=== PATIENT | male | born 1940 | race Caucasian/White ===

== ENCOUNTER 2022-06-21 16:23 | Outpatient (CLI) | payer MEDICARE, BC, SELFPAY ==
[2022-06-21 17:11] LABS: Appearance Urine Cloudy (Clear); Bilirubin Urine Negative (Negative); Blood Urine 3+ (Negative); Color Urine Red (Yellow); Glucose Urine Negative (Negative); Ketones Urine Negative (Negative); Leukocyte Esterase Urine 1+ (Negative); Nitrite Urine Negative (Negative); Protein Urine 3+ (Negative); Urobilinogen Urine 0.2 (0.2-1.0); pH Urine 7.5 (5.0-8.5)
[2022-06-21 17:22] LABS: RBC Urine >100 (0-2); WBC Urine 25-50 (0-5)
== END 2022-06-21 16:24 | disposition home or self-care (01) ==
LOC: LAB 16:27
PROVIDERS: PCP Family Medicine; Visit Provider Nurse Practitioner Adult Health
DX: N39.0 Urinary tract infection, site not specified (principal)
CPT/HCPCS: 81001; 87086

== ENCOUNTER 2023-01-27 15:02 | Outpatient (CLI) | payer MEDICARE, BC, SELFPAY | END 2023-01-27 15:03 | disposition home or self-care (01) | LOC: AMB 01-28 09:52 | PROVIDERS: PCP Family Medicine; Visit Provider Family Medicine | DX: N48.89 Other specified disorders of penis (principal); T85.9XXA Unspecified complication of internal prosthetic device, implant and graft, initial encounter | CPT/HCPCS: A0425; A0428; A0429 ==

== ENCOUNTER 2023-01-27 15:25 | Emergency (ER) | payer MEDICARE, BC, SELFPAY ==
[2023-01-27 15:27] VITALS: BP 115/71; RESP 18; TEMP 37.1; O2SAT 96; BMI 35.8
[2023-01-27 17:05] LABS: Appearance Urine Cloudy (Clear); Bilirubin Urine Negative (Negative); Blood Urine 3+ (Negative); Color Urine Yellow (Yellow); Glucose Urine Negative (Negative); Ketones Urine Negative (Negative); Leukocyte Esterase Urine 1+ (Negative); Nitrite Urine Negative (Negative); Protein Urine Negative (Negative); Specific Gravity Urine 1.015 (1.000-1.030); Urobilinogen Urine 0.2 (0.2-1.0)
[2023-01-27 17:21] LABS: RBC Urine 50-100 (0-2)
[2023-01-27 17:22] LABS: Bacteria Urine Few; Mucus Urine Few; Squamous Epithelial Cell Urine Few (None-Few)
--- NOTE | 2023-01-27 18:03 | ED.MALEGU ---
HPI - Male Genitourinary General Chief complaint: Urogenital Problems, Male Stated complaint: Bleeding Time Seen by Provider: 01/27/23 16:31 History of Present Illness HPI Narrative: This 82-year-old male has a chronic indwelling suprapubic catheter. He had the catheter changed today and has had some bleeding around the catheter and from his penis since then. There is no sign of active bleeding and he is not on blood thinners. His catheter bag is showing urine with ongoing proper flow of urine. He does not report any pain or fevers. Related Data Previous Rx's Medication Instructions Recorded nitrofurantoin 100 mg PO BID #10 caps 01/27/23 monohydrate/macrocrystals 100 mg capsule (Macrobid) Allergies Allergy/AdvReac Type Severity Reaction Status Date / Time adhesive tape Allergy Severe Verified 01/27/23 15:36 amoxicillin [From Augmentin] Allergy Severe Verified 01/27/23 15:36 bacitracin Allergy Severe Verified 01/27/23 15:36 [From Triple Antibiotic] cephalexin [From Keflex] Allergy Severe Verified 01/27/23 15:36 clavulanic acid Allergy Severe Verified 01/27/23 15:36 [From Augmentin] latex Allergy Severe Verified 01/27/23 15:36 neomycin Allergy Severe Verified 01/27/23 15:36 [From Triple Antibiotic] polymyxin B Allergy Severe Verified 01/27/23 15:36 [From Triple Antibiotic] silver sulfadiazine AdvReac Unknown Verified 01/27/23 15:36 Review of Systems Status of ROS: Reports: 10 or more systems reviewed and unremarkable except as noted in History and below Narrative: Constitutional: No fevers, no weight gain or loss. Eyes: No discharge. No vision changes. HENT: No congestion, no sore throat, no ear pain. Cardiovascular: No chest pain, no palpitations. Respiratory: No shortness of breath, no wheezes, no cough. Gastrointestinal: No abdominal pain, no vomiting, no diarrhea. Genitourinary: No dysuria, no hematuria. Musculoskeletal: Normal range of motion. Skin: No rashes, no pruritis. Neurological: No dizziness, weakness, sensory change, speech change. Endo/Heme/Allergies: No bruising or bleeding. No polydipsia. Pysch: no suicidality, no anxiety, no insomnia. All other systems reviewed and are negative. PFSH PFSH Social History Smoking Status: Never smoker Do you use any of these nicotine containing products: None Second hand tobacco smoke exposure: No How often do you have a drink containing alcohol: never How often do you have six or more drinks on one occasion: Never AUDIT-C Alcohol total score: 0 Non-prescribed substance use: denies use service: No Exam Narrative: Exam Narrative: Constitutional: Well-developed, well-nourished, no acute distress. HEENT: Normocephalic, atraumatic. Neck: Normal range of motion. Nontender. Supple. Heart: Intact distal pulses. Lungs: No chest discomfort. No wheezes, rhonchi, or rales. Abdomen: Nontender. Suprapubic catheter in place with no sign of active bleeding around the catheter. The catheter is functioning properly. There is some blood clot around his penis but again no sign of active bleeding. Back: Normal range of motion. Extremities: Normal range of motion. No injury. Skin: Intact. No rash. Warm. No erythema or pallor. Neurologic: No altered sensation. No weakness. Alert and oriented. Psychiatric: No suicidality. No anxiety or depression. No insomnia. Nursing notes and vitals signs are reviewed. Const: Vital Signs, click to edit/add: Vital Signs - 24 hr 01/27/23 15:27 Temperature 98.7 F Respiratory Rate 18 Blood Pressure [Ri ght Upper Arm] 115/71 Pulse Oximetry 96 Oxygen Delivery Me thod Room Air Course Vital Signs Vital signs: Initial Vital Signs Temperature 98.7 F 01/27/23 15:27 Temperature Source Temporal Artery Scan 01/27/23 15:27 Respiratory Rate 18 01/27/23 15:27 Blood Pressure 115/71 01/27/23 15:27 Blood Pressure Mean 85 01/27/23 15:27 Blood Pressure Position Supine 01/27/23 15:27 Pulse Oximetry 96 01/27/23 15:27 Oxygen Delivery Method Room Air 01/27/23 15:27 Vital Signs Temperature 98.7 F 01/27/23 15:27 Respiratory Rate 18 01/27/23 15:27 Blood Pressure 115/71 01/27/23 15:27 Pulse Oximetry 96 01/27/23 15:27 Oxygen Delivery Method Room Air 01/27/23 15:27 Temperature 98.7 F 01/27/23 15:27 Respiratory Rate 18 01/27/23 15:27 Blood Pressure 115/71 01/27/23 15:27 Pulse Oximetry 96 01/27/23 15:27 Oxygen Delivery Method Room Air 01/27/23 15:27 MDM - Male Genitourinary MDM Narrative Medical decision making narrative: This patient comes in for evaluation of his suprapubic catheter which was recently changed today. He did have some bleeding related to the catheter change but there is no sign of ongoing bleeding. Urinalysis does show microscopic hematuria and 5-10 white blood cells per high-powered field. His urinary catheter bag is showing that the flow of urine is functional. There is no sign of obstruction or problem with the function of the catheter bag. This patient was cleaned up and made ready to return home to continue current plans. He did receive a prescription for Macrobid. Lab Data Labs: Lab Results 01/27/23 01/27/23 01/27/23 Range/Units 16:58 16:58 16:58 Urine Color Cancelled Yellow Urine Appearance Cancelled Cloudy A Urine pH Cancelled Ur Specific [place] Urine Protein Urine Glucose (UA) Urine Ketones Urine Blood Urine Nitrite Urine Bilirubin Urine Urobilinogen Ur Leukocyte Esterase Urine RBC (0-2) Urine WBC (0-5) Ur Squamous Epith Cells (None-Few) Urine Bacteria (None) Urine Mucus (None) 01/27/23 01/27/23 01/27/23 Range/Units 16:58 16:58 16:58 Urine Color Urine Appearance Urine pH 6.0 Ur Specific [place] Cancelled 1.015 Urine Protein Cancelled Negative Urine Glucose (UA) Cancelled Urine Ketones Urine Blood Urine Nitrite Urine Bilirubin Urine Urobilinogen Ur Leukocyte Esterase Urine RBC (0-2) Urine WBC (0-5) Ur Squamous Epith Cells (None-Few) Urine Bacteria (None) Urine Mucus (None) 01/27/23 01/27/23 01/27/23 Range/Units 16:58 16:58 16:58 Urine Color Urine Appearance Urine pH Ur Specific [place] Urine Protein Urine Glucose (UA) Negative Urine Ketones Cancelled Negative Urine Blood Cancelled 3+ A Urine Nitrite Cancelled Urine Bilirubin Urine Urobilinogen Ur Leukocyte Esterase Urine RBC (0-2) Urine WBC (0-5) Ur Squamous Epith Cells (None-Few) Urine Bacteria (None) Urine Mucus (None) 01/27/23 01/27/23 01/27/23 Range/Units 16:58 16:58 16:58 Urine Color Urine Appearance Urine pH Ur Specific [place] Urine Protein Urine Glucose (UA) Urine Ketones Urine Blood Urine Nitrite Negative Urine Bilirubin Cancelled Negative Urine Urobilinogen Cancelled 0.2 Ur Leukocyte Esterase Cancelled Urine RBC (0-2) Urine WBC (0-5) Ur Squamous Epith Cells (None-Few) Urine Bacteria (None) Urine Mucus (None) 01/27/23 Range/Units 16:58 Urine Color Urine Appearance Urine pH Ur Specific [place] Urine Protein Urine Glucose (UA) Urine Ketones Urine Blood Urine Nitrite Urine Bilirubin Urine Urobilinogen Ur Leukocyte Esterase 1+ A Urine RBC 50-100 A (0-2) Urine WBC 5-10 A (0-5) Ur Squamous Epith Cells Few (None-Few) Urine Bacteria Few A (None) Urine Mucus Few A (None) Discharge Plan Discharge Clinical Impression: Problem with urinary catheter Patient Disposition: Home w/ Parent or Adult Condition: Improved Additional Instructions: Take medication as prescribed. Continue current plans. Follow up with MD or return recurrent or worsening symptoms happen. Prescriptions: New nitrofurantoin monohyd/m-cryst [Macrobid] 100 mg capsule 100 mg PO BID Qty: 10 0RF Rx Instructions: must administer with a meal/food Follow Up/Referrals: Gabe White MD [Primary Care Provider] - Stand Alone Forms: [employer] Info Instructions
--- NOTE | 2023-01-27 18:55 | ED.NURSE ---
Report given to [place] at [facility].
== END 2023-01-27 21:21 | disposition home or self-care (01) ==
PROVIDERS: Emergency Provider Emergency Medicine Emergency Medical Services; PCP Family Medicine
DX: T83.091A Other mechanical complication of indwelling urethral catheter, initial encounter (principal)
CPT/HCPCS: 81001; 81003; 87086; 99283; 99284

== ENCOUNTER 2023-01-27 21:13 | Outpatient (CLI) | payer MEDICARE, BC, SELFPAY | END 2023-01-27 21:14 | disposition home or self-care (01) | LOC: AMB 01-28 10:40 | PROVIDERS: PCP Family Medicine; Visit Provider Family Medicine | DX: G35 Multiple sclerosis (principal) | CPT/HCPCS: A0425; A0428 ==

== ENCOUNTER 2023-02-07 22:53 | Outpatient (REF) | payer MEDICARE, BC, SELFPAY ==
[2023-02-08 09:05] LABS: PCR FLU A Negative PCR FLU A (Negative); PCR FLU B Negative PCR FLU B (Negative); SARS PCR* ND (Negative)
== END 2023-02-07 22:54 | disposition home or self-care (01) ==
LOC: LAB 22:53
PROVIDERS: PCP Family Medicine; Visit Provider Nurse Practitioner Adult Health
DX: J10.1 Influenza due to other identified influenza virus with other respiratory manifestations (principal)
CPT/HCPCS: 87631

== ENCOUNTER 2024-03-09 16:18 | Outpatient (CLI) | payer MEDICARE, BC, SELFPAY | END 2024-03-09 16:19 | disposition home or self-care (01) | LOC: AMB 03-15 10:17 | PROVIDERS: PCP Family Medicine; Visit Provider Family Medicine | DX: R33.9 Retention of urine, unspecified (principal); R31.9 Hematuria, unspecified | CPT/HCPCS: A0425; A0428; A0429 ==

== ENCOUNTER 2024-03-09 16:39 | Emergency (ER) | payer MEDICARE, BC, SELFPAY ==
[2024-03-09 16:55] VITALS: BP 112/67; PULSE 67; RESP 18; TEMP 36.4; O2SAT 97; BMI 41.2
--- NOTE | 2024-03-09 17:03 | ED.GENADULT ---
HPI - General Adult General Chief complaint: Urogenital Problems, Male Stated complaint: Catheter issues Time Seen by Provider: 03/09/24 16:54 History of Present Illness HPI narrative: Patient here after suprapubic catheter isn't draining correctly. [facility] staff have tried flushing and replacing the catheter without success . Has been seen before for this same issue in the past. Urine is tinged pink. 83-year-old man presenting to the emergency department via EMS with concern of plugged suprapubic catheter. Sounds as though there may also be concern of infection. No noted fever. Care staff have attempted to flush and replace the catheter unsuccessfully. Urine is noted to be tinged pink. Mr. Myers says that he is feeling quite well. Denying any abdominal pain. Denies fever. Mr. Myers notes regular monthly changes of his suprapubic catheter and says/thinks that this was the case today. Reviewing records I see that he was seen in this facility about 6 weeks ago with similar complaints. Was given Macrobid and urine culture was unremarkable. Prior urine cultures also here have not grown out anything of significance. Related Data Home Medications Medication Instructions Recorded Confirmed Lactobacillus acidophilus 1 cap PO DAILY 03/09/24 03/09/24 (Acidophilus capsule) apixaban 2.5 mg tablet (Eliquis) 2.5 mg PO BID 03/09/24 03/09/24 azithromycin 250 mg tablet mg PO 03/09/24 bacitracin 500 unit/gram topical topical 03/09/24 ointment ciprofloxacin HCl 250 mg tablet 250 mg PO BID 03/09/24 03/09/24 donepezil 10 mg tablet 10 mg PO DAILY 03/09/24 03/09/24 furosemide 40 mg tablet mg PO 03/09/24 memantine 5 mg tablet 5 mg PO DAILY 03/09/24 03/09/24 oxybutynin chloride 5 mg 5 mg PO DAILY 03/09/24 03/09/24 tablet,extended release 24 hr potassium chloride 20 mEq 20 meq PO BID 03/09/24 03/09/24 tablet,extended release(part/cryst) sertraline 50 mg tablet mg PO 03/09/24 tramadol 50 mg tablet PO 03/09/24 triamcinolone acetonide 0.1 % applic topical 03/09/24 topical cream Allergies Allergy/AdvReac Type Severity Reaction Status Date / Time adhesive tape Allergy Severe Verified 01/27/23 15:36 amoxicillin [From Augmentin] Allergy Severe Verified 01/27/23 15:36 bacitracin Allergy Severe Verified 01/27/23 15:36 [From Triple Antibiotic] cephalexin [From Keflex] Allergy Severe Verified 01/27/23 15:36 clavulanic acid Allergy Severe Verified 01/27/23 15:36 [From Augmentin] latex Allergy Severe Verified 01/27/23 15:36 neomycin Allergy Severe Verified 01/27/23 15:36 [From Triple Antibiotic] polymyxin B Allergy Severe Verified 01/27/23 15:36 [From Triple Antibiotic] silver sulfadiazine AdvReac Unknown Verified 01/27/23 15:36 Review of Systems Status of ROS: Reports: 6 or more systems reviewed and unremarkable except as noted in History and below [facility] Social History Smoking Status: Never smoker Do you use any of these nicotine containing products: None Second hand tobacco smoke exposure: No How often do you have a drink containing alcohol: never How often do you have six or more drinks on one occasion: Never AUDIT-C Alcohol total score: 0 Non-prescribed substance use: denies use service: No Exam Narrative: Exam Narrative: Pleasant. Quite alert. I am not sure of quality of recollection. Breathing easily. Skin is warm and dry. 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 Says these are related to surgeries. Surgical scars with absent right thumb as well. Lungs appear to be clear. Heart is in regular rate. Abdomen is overweight soft and nontender. In lower abdominal fold is suprapubic catheter. There is some small amount of erythematous tissue but without active bleeding. No surrounding inflammatory changes otherwise. No induration of the skin. Catheter looks to be draining clear but lightly blood-tinged urine. Const: Vital Signs, click to edit/add: Vital Signs - 24 hr 03/09/24 16:55 Temperature 97.6 F Pulse Rate [Pulse Oximeter] 67 Respiratory Rate 18 Blood Pressure [Ri ght Upper Arm] 112/67 Pulse Oximetry 97 Oxygen Delivery Me thod Room Air Documenting provider has reviewed patient's vital signs: yes Course Vital Signs Vital signs: Initial Vital Signs Temperature 97.6 F 03/09/24 16:55 Temperature Source Temporal Artery Scan 03/09/24 16:55 Pulse Rate 67 03/09/24 16:55 Pulse Rhythm Regular 03/09/24 16:55 Respiratory Rate 18 03/09/24 16:55 Blood Pressure 112/67 03/09/24 16:55 Blood Pressure Mean 82 03/09/24 16:55 Blood Pressure Position Sitting 03/09/24 16:55 Pulse Oximetry 97 03/09/24 16:55 Oxygen Delivery Method Room Air 03/09/24 16:55 Vital Signs Temperature 97.6 F 03/09/24 16:55 Pulse Rate 67 03/09/24 16:55 Respiratory Rate 18 03/09/24 16:55 Blood Pressure 112/67 03/09/24 16:55 Pulse Oximetry 97 03/09/24 16:55 Oxygen Delivery Method Room Air 03/09/24 16:55 Temperature 97.6 F 03/09/24 16:55 Pulse Rate 67 03/09/24 16:55 Respiratory Rate 18 03/09/24 16:55 Blood Pressure 112/67 03/09/24 16:55 Pulse Oximetry 97 03/09/24 16:55 Oxygen Delivery Method Room Air 03/09/24 16:55 Medical Decision Making MDM Narrative Medical decision making narrative: In the setting of anticoagulation may be bleeding from inadvertent manipulation of the catheter or may be due to urinary tract infection. More difficult to tell with chronic suprapubic catheter. What appear to be significant findings in urine in the past have not grown out any definitive cultures. Listed in record also are numerous antibiotic allergies. Does not appear to be bleeding to the degree that would require continuous bladder irrigation again in the setting of anticoagulation. Preference would not to be to collect urine. I would attempt to flush/clear this catheter. This was done with success. I then understand that due to preference by place of residence, urine was sent for analysis. I do review this. Unique this time is presence of nitrate. I would still monitor for urine culture. See patient discharge plan for further discussion Medical Records Medical records reviewed: Yes I reviewed the patient's medical records Lab Data Lab results reviewed: Yes I reviewed the patient's lab results Labs: Lab Results 03/09/24 Range/Units 18:19 Urine Color Red A (Yellow) Urine Appearance Slightly Cloudy A (Clear) Urine pH 6.0 (5.0-8.5) Ur Specific [place] 1.020 (1.000-1.030) Urine Protein 3+ A (Negative) Urine Glucose (UA) Negative (Negative) Urine Ketones Negative (Negative) Urine Blood 3+ A (Negative) Urine Nitrite Positive A (Negative) Urine Bilirubin Negative (Negative) Urine Urobilinogen 0.2 (0.2-1.0) Ur Leukocyte Esterase 3+ A (Negative) Urine RBC 10-25 A (0-2) Urine WBC 10-25 A (0-5) Ur Squamous Epith Cells Few (None-Few) Urine Bacteria Few A (None) Discharge Plan Discharge Clinical Impression: Obstructed suprapubic catheter Patient Disposition: Home w/ Parent or Adult Condition: Improved Additional Instructions: I think it is important to wait to treat pending the results of urine culture which will be done here. Recent urine cultures have not grown out anything to treat. We will call if urine culture looks to be significant. Continue to monitor for good urinary output. Report fever, unusual somnolence for agitation, increasing abdominal pain. Prescriptions: No Action furosemide 40 mg tablet PO azithromycin 250 mg tablet PO donepezil 10 mg tablet 10 mg PO DAILY bacitracin 500 unit/gram ointment topical ciprofloxacin HCl 250 mg tablet 250 mg PO BID tramadol 50 mg tablet PO triamcinolone acetonide 0.1 % cream topical potassium chloride 20 mEq tablet,ER particles/crystals 20 meq PO BID oxybutynin chloride 5 mg tablet extended release 24hr 5 mg PO DAILY Acidophilus Capsule 1 cap PO DAILY sertraline 50 mg tablet PO memantine 5 mg tablet 5 mg PO DAILY Eliquis 2.5 mg tablet 2.5 mg PO BID Follow Up/Referrals: Gabe White MD [Primary Care Provider] - Stand Alone Forms: [employer] Info Instructions
[2024-03-09 18:38] LABS: Appearance Urine Slightly Cloudy (Clear); Bilirubin Urine Negative (Negative); Blood Urine 3+ (Negative); Color Urine Red (Yellow); Glucose Urine Negative (Negative); Ketones Urine Negative (Negative); Leukocyte Esterase Urine 3+ (Negative); Nitrite Urine Positive (Negative); Protein Urine 3+ (Negative); Urobilinogen Urine 0.2 (0.2-1.0)
[2024-03-09 19:23] LABS: Bacteria Urine Few; Squamous Epithelial Cell Urine Few (None-Few)
== END 2024-03-09 21:05 | disposition home or self-care (01) ==
PROVIDERS: Emergency Provider Family Medicine; PCP Family Medicine
DX: T83.098A Other mechanical complication of other urinary catheter, initial encounter (principal)
CPT/HCPCS: 81001; 87086; 99283; 99284

== ENCOUNTER 2024-03-09 21:01 | Outpatient (CLI) | payer MEDICARE, BC, SELFPAY | END 2024-03-09 21:02 | disposition home or self-care (01) | LOC: AMB 03-15 10:46 | PROVIDERS: PCP Family Medicine; Visit Provider Family Medicine | DX: G35 Multiple sclerosis (principal); Z74.01 Bed confinement status | CPT/HCPCS: A0425; A0428 ==

== ENCOUNTER 2024-10-12 19:54 | Outpatient (CLI) | payer MEDICARE, BC, SELFPAY ==
--- OUTSIDE RECORDS SUMMARY | 2024-10-12 19:58 | XMS_ITS | Clinical Summary ---
Author Organization [facility] Address [address] [place] [address] Care Team Providers Care Graphic Editor Name Role Phone Elsewhere, Pcp Primary Care Provider Unavailabl e Source Comments Patient records contain information from all sites at [facility]. For routine questions regarding patient records, call [phone] during business hours, M-F 8:00 AM - 5:00 PM Central Time. Record requests for emergency care only can be directed to [phone] at any time.[facility] Allergies Active Allergy Reactions Criticality Noted Date Comments Adhesive Tape-Silicones Other (see comments) Amoxicillin-Pot Clavulanate Diarrhea 08/03/20 11 Bacitracin-Polymyxin B Rash 01/11/2011 Latex Swelling 01/01/2013 Myizkhys-Cixhhnzzxz-Kvcbbjtf n Itching 10/13/2011 Nitrofurantoin Monohyd/M-Cryst Other (see comments),GI intolerance Low 06/11/2015 Silver Sulfadiazine Other (see comments) 2009 Medications cranberry 500 mg capsule Take 1 capsule by mouth daily. 3 Active donepeziL (Aricept) 10 mg tablet Take 1 tablet by mouth at bedtime. 6 Active multivitamin-m pdacxnp-ZU-znc opene-lutein (CENTRUM SILVER) 0.4 mg-300 mcg- 250 mcg tablet Take 1 tablet by mouth daily. 0 Active loperamide (IMODIUM A-D) 2 mg capsule Give 1 tablet by mouth as needed for diarrhea 2 mg after each loose stool up to 60 mg in 24 hours 90 capsule 3 0 Active sennosides-doc usate sodium (SENOKOT-S) 8.6-50 mg per tablet Take 1 tablet by mouth at bedtime as needed for constipation. 0 Active L.acidoph-B.la ctis-B.longum (FLORAJEN 3) 460 mg (7.5-6- 1.5 bill. cell) per capsule Take 1 capsule by mouth daily. Active melatonin 3 mg tablet Take 3 tablets (9 mg total) by mouth at bedtime. 1 Active sertraline (ZOLOFT) 50 mg tablet Take 1 tablet (50 mg total) by mouth daily. 1 Active apixaban (ELIQUIS) 2.5 mg tablet Take 2.5 mg by mouth 2 (two) times a day. Active memantine (NAMENDA) 5 mg tablet Take 1 tablet (5 mg total) by mouth daily. 1 Active furosemide (LASIX) 40 mg tablet Take 1 tablet (40 mg total) by mouth daily. 1 Active atenoloL (TENORMIN) 50 mg tablet Take 1 tablet (50 mg total) by mouth daily. 90 tablet 3 1 Active Additional Information Patient not taking.Reported on 09/17/2024 acetaminophen (TYLENOL) 325 mg tablet Take 2 tablets (650 mg total) by mouth every 8 (eight) hours as needed. 1 Active ciprofloxacin (CIPRO) 500 mg tablet Take 1 tablet (500 mg total) by mouth 2 (two) times a day before breakfast and dinner. For three days after catheter change 6 tablet 5 1 Active traMADoL (ULTRAM) 50 mg tabletIndicati ons:Chronic Pain/Nonacute Pain Take 0.5 tablets (25 mg total) by mouth 3 (three) times a day Indications: Chronic Pain/Nonacute Pain. And one dose ( 25 mg ) during the night PRN pain. 45 tablet 2 Active oxybutynin (DITROPAN-XL) 5 mg 24 hr tablet 2 Active potassium chloride (KLOR-CON M/KDUR) 20 mEq ER tablet 2 Active doxycycline hyclate (VIBRAMYCIN) 100 mg capsule 3 Active oseltamivir (TAMIFLU) 75 mg capsule 3 Active albuterol 2.5 mg /3 mL nebulizer solution 4 Active bacitracin 500 unit/gram ointment 4 Active LORazepam (Ativan) 0.5 mg tablet 4 Active triamcinolone (Kenalog) 0.1 % cream 4 Active sertraline (Zoloft) 25 mg tablet 4 Active nystatin (Mycostatin) 100,000 unit/gram cream 4 Active AZITHROMYCIN ORAL Take 250 mg by mouth as needed. 2 tablets by mouth as needed for prior to dental treatment PRN Active amoxicillin (AMOXIL) 500 mg capsule Take 4 capsules (2,000 mg total) by mouth once as needed. 1 09/17/20 24 Discontin ued(Formu paula change) nystatin (NYSTOP) 100,000 unit/gram powder 3 09/17/20 24 Discontin ued(Dupli najma order) Active Problems Patient Care Coordination No te Formatting of this note migh t be different from the original. Patient is a resident at a [facility]. Problem Noted Date Diagnosed Date Personal History Of Infectio us And Parasitic Disease (COVID-19) 12/11/2021 Overview (12/11/2021): COVID Assessment & Plan (12/11/2021 9:56 AM DEPARTMENT OF NATURAL RESOURCES OFFICER): He was covid positive on 11/30/21. He had minor symptoms and is now off restrictions. Atrial Fibrillation Unspecified 09/21/2021 Overview (12/11/2021): A fib Assessment & Plan (12/11/2021 9:54 AM DEPARTMENT OF NATURAL RESOURCES OFFICER): Atenolol for rate control and apixaban 2.5 mg bid for anticoagulation. Assessment & Plan (10/20/2021 8:33 AM DEPARTMENT OF NATURAL RESOURCES OFFICER): He is on prison anticoagulation. Atrial Fibrillation Personal History 09/20/2021 Overview (10/06/2021): Atenolol for rate control and apixaban for anticoagulation. Assessment & Plan (11/30/2021 3:03 PM DEPARTMENT OF NATURAL RESOURCES OFFICER): Stable on current medications. Assessment & Plan (10/06/2021 7:44 PM DEPARTMENT OF NATURAL RESOURCES OFFICER): Heart rate and blood pressure adequate on increased dose of atenolol. Diastasis Recti 05/19/2021 Overview (05/19/2021): Diastasis recti Assessment & Plan (12/11/2021 9:51 AM DEPARTMENT OF NATURAL RESOURCES OFFICER): He has no pain or symptoms. Assessment & Plan (09/15/2021 8:07 PM DEPARTMENT OF NATURAL RESOURCES OFFICER): Resp easy. 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 Constipation 03/31/2021 Overview (05/19/2021): Slow transit constipation Assessment & Plan (12/11/2021 9:51 AM DEPARTMENT OF NATURAL RESOURCES OFFICER): His bowels are moving in his normal pattern using Senna S 1 tab hs prn. He is also on a probiotic daily. Assessment & Plan (11/30/2021 3:03 PM DEPARTMENT OF NATURAL RESOURCES OFFICER): Bowel agents available. Assessment & Plan (10/20/2021 8:30 AM DEPARTMENT OF NATURAL RESOURCES OFFICER): His bowels are moving in his normal pattern on senna and probiotic. Assessment & Plan (09/15/2021 8:06 PM DEPARTMENT OF NATURAL RESOURCES OFFICER): His bowels are moving in a normal pattern with his scheduled bowel meds Assessment & Plan (07/28/2021 1:18 PM CDT): Bowel agents available. Assessment & Plan (05/19/2021 8:02 PM CDT): His bowels are moving in his normal bowel pattern Assessment & Plan (03/31/2021 9:03 PM CDT): Bowel agents available. Edema 03/03/2021 Overview (03/31/2021): Bilateral lower extremity edema This is multifactorial and related mostly to immobility and dependent posture. Assessment & Plan (12/11/2021 9:48 AM DEPARTMENT OF NATURAL RESOURCES OFFICER): His legs are wrapped and he elevates them routinely during the day when he is in bed. Assessment & Plan (09/15/2021 8:05 PM DEPARTMENT OF NATURAL RESOURCES OFFICER): He has dependent edema. Legs are wrapped. Weight is stable. Assessment & Plan (07/28/2021 1:18 PM CDT): He is on diuretics, low-sodium diet, elevates his legs, and is wrapped. Assessment & Plan (06/24/2021 11:03 AM CDT): He recently had metolazone added every other day. His edema seems to have improved. He has more compliant with elevating his legs. Assessment & Plan (06/20/2021 11:31 AM CDT): The edema is significant. It appears to be a combination of lymphedema and pitting edema. Will ask for meticulous wrapping. He has orders to lay down and elevate his legs b.i.d. at least 15 minutes. That is not nearly enough, but he enjoys being up in his chair. Follow-up labs next week. Assessment & Plan (05/19/2021 8:00 PM CDT): Edema is controlled at present with no blisters or ulcers Assessment & Plan (03/31/2021 9:04 PM CDT): Continue current regimen of wraps, elevation, furosemide. Assessment & Plan (03/10/2021 10:20 PM CDT): He has dependent lower extremity edema. He states that he sits up in his wheelchair most of the day with his legs down. Benjamin wraps were ordered however today he only has Tubigrip on. He has 4+ tight edema in his right lower extremity. He also has edema in his left lower extremity. He will have Lasix increased from 40-60 mg in the morning keeping the 40 mg afternoon dose. PT will do of lymphedema evaluation to help reduce the edema. I did speak with his daughter Megan prior to seeing him. She states that he eats a lot of Peanuts. She normally by see him lightly salt it peanut. She did bring him in a can of regular huang did sole to DP notes. She feels this is the reason that his legs are swollen and that his abdomen appears swollen to her. Assessment & Plan (03/03/2021 4:05 PM CDT): Or will is nonambulatory. He has muscle wasting of MS. He has dependent edema in his legs. He has short stretch wraps on that only go to his mid leg slightly above the ankle. This is causing the fluid in the leg to pop I above the wraps. He has pedal edema with erythema from the fluid. I will have nursing wrap his legs in a figure 8 from toes to knees bilaterally, with a wraps on in the morning and off at night Insomnia 01/20/2021 Overview (01/20/2021): Insomnia Assessment & Plan (12/11/2021 9:48 AM DEPARTMENT OF NATURAL RESOURCES OFFICER): He is sleeping well on Melatonin 9 mg. Assessment & Plan (11/30/2021 3:02 PM DEPARTMENT OF NATURAL RESOURCES OFFICER): Continue current dose of melatonin. Assessment & Plan (10/20/2021 8:22 AM DEPARTMENT OF NATURAL RESOURCES OFFICER): The melatonin is effective in helping him sleep[. Assessment & Plan (09/15/2021 8:05 PM DEPARTMENT OF NATURAL RESOURCES OFFICER): He is sleeping well on melatonin Assessment & Plan (07/28/2021 1:20 PM CDT): He continues on melatonin. Assessment & Plan (05/19/2021 8:01 PM CDT): He sleeps well on Melatonin Assessment & Plan (03/31/2021 9:04 PM CDT): Continue melatonin. Assessment & Plan (01/20/2021 4:56 PM CDT): He is sleeping well on melatonin 6 mg at bedtime Urinary Tract Infection Site Not Specified 09/30 Overview (09/30/2020): History of Urinary tract infection Assessment & Plan (12/11/2021 10:31 AM DEPARTMENT OF NATURAL RESOURCES OFFICER): He continues on cranberry and has cipro 3 days after a catheter change. The urine from 11/18/21 showed he had a UTI. I do not see where it was treated. I am requesting a catheter change today and a fresh urine sent for UA/UC. He will have his 3 days of cipro 500 mg bid with the catheter change. Assessment & Plan (10/20/2021 8:23 AM DEPARTMENT OF NATURAL RESOURCES OFFICER): He is prone to UTI's. He has his catheter changed monthly with a 3 day course of cipro surrounding the changes.. He is also on cranberry 500 mg bid. Assessment & Plan (10/06/2021 7:48 PM DEPARTMENT OF NATURAL RESOURCES OFFICER): Most recently treated with IV ceftriaxone and then oral Omnicef to total 10 day course of treatment. Assessment & Plan (09/30/2020 2:44 PM DEPARTMENT OF NATURAL RESOURCES OFFICER): Brad was seen at [facility] emergency department September 03 was diagnosed with the urinary tract infection with Gina. He is currently finishing a course of doxycycline and Diflucan. He is asymptomatic in his urine is clear. He has a suprapubic catheter that is changed monthly. The protocol is to give him Cipro 3 days prior to having the catheter changed. He has a neurogenic bladder due to multiple sclerosis. Chronic Pain Syndrome 03/13/2019 Overview (09/15/2021): Chronic pain of MS Assessment & Plan (12/11/2021 9:53 AM DEPARTMENT OF NATURAL RESOURCES OFFICER): His pain is controlled with Tramadol 25 mg tid and x 1 prn during the night and tylenol 650 mg Q 6 h prn. Assessment & Plan (10/20/2021 8:31 AM DEPARTMENT OF NATURAL RESOURCES OFFICER): Pain is controlled with tylenol and tramadol. Assessment & Plan (09/15/2021 8:09 PM DEPARTMENT OF NATURAL RESOURCES OFFICER): He takes tramadol 25 mg tid. This enables him to be up in the chair and enjoy the day. He socializes with other men at his dining room table. Assessment & Plan (07/28/2021 1:22 PM CDT): He has no complaints of pain on his current regimen of scheduled tramadol and acetaminophen. He agrees to a trialed dose reduction to 25 mg t.i.d. of tramadol. Monitor for increased pain and reassess. Half-Way Examination 60 Day Certification Overview (07/10/2019): [facility] Assessment & Plan (11/30/2021 2:57 PM DEPARTMENT OF NATURAL RESOURCES OFFICER): Current comorbidities, ADL need/level of debility requires skilled care/therapy. Medications and labs all reviewed and appropriate related to comorbidities, unless otherwise indicated. Physician order sheet signed. Continue restorative/maintenance care plan, nutrition intervention, skin protection, and fall prevention. He will be tested for COVID-19 according to the prevalence in the community and in the facility in accordance with [facility] guidelines. Assessment & Plan (10/20/2021 8:15 AM DEPARTMENT OF NATURAL RESOURCES OFFICER): He is a prison resident at [facility]. Assessment & Plan (09/15/2021 7:47 PM DEPARTMENT OF NATURAL RESOURCES OFFICER): He is appropriate for buttermaker continuous churn care Assessment & Plan (05/19/2021 7:54 PM CDT): He is a prison resident at [facility] Assessment & Plan (01/20/2021 4:52 PM CDT): He is a long-term resident on the rest of the nursing on. His recently Assessment & Plan (07/15/2020 1:50 PM CDT): He is a long-term resident at [facility]. He shares a room with his Ya. Assessment & Plan (03/18/2020 2:25 PM CDT): He is a long-term resident at [facility]. He shares a room with his . Assessment & Plan (11/13/2019 3:37 PM DEPARTMENT OF NATURAL RESOURCES OFFICER): He is a long-term resident at [facility] Assessment & Plan (07/10/2019 4:28 PM CDT): He is a long-term side of [facility]. He shares a room with his Major Depressive Disorder, Recurrent, Unspecifie d 12/20/2016 Overview (03/29/2017): Depression Major Recurrent Moderate Assessment & Plan (12/11/2021 9:45 AM DEPARTMENT OF NATURAL RESOURCES OFFICER): He is on sertraline 50 mg daily. He lost his , who was also his roommate recently. He also vocalized that he will miss his current friends at [facility]. Assessment & Plan (11/30/2021 3:03 PM DEPARTMENT OF NATURAL RESOURCES OFFICER): Stable on current dose of sertraline. Assessment & Plan (10/20/2021 8:29 AM DEPARTMENT OF NATURAL RESOURCES OFFICER): Stable on sertraline 50 mg daily. Assessment & Plan (09/15/2021 8:00 PM DEPARTMENT OF NATURAL RESOURCES OFFICER): Sertraline is effective for managing depression Assessment & Plan (07/28/2021 1:18 PM CDT): Continues on sertraline with no complaints of increased symptoms. Assessment & Plan (06/24/2021 11:01 AM CDT): It is highly likely that his symptoms are at least in part due to increasing depression as he has recently lost his . He is willing to see in-house Psychology and I would like to increase sertraline after his labs are complete. Assessment & Plan (05/19/2021 7:58 PM CDT): He is doing well on duloxetine Assessment & Plan (03/31/2021 9:03 PM CDT): This is stable on duloxetine. Assessment & Plan (03/18/2020 2:26 PM CDT): He is not showing any signs of depression. Nursing reports no symptomatology Assessment & Plan (11/13/2019 3:54 PM DEPARTMENT OF NATURAL RESOURCES OFFICER): He is currently stable on Zoloft 125 mg daily. Assessment & Plan (07/10/2019 4:32 PM CDT): He is currently stable on Zoloft 50 mg daily. No dose reduction will be done as his disease process is progressing. This could add to his situational depression. 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 He is stable on donepezil 10 mg at bedtime and memantine 5 mg in the morning. Assessment & Plan (11/30/2021 2:59 PM DEPARTMENT OF NATURAL RESOURCES OFFICER): He is stable on donepezil and memantine. Assessment & Plan (10/20/2021 8:20 AM DEPARTMENT OF NATURAL RESOURCES OFFICER): He continues with his memory pills donepezil and memantine Assessment & Plan (09/15/2021 7:58 PM DEPARTMENT OF NATURAL RESOURCES OFFICER): He is doing well on donepezil and memantine. Assessment & Plan (07/28/2021 1:20 PM CDT): He is very stable on donepezil and memantine. Assessment & Plan (05/19/2021 7:58 PM CDT): He continues on donepezil and memantine. He has no behaviors or current memory problems Assessment & Plan (03/31/2021 9:05 PM CDT): He is doing well without behaviors on donepezil and memantine Assessment & Plan (01/20/2021 4:55 PM CDT): He is on Namenda and Aricept. His cognition is stable Assessment & Plan (07/15/2020 1:53 PM CDT): He takes Namenda and Aricept. Assessment & Plan (03/18/2020 2:26 PM CDT): He continues to do well on the Namenda which he calls is m macho pill . Assessment & Plan (11/13/2019 3:39 PM DEPARTMENT OF NATURAL RESOURCES OFFICER): He is stable on Namenda XR 14 mg daily. He is also on Aricept 10 mg at bedtime Assessment & Plan (07/10/2019 4:33 PM CDT): He is currently stable on Namenda. He calls that his memory pill. He also is on Aricept 10 mg daily Hypertension Essential Primary 05/28/2015 Overview (03/29/2017): Hypertension (HTN) Essential Benign Assessment & Plan (12/11/2021 9:46 AM DEPARTMENT OF NATURAL RESOURCES OFFICER): He is normotensive and hemodynamically stable on Atenolol 50 mg and furosemide 40 mg. Assessment & Plan (11/30/2021 3:03 PM DEPARTMENT OF NATURAL RESOURCES OFFICER): He is on atenolol and furosemide. Assessment & Plan (10/20/2021 8:28 AM DEPARTMENT OF NATURAL RESOURCES OFFICER): Blood pressures are stable on furosemide and atenolol. Rate controlled with atenolol. Assessment & Plan (09/15/2021 8:04 PM DEPARTMENT OF NATURAL RESOURCES OFFICER): He is normotensive and hemodynamically stable on his current regimen. Assessment & Plan (07/28/2021 1:19 PM CDT): Blood pressure adequate on current medications. Assessment & Plan (05/19/2021 7:59 PM CDT): He is normotensive and hemodynamically stable on his current meds. Assessment & Plan (03/31/2021 9:04 PM CDT): Well controlled on current medications. Assessment & Plan (01/20/2021 4:56 PM CDT): He is normotensive and hemodynamically stable on atenolol 25 mg daily and Lasix 40 mg daily Assessment & Plan (07/15/2020 1:55 PM CDT): He is normotensive and hemodynamically stable on atenolol Lasix and potassium. A BMP will be drawn Assessment & Plan (03/18/2020 2:25 PM CDT): He continues to be normotensive and hemodynamics likely stable on his current plan. There will be no changes Assessment & Plan (11/13/2019 3:42 PM DEPARTMENT OF NATURAL RESOURCES OFFICER): He is normotensive and hemodynamically stable on aspirin, furosemide 40 mg twice a day and atenolol. He is also on potassium 20 mEq twice a day. Component Ref Range & Units 11mo ago SODIUM 135 - 145 mmol/L 141 POTASSIUM 3.5 - 5.0 mmol/L 4.0 CHLORIDE 98 - 110 mmol/L 106 CO2,TOTAL 21 - 31 mmol/L 24 ANION GAP 5 - 18 11 GLUCOSE 65 - 100 mg/dL 101High CALCIUM 8.5 - 10.5 mg/dL 9.4 BUN 8 - 25 mg/dL 17 CREATININE 0.72 - 1.25 mg/dL 0.97 BUN/CREAT RATIO 10 - 20 18 GFR if >60 ml/min/1.73m2 >60 GFR if not >60 ml/min/1.73m2 >60 He will be due soon for a repeat basic metabolic panel Assessment & Plan (07/10/2019 4:31 PM CDT): He is normotensive and hemodynamically stable on atenolol, furosemide and potassium. A CBC and a BMP will be drawn for monitoring of renal function electrolytes and blood indices. Neurogenic Bladder 01/11/2011 Overview (03/31/2021): Neurogenic bladder He has a suprapubic catheter which is changed monthly and p.r.n.. He gets Cipro for 3 days after catheter change. Assessment & Plan (12/11/2021 9:47 AM DEPARTMENT OF NATURAL RESOURCES OFFICER): He has a suprapubic catheter which is changed monthly. The catheter was last changed when it was to be leaking around the site on November. A UA was sent. Next catheter change should be scheduled for December 16, 2019 Assessment & Plan (11/30/2021 2:57 PM DEPARTMENT OF NATURAL RESOURCES OFFICER): No recent difficulties with his suprapubic catheter. Assessment & Plan (10/20/2021 8:21 AM DEPARTMENT OF NATURAL RESOURCES OFFICER): Neurogenic bladder from MS. He is prone to urinary tract infections and was recently hospitalized with a UTI that precipitated a bout of atrial fibrillation. He is on anticoagulation with apixaban. Assessment & Plan (09/15/2021 7:55 PM DEPARTMENT OF NATURAL RESOURCES OFFICER): Suprapubic catheter is patent. The catheter is changed every month. He is covered by Cipro during the catheter change. Assessment & Plan (07/28/2021 1:29 PM CDT): Continue routine catheter cares. He is not complaining of bladder spasms. Will discontinue oxybutynin. Assessment & Plan (05/19/2021 7:56 PM CDT): He has been free from urinary tract infections Assessment & Plan (03/31/2021 9:06 PM CDT): Catheter as above. Continue oxybutynin for bladder spasms. Assessment & Plan (01/20/2021 4:57 PM CDT): He has a suprapubic catheter that is changed monthly. He gets Cipro prior to changing the catheter. He is on cranberry tablets 500 mg daily for UTI prevention Assessment & Plan (07/15/2020 1:55 PM CDT): He has a suprapubic pubic catheter that is changed monthly. He is given Cipro 3 days before the catheter change as he is prone to urinary tract infections. He is on oxybutynin 10 mg daily for bladder spasms Assessment & Plan (03/18/2020 2:27 PM CDT): He has a neurogenic bladder from the MS. He has suprapubic catheter which is replaced monthly. He receive Cipro prior to and after the replacement of the catheter. He has had no recent UTI. He continues on the cranberry. Assessment & Plan (11/13/2019 3:40 PM DEPARTMENT OF NATURAL RESOURCES OFFICER): He has a suprapubic catheter due to MS. He is also on oxybutynin and cranberry tablets. Assessment & Plan (07/10/2019 4:34 PM CDT): Has a suprapubic catheter which is changed monthly in the retirement setting. He takes oxybutynin for bladder spasms and cranberry tablets prevent UTIs. When his catheter is changed, he goes on a 3 day course of Cipro 500 mg twice a day. Multiple Sclerosis 12/10/2009 Overview (07/10/2019): MS diagnosed several years ago Assessment & Plan (12/11/2021 9:23 AM DEPARTMENT OF NATURAL RESOURCES OFFICER): He requires 24 hour care. He has a neurogenic bladder due to the MS. He is nonambulatory and has his own motorized chair. He has no dysphagia. His speech is clear. Assessment & Plan (11/30/2021 2:59 PM DEPARTMENT OF NATURAL RESOURCES OFFICER): Continues to require 24 hour care, assistance with all cares. Assessment & Plan (10/20/2021 8:18 AM DEPARTMENT OF NATURAL RESOURCES OFFICER): He remains non-ambulatory. He needs a suprapubic catheter, mechanical life, wheelchair and 24 hour detention care. Assessment & Plan (09/15/2021 7:50 PM DEPARTMENT OF NATURAL RESOURCES OFFICER): He is non ambulatory. He requires 24 hour care. He is wheelchair bound and uses a garth lift Assessment & Plan (07/28/2021 1:20 PM CDT): He is wheelchair-bound and requires Garth lift for transfers. Assessment & Plan (05/19/2021 7:56 PM CDT): He is a mechanical lift and wheelchair bound. He has a suprapubic catheter for neurogenic bladder Assessment & Plan (03/31/2021 9:05 PM CDT): He is wheelchair bound but stable. Assessment & Plan (01/20/2021 4:53 PM CDT): He has a neurogenic bladder due to MS. He also is nonambulatory and has muscle wasting Assessment & Plan (07/15/2020 1:51 PM CDT): He showing a slow decline with MS. He does not want to get out of bed as much as he used to. There is COVID-[address] residence are socially isolated. Staff states that he was out of bed last week to play being go. The residence are placed outside at door without leaving the room to play. Assessment & Plan (03/18/2020 2:25 PM CDT): He remains stable. He wears a brace on his right leg. Assessment & Plan (11/13/2019 3:38 PM DEPARTMENT OF NATURAL RESOURCES OFFICER): He has a neurogenic bladder and has a suprapubic catheter which is changed monthly. He is wheelchair-bound. He has muscle wasting of MS noted Assessment & Plan (07/10/2019 4:29 PM CDT): He is complaining that he is getting tired very easily. He is not sleeping well as he takes cat naps during the day. He is encouraged not to take any naps during the day if possible. He will be started melatonin 3 mg at bedtime Resolved Problems Problem Noted Date Diagnosed Date Resolved Date [facility] (Current) Anticoagulant Treatment 11/30/2021 12/11/2021 Overview (11/30/2021): Atrial fibrillation Assessment & Plan (11/30/2021 3:02 PM DEPARTMENT OF NATURAL RESOURCES OFFICER): He continues on apixaban. Failure Renal Acute (Acute Kidney Injury) 10/06/2021 12/11/2021 Overview (10/06/2021): Peak creatinine during recent hospitalization 1.59 Assessment & Plan (10/06/2021 7:46 PM DEPARTMENT OF NATURAL RESOURCES OFFICER): Creatinine at discharge 1.23. Spironolactone was held and will be restarted pending adequate renal function. Anemia Of Chronic Disease 10/06/2021 Overview (10/06/2021): Most recent hemoglobin 11.9 at discharge. Assessment & Plan (10/06/2021 7:44 PM DEPARTMENT OF NATURAL RESOURCES OFFICER): Continue to follow hemoglobin. Hypokalemia 07/28/2021 09/15/2021 Overview (07/28/2021): Severe hyponatremia on 06/24, potassium 2.6, requiring inpatient care. Diuretics were adjusted and spironolactone was added. Assessment & Plan (07/28/2021 1:19 PM CDT): Most recent potassium 3.7 on 07/15/2021. Anorexia 06/24/2021 10/20/2021 Overview (06/24/2021): Lack of appetite. Assessment & Plan (06/24/2021 11:04 AM CDT): He just has not been hungry. Likely multifactorial but at least in part due to depression. Will check chemistries and address depression. Rigidity Abdominal 03/03/2021 Overview (03/03/2021): Nursing reports abdominal rigidity with distension Assessment & Plan (03/03/2021 4:03 PM CDT): X-ray was done by [facility] which showed normal results. This was reported by Juwan, the night nurse. I requested that a bladder scan be done. Nursing reports that he had approximately 127 cc of urine in his bladder. His suprapubic catheter was changed 2 and half weeks ago. Nursing reports he has a normal amount of urine which is clear in the collection bag. Nursing reports he has increasing edema in his legs as well as the distension and rigidity in his anterior and left abdomen. The CBC, BNP, and BM P will be drawn tomorrow on lab day Lasix will be increased to 60 mg this morning from 40mg. He will keep his 2nd dose as 40 mg . He will continue daily weights. He is to be weighed before breakfast. Nursing also reports that he drinks a lot of soda and eats a lot of junk food. He states he feels absolutely fine and has no idea why we are even doing all the tests. Obesity Body Mass Index 30-39.9 Adult 05/26/2020 07/15/2020 Stone Common Duct 05/11/2020 07/15/2020 Cholecystitis Acute With Cys tic Duct Obstruction 05/11/2020 07/15/2020 Overview (05/12/2020): Added automatically from request for surgery [id number] Pain Leg 12/05/2018 11/13/2019 Stroke/Transient Ischemic Attack NOS 10/03/2017 11/13/2019 Repair Mitral Valve Status Post 10/03/2017 11/13/2019 Atherosclerotic Heart Diseas e Of [place] Coronary Artery Without Angina Pectoris 05/31/2017 11/13/2019 Fracture Tibia Shaft Closed Subsequent With Delayed Healing Right 05/31/2017 12/01/2017 Fatigue 12/20/2016 09/15/2021 Overview (06/24/2021): Multifactorial. Assessment & Plan (06/24/2021 11:02 AM CDT): Will check chemistries and CBC. Consider depression. 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 from Last 3 Months Immunizations Name Administration Dates Next Due Influenza Split 08/27/2013 Influenza, Unspecified 08/28/2015,2012,08/07/2012,08/19/2011, 9 PCV13 12/11/2014 PPSV23 01/19/2005 Tdap 06/15/2013,07/03/2012,02/20/2002 Family History Medical History Relation Name Comments Atypical mole syndrome Daughter Coronary artery disease Father Diabetes Father Relation Name Status Comments Daughter Father Social History Tobacco Use Types Packs/Day Years Used Date Smoking Tobacco: Never Smokeless Tobacco: Never Tobacco Cessation:Counseling Given: Not Answered Alcohol Use Standard Drinks/Week Comments Not Currently 0 (1 standard drink = 0.6 oz pur e alcohol) PHQ-2 Answer Date Recorded PHQ-2 Score 0 09/20/2021 Depression Answer Date Recor ded PHQ-9 Total Score (max 27) 3 09/20 Nutrition Answer Date Recorded Nutrition: EVOO Fat Source Unknown 12/29 Nutrition: Servings of Fruits/Vegetables per Day Not on file 12/29/2020 Dental Answer Date Recorded Dental: Regular Dentist Unknown 12/29/19 21 Sex and Gender Information Value Date Recorded Sex Assigned at Not on file Legal Sex Male 7:50 AM DEPARTMENT OF NATURAL RESOURCES OFFICER Gender Identity Not on file Sexual Orientation Not on file Last Filed Vital Signs Vital Sign Reading Time Taken Comments Blood Pressure 122/69 12/11/2021 10:00 AM DEPARTMENT OF NATURAL RESOURCES OFFICER Pulse 72 12/11/2021 10:00 AM DEPARTMENT OF NATURAL RESOURCES OFFICER Temperature 36.8 C (98.2 F) 12/11/2021 10:00 AM DEPARTMENT OF NATURAL RESOURCES OFFICER Respiratory Rate 16 12/11/2021 10:00 AM DEPARTMENT OF NATURAL RESOURCES OFFICER Oxygen Saturation 94% 12/11/2021 10:00 AM DEPARTMENT OF NATURAL RESOURCES OFFICER Room Air Inhaled Oxygen Concentration - - Weight 88.7 kg (195 lb 8 oz) 12/11/2021 10:00 AM DEPARTMENT OF NATURAL RESOURCES OFFICER Height 172.7 cm (5' 8) 09/25/2021 7:20 PM DEPARTMENT OF NATURAL RESOURCES OFFICER Body Mass Index 29.73 09/25/2021 7:20 PM DEPARTMENT OF NATURAL RESOURCES OFFICER Plan of Treatment Health Maintenance Due Date Last Done Comments Office Visit for Blood Pressure Check / Re-check 1940 Zoster Vaccines (1 of 2) 1990 DTaP,Tdap,and Td Vaccines (4 - Td or Tdap) 06/15/2023 06/15/2013, 07/03/2012, 02/20/2002, Additional history exists Fall Risk Screen (Annual) 11/07/2023 Creatinine Level (Kidney Function Test) 03/13/2025 03/13/2024, 12/13/2023, 08/02/2023, Additional history exists Potassium Level 03/13/2025 03/13/2024, 04/2024, 08/02/2023, Additional history exists Sodium Level 03/13/2025 03/13/2024, 04/2024, 08/02/2023, Additional history exists Pneumococcal vaccine (65+ years) Completed 12/11/2014, 05/30/2006, 01/19/2005 COVID-19 Vaccine Completed 08/31/2024, , 08/30/2023, Additional history exists Influenza Vaccine Completed 08/31/2024, , 12/19/2021, Additional history exists RSV vaccine - (32-36 weeks) or 60+ years Completed 08/31/2024 IPV Vaccines Aged Out No longer eligi ble based on patient's age to complete this topic Medical Devices Implanted Type Area Brick Veneer Maker Device Identifier Shelf Expiration Date Model / Serial / Lot Band-Annulopla sty Flex-25mm X 63mm - Dimas [id number] Implanted:Qty: 1 on 12/12/2009 Cardiac Valve Prosthesis Other/Legacy - See Implant Description Medtronic Description:Device Manufactu rer - [employer]Music. Body Location - Other. Mitral. Device Status Text - [id number]. Colstrip Uriel Fuzzy 1 X 1 - Dimas [id number] Implanted:Qty: 1 on 12/12/2009 Mesh or Patch [employer] Description:Device Manufactu rer Fusion-io. Device Status Text - [id number]. [facility] Data - [id number]. Ligation Clips Implanted:Qty: 1 on 05/13/2020 by Vern Dumont M.D. at [facility] Other [employer] [id number] 01/21/2025 [id number] / [id number] Procedures Procedure Name Priority Date/Time Associated Diagnosis Comments BASIC METABOLIC PANEL, S/P Routine 09/22/2021 6:15 AM DEPARTMENT OF NATURAL RESOURCES OFFICER from Last 3 Months or Most Recently Relevant to Health Maintenance Results * (ABNORMAL) Basic Metabolic Panel (09/22/2021 6:15 AM DEPARTMENT OF NATURAL RESOURCES OFFICER) Pathologist [facility] Potassium, S 3.4(L) 3.6 - 5.2 mmol/L 09/22/2021 8:40 AM DEPARTMENT OF NATURAL RESOURCES OFFICER DTL Sodium, S 141 135 - 145 mmol/L 09/22/2021 8:40 AM DEPARTMENT OF NATURAL RESOURCES OFFICER DTL Chloride, S 104 98 - 107 mmol/L 09/22/2021 8:40 AM DEPARTMENT OF NATURAL RESOURCES OFFICER DTL Bicarbonate, S 24 22 - 29 mmol/L 09/22/2021 8:40 AM DEPARTMENT OF NATURAL RESOURCES OFFICER DTL Anion Gap 13 7 - 15 09/22/2021 8:40 AM DEPARTMENT OF NATURAL RESOURCES OFFICER DTL BUN (Blood Urea Nitrogen), S 22 8 - 24 mg/dL 09/22/2021 8:40 AM DEPARTMENT OF NATURAL RESOURCES OFFICER DTL Creatinine 1.23 0.74 - 1.35 mg/dL 09/22/2021 8:40 AM DEPARTMENT OF NATURAL RESOURCES OFFICER DTL eGFR-Non Black/ 55(L) >=60 mL/min/BSA 09/22/2021 8:40 AM DEPARTMENT OF NATURAL RESOURCES OFFICER DTL Comment: ----ADDITIONAL INFORMATION---- Estimated GFR calculated using the 2009 CKD_EPI creatinine equation. eGFR-Black/Afri can Welsh 63 >=60 mL/min/BSA 09/22/2021 8:40 AM DEPARTMENT OF NATURAL RESOURCES OFFICER DTL Comment: ----ADDITIONAL INFORMATION---- Estimated GFR calculated using the 2009 CKD_EPI creatinine equation. Calcium, Total, S 8.5(L) 8.8 - 10.2 mg/dL 09/22/2021 8:40 AM DEPARTMENT OF NATURAL RESOURCES OFFICER DTL Glucose, S 88 70 - 140 mg/dL 09/22/2021 8:40 AM DEPARTMENT OF NATURAL RESOURCES OFFICER DTL Blood (Blood, Venous) 09/22/2021 6:15 AM DEPARTMENT OF NATURAL RESOURCES OFFICER 09/22/2021 7:44 AM DEPARTMENT OF NATURAL RESOURCES OFFICER Eligio Bro M.D. LAB BLOOD ADD-ON Final Resul t [facility] [address] [place] [address], [facility] DTL [facility] [address] [place] [address] from Last 3 Months or Most Recently Relevant to Health Maintenance Insurance MEDICARE Advance Directives For more information, please contact: [phone] Documents on File Type Date Recorded Patient Operations Officer Afloat Expl anation Advance Directives 10/14/2020 11:[address] Advance Directives 04/06/2017 12:00 AM [facility] document. See document viewer. Advance Directives 10/27/2010 12:00 AM [place] document. See document viewer. Advance Directives 10/15/2010 12:00 AM [facility] document. See document viewer. Advance Directives 12/10/2009 12:00 AM [place] [facility] document. See document viewer. Advance Directives 12/10/2009 12:00 AM [facility] [facility] document. See document viewer. * Full Code (Latest Code Status on File) Date Activated Date Inactivated Comments 09/20/2021 3:01 AM 09/22/2021 2:48 PM Question Answer Comments Full Code: Discussed * Full Code Date Activated Date Inactivated Comments 05/13/2020 3:47 PM 05/14/2020 1:25 PM Question Answer Comments Full Code: Not Discussed Due to: Patient not available * Full Code Date Activated Date Inactivated Comments 05/13/2020 10:38 AM 05/13/2020 3:47 PM Question Answer Comments Full Code: Not Discussed Due to: Not medically appropriate * Full Code Date Activated Date Inactivated Comments 05/11/2020 9:37 PM 05/13/2020 10:38 AM Question Answer Comments Full Code: Discussed Care Teams Graphic Editor Relationship Specialty Start Date End Date Elsewhere, Pcp PCP - General Internal Medicine 12/15/21
--- OUTSIDE RECORDS SUMMARY | 2024-10-12 19:58 | XMS_ITS ---
Author Organization [facility] Address [address] [place] [address] Care Team Providers Care Supervisor Specialty Plant Name Role Phone Unavailable Unavailable Unavailable Surgery Details Not on file Complications Check Surgery Details section. Procedure Estimated Blood Loss Check Surgery Details section. Procedure Findings Check Surgery Details section. Procedure Specimens Taken Check Surgery Details section.
--- OUTSIDE RECORDS SUMMARY | 2024-10-12 19:58 | XMS_ITS | Referral Summary ---
Author Organization [facility] Address [address] [place] [address] Care Team Providers Care Heating Worker Name Role Phone Elsewhere, Pcp Primary Care Provider Unavailabl e Source Comments Patient records contain information from all sites at [facility]. For routine questions regarding patient records, call [phone] during business hours, M-F 8:00 AM - 5:00 PM Central Time. Record requests for emergency care only can be directed to [phone] at any time.[facility] Encounters Date Type Department Care Team Description 09/17/2024 9:30 AM BENEFIT AUTHORIZER Office Visit Department of Urology in [place], [place] [address], [place] [address] Consuelo Castle, ADAN, C.N.P. from Last 3 Months Allergies Active Allergy Reactions Criticality Noted Date Comments Adhesive Tape-Silicones Other (see comments) Amoxicillin-Pot Clavulanate Diarrhea 08/03/20 11 Bacitracin-Polymyxin B Rash 01/11/2011 Latex Swelling 01/01/2013 Cxuxyfdo-Jtdknjuois-Dvtfxvie n Itching 10/13/2011 Nitrofurantoin Monohyd/M-Cryst Other (see comments),GI intolerance Low 06/11/2015 Silver Sulfadiazine Other (see comments) 2009 Medications cranberry 500 mg capsule Take 1 capsule by mouth daily. 3 Active donepeziL (Aricept) 10 mg tablet Take 1 tablet by mouth at bedtime. 6 Active multivitamin-m kufssad-VB-gtz opene-lutein (CENTRUM SILVER) 0.4 mg-300 mcg- 250 [...] original. Patient is a resident at a longterm, [facility]. Problem Noted Date Diagnosed Date Personal History Of Infectio us And Parasitic Disease (COVID-19) 12/11/2021 Overview (12/11/2021): COVID Assessment & Plan (12/11/2021 9:56 AM BENEFIT AUTHORIZER): He was covid positive on 11/30/21. He had minor symptoms and is now off restrictions. Atrial Fibrillation Unspecified 09/21/2021 Overview (12/11/2021): A fib Assessment & Plan (12/11/2021 9:54 AM BENEFIT AUTHORIZER): Atenolol for rate control and apixaban 2.5 mg bid for anticoagulation. Assessment & Plan (10/20/2021 8:33 AM BENEFIT AUTHORIZER): He is on [facility] anticoagulation. Atrial Fibrillation Personal History 09/20/2021 Overview (10/06/2021): Atenolol for rate control and apixaban for anticoagulation. Assessment & Plan (11/30/2021 3:03 PM BENEFIT AUTHORIZER): Stable on current medications. Assessment & Plan (10/06/2021 7:44 PM BENEFIT AUTHORIZER): Heart rate and blood pressure adequate on increased dose of atenolol. Diastasis Recti 05/19/2021 Overview (05/19/2021): Diastasis recti Assessment & Plan (12/11/2021 9:51 AM BENEFIT AUTHORIZER): He has no pain or symptoms. Assessment & Plan (09/15/2021 8:07 PM BENEFIT AUTHORIZER): Resp easy. 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 Constipation 03/31/2021 Overview (05/19/2021): Slow transit constipation Assessment & Plan (12/11/2021 9:51 AM BENEFIT AUTHORIZER): His bowels are moving in his normal pattern using Senna S 1 tab hs prn. He is also on a probiotic daily. Assessment & Plan (11/30/2021 3:03 PM BENEFIT AUTHORIZER): Bowel agents available. Assessment & Plan (10/20/2021 8:30 AM BENEFIT AUTHORIZER): His bowels are moving in his normal pattern on senna and probiotic. Assessment & Plan (09/15/2021 8:06 PM BENEFIT AUTHORIZER): His bowels are moving in a normal [...] posture. Assessment & Plan (12/11/2021 9:48 AM BENEFIT AUTHORIZER): His legs are wrapped and he elevates them routinely during the day when he is in bed. Assessment & Plan (09/15/2021 8:05 PM BENEFIT AUTHORIZER): He has dependent edema. Legs are wrapped. [...] Insomnia Assessment & Plan (12/11/2021 9:48 AM BENEFIT AUTHORIZER): He is sleeping well on Melatonin 9 mg. Assessment & Plan (11/30/2021 3:02 PM BENEFIT AUTHORIZER): Continue current dose of melatonin. Assessment & Plan (10/20/2021 8:22 AM BENEFIT AUTHORIZER): The melatonin is effective in helping him sleep[. Assessment & Plan (09/15/2021 8:05 PM BENEFIT AUTHORIZER): He is sleeping well on melatonin Assessment [...] infection Assessment & Plan (12/11/2021 10:31 AM BENEFIT AUTHORIZER): He continues on cranberry and has cipro [...] change. Assessment & Plan (10/20/2021 8:23 AM BENEFIT AUTHORIZER): He is prone to UTI's. He has his catheter changed monthly with a 3 day course of cipro surrounding the changes.. He is also on cranberry 500 mg bid. Assessment & Plan (10/06/2021 7:48 PM BENEFIT AUTHORIZER): Most recently treated with IV ceftriaxone and then oral Omnicef to total 10 day course of treatment. Assessment & Plan (09/30/2020 2:44 PM BENEFIT AUTHORIZER): Brad was seen at [facility] emergency department September 03 was diagnosed with [...] MS Assessment & Plan (12/11/2021 9:53 AM BENEFIT AUTHORIZER): His pain is controlled with Tramadol 25 mg tid and x 1 prn during the night and tylenol 650 mg Q 6 h prn. Assessment & Plan (10/20/2021 8:31 AM BENEFIT AUTHORIZER): Pain is controlled with tylenol and tramadol. Assessment & Plan (09/15/2021 8:09 PM BENEFIT AUTHORIZER): He takes tramadol 25 mg tid. This [...] tramadol. Monitor for increased pain and reassess. Senior Living Examination 60 Day Certification Overview (07/10/2019): [place] Assessment & Plan (11/30/2021 2:57 PM BENEFIT AUTHORIZER): Current comorbidities, ADL need/level of debility requires skilled care/therapy. Medications and labs all reviewed and appropriate related to comorbidities, unless otherwise indicated. Physician order sheet signed. Continue restorative/maintenance care plan, nutrition intervention, skin protection, and fall prevention. He will be tested for COVID-19 according to the prevalence in the community and in the facility in accordance with [facility] guidelines. Assessment & Plan (10/20/2021 8:15 AM BENEFIT AUTHORIZER): He is a [facility] resident at [facility]. Assessment & Plan (09/15/2021 7:47 PM BENEFIT AUTHORIZER): He is appropriate for [facility] care Assessment & Plan (05/19/2021 7:54 PM CDT): He is a [facility] resident at [facility] Assessment & Plan (01/20/2021 4:52 PM CDT): He is a long-term resident on the rest of the nursing on. His recently Assessment & Plan (07/15/2020 1:50 PM CDT): He is a long-term resident at [facility]. He shares a room with his Ya. Assessment & Plan (03/18/2020 2:25 PM CDT): He is a long-term resident at [facility]. He shares a room with his . Assessment & Plan (11/13/2019 3:37 PM BENEFIT AUTHORIZER): He is a long-term resident at [facility] Assessment & Plan (07/10/2019 4:28 PM CDT): He is a long-term side of [facility]. He shares a room with his Major Depressive Disorder, Recurrent, Unspecifie d 12/20/2016 Overview (03/29/2017): Depression Major Recurrent Moderate Assessment & Plan (12/11/2021 9:45 AM BENEFIT AUTHORIZER): He is on sertraline 50 mg daily. He lost his , who was also his roommate recently. He also vocalized that he will miss his current friends at [facility]. Assessment & Plan (11/30/2021 3:03 PM BENEFIT AUTHORIZER): Stable on current dose of sertraline. Assessment & Plan (10/20/2021 8:29 AM BENEFIT AUTHORIZER): Stable on sertraline 50 mg daily. Assessment & Plan (09/15/2021 8:00 PM BENEFIT AUTHORIZER): Sertraline is effective for managing depression Assessment [...] symptomatology Assessment & Plan (11/13/2019 3:54 PM BENEFIT AUTHORIZER): He is currently stable on Zoloft 125 [...] mixed Assessment & Plan (12/11/2021 9:39 AM BENEFIT AUTHORIZER): He has no behaviors and is extremely pleasant. He is stable on donepezil 10 mg at bedtime and memantine 5 mg in the morning. Assessment & Plan (11/30/2021 2:59 PM BENEFIT AUTHORIZER): He is stable on donepezil and memantine. Assessment & Plan (10/20/2021 8:20 AM BENEFIT AUTHORIZER): He continues with his memory pills donepezil and memantine Assessment & Plan (09/15/2021 7:58 PM BENEFIT AUTHORIZER): He is doing well on donepezil and [...] . Assessment & Plan (11/13/2019 3:39 PM BENEFIT AUTHORIZER): He is stable on Namenda XR 14 mg daily. He is also on Aricept 10 mg at bedtime Assessment & Plan (07/10/2019 4:33 PM CDT): He is currently stable on Namenda. He calls that his memory pill. He also is on Aricept 10 mg daily Hypertension Essential Primary 05/28/2015 Overview (03/29/2017): Hypertension (HTN) Essential Benign Assessment & Plan (12/11/2021 9:46 AM BENEFIT AUTHORIZER): He is normotensive and hemodynamically stable on Atenolol 50 mg and furosemide 40 mg. Assessment & Plan (11/30/2021 3:03 PM BENEFIT AUTHORIZER): He is on atenolol and furosemide. Assessment & Plan (10/20/2021 8:28 AM BENEFIT AUTHORIZER): Blood pressures are stable on furosemide and atenolol. Rate controlled with atenolol. Assessment & Plan (09/15/2021 8:04 PM BENEFIT AUTHORIZER): He is normotensive and hemodynamically stable on [...] changes Assessment & Plan (11/13/2019 3:42 PM BENEFIT AUTHORIZER): He is normotensive and hemodynamically stable on [...] change. Assessment & Plan (12/11/2021 9:47 AM BENEFIT AUTHORIZER): He has a suprapubic catheter which is changed monthly. The catheter was last changed when it was to be leaking around the site on November. A UA was sent. Next catheter change should be scheduled for December 16, 2019 Assessment & Plan (11/30/2021 2:57 PM BENEFIT AUTHORIZER): No recent difficulties with his suprapubic catheter. Assessment & Plan (10/20/2021 8:21 AM BENEFIT AUTHORIZER): Neurogenic bladder from MS. He is prone to urinary tract infections and was recently hospitalized with a UTI that precipitated a bout of atrial fibrillation. He is on anticoagulation with apixaban. Assessment & Plan (09/15/2021 7:55 PM BENEFIT AUTHORIZER): Suprapubic catheter is patent. The catheter is [...] cranberry. Assessment & Plan (11/13/2019 3:40 PM BENEFIT AUTHORIZER): He has a suprapubic catheter due to MS. He is also on oxybutynin and cranberry tablets. Assessment & Plan (07/10/2019 4:34 PM CDT): Has a suprapubic catheter which is changed monthly in the senior living setting. He takes oxybutynin for bladder spasms and cranberry tablets prevent UTIs. When his catheter is changed, he goes on a 3 day course of Cipro 500 mg twice a day. Multiple Sclerosis 12/10/2009 Overview (07/10/2019): MS diagnosed several years ago Assessment & Plan (12/11/2021 9:23 AM BENEFIT AUTHORIZER): He requires 24 hour care. He has a neurogenic bladder due to the MS. He is nonambulatory and has his own motorized chair. He has no dysphagia. His speech is clear. Assessment & Plan (11/30/2021 2:59 PM BENEFIT AUTHORIZER): Continues to require 24 hour care, assistance with all cares. Assessment & Plan (10/20/2021 8:18 AM BENEFIT AUTHORIZER): He remains non-ambulatory. He needs a suprapubic catheter, mechanical life, wheelchair and 24 hour [facility] care. Assessment & Plan (09/15/2021 7:50 PM BENEFIT AUTHORIZER): He is non ambulatory. He requires 24 [...] leg. Assessment & Plan (11/13/2019 3:38 PM BENEFIT AUTHORIZER): He has a neurogenic bladder and has [...] Problem Noted Date Diagnosed Date Resolved Date Reports Analyst (Current) Anticoagulant Treatment 11/30/2021 12/11/2021 Overview (11/30/2021): Atrial fibrillation Assessment & Plan (11/30/2021 3:02 PM BENEFIT AUTHORIZER): He continues on apixaban. Failure Renal Acute (Acute Kidney Injury) 10/06/2021 12/11/2021 Overview (10/06/2021): Peak creatinine during recent hospitalization 1.59 Assessment & Plan (10/06/2021 7:46 PM BENEFIT AUTHORIZER): Creatinine at discharge 1.23. Spironolactone was held and will be restarted pending adequate renal function. Anemia Of Chronic Disease 10/06/2021 Overview (10/06/2021): Most recent hemoglobin 11.9 at discharge. Assessment & Plan (10/06/2021 7:44 PM BENEFIT AUTHORIZER): Continue to follow hemoglobin. Hypokalemia 07/28/2021 09/15/2021 [...] (05/12/2020): Added automatically from request for surgery [id number] Pain Leg 12/05/2018 11/13/2019 Stroke/Transient Ischemic Attack NOS 10/03/2017 11/13/2019 Repair Mitral Valve Status Post 10/03/2017 11/13/2019 Atherosclerotic Heart Diseas e Of [place] Coronary Artery Without Angina Pectoris 05/31/2017 11/13/2019 [...] 0 01/30/2018 Overview (03/29/2017): Renal Insufficiency NOS Immunizations Name Administration Dates Next Due Influenza Split 08/27/2013 Influenza, Unspecified 08/28/2015,2012,08/07/2012,08/19/2011, 9 PCV13 12/11/2014 PPSV23 01/19/2005 Tdap 06/15/2013,07/03/2012,02/20/2002 Social History Tobacco Use Types Packs/Day Years [...] Date Recorded Dental: Regular Dentist Unknown 12/29/19 Sex and Gender Information Value Date Recorded Sex Assigned at Not on file Legal Sex Male 7:50 AM BENEFIT AUTHORIZER Gender Identity Not on file Sexual Orientation Not on file Last Filed Vital Signs Vital Sign Reading Time Taken Comments Blood Pressure 122/69 12/11/2021 10:00 AM BENEFIT AUTHORIZER Pulse 72 12/11/2021 10:00 AM BENEFIT AUTHORIZER Temperature 36.8 C (98.2 F) 12/11/2021 10:00 AM BENEFIT AUTHORIZER Respiratory Rate 16 12/11/2021 10:00 AM BENEFIT AUTHORIZER Oxygen Saturation 94% 12/11/2021 10:00 AM BENEFIT AUTHORIZER Room Air Inhaled Oxygen Concentration - - Weight 88.7 kg (195 lb 8 oz) 12/11/2021 10:00 AM BENEFIT AUTHORIZER Height 172.7 cm (5' 8) 09/25/2021 7:20 PM BENEFIT AUTHORIZER Body Mass Index 29.73 09/25/2021 7:20 PM BENEFIT AUTHORIZER Plan of Treatment Not on file Medical Devices Implanted Type Area Screw Machine Operator Single Spindle Device Identifier Shelf Expiration Date Model / Serial / Lot Band-Annulopla sty Flex-25mm X 63mm - Dimas [id number] Implanted:Qty: 1 on 12/12/2009 Cardiac Valve Prosthesis Other/Legacy - See Implant Description Medtronic Description:Device Manufactu rer - [employer] Body Location - Other. Mitral. Device Status Text - [id number]. Marcellus Uriel Fuzzy 1 X 1 - Dimas [id number] Implanted:Qty: 1 on 12/12/2009 Mesh or Patch Preclick Description:Device Manufactu rer - [employer]. Device Status Text - [id number]. [facility] Data - [id number]. Ligation Clips Implanted:Qty: 1 on 05/13/2020 by Vern Dumont M.D. at [facility] Other [employer] [id number] 01/21/2025 [id number] / / [id number] Procedures Procedure Name Priority Date/Time Associated Diagnosis Comments BASIC METABOLIC PANEL, S/P Routine 09/22/2021 6:15 AM BENEFIT AUTHORIZER from Last 3 Months or Most Recently Relevant to Health Maintenance Results * (ABNORMAL) Basic Metabolic Panel (09/22/2021 6:15 AM BENEFIT AUTHORIZER) Potassium, S 3.4(L) 3.6 - 5.2 mmol/L 09/22/2021 8:40 AM BENEFIT AUTHORIZER DTL Sodium, S 141 135 - 145 mmol/L 09/22/2021 8:40 AM BENEFIT AUTHORIZER DTL Chloride, S 104 98 - 107 mmol/L 09/22/2021 8:40 AM BENEFIT AUTHORIZER DTL Bicarbonate, S 24 22 - 29 mmol/L 09/22/2021 8:40 AM BENEFIT AUTHORIZER DTL Anion Gap 13 7 - 15 09/22/2021 8:40 AM BENEFIT AUTHORIZER DTL BUN (Blood Urea Nitrogen), S 22 8 - 24 mg/dL 09/22/2021 8:40 AM BENEFIT AUTHORIZER DTL Creatinine 1.23 0.74 - 1.35 mg/dL 09/22/2021 8:40 AM BENEFIT AUTHORIZER DTL eGFR-Non Black/ 55(L) >=60 mL/min/BSA 09/22/2021 8:40 AM BENEFIT AUTHORIZER DTL Comment: ----ADDITIONAL INFORMATION---- Estimated GFR calculated using the 2009 CKD_EPI creatinine equation. eGFR-Black/Afri can [place] 63 >=60 mL/min/BSA 09/22/2021 8:40 AM BENEFIT AUTHORIZER DTL Comment: ----ADDITIONAL INFORMATION---- Estimated GFR calculated using the 2009 CKD_EPI creatinine equation. Calcium, Total, S 8.5(L) 8.8 - 10.2 mg/dL 09/22/2021 8:40 AM BENEFIT AUTHORIZER DTL Glucose, S 88 70 - 140 mg/dL 09/22/2021 8:40 AM BENEFIT AUTHORIZER DTL Blood (Blood, Venous) 09/22/2021 6:15 AM BENEFIT AUTHORIZER 09/22/2021 7:44 AM BENEFIT AUTHORIZER Eligio Bro M.D. LAB BLOOD ADD-ON Final Resul t [facility] [address] [place] [address], [place] DTL [facility] [address] [place] [address] from Last 3 Months or Most Recently Relevant to Health Maintenance Insurance MEDICARE Advance Directives For more information, please contact: [phone] Documents on File Type Date Recorded Patient Soil Conservation Technician Expl anation Advance Directives 10/14/2020 11:30 AM [...] Answer Comments Full Code: Discussed Care Teams Heating Worker Relationship Specialty Start Date End Date Elsewhere, Pcp PCP - General Internal Medicine 12/15/21
--- OUTSIDE RECORDS SUMMARY | 2024-10-12 19:58 | XMS_ITS | Encounter Summary ---
Author Organization [facility] Address [address] [place] [address] Care Team Providers Care Intelligence Senior Sergeant Name Role Phone Elsewhere, Pcp Primary Care Provider Unavailabl e Reason for Visit * Appointment Request (Routine) - Closed Specialty Diagnoses / Procedures Referred By Anabella sullivan Referred To Contact Urology Referral ID Status Reason Start Date Expiration Date Visits Re quested Visits Authorized [id number] Closed 06/21/2022 06/21/2023 1 1 Encounter Details Date Type Department Care Team (Late st Contact Info) Description 09/17/2024 9:30 AM BUDGET COORDINATOR Office Visit Department of Urology in [place], [place] [address] [address] Consuelo Castle, CISSP, C.N.P. [address] [address] Social History Tobacco Use Types Packs/Day Years Used Date Smoking Tobacco: Never Smokeless Tobacco: Never Alcohol Use Standard Drinks/Week Comments Not Currently [...] on file Legal Sex Male 7:50 AM BUDGET COORDINATOR Gender Identity Not on file Sexual Orientation Not on file documented as of this encounter Plan of Treatment Not on file documented as of this encounter Visit Diagnoses Not on filedocumented in this encounter Additional Health Concerns Assessment Noted Time PHQ-9 Depression Total Score: 3 09/20/20 21 10:00 AM BUDGET COORDINATOR documented as of this encounter Care Teams Intelligence Senior Sergeant Relationship Specialty Start Date End Date Elsewhere, Pcp PCP - General Internal Medicine 12/15/21 documented as of this encounter
[2024-10-12 20:28] LABS: Appearance Urine Cloudy (Clear); Bilirubin Urine Negative (Negative); Blood Urine 3+ (Negative); Color Urine Dark yellow (Yellow); Glucose Urine Negative (Negative); Ketones Urine Negative (Negative); Leukocyte Esterase Urine 1+ (Negative); Nitrite Urine Negative (Negative); Protein Urine 2+ (Negative); Urobilinogen Urine 0.2 (0.2-1.0); pH Urine 5.5 (5.0-8.5)
[2024-10-12 20:48] LABS: Bacteria Urine Few; RBC Urine 50-100 (0-2); Squamous Epithelial Cell Urine Few (None-Few); WBC Clumps Urine Few; WBC Urine >100 (0-5)
== END 2024-10-12 19:55 | disposition home or self-care (01) ==
LOC: NPINS 19:56
PROVIDERS: PCP Family Medicine; Visit Provider Family Medicine
DX: R31.9 Hematuria, unspecified (principal)
CPT/HCPCS: 81001; 87086; 87186

== ENCOUNTER 2024-11-13 07:49 | Outpatient (CLI) | payer MEDICARE, BC, SELFPAY | END 2024-11-13 07:50 | disposition home or self-care (01) | LOC: AMB 11-28 11:54 | PROVIDERS: PCP Family Medicine; Visit Provider Family Medicine | DX: R31.9 Hematuria, unspecified (principal); R50.9 Fever, unspecified | CPT/HCPCS: A0425; A0427 ==

== ENCOUNTER 2024-11-13 08:20 | Inpatient (IN) | payer MEDICARE, BC, SELFPAY ==
[2024-11-13] VITALS (19 sets, daily range): BP systolic 93–122; BP diastolic 58–89; PULSE 91–105; RESP 24–40; TEMP 37.3–38.7; O2SAT 91–96; BMI 32.5; BMI 27.2
--- OUTSIDE RECORDS SUMMARY | 2024-11-13 08:22 | XMS_ITS | Clinical Summary ---
Author Organization [facility] Address [address] [place] [address] Care Team Providers Care Cmo Name Role Phone Elsewhere, Pcp Primary Care Provider Unavailabl e Source Comments Patient records contain information from all sites at [facility]. For routine questions regarding patient records, call [phone] during business hours, M-F 8:00 AM - 5:00 PM Central Time. Record requests for emergency care only can be directed to [phone] at any time.[facility] Allergies Active Allergy Reactions Criticality Noted Date Comments Adhesive Tape-Silicones Other (see comments) Amoxicillin-Pot Clavulanate Diarrhea 08/03/20 11 Bacitracin-Polymyxin B Rash 01/11/2011 Latex Swelling 01/01/2013 Wnjryuxm-Ysdhjgxcsl-Zmuhwbro n Itching 10/13/2011 Nitrofurantoin Monohyd/M-Cryst Other (see comments),GI intolerance Low 06/11/2015 Silver Sulfadiazine Other (see comments) 2009 Medications cranberry 500 mg capsule Take 1 capsule by mouth daily. 3 Active donepeziL (Aricept) 10 mg tablet Take 1 tablet by mouth at bedtime. 6 Active multivitamin-mi hezmze-XW-wzfsy len-lutein (CENTRUM SILVER) 0.4 mg-300 mcg- 250 mcg tablet Take 1 tablet by mouth daily. 0 Active loperamide (IMODIUM A-D) 2 mg capsule Give 1 tablet by mouth as needed for diarrhea 2 mg after each loose stool up to 60 mg in 24 hours 90 capsule 3 0 Active sennosides-docu sate sodium (SENOKOT-S) 8.6-50 mg per tablet Take 1 tablet by mouth at bedtime as needed for constipation. 0 Active L.acidoph-B.lac tis-B.longum (FLORAJEN 3) 460 mg (7.5-6- 1.5 bill. [...] 5 1 Active traMADoL (ULTRAM) 50 mg tabletIndicatio ns:Chronic Pain/Nonacute Pain Take 0.5 tablets (25 mg [...] for prior to dental treatment PRN Active Active Problems Patient Care Coordination No te Formatting of this note migh t be different from the original. Patient is a resident at a [facility], [facility]. Problem Noted Date Diagnosed Date Personal History Of Infectio us And Parasitic Disease (COVID-19) 12/11/2021 Overview (12/11/2021): COVID Assessment & Plan (12/11/2021 9:56 AM SPRINKLER IRRIGATION EQUIPMENT MECHANIC): He was covid positive on 11/30/21. He had minor symptoms and is now off restrictions. Atrial Fibrillation Unspecified 09/21/2021 Overview (12/11/2021): A fib Assessment & Plan (12/11/2021 9:54 AM SPRINKLER IRRIGATION EQUIPMENT MECHANIC): Atenolol for rate control and apixaban 2.5 mg bid for anticoagulation. Assessment & Plan (10/20/2021 8:33 AM SPRINKLER IRRIGATION EQUIPMENT MECHANIC): He is on superintendent terminal anticoagulation. Atrial Fibrillation Personal History 09/20/2021 Overview (10/06/2021): Atenolol for rate control and apixaban for anticoagulation. Assessment & Plan (11/30/2021 3:03 PM SPRINKLER IRRIGATION EQUIPMENT MECHANIC): Stable on current medications. Assessment & Plan (10/06/2021 7:44 PM SPRINKLER IRRIGATION EQUIPMENT MECHANIC): Heart rate and blood pressure adequate on increased dose of atenolol. Diastasis Recti 05/19/2021 Overview (05/19/2021): Diastasis recti Assessment & Plan (12/11/2021 9:51 AM SPRINKLER IRRIGATION EQUIPMENT MECHANIC): He has no pain or symptoms. Assessment & Plan (09/15/2021 8:07 PM SPRINKLER IRRIGATION EQUIPMENT MECHANIC): Resp easy. 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 Constipation 03/31/2021 Overview (05/19/2021): Slow transit constipation Assessment & Plan (12/11/2021 9:51 AM SPRINKLER IRRIGATION EQUIPMENT MECHANIC): His bowels are moving in his normal pattern using Senna S 1 tab hs prn. He is also on a probiotic daily. Assessment & Plan (11/30/2021 3:03 PM SPRINKLER IRRIGATION EQUIPMENT MECHANIC): Bowel agents available. Assessment & Plan (10/20/2021 8:30 AM SPRINKLER IRRIGATION EQUIPMENT MECHANIC): His bowels are moving in his normal pattern on senna and probiotic. Assessment & Plan (09/15/2021 8:06 PM SPRINKLER IRRIGATION EQUIPMENT MECHANIC): His bowels are moving in a normal [...] posture. Assessment & Plan (12/11/2021 9:48 AM SPRINKLER IRRIGATION EQUIPMENT MECHANIC): His legs are wrapped and he elevates them routinely during the day when he is in bed. Assessment & Plan (09/15/2021 8:05 PM SPRINKLER IRRIGATION EQUIPMENT MECHANIC): He has dependent edema. Legs are wrapped. [...] Insomnia Assessment & Plan (12/11/2021 9:48 AM SPRINKLER IRRIGATION EQUIPMENT MECHANIC): He is sleeping well on Melatonin 9 mg. Assessment & Plan (11/30/2021 3:02 PM SPRINKLER IRRIGATION EQUIPMENT MECHANIC): Continue current dose of melatonin. Assessment & Plan (10/20/2021 8:22 AM SPRINKLER IRRIGATION EQUIPMENT MECHANIC): The melatonin is effective in helping him sleep[. Assessment & Plan (09/15/2021 8:05 PM SPRINKLER IRRIGATION EQUIPMENT MECHANIC): He is sleeping well on melatonin Assessment [...] infection Assessment & Plan (12/11/2021 10:31 AM SPRINKLER IRRIGATION EQUIPMENT MECHANIC): He continues on cranberry and has cipro [...] change. Assessment & Plan (10/20/2021 8:23 AM SPRINKLER IRRIGATION EQUIPMENT MECHANIC): He is prone to UTI's. He has his catheter changed monthly with a 3 day course of cipro surrounding the changes.. He is also on cranberry 500 mg bid. Assessment & Plan (10/06/2021 7:48 PM SPRINKLER IRRIGATION EQUIPMENT MECHANIC): Most recently treated with IV ceftriaxone and then oral Omnicef to total 10 day course of treatment. Assessment & Plan (09/30/2020 2:44 PM SPRINKLER IRRIGATION EQUIPMENT MECHANIC): Brad was seen at [facility] emergency department September 03 was diagnosed with [...] MS Assessment & Plan (12/11/2021 9:53 AM SPRINKLER IRRIGATION EQUIPMENT MECHANIC): His pain is controlled with Tramadol 25 mg tid and x 1 prn during the night and tylenol 650 mg Q 6 h prn. Assessment & Plan (10/20/2021 8:31 AM SPRINKLER IRRIGATION EQUIPMENT MECHANIC): Pain is controlled with tylenol and tramadol. Assessment & Plan (09/15/2021 8:09 PM SPRINKLER IRRIGATION EQUIPMENT MECHANIC): He takes tramadol 25 mg tid. This [...] tramadol. Monitor for increased pain and reassess. Mcc Examination 60 Day Certification Overview (07/10/2019): [facility] Assessment & Plan (11/30/2021 2:57 PM SPRINKLER IRRIGATION EQUIPMENT MECHANIC): Current comorbidities, ADL need/level of debility requires skilled care/therapy. Medications and labs all reviewed and appropriate related to comorbidities, unless otherwise indicated. Physician order sheet signed. Continue restorative/maintenance care plan, nutrition intervention, skin protection, and fall prevention. He will be tested for COVID-19 according to the prevalence in the community and in the facility in accordance with [facility] guidelines. Assessment & Plan (10/20/2021 8:15 AM SPRINKLER IRRIGATION EQUIPMENT MECHANIC): He is a superintendent terminal resident at [facility]. Assessment & Plan (09/15/2021 7:47 PM SPRINKLER IRRIGATION EQUIPMENT MECHANIC): He is appropriate for superintendent terminal care Assessment & Plan (05/19/2021 7:54 PM CDT): He is a [facility] resident at [facility] Assessment & Plan (01/20/2021 4:52 PM CDT): He is a long-term resident on the rest of the nursing on. His recently Assessment & Plan (07/15/2020 1:50 PM CDT): He is a long-term resident at [facility]. He shares a room with his Ya. Assessment & Plan (03/18/2020 2:25 PM CDT): He is a long-term resident at [facility]. He shares a room with his . Assessment & Plan (11/13/2019 3:37 PM SPRINKLER IRRIGATION EQUIPMENT MECHANIC): He is a long-term resident at [facility] Assessment & Plan (07/10/2019 4:28 PM CDT): He is a long-term side of [facility]. He shares a room with his Major Depressive Disorder, Recurrent, Unspecifie d 12/20/2016 Overview (03/29/2017): Depression Major Recurrent Moderate Assessment & Plan (12/11/2021 9:45 AM SPRINKLER IRRIGATION EQUIPMENT MECHANIC): He is on sertraline 50 mg daily. He lost his , who was also his roommate recently. He also vocalized that he will miss his current friends at [facility]. Assessment & Plan (11/30/2021 3:03 PM SPRINKLER IRRIGATION EQUIPMENT MECHANIC): Stable on current dose of sertraline. Assessment & Plan (10/20/2021 8:29 AM SPRINKLER IRRIGATION EQUIPMENT MECHANIC): Stable on sertraline 50 mg daily. Assessment & Plan (09/15/2021 8:00 PM SPRINKLER IRRIGATION EQUIPMENT MECHANIC): Sertraline is effective for managing depression Assessment [...] symptomatology Assessment & Plan (11/13/2019 3:54 PM SPRINKLER IRRIGATION EQUIPMENT MECHANIC): He is currently stable on Zoloft 125 [...] mixed Assessment & Plan (12/11/2021 9:39 AM SPRINKLER IRRIGATION EQUIPMENT MECHANIC): He has no behaviors and is extremely pleasant. He is stable on donepezil 10 mg at bedtime and memantine 5 mg in the morning. Assessment & Plan (11/30/2021 2:59 PM SPRINKLER IRRIGATION EQUIPMENT MECHANIC): He is stable on donepezil and memantine. Assessment & Plan (10/20/2021 8:20 AM SPRINKLER IRRIGATION EQUIPMENT MECHANIC): He continues with his memory pills donepezil and memantine Assessment & Plan (09/15/2021 7:58 PM SPRINKLER IRRIGATION EQUIPMENT MECHANIC): He is doing well on donepezil and [...] . Assessment & Plan (11/13/2019 3:39 PM SPRINKLER IRRIGATION EQUIPMENT MECHANIC): He is stable on Namenda XR 14 mg daily. He is also on Aricept 10 mg at bedtime Assessment & Plan (07/10/2019 4:33 PM CDT): He is currently stable on Namenda. He calls that his memory pill. He also is on Aricept 10 mg daily Hypertension Essential Primary 05/28/2015 Overview (03/29/2017): Hypertension (HTN) Essential Benign Assessment & Plan (12/11/2021 9:46 AM SPRINKLER IRRIGATION EQUIPMENT MECHANIC): He is normotensive and hemodynamically stable on Atenolol 50 mg and furosemide 40 mg. Assessment & Plan (11/30/2021 3:03 PM SPRINKLER IRRIGATION EQUIPMENT MECHANIC): He is on atenolol and furosemide. Assessment & Plan (10/20/2021 8:28 AM SPRINKLER IRRIGATION EQUIPMENT MECHANIC): Blood pressures are stable on furosemide and atenolol. Rate controlled with atenolol. Assessment & Plan (09/15/2021 8:04 PM SPRINKLER IRRIGATION EQUIPMENT MECHANIC): He is normotensive and hemodynamically stable on [...] changes Assessment & Plan (11/13/2019 3:42 PM SPRINKLER IRRIGATION EQUIPMENT MECHANIC): He is normotensive and hemodynamically stable on [...] change. Assessment & Plan (12/11/2021 9:47 AM SPRINKLER IRRIGATION EQUIPMENT MECHANIC): He has a suprapubic catheter which is changed monthly. The catheter was last changed when it was to be leaking around the site on November. A UA was sent. Next catheter change should be scheduled for December 16, 2019 Assessment & Plan (11/30/2021 2:57 PM SPRINKLER IRRIGATION EQUIPMENT MECHANIC): No recent difficulties with his suprapubic catheter. Assessment & Plan (10/20/2021 8:21 AM SPRINKLER IRRIGATION EQUIPMENT MECHANIC): Neurogenic bladder from MS. He is prone to urinary tract infections and was recently hospitalized with a UTI that precipitated a bout of atrial fibrillation. He is on anticoagulation with apixaban. Assessment & Plan (09/15/2021 7:55 PM SPRINKLER IRRIGATION EQUIPMENT MECHANIC): Suprapubic catheter is patent. The catheter is [...] cranberry. Assessment & Plan (11/13/2019 3:40 PM SPRINKLER IRRIGATION EQUIPMENT MECHANIC): He has a suprapubic catheter due to MS. He is also on oxybutynin and cranberry tablets. Assessment & Plan (07/10/2019 4:34 PM CDT): Has a suprapubic catheter which is changed monthly in the custodial setting. He takes oxybutynin for bladder spasms and cranberry tablets prevent UTIs. When his catheter is changed, he goes on a 3 day course of Cipro 500 mg twice a day. Multiple Sclerosis 12/10/2009 Overview (07/10/2019): MS diagnosed several years ago Assessment & Plan (12/11/2021 9:23 AM SPRINKLER IRRIGATION EQUIPMENT MECHANIC): He requires 24 hour care. He has a neurogenic bladder due to the MS. He is nonambulatory and has his own motorized chair. He has no dysphagia. His speech is clear. Assessment & Plan (11/30/2021 2:59 PM SPRINKLER IRRIGATION EQUIPMENT MECHANIC): Continues to require 24 hour care, assistance with all cares. Assessment & Plan (10/20/2021 8:18 AM SPRINKLER IRRIGATION EQUIPMENT MECHANIC): He remains non-ambulatory. He needs a suprapubic catheter, mechanical life, wheelchair and 24 hour nursing home care. Assessment & Plan (09/15/2021 7:50 PM SPRINKLER IRRIGATION EQUIPMENT MECHANIC): He is non ambulatory. He requires 24 [...] leg. Assessment & Plan (11/13/2019 3:38 PM SPRINKLER IRRIGATION EQUIPMENT MECHANIC): He has a neurogenic bladder and has [...] Problem Noted Date Diagnosed Date Resolved Date Act English Tutor (Current) Anticoagulant Treatment 11/30/2021 12/11/2021 Overview (11/30/2021): Atrial fibrillation Assessment & Plan (11/30/2021 3:02 PM SPRINKLER IRRIGATION EQUIPMENT MECHANIC): He continues on apixaban. Failure Renal Acute (Acute Kidney Injury) 10/06/2021 12/11/2021 Overview (10/06/2021): Peak creatinine during recent hospitalization 1.59 Assessment & Plan (10/06/2021 7:46 PM SPRINKLER IRRIGATION EQUIPMENT MECHANIC): Creatinine at discharge 1.23. Spironolactone was held and will be restarted pending adequate renal function. Anemia Of Chronic Disease 10/06/2021 Overview (10/06/2021): Most recent hemoglobin 11.9 at discharge. Assessment & Plan (10/06/2021 7:44 PM SPRINKLER IRRIGATION EQUIPMENT MECHANIC): Continue to follow hemoglobin. Hypokalemia 07/28/2021 09/15/2021 [...] (05/12/2020): Added automatically from request for surgery [id number] Pain Leg 12/05/2018 11/13/2019 Stroke/Transient Ischemic Attack NOS 10/03/2017 11/13/2019 Repair Mitral Valve Status Post 10/03/2017 11/13/2019 Atherosclerotic Heart Diseas e Of [place] Coronary Artery Without Angina Pectoris 05/31/2017 11/13/2019 [...] Department Care Team Description 09/17/2024 9:30 AM SPRINKLER IRRIGATION EQUIPMENT MECHANIC Office Visit Department of Urology in [place], [place] [address] [id number] Consuelo Castle, BREASTER, C.N.P. Multiple Sclerosis (HCC) (Primary Dx); Neurogenic Bladder; Retention Urinary Chronic from Last 3 Months Immunizations Name Administration [...] Answer Date Recorded Nutrition: EVOO Fat Source 13 07/31 Nutrition: Servings of Fruits/Vegetables per Day Not on file 07/31/2020 Dental Answer Date Recorded Dental: Regular Dentist Unknown 12/29/19 21 Sex and Gender Information Value Date Recorded Sex Assigned at Not on file Legal Sex Male 7:50 AM SPRINKLER IRRIGATION EQUIPMENT MECHANIC Gender Identity Not on file Sexual Orientation Not on file Last Filed Vital Signs Vital Sign Reading Time Taken Comments Blood Pressure 122/69 12/11/2021 10:00 AM SPRINKLER IRRIGATION EQUIPMENT MECHANIC Pulse 72 12/11/2021 10:00 AM SPRINKLER IRRIGATION EQUIPMENT MECHANIC Temperature 36.8 C (98.2 F) 12/11/2021 10:00 AM SPRINKLER IRRIGATION EQUIPMENT MECHANIC Respiratory Rate 16 12/11/2021 10:00 AM SPRINKLER IRRIGATION EQUIPMENT MECHANIC Oxygen Saturation 94% 12/11/2021 10:00 AM SPRINKLER IRRIGATION EQUIPMENT MECHANIC Room Air Inhaled Oxygen Concentration - - Weight 88.7 kg (195 lb 8 oz) 12/11/2021 10:00 AM SPRINKLER IRRIGATION EQUIPMENT MECHANIC Height 172.7 cm (5' 8) 09/25/2021 7:20 PM SPRINKLER IRRIGATION EQUIPMENT MECHANIC Body Mass Index 29.73 09/25/2021 7:20 PM SPRINKLER IRRIGATION EQUIPMENT MECHANIC Plan of Treatment Health Maintenance Due Date Last Done Comments Office Visit for Blood Pressure Check / Re-check 1940 Zoster Vaccines (1 of 2) 1990 DTaP,Tdap,and Td Vaccines (4 - Td or Tdap) 06/15/2023 06/15/2013, 07/03/2012, 02/20/2002, Additional history exists Fall Risk Screen (Annual) 11/07/2023 Creatinine Level (Kidney Function Test) 03/13/2025 03/13/2024, 12/13/2023, 08/02/2023, Additional history exists Potassium Level 03/13/2025 03/13/2024, 02/0 04/2024, 08/02/2023, Additional history exists Sodium Level 03/13/2025 03/13/2024, 02/0 04/2024, 08/02/2023, Additional history exists Pneumococcal vaccine (50+ years) Completed 12/11/2014, 05/30/2006, 01/19/2005 COVID-19 Vaccine Completed 08/31/2024, , 08/30/2023, Additional history exists Influenza Vaccine Completed 08/31/2024, , 12/19/2021, Additional history exists RSV vaccine - (32-36 weeks) or 60+ years Completed 08/31/2024 IPV Vaccines Aged Out No longer eligi ble based on patient's age to complete this topic Medical Devices Implanted Type Area Yield Analyst Device Identifier Shelf Expiration Date Model / Serial / Lot Band-Annulopla sty Flex-25mm X 63mm - Dimas [id number] Implanted:Qty: 1 on 12/12/2009 Cardiac Valve Prosthesis Other/Legacy - See Implant Description [employer] Description:Device Manufactu rer - [employer]. Body Location - Other. Mitral. Device Status Text - [id number]. Aynor Uriel Fuzzy 1 X 1 - Dimas [id number] Implanted:Qty: 1 on 12/12/2009 Mesh or Patch [employer] Description:Device Manufactu rer [address] [employer]. Device Status Text - [id number]. [facility] Data - [id number]. Ligation Clips Implanted:Qty: 1 on 05/13/2020 by Vern Dumont M.D. at [facility] Other [employer] [id number] 01/21/2025 [id number] / / [id number] Procedures Procedure Name Priority Date/Time Associated Diagnosis Comments BASIC METABOLIC PANEL, S/P Routine 09/22/2021 6:15 AM SPRINKLER IRRIGATION EQUIPMENT MECHANIC from Last 3 Months or Most Recently Relevant to Health Maintenance Results * (ABNORMAL) Basic Metabolic Panel (09/22/2021 6:15 AM SPRINKLER IRRIGATION EQUIPMENT MECHANIC) Potassium, S 3.4(L) 3.6 - 5.2 mmol/L 09/22/2021 8:40 AM SPRINKLER IRRIGATION EQUIPMENT MECHANIC DTL Sodium, S 141 135 - 145 mmol/L 09/22/2021 8:40 AM SPRINKLER IRRIGATION EQUIPMENT MECHANIC DTL Chloride, S 104 98 - 107 mmol/L 09/22/2021 8:40 AM SPRINKLER IRRIGATION EQUIPMENT MECHANIC DTL Bicarbonate, S 24 22 - 29 mmol/L 09/22/2021 8:40 AM SPRINKLER IRRIGATION EQUIPMENT MECHANIC DTL Anion Gap 13 7 - 15 09/22/2021 8:40 AM SPRINKLER IRRIGATION EQUIPMENT MECHANIC DTL BUN (Blood Urea Nitrogen), S 22 8 - 24 mg/dL 09/22/2021 8:40 AM SPRINKLER IRRIGATION EQUIPMENT MECHANIC DTL Creatinine 1.23 0.74 - 1.35 mg/dL 09/22/2021 8:40 AM SPRINKLER IRRIGATION EQUIPMENT MECHANIC DTL eGFR-Non Black/ 55(L) >=60 mL/min/BSA 09/22/2021 8:40 AM SPRINKLER IRRIGATION EQUIPMENT MECHANIC DTL Comment: ----ADDITIONAL INFORMATION---- Estimated GFR calculated using the 2009 CKD_EPI creatinine equation. eGFR-Black/Afri can [place] 63 >=60 mL/min/BSA 09/22/2021 8:40 AM SPRINKLER IRRIGATION EQUIPMENT MECHANIC DTL Comment: ----ADDITIONAL INFORMATION---- Estimated GFR calculated using the 2009 CKD_EPI creatinine equation. Calcium, Total, S 8.5(L) 8.8 - 10.2 mg/dL 09/22/2021 8:40 AM SPRINKLER IRRIGATION EQUIPMENT MECHANIC DTL Glucose, S 88 70 - 140 mg/dL 09/22/2021 8:40 AM SPRINKLER IRRIGATION EQUIPMENT MECHANIC DTL Blood (Blood, Venous) 09/22/2021 6:15 AM SPRINKLER IRRIGATION EQUIPMENT MECHANIC 09/22/2021 7:44 AM SPRINKLER IRRIGATION EQUIPMENT MECHANIC Eligio Bro M.D. LAB BLOOD ADD-ON Final Resul t [facility] [address] [place] [address], [facility] [address] [place] [address] from Last 3 Months or Most Recently Relevant to Health Maintenance Insurance MEDICARE Advance Directives For more information, please contact: [phone] Documents on File Type Date Recorded Patient Contract Serviceman Expl anation Advance Directives 10/14/2020 11:30 AM [...] Answer Comments Full Code: Discussed Care Teams Cmo Relationship Specialty Start Date End Date Elsewhere, Pcp PCP - General Internal Medicine 12/15/21
--- OUTSIDE RECORDS SUMMARY | 2024-11-13 08:22 | XMS_ITS | Continuity of Care Document ---
Author Name NwHIN User [email or web address] Address Unknown Organization Unknown Address Unknown Procedures FILTER APPLIED:Only known Procedures with Onset Date within the last 5 years Procedure Date Procedure Provider Additional Inform ation Status URINALYSIS AUTO W/SCOPE (18678) Completed EMERGENCY DEPT VISIT LOW MDM (77623) Completed URINE CULTURE/COLONY COUNT (78011) Completed Encounters FILTER APPLIED:Only known Encounters with Admission Date within the last 5 years Encounter Location Admission Discharge Billing Code Consultant Thang dejesus Outpatient [facility] Rosaura Javed
--- OUTSIDE RECORDS SUMMARY | 2024-11-13 08:23 | XMS_ITS | Referral Summary ---
Author Organization [facility] Address [address] [place] [address] Care Team Providers Care Electrical Engineering Designer Name Role Phone Elsewhere, Pcp Primary Care Provider Unavailabl e Source Comments Patient records contain information from all sites at [facility]. For routine questions regarding patient records, call [phone] during business hours, M-F 8:00 AM - 5:00 PM Central Time. Record requests for emergency care only can be directed to [phone] at any time.[facility] Encounters Date Type Department Care Team Description 09/17/2024 9:30 AM DRIER AND PULVERIZER TENDER Office Visit Department of Urology in [place], [place] [address] [place] [address] Consuelo Castle, ADAN, C.N.P. Multiple Sclerosis (HCC) (Primary Dx); Neurogenic Bladder; Retention Urinary Chronic from Last 3 Months Allergies Active Allergy Reactions Criticality Noted Date Comments Adhesive Tape-Silicones Other (see comments) Amoxicillin-Pot Clavulanate Diarrhea 08/03/20 11 Bacitracin-Polymyxin B Rash 01/11/2011 Latex Swelling 01/01/2013 Ayipuqeu-Lhsipdpzam-Ftmmadyi n Itching 10/13/2011 Nitrofurantoin Monohyd/M-Cryst Other (see comments),GI intolerance Low 06/11/2015 Silver Sulfadiazine Other (see comments) 2009 Medications cranberry 500 mg capsule Take 1 capsule by mouth daily. 3 Active donepeziL (Aricept) 10 mg tablet Take 1 tablet by mouth at bedtime. 6 Active multivitamin-mi mfrjhe-DK-ehiau len-lutein (CENTRUM SILVER) 0.4 mg-300 mcg- 250 [...] Patient is a resident at a longterm, [facility]. Problem Noted Date Diagnosed Date Personal History Of Infectio us And Parasitic Disease (COVID-19) 12/11/2021 Overview (12/11/2021): COVID Assessment & Plan (12/11/2021 9:56 AM DRIER AND PULVERIZER TENDER): He was covid positive on 11/30/21. He had minor symptoms and is now off restrictions. Atrial Fibrillation Unspecified 09/21/2021 Overview (12/11/2021): A fib Assessment & Plan (12/11/2021 9:54 AM DRIER AND PULVERIZER TENDER): Atenolol for rate control and apixaban 2.5 mg bid for anticoagulation. Assessment & Plan (10/20/2021 8:33 AM DRIER AND PULVERIZER TENDER): He is on penitentiary anticoagulation. Atrial Fibrillation Personal History 09/20/2021 Overview (10/06/2021): Atenolol for rate control and apixaban for anticoagulation. Assessment & Plan (11/30/2021 3:03 PM DRIER AND PULVERIZER TENDER): Stable on current medications. Assessment & Plan (10/06/2021 7:44 PM DRIER AND PULVERIZER TENDER): Heart rate and blood pressure adequate on increased dose of atenolol. Diastasis Recti 05/19/2021 Overview (05/19/2021): Diastasis recti Assessment & Plan (12/11/2021 9:51 AM DRIER AND PULVERIZER TENDER): He has no pain or symptoms. Assessment & Plan (09/15/2021 8:07 PM DRIER AND PULVERIZER TENDER): Resp easy. 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 Constipation 03/31/2021 Overview (05/19/2021): Slow transit constipation Assessment & Plan (12/11/2021 9:51 AM DRIER AND PULVERIZER TENDER): His bowels are moving in his normal pattern using Senna S 1 tab hs prn. He is also on a probiotic daily. Assessment & Plan (11/30/2021 3:03 PM DRIER AND PULVERIZER TENDER): Bowel agents available. Assessment & Plan (10/20/2021 8:30 AM DRIER AND PULVERIZER TENDER): His bowels are moving in his normal pattern on senna and probiotic. Assessment & Plan (09/15/2021 8:06 PM DRIER AND PULVERIZER TENDER): His bowels are moving in a normal [...] posture. Assessment & Plan (12/11/2021 9:48 AM DRIER AND PULVERIZER TENDER): His legs are wrapped and he elevates them routinely during the day when he is in bed. Assessment & Plan (09/15/2021 8:05 PM DRIER AND PULVERIZER TENDER): He has dependent edema. Legs are wrapped. [...] Insomnia Assessment & Plan (12/11/2021 9:48 AM DRIER AND PULVERIZER TENDER): He is sleeping well on Melatonin 9 mg. Assessment & Plan (11/30/2021 3:02 PM DRIER AND PULVERIZER TENDER): Continue current dose of melatonin. Assessment & Plan (10/20/2021 8:22 AM DRIER AND PULVERIZER TENDER): The melatonin is effective in helping him sleep[. Assessment & Plan (09/15/2021 8:05 PM DRIER AND PULVERIZER TENDER): He is sleeping well on melatonin Assessment [...] infection Assessment & Plan (12/11/2021 10:31 AM DRIER AND PULVERIZER TENDER): He continues on cranberry and has cipro [...] change. Assessment & Plan (10/20/2021 8:23 AM DRIER AND PULVERIZER TENDER): He is prone to UTI's. He has his catheter changed monthly with a 3 day course of cipro surrounding the changes.. He is also on cranberry 500 mg bid. Assessment & Plan (10/06/2021 7:48 PM DRIER AND PULVERIZER TENDER): Most recently treated with IV ceftriaxone and then oral Omnicef to total 10 day course of treatment. Assessment & Plan (09/30/2020 2:44 PM DRIER AND PULVERIZER TENDER): Brad was seen at [facility] emergency department September 03 was diagnosed [...] MS Assessment & Plan (12/11/2021 9:53 AM DRIER AND PULVERIZER TENDER): His pain is controlled with Tramadol 25 mg tid and x 1 prn during the night and tylenol 650 mg Q 6 h prn. Assessment & Plan (10/20/2021 8:31 AM DRIER AND PULVERIZER TENDER): Pain is controlled with tylenol and tramadol. Assessment & Plan (09/15/2021 8:09 PM DRIER AND PULVERIZER TENDER): He takes tramadol 25 mg tid. This [...] tramadol. Monitor for increased pain and reassess. Residential Examination 60 Day Certification Overview (07/10/2019): [facility] Assessment & Plan (11/30/2021 2:57 PM DRIER AND PULVERIZER TENDER): Current comorbidities, ADL need/level of debility requires skilled care/therapy. Medications and labs all reviewed and appropriate related to comorbidities, unless otherwise indicated. Physician order sheet signed. Continue restorative/maintenance care plan, nutrition intervention, skin protection, and fall prevention. He will be tested for COVID-19 according to the prevalence in the community and in the facility in accordance with [facility] guidelines. Assessment & Plan (10/20/2021 8:15 AM DRIER AND PULVERIZER TENDER): He is a penitentiary resident at [facility]. 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 His recently Assessment & Plan (07/15/2020 1:50 PM CDT): He is a long-term resident at [facility]. He shares a room with his Ya. Assessment & Plan (03/18/2020 2:25 PM CDT): He is a long-term resident at [facility]. He shares a room with his . Assessment & Plan (11/13/2019 3:37 PM DRIER AND PULVERIZER TENDER): He is a long-term resident at [facility] Assessment & Plan (07/10/2019 4:28 PM CDT): He is a long-term side of [facility]. He shares a room with his Major Depressive Disorder, Recurrent, Unspecifie d 12/20/2016 Overview (03/29/2017): Depression Major Recurrent Moderate Assessment & Plan (12/11/2021 9:45 AM DRIER AND PULVERIZER TENDER): He is on sertraline 50 mg daily. He lost his , who was also his roommate recently. He also vocalized that he will miss his current friends at [facility]. Assessment & Plan (11/30/2021 3:03 PM DRIER AND PULVERIZER TENDER): Stable on current dose of sertraline. Assessment & Plan (10/20/2021 8:29 AM DRIER AND PULVERIZER TENDER): Stable on sertraline 50 mg daily. Assessment & Plan (09/15/2021 8:00 PM DRIER AND PULVERIZER TENDER): Sertraline is effective for managing depression Assessment [...] symptomatology Assessment & Plan (11/13/2019 3:54 PM DRIER AND PULVERIZER TENDER): He is currently stable on Zoloft 125 [...] mixed Assessment & Plan (12/11/2021 9:39 AM DRIER AND PULVERIZER TENDER): He has no behaviors and is extremely pleasant. He is stable on donepezil 10 mg at bedtime and memantine 5 mg in the morning. Assessment & Plan (11/30/2021 2:59 PM DRIER AND PULVERIZER TENDER): He is stable on donepezil and memantine. Assessment & Plan (10/20/2021 8:20 AM DRIER AND PULVERIZER TENDER): He continues with his memory pills donepezil and memantine Assessment & Plan (09/15/2021 7:58 PM DRIER AND PULVERIZER TENDER): He is doing well on donepezil and [...] . Assessment & Plan (11/13/2019 3:39 PM DRIER AND PULVERIZER TENDER): He is stable on Namenda XR 14 mg daily. He is also on Aricept 10 mg at bedtime Assessment & Plan (07/10/2019 4:33 PM CDT): He is currently stable on Namenda. He calls that his memory pill. He also is on Aricept 10 mg daily Hypertension Essential Primary 05/28/2015 Overview (03/29/2017): Hypertension (HTN) Essential Benign Assessment & Plan (12/11/2021 9:46 AM DRIER AND PULVERIZER TENDER): He is normotensive and hemodynamically stable on Atenolol 50 mg and furosemide 40 mg. Assessment & Plan (11/30/2021 3:03 PM DRIER AND PULVERIZER TENDER): He is on atenolol and furosemide. Assessment & Plan (10/20/2021 8:28 AM DRIER AND PULVERIZER TENDER): Blood pressures are stable on furosemide and atenolol. Rate controlled with atenolol. Assessment & Plan (09/15/2021 8:04 PM DRIER AND PULVERIZER TENDER): He is normotensive and hemodynamically stable on [...] changes Assessment & Plan (11/13/2019 3:42 PM DRIER AND PULVERIZER TENDER): He is normotensive and hemodynamically stable on [...] change. Assessment & Plan (12/11/2021 9:47 AM DRIER AND PULVERIZER TENDER): He has a suprapubic catheter which is changed monthly. The catheter was last changed when it was to be leaking around the site on November. A UA was sent. Next catheter change should be scheduled for December 16, 2019 Assessment & Plan (11/30/2021 2:57 PM DRIER AND PULVERIZER TENDER): No recent difficulties with his suprapubic catheter. Assessment & Plan (10/20/2021 8:21 AM DRIER AND PULVERIZER TENDER): Neurogenic bladder from MS. He is prone to urinary tract infections and was recently hospitalized with a UTI that precipitated a bout of atrial fibrillation. He is on anticoagulation with apixaban. Assessment & Plan (09/15/2021 7:55 PM DRIER AND PULVERIZER TENDER): Suprapubic catheter is patent. The catheter is [...] cranberry. Assessment & Plan (11/13/2019 3:40 PM DRIER AND PULVERIZER TENDER): He has a suprapubic catheter due to MS. He is also on oxybutynin and cranberry tablets. Assessment & Plan (07/10/2019 4:34 PM CDT): Has a suprapubic catheter which is changed monthly in the skilled nursing setting. He takes oxybutynin for bladder spasms and cranberry tablets prevent UTIs. When his catheter is changed, he goes on a 3 day course of Cipro 500 mg twice a day. Multiple Sclerosis 12/10/2009 Overview (07/10/2019): MS diagnosed several years ago Assessment & Plan (12/11/2021 9:23 AM DRIER AND PULVERIZER TENDER): He requires 24 hour care. He has a neurogenic bladder due to the MS. He is nonambulatory and has his own motorized chair. He has no dysphagia. His speech is clear. Assessment & Plan (11/30/2021 2:59 PM DRIER AND PULVERIZER TENDER): Continues to require 24 hour care, assistance with all cares. Assessment & Plan (10/20/2021 8:18 AM DRIER AND PULVERIZER TENDER): He remains non-ambulatory. He needs a suprapubic catheter, mechanical life, wheelchair and 24 hour nursing home care. Assessment & Plan (09/15/2021 7:50 PM DRIER AND PULVERIZER TENDER): He is non ambulatory. He requires 24 [...] leg. Assessment & Plan (11/13/2019 3:38 PM DRIER AND PULVERIZER TENDER): He has a neurogenic bladder and has [...] Problem Noted Date Diagnosed Date Resolved Date Mcc (Current) Anticoagulant Treatment 11/30/2021 12/11/2021 Overview (11/30/2021): Atrial fibrillation Assessment & Plan (11/30/2021 3:02 PM DRIER AND PULVERIZER TENDER): He continues on apixaban. Failure Renal Acute (Acute Kidney Injury) 10/06/2021 12/11/2021 Overview (10/06/2021): Peak creatinine during recent hospitalization 1.59 Assessment & Plan (10/06/2021 7:46 PM DRIER AND PULVERIZER TENDER): Creatinine at discharge 1.23. Spironolactone was held and will be restarted pending adequate renal function. Anemia Of Chronic Disease 10/06/2021 Overview (10/06/2021): Most recent hemoglobin 11.9 at discharge. Assessment & Plan (10/06/2021 7:44 PM DRIER AND PULVERIZER TENDER): Continue to follow hemoglobin. Hypokalemia 07/28/2021 09/15/2021 [...] (05/12/2020): Added automatically from request for surgery [id number] Pain Leg 12/05/2018 11/13/2019 Stroke/Transient Ischemic Attack NOS 10/03/2017 11/13/2019 Repair Mitral Valve Status Post 10/03/2017 11/13/2019 Atherosclerotic Heart Diseas e Of [place] Coronary Artery Without Angina Pectoris 05/31/2017 11/13/2019 [...] on file Legal Sex Male 7:50 AM DRIER AND PULVERIZER TENDER Gender Identity Not on file Sexual Orientation Not on file Last Filed Vital Signs Vital Sign Reading Time Taken Comments Blood Pressure 122/69 12/11/2021 10:00 AM DRIER AND PULVERIZER TENDER Pulse 72 12/11/2021 10:00 AM DRIER AND PULVERIZER TENDER Temperature 36.8 C (98.2 F) 12/11/2021 10:00 AM DRIER AND PULVERIZER TENDER Respiratory Rate 16 12/11/2021 10:00 AM DRIER AND PULVERIZER TENDER Oxygen Saturation 94% 12/11/2021 10:00 AM DRIER AND PULVERIZER TENDER Room Air Inhaled Oxygen Concentration - - Weight 88.7 kg (195 lb 8 oz) 12/11/2021 10:00 AM DRIER AND PULVERIZER TENDER Height 172.7 cm (5' 8) 09/25/2021 7:20 PM DRIER AND PULVERIZER TENDER Body Mass Index 29.73 09/25/2021 7:20 PM DRIER AND PULVERIZER TENDER Plan of Treatment Not on file Medical Devices Implanted Type Area Manager Multicultural Device Identifier Shelf Expiration Date Model / Serial / Lot Band-Annulopla sty Flex-25mm X 63mm - Dimas [id number] Implanted:Qty: 1 on 12/12/2009 Cardiac Valve Prosthesis Other/Legacy - See Implant Description Medtronic Description:Device Manufactu rer - [employer] Body Location - Other. Mitral. Device Status Text - [id number]. Cotton Uriel Fuzzy 1 X 1 - Dimas [id number] Implanted:Qty: 1 on 12/12/2009 Mesh or Patch Knovel Description:Device Manufactu rer - [employer]. Device Status Text - [id number]. [facility] Data - [id number]. Ligation Clips Implanted:Qty: 1 on 05/13/2020 by Vern Dumont M.D. at [facility] Other [employer] [id number] 01/21/2025 [id number] / / [id number] Procedures Procedure Name Priority Date/Time Associated Diagnosis Comments BASIC METABOLIC PANEL, S/P Routine 09/22/2021 6:15 AM DRIER AND PULVERIZER TENDER from Last 3 Months or Most Recently Relevant to Health Maintenance Results * (ABNORMAL) Basic Metabolic Panel (09/22/2021 6:15 AM DRIER AND PULVERIZER TENDER) Potassium, S 3.4(L) 3.6 - 5.2 mmol/L 09/22/2021 8:40 AM DRIER AND PULVERIZER TENDER DTL Sodium, S 141 135 - 145 mmol/L 09/22/2021 8:40 AM DRIER AND PULVERIZER TENDER DTL Chloride, S 104 98 - 107 mmol/L 09/22/2021 8:40 AM DRIER AND PULVERIZER TENDER DTL Bicarbonate, S 24 22 - 29 mmol/L 09/22/2021 8:40 AM DRIER AND PULVERIZER TENDER DTL Anion Gap 13 7 - 15 09/22/2021 8:40 AM DRIER AND PULVERIZER TENDER DTL BUN (Blood Urea Nitrogen), S 22 8 - 24 mg/dL 09/22/2021 8:40 AM DRIER AND PULVERIZER TENDER DTL Creatinine 1.23 0.74 - 1.35 mg/dL 09/22/2021 8:40 AM DRIER AND PULVERIZER TENDER DTL eGFR-Non Black/ 55(L) >=60 mL/min/BSA 09/22/2021 8:40 AM DRIER AND PULVERIZER TENDER DTL Comment: ----ADDITIONAL INFORMATION---- Estimated GFR calculated using the 2009 CKD_EPI creatinine equation. eGFR-Black/Afri can [place] 63 >=60 mL/min/BSA 09/22/2021 8:40 AM DRIER AND PULVERIZER TENDER DTL Comment: ----ADDITIONAL INFORMATION---- Estimated GFR calculated using the 2009 CKD_EPI creatinine equation. Calcium, Total, S 8.5(L) 8.8 - 10.2 mg/dL 09/22/2021 8:40 AM DRIER AND PULVERIZER TENDER DTL Glucose, S 88 70 - 140 mg/dL 09/22/2021 8:40 AM DRIER AND PULVERIZER TENDER DTL Blood (Blood, Venous) 09/22/2021 6:15 AM DRIER AND PULVERIZER TENDER 09/22/2021 7:44 AM DRIER AND PULVERIZER TENDER Eligio Bro M.D. LAB BLOOD ADD-ON Final Resul t [facility] [address] [place] [address], [place] DTL [facility] [address] [place] [address] from Last 3 Months or Most Recently Relevant to Health Maintenance Insurance MEDICARE Advance Directives For more information, please contact: [phone] Documents on File Type Date Recorded Patient Film Sound Engineer Expl anation Advance Directives 10/14/2020 11:30 AM [...] Answer Comments Full Code: Discussed Care Teams Electrical Engineering Designer Relationship Specialty Start Date End Date Elsewhere, Pcp PCP - General Internal Medicine 12/15/21
--- OUTSIDE RECORDS SUMMARY | 2024-11-13 08:23 | XMS_ITS ---
Author Organization [facility] Address [address] [place] [address] Care Team Providers Care Mechanic Industrial Truck Name Role Phone Unavailable Unavailable Unavailable Surgery Details Not on file Complications Check Surgery Details section. Procedure Estimated Blood Loss Check Surgery Details section. Procedure Findings Check Surgery Details section. Procedure Specimens Taken Check Surgery Details section.
--- NOTE | 2024-11-13 08:58 | ED.GENADULT ---
HPI - General Adult General Chief complaint: Altered Mental Status Stated complaint: poss UTI Time Seen by Provider: 11/13/24 08:58 History of Present Illness HPI narrative: Patient presents to the emergency department via EMS complaining of increased agitation and confusion. Patient is coming from [address] [place] [address] where there is a covid/influenza outbreak. Patient has had increased confusion and agitation since yesterday. Staff noticed some blood in his urine, they did change his catheter to see if it would help. Patient is at baseline confused but far more less agitated typically. Patient does have a productive cough producing yellow sputum. 84-year-old man presenting to the emergency department concern of altered mental status. Reportedly at residence in at [facility] there is both COVID and influenza. He has been more agitated and confused since yesterday. Does have indwelling Marr and blood has been noted to be present. Has been coughing. Productive. No hemoptysis noted. Mr. Myers is bony and says I don't know to most of my questions. Able to follow basic commands however. POLST indicates full code History of MRSA 1 month ago in urine. Indwelling catheter with history of urinary retention. Urine Culture* Final ML Organism 1 Staphylococcus aureus Ur [place] Count >100,000 CFU/ml MRSA CONFIRMED. S aureus JUANJOSE RX --------- --- Ciprofloxacin >=8 R Daptomycin 1 S Doxycycline 2 S Gentamicin <=0.5 S Levofloxacin >=8 R Linezolid 2 S * Moxifloxacin 4 R Nitrofurantoin <=16 S * Oxacillin Juajnose >=4 R Rifampin <=0.5 S Tetracycline >=16 R Tigecycline <=0.12 S Trimethoprim/Sulfamethoxazole <=10 S Vancomycin 1 S Related Data Home Medications ?Medication ?Instructions ?Recorded ?Confirmed Lactobacillus acidophilus 1 cap PO DAILY 03/09/24 03/09/24 (Acidophilus capsule) apixaban 2.5 mg tablet (Eliquis) 2.5 mg PO BID 03/09/24 03/09/24 azithromycin 250 mg tablet mg PO 03/09/24 bacitracin 500 unit/gram topical topical 03/09/24 ointment ciprofloxacin HCl 250 mg tablet 250 mg PO BID 03/09/24 03/09/24 donepezil 10 mg tablet 10 mg PO DAILY 03/09/24 03/09/24 furosemide 40 mg tablet mg PO 03/09/24 memantine 5 mg tablet 5 mg PO DAILY 03/09/24 03/09/24 oxybutynin chloride 5 mg 5 mg PO DAILY 03/09/24 03/09/24 tablet,extended release 24 hr potassium chloride 20 mEq 20 meq PO BID 03/09/24 03/09/24 tablet,extended release(part/cryst) sertraline 50 mg tablet mg PO 03/09/24 tramadol 50 mg tablet PO 03/09/24 triamcinolone acetonide 0.1 % applic topical 03/09/24 topical cream Allergies Allergy/AdvReac Type Severity Reaction Status Date / Time adhesive tape Allergy Severe Verified 11/13/24 11:20 amoxicillin (From Augmentin) Allergy Severe Verified 11/13/24 11:20 bacitracin (From Triple Allergy Severe Verified 11/13/24 11:20 Antibiotic) cephalexin (From Keflex) Allergy Severe Verified 11/13/24 11:20 clavulanic acid (From Allergy Severe Verified 11/13/24 11:20 Augmentin) latex Allergy Severe Verified 11/13/24 11:20 neomycin (From Triple Allergy Severe Verified 11/13/24 11:20 Antibiotic) polymyxin B (From Triple Allergy Severe Verified 11/13/24 11:20 Antibiotic) silver sulfadiazine AdvReac Unknown Verified 11/13/24 11:20 Review of Systems Status of ROS: Reports: unobtainable due to mental status [facility] Social History Smoking Status: Never smoker Do you use any of these nicotine containing products: None Second hand tobacco smoke exposure: No How often do you have a drink containing alcohol: never How often do you have six or more drinks on one occasion: Never AUDIT-C Alcohol total score: 0 Non-prescribed substance use: denies use service: No Exam Narrative: Exam Narrative: Very dry and sticky mouth. Moaning intermittently. Alerts to conversation and cooperates. Cranial nerves 2-12 look to be intact. Absent right thumb. Heart in regular rhythm, tachycardic Diffusely tender to palpation of the abdomen perhaps more so across the upper abdomen. Full. Blood or debris appears to be layering out in the catheter tubing. Large patches of hemosiderin deposition/darkening on anterior campos. Lower extremities are without edema. Bibasilar crepitus with breath sounds throughout. Const: Vital Signs, click to edit/add: Vital Signs - 24 hr 11/13/24 08:33 11/13/24 11:07 11/13/24 11:07 Temperature 100.3 F H Pulse Rate 101 H Pulse Rate [Right Pulse Oximeter] 101 H 102 H Respiratory Rate 28 H 28 H Blood Pressure Blood Pressure [Ri ght Upper Arm] 93/66 105/64 Pulse Oximetry 93 96 95 Oxygen Delivery Me thod Room Air Room Air 11/13/24 11:27 11/13/24 11:30 11/13/24 11:45 Temperature Pulse Rate 103 H 99 105 H Pulse Rate [Right Pulse Oximeter] Respiratory Rate Blood Pressure Blood Pressure [Ri ght Upper Arm] Pulse Oximetry 91 92 95 Oxygen Delivery Me thod 11/13/24 11:49 11/13/24 12:00 11/13/24 12:02 Temperature Pulse Rate 100 102 H 101 H Pulse Rate [Right Pulse Oximeter] Respiratory Rate Blood Pressure 109/58 L 113/69 Blood Pressure [Ri ght Upper Arm] Pulse Oximetry 94 95 95 Oxygen Delivery Me thod 11/13/24 12:15 11/13/24 12:22 11/13/24 12:30 Temperature Pulse Rate 100 100 97 Pulse Rate [Right Pulse Oximeter] Respiratory Rate Blood Pressure 122/65 Blood Pressure [Ri ght Upper Arm] Pulse Oximetry 93 94 93 Oxygen Delivery Me thod Documenting provider has reviewed patient's vital signs: yes Course Vital Signs Vital signs: Initial Vital Signs Temperature 100.3 F H 11/13/24 08:33 Temperature Source Temporal Artery Scan 11/13/24 08:33 Pulse Rate 101 H 11/13/24 08:33 Pulse Rhythm Regular 11/13/24 08:33 Pulse Strength 3+ Normal 11/13/24 08:33 Respiratory Rate 28 H 11/13/24 08:33 Blood Pressure 93/66 11/13/24 08:33 Blood Pressure Mean 75 11/13/24 08:33 Blood Pressure Position Semi-Fowlers 11/13/24 08:33 Pulse Oximetry 93 11/13/24 08:33 Oxygen Delivery Method Room Air 11/13/24 08:33 Vital Signs Temperature 100.3 F H 11/13/24 08:33 Pulse Rate 101 H 11/13/24 08:33 Respiratory Rate 28 H 11/13/24 08:33 Blood Pressure 93/66 11/13/24 08:33 Pulse Oximetry 93 11/13/24 08:33 Oxygen Delivery Method Room Air 11/13/24 08:33 Temperature 100.3 F H 11/13/24 08:33 Pulse Rate 97 11/13/24 12:30 Respiratory Rate 28 H 11/13/24 11:07 Blood Pressure 122/65 11/13/24 12:22 Pulse Oximetry 93 11/13/24 12:30 Oxygen Delivery Method Room Air 11/13/24 11:07 Medications Administered Medications: Generic Name Dose Route Start Last Admin Trade Name Freq PRN Reason Stop Dose Admin Acetaminophen 650 mg 11/13/24 13:36 11/13/24 14:15 Acetaminophen 325 Mg Tablet PO 650 mg Q4H PRN Administration Discontinued Medications Generic Name Dose Route Start Last Admin Trade Name Freq PRN Reason Stop Dose Admin Sodium Chloride 1,000 mls @ 1,000 mls/hr 11/13/24 09:06 11/13/24 11:28 0.9 % Sodium Chloride 1000 Ml IV 11/13/24 10:05 Infused .Q1H ONE Infusion Imipenem/Cilastatin Sodium 500 100 mls @ 200 mls/hr 11/13/24 10:15 11/13/24 12:15 mg/ Sodium Chloride IVPB 11/13/24 10:16 Infused ONCE ONE Infusion Vancomycin/PEG/NADA/Lysine/Water 2 gm in 400 mls @ 266.667 mls/hr 11/13/24 12:00 11/13/24 12:27 Vancomycin 2 Gm/400 Ml IVPB 11/13/24 13:29 266.67 mls/hr ONCE ONE Administration Lactated Ringer's 500 mls @ 500 mls/hr 11/13/24 11:09 11/13/24 12:28 Lactated Ringers 500 Ml IV 11/13/24 12:08 Infused .Q1H ONE Infusion Medical Decision Making MDM Narrative Medical decision making narrative: Temperature is nearly a fever. Is tachycardic. Appears to have some abdominal pain which might indicate a plugged catheter. This has occurred before. May of course indicate some other acute abdominal process. COVID influenza RSV swabs are negative. White count returns rather elevated. I do have concerns of potential sepsis in this patient. Will initiate antibiotics per protocol. Unable to clarify allergies at this time and so initiating Primaxin and vancomycin -- bladder with recent MRSA infection Did receive initial 500 mL of fluid and I had already ordered for another L. Unknown cardiac status regarding failure though do see furosemide on medication list. I would not say is fluid up. Pain Following initial normal saline initiated bolus of lactated Ringer's Initial EKG interpreted by me shows sinus tachycardia 103 Bladder scan for less than 20 mL. I did personally review imaging Radiology over-read below TECHNIQUE: CT chest, abdomen and pelvis acquired with 128 cc Isovue 370 IV contrast. COMPARISON: CT abdomen pelvis report dated 09/19/2021. FINDINGS: CHEST: Cardiovascular structures: Heart size is normal. Thoracic aorta is normal in caliber. Mediastinum and maricarmen: Postsurgical changes. No mass or adenopathy. Lungs and pleura: Respiratory motion artifact limits evaluation of the pulmonary parenchyma. Moderate bibasilar dependent consolidations. No evident suspicious nodules. Chest wall and axilla: No mass or adenopathy. Bones: Diffuse osseous demineralization. No evident acute fracture or dislocation. Exaggerated thoracic kyphosis with anterior wedge deformities of multiple thoracic vertebrae. ABDOMEN AND PELVIS: Liver: Redemonstrated suspected small hemangioma in segment 6. Gallbladder and bile ducts: Unremarkable. Pancreas: Unremarkable. Spleen: Unremarkable. No sign of acute injury. Adrenal glands: Unremarkable. Kidneys and bladder: Redemonstrated moderate to severe left and moderate right hydroureteronephrosis. Layering milk of calcium in the left renal pelvis. Suprapubic catheter in place. Bladder is underdistended, limiting evaluation. GI tract: Prominent colonic stool burden. Bowel is normal in caliber without evidence of obstruction. Vascular structures: Unremarkable. Mesenteric arteries are patent. Lymph nodes: Unremarkable. Miscellaneous: Partially visualized large right fat and small bowel containing right inguinal hernia. No free air or significant free fluid. Pelvic Organs: Prostatomegaly. Bones: No acute fracture or dislocation. IMPRESSION: 1. Redemonstrated chronic bilateral hydroureteronephrosis with a suprapubic catheter in place. 2. Moderate dependent bibasilar consolidations in the lungs, which are nonspecific, and may reflect atelectasis, though superimposed pneumonia is not excluded. 3. Prominent colonic stool burden, which may reflect constipation. Apparent abdominal discomfort on exam may well be due to constipation. Only source of infection appears to potentially be urine. Urine culture pending. Have discussed with hospitalist for admission. Vitals have been stable. Medical Records Medical records reviewed: Yes I reviewed the patient's medical records Lab Data Lab results reviewed: Yes I reviewed the patient's lab results Labs: Lab Results 11/13/24 11/13/24 11/13/24 Range/Units 08:35 09:08 09:24 WBC 29.50 H* (4.50-11.00) K/uL RBC 5.55 (4.30-5.90) m/uL Hgb 16.0 (13.5-17.5) gm/dL Hct 50.6 (37.0-53.0) % MCV 91 (80-100) fL MCH 29 (26-34) pg MCHC 32 (32-36) gm/dL RDW Coeff of Pily 14.6 (11.5-15.5) % Plt Count 137 L (140-440) K/uL Neut % (Auto) 92.3 H (42.0-72.0) % Lymph % (Auto) 1.2 L (20-44) % [place] % (Auto) 6.1 (0.0-11.0) % Eos % (Auto) 0.0 (0.0-7.0) % Baso % (Auto) 0.1 (0.0-3.0) % Neut # (Auto) 27.20 H (1.7-7.0) K/uL Lymph # (Auto) 0.40 L (0.90-2.90) K/uL [place] # (Auto) 1.80 H (0.00-0.90) K/UL Eos # (Auto) 0.00 (0.00-0.50) K/uL Baso # (Auto) 0.00 (0.00-0.30) K/uL Abs Immat Gran (auto) 0.10 (0.00-0.30) K/uL Imm/Tot Granulo (auto) 0.3 % Diff Slide Review Acceptable Review (Acceptable) Sodium 143 (135-149) mmol/L Potassium 3.7 (3.6-5.1) mmol/L Chloride 108 (96-114) mmol/L Carbon Dioxide 21 (20-32) mmol/L Anion Gap 14 (7-15) mEq/L BUN 25 (7-30) mg/dL Creatinine 1.9 H (0.5-1.5) mg/dL Estimated GFR 34 ml/min Glucose 147 H (60-115) mg/dL Calcium 8.8 (8.4-10.6) mg/dL C-Reactive Protein 16.1 H (0.5-1.0) mg/dL Procalcitonin 79.90 H (<0.50) ng/mL Urine Color (Yellow) Urine Appearance (Clear) Urine pH (5.0-8.5) Ur Specific [place] (1.000-1.030) Urine Protein (Negative) Urine Glucose (UA) (Negative) Urine Ketones (Negative) Urine Blood (Negative) Urine Nitrite (Negative) Urine Bilirubin (Negative) Urine Urobilinogen (0.2-1.0) Ur Leukocyte Esterase (Negative) Urine RBC (0-2) Urine WBC (0-5) Ur Squamous Epith Cells (None-Few) Urine Bacteria (None) SARS-CoV-2 (PCR) Negative SARS-CoV-2 (Negative) Influenza Type A (PCR) Negative PCR FLU A (Negative) Influenza Type B (PCR) Negative PCR FLU B (Negative) RSV (PCR) Negative PCR RSV (Negative) 11/13/24 Range/Units 10:11 WBC (4.50-11.00) K/uL RBC (4.30-5.90) m/uL Hgb (13.5-17.5) gm/dL Hct (37.0-53.0) % MCV (80-100) fL MCH (26-34) pg MCHC (32-36) gm/dL RDW Coeff of Pily (11.5-15.5) % Plt Count (140-440) K/uL Neut % (Auto) (42.0-72.0) % Lymph % (Auto) (20-44) % [place] % (Auto) (0.0-11.0) % Eos % (Auto) (0.0-7.0) % Baso % (Auto) (0.0-3.0) % Neut # (Auto) (1.7-7.0) K/uL Lymph # (Auto) (0.90-2.90) K/uL [place] # (Auto) (0.00-0.90) K/UL Eos # (Auto) (0.00-0.50) K/uL Baso # (Auto) (0.00-0.30) K/uL Abs Immat Gran (auto) (0.00-0.30) K/uL Imm/Tot Granulo (auto) % Diff Slide Review (Acceptable) Sodium (135-149) mmol/L Potassium (3.6-5.1) mmol/L Chloride (96-114) mmol/L Carbon Dioxide (20-32) mmol/L Anion Gap (7-15) mEq/L BUN (7-30) mg/dL Creatinine (0.5-1.5) mg/dL Estimated GFR ml/min Glucose (60-115) mg/dL Calcium (8.4-10.6) mg/dL C-Reactive Protein (0.5-1.0) mg/dL Procalcitonin (<0.50) ng/mL Urine Color Yellow (Yellow) Urine Appearance Cloudy A (Clear) Urine pH 7.0 (5.0-8.5) Ur Specific [place] 1.015 (1.000-1.030) Urine Protein 2+ A (Negative) Urine Glucose (UA) Negative (Negative) Urine Ketones Negative (Negative) Urine Blood 3+ A (Negative) Urine Nitrite Positive A (Negative) Urine Bilirubin Negative (Negative) Urine Urobilinogen 0.2 (0.2-1.0) Ur Leukocyte Esterase 3+ A (Negative) Urine RBC 10-25 A (0-2) Urine WBC >100 A (0-5) Ur Squamous Epith Cells None (None-Few) Urine Bacteria Moderate A (None) SARS-CoV-2 (PCR) (Negative) Influenza Type A (PCR) (Negative) Influenza Type B (PCR) (Negative) RSV (PCR) (Negative) ECG Data Attestation: I personally reviewed and interpreted this ECG as follows: (Sinus tachycardia. Rate of 103) Critical Care Time Critical Care Time Critical Care Time: Yes Attestation: The patient required my highest level preparedness to intervene emergently and I personally spent this critical care time directly and personally managing the patient. This critical care time included: Obtaining a history; Examining the patient; Pulse oximetry; Ordering and reviewing of studies; Arranging urgent treatment with development of a management plan; Evaluation of patients response to treatment; Frequent reassessment discussions with other providers. This critical care time was performed to assess and manage the high probability of imminent life-threatening deterioration that could result in multiorgan failure. It was exclusive of separate billable procedures and treating other patients and teaching time. Total Critical Care Time in Minutes: 70 Discharge Plan Discharge Clinical Impression: Sepsis, Urinary tract infection, Constipation Patient Disposition: Admitted As Observation Condition: Stable
--- NOTE | 2024-11-13 09:03 | CRLHL7_ITS ---
For Patients: As a result of the Century Cures Act, medical imaging exams and procedure reports are released immediately into your electronic medical record. You may view this report before your referring provider. If you have questions, please contact your health care provider. INDICATION: Elevated temperature. TECHNIQUE: Chest 2 views. COMPARISON: None. FINDINGS: Cardiovascular and mediastinum: Heart size is normal. Postsurgical changes in the mediastinum. Lungs and pleural spaces: Markedly low lung volumes with patchy basilar opacities and diffuse interstitial prominence. No evident pleural effusion. No pneumothorax. Bones and soft tissues: No acute findings. IMPRESSION: Markedly low lung volumes with diffuse interstitial prominence, which may be artifactual, though pulmonary edema can also have this appearance. There are also patchy basilar opacities, likely at least partially reflecting atelectasis, but superimposed pneumonia is not excluded. Dictated by Phi Brock MD @ 11/13/2024 9:55:13 AM (Electronically Signed)
[2024-11-13 09:24] LABS: PCR FLU A Negative PCR FLU A (Negative); PCR FLU B Negative PCR FLU B (Negative); PCR RSV Negative PCR RSV (Negative); SARS PCR* Negative SARS-CoV-2 (Negative)
[2024-11-13] MEDS: 0.9 % SODIUM CHLORIDE 1000 ml 1,000 ML IV (09:30)
[2024-11-13 09:43] LABS: Basophils Percent Auto 0.1 % (0.0-3.0); Hematocrit 50.6 % (37.0-53.0); Immature Granulocytes Pct Auto 0.3 %; Lymphocytes Percent Auto 1.2 % (20-44); Mean Corpuscular HGB Conc 32 gm/dL (32-36); Mean Corpuscular Hemoglobin 29 pg (26-34); Mean Corpuscular Volume 91 fL (80-100); Monocytes Percent Auto 6.1 % (0.0-11.0); Neutrophils Percent Auto 92.3 % (42.0-72.0); Platelet Count* 137 K/uL (140-440); RDW Coefficient of Variation % 14.6 % (11.5-15.5); Red Blood Count 5.55 m/uL (4.30-5.90)
--- NOTE | 2024-11-13 09:46 | CRLHL7_ITS ---
For Patients: As a result of the 21st Century Cures Act, medical imaging exams and procedure reports are released immediately into your electronic medical record. You may view this report before your referring provider. If you have questions, please contact your health care provider. INDICATION: ABD PAIN, AMS, HX OF INDWELLING CATHETER. TECHNIQUE: CT chest, abdomen and pelvis acquired with 128 cc Isovue 370 IV contrast. COMPARISON: CT abdomen pelvis report dated 09/19/2021. FINDINGS: CHEST: Cardiovascular structures: Heart size is normal. Thoracic aorta is normal in caliber. Mediastinum and maricarmen: Postsurgical changes. No mass or adenopathy. Lungs and pleura: Respiratory motion artifact limits evaluation of the pulmonary parenchyma. Moderate bibasilar dependent consolidations. No evident suspicious nodules. Chest wall and axilla: No mass or adenopathy. Bones: Diffuse osseous demineralization. No evident acute fracture or dislocation. Exaggerated thoracic kyphosis with anterior wedge deformities of multiple thoracic vertebrae. ABDOMEN AND PELVIS: Liver: Redemonstrated suspected small hemangioma in segment 6. Gallbladder and bile ducts: Unremarkable. Pancreas: Unremarkable. Spleen: Unremarkable. No sign of acute injury. Adrenal glands: Unremarkable. Kidneys and bladder: Redemonstrated moderate to severe left and moderate right hydroureteronephrosis. Layering milk of calcium in the left renal pelvis. Suprapubic catheter in place. Bladder is underdistended, limiting evaluation. GI tract: Prominent colonic stool burden. Bowel is normal in caliber without evidence of obstruction. Vascular structures: Unremarkable. Mesenteric arteries are patent. Lymph nodes: Unremarkable. Miscellaneous: Partially visualized large right fat and small bowel containing right inguinal hernia. No free air or significant free fluid. Pelvic Organs: Prostatomegaly. Bones: No acute fracture or dislocation. IMPRESSION: 1. Redemonstrated chronic bilateral hydroureteronephrosis with a suprapubic catheter in place. 2. Moderate dependent bibasilar consolidations in the lungs, which are nonspecific, and may reflect atelectasis, though superimposed pneumonia is not excluded. 3. Prominent colonic stool burden, which may reflect constipation. Please note that all CT scans at this facility use dose modulation, iterative reconstruction, and/or weight-based dosing when appropriate to reduce radiation dose to as low as reasonably achievable. Dictated by Phi Brock MD @ 11/13/2024 12:03:26 PM (Electronically Signed)
[2024-11-13 09:58] LABS: Chloride* 108 mmol/L (96-114); Potassium* 3.7 mmol/L (3.6-5.1); Sodium* 143 mmol/L (135-149)
[2024-11-13 10:01] LABS: Creatinine* 1.9 mg/dL (0.5-1.5); Estimated Glomerular Filt Rate 34 ml/min
[2024-11-13 10:02] LABS: Anion Gap 14 mEq/L (7-15); Blood Urea Nitrogen* 25 mg/dL (7-30); Calcium* 8.8 mg/dL (8.4-10.6); Carbon Dioxide* 21 mmol/L (20-32); Glucose* 147 mg/dL (60-115)
[2024-11-13 10:03] LABS: Slide Review Reflex Yes
[2024-11-13 10:16] LABS: Appearance Urine Cloudy (Clear); Bilirubin Urine Negative (Negative); Blood Urine 3+ (Negative); Color Urine Yellow (Yellow); Glucose Urine Negative (Negative); Ketones Urine Negative (Negative); Leukocyte Esterase Urine 3+ (Negative); Nitrite Urine Positive (Negative); Protein Urine 2+ (Negative); Specific Gravity Urine 1.015 (1.000-1.030); Urobilinogen Urine 0.2 (0.2-1.0)
[2024-11-13 10:21] LABS: C Reactive Protein* 16.1 mg/dL (0.5-1.0)
[2024-11-13 10:27] LABS: Bacteria Urine Moderate; WBC Urine >100 (0-5)
[2024-11-13 11:43] LABS: Slide Review Acceptable Review (Acceptable)
[2024-11-13] MEDS: LACTATED RINGERS 500 ML 500 ML IV ×3 (11:45→23:39)
[2024-11-13] MEDS: VANCOMYCIN 2 GM/400 ML 2 GM/400 ML PIGGYBACK IVPB (12:27)
[2024-11-13] MEDS: ACETAMINOPHEN 325 MG TABLET 650 MG PO (14:15)
[2024-11-13 15:52] LABS: Lactate* 2.7 mmol/L (0.5-1.9)
--- NOTE | 2024-11-13 18:09 | PM.IMHP1 ---
Hospitalist- H&P: HPI History of Present Illness Date Seen: 11/13/24 Chief complaint: poss UTI Narrative: Hi Myers is a 84 year old male with multiple sclerosis, suprapubic catheter, history of MRSA urinary infection, obesity admitted to the hospital with onset starting last evening of fever, altered mental status and hematuria. Patient is unable to give history due to altered mental status. His daughter and the medical record provide history at this time. Daughter reports she saw him yesterday earlier in the day and he seemed fine. He did have some leakage and bleeding around his suprapubic catheter and so the staff at the halfway changed it. Catheter was probably also getting plugged with blood clots at the time. I believe yesterday was his typical monthly catheter change. Following that he continued to have some bleeding but then seemed to be getting confused and agitated. He has had some coughing. He developed a fever. This morning he was appearing quite ill and he was brought to the emergency room. He lives at [address] [place] [address] where there is currently an outbreak of both COVID and influenza. Review of Systems Narrative: Prior to last evening his daughter thinks he was at his usual health status. [facility] Medical History (Updated 11/14/24 @ 16:46 by Juwan Land MD) Depression ?F32.A - Depression, unspecified (ICD-10) Hypertension ?I10 - Essential (primary) hypertension (ICD-10) Cognitive impairment ?R41.89 - Other symptoms and signs involving cognitive functions and awareness (ICD-10) Suprapubic catheter dysfunction ?T83.010A - Breakdown (mechanical) of cystostomy catheter, initial encounter (ICD-10) Neurogenic bladder ?N31.9 - Neuromuscular dysfunction of bladder, unspecified (ICD-10) Multiple sclerosis ?G35 - Multiple sclerosis (ICD-10) Surgical History (Updated 11/13/24 @ 18:20 by Juwan Land MD) History of mitral valve repair ?Z98.890 - Other specified postprocedural states (ICD-10) Family History (Updated 11/13/24 @ 18:21 by Juwan Land MD) Father Diabetes Heart disease Social History (Updated 11/13/24 @ 18:22 by Juwan Land MD) Narrative: Resident of [facility]. Has 2 daughters and 2 sons. Two daughters and 1 son live in [place] and 1 son lives in [facility]. 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 Code status has been full. Patient is currently considering revising that. Daughter Megan is most closely involved with day-to-day cares. What is your current living situation?: I presently have a place to live Problems where you live: no known problems Problems where you live details: N/A In the past 12 months, utilities in danger of being shut off: no In past 12 months, lack of transportation kept you from medical appts, meetings, work, or getting things needed for daily living: no In the past 12 mos, have been you worried that your food would run out before you had money to buy more?: never true In the past 12 mos, the food you bought just didn't last and you didn't have money to buy more?: never true Smoking Status: Never smoker Do you use any of these nicotine containing products: None Second hand tobacco smoke exposure: No How often do you have a drink containing alcohol: never How often do you have six or more drinks on one occasion: Never AUDIT-C Alcohol total score: 0 Non-prescribed substance use: denies use How often does anyone, including family, friends and others, physically hurt you: never How often does anyone, including family, friends and others, insult or talk down to you: never How often does anyone, including family, friends and others, threaten you with harm: never How often does anyone, including family, friends and others, scream or curse at you: never service: No Meds Home Medications and Allergies Home Medications ?Medication ?Instructions ?Recorded ?Confirmed ?Type Lactobacillus acidophilus 1 cap PO DAILY 03/09/24 11/14/24 History (Acidophilus capsule) apixaban 2.5 mg tablet (Eliquis) 2.5 mg PO BID 03/09/24 11/14/24 History azithromycin 250 mg tablet 500 mg PO .EACH TIME PRN 03/09/24 11/14/24 History bacitracin 500 unit/gram topical 1 applic topical BID 03/09/24 11/14/24 History ointment donepezil 10 mg tablet 10 mg PO HS 03/09/24 11/14/24 History furosemide 40 mg tablet 40 mg PO BID 03/09/24 11/14/24 History memantine 5 mg tablet 5 mg PO DAILY 03/09/24 11/14/24 History oxybutynin chloride 5 mg 5 mg PO DAILY 03/09/24 11/14/24 History tablet,extended release 24 hr potassium chloride 20 mEq 20 meq PO BID 03/09/24 11/14/24 History tablet,extended release(part/cryst) tramadol 50 mg tablet 25 mg PO TID 03/09/24 11/14/24 History triamcinolone acetonide 0.1 % 1 applic topical BID 03/09/24 11/14/24 History topical cream acetaminophen 325 mg tablet 650 mg PO Q8H PRN 11/14/24 11/14/24 History cranberry 500 mg capsule 500 mg PO HS 11/14/24 11/14/24 History loperamide 2 mg capsule (Imodium 2 mg PO Q6H PRN 11/14/24 11/14/24 History A-D) melatonin 3 mg tablet 9 mg PO HS 11/14/24 11/14/24 History sennosides 8.6 mg tablet (Natural 8.6 mg PO BID PRN 11/14/24 11/14/24 History Senna Laxative) sertraline 25 mg tablet 25 mg PO DAILY 11/14/24 11/14/24 History Allergies Allergy/AdvReac Type Severity Reaction Status Date / Time adhesive tape Allergy Severe Verified 11/13/24 11:20 amoxicillin (From Augmentin) Allergy Severe Verified 11/13/24 11:20 bacitracin (From Triple Allergy Severe Verified 11/13/24 11:20 Antibiotic) cephalexin (From Keflex) Allergy Severe Verified 11/13/24 11:20 clavulanic acid (From Allergy Severe Verified 11/13/24 11:20 Augmentin) latex Allergy Severe Verified 11/13/24 11:20 neomycin (From Triple Allergy Severe Verified 11/13/24 11:20 Antibiotic) polymyxin B (From Triple Allergy Severe Verified 11/13/24 11:20 Antibiotic) silver sulfadiazine AdvReac Unknown Verified 11/13/24 11:20 Exam Narrative: Exam Narrative: He is tired appearing in mild respiratory distress and diaphoretic he arouses to voice but seems to fall asleep if not disturbed. Head is without obvious trauma. Eyes are normal. Oropharynx with dry mucous membranes and small airway. Neck is supple without mass or adenopathy. Respirations: He appears to have somewhat labored and rapid shallow breathing. He has upper airway rhonchi that are prominent. No definite wheezing. No definite consolidation. Somewhat diminished breath sounds diffusely. Cardiovascular: S1, S2, regular rate and rhythm. Abdomen: Bowel sounds active. Abdomen is soft. He has some mild guarding but no focal tenderness. Suprapubic catheter site is noted. No significant erythema but there is some small amount of bleeding coming from that puncture site. Catheter is in place and is currently draining a slight blood-tinged urine. External genitalia with some mild erythema. Extremities. He has bilateral plantar flexion of his feet and ankles. He has minimal movement in his toes. Feet are somewhat cool to touch. He does have intact pedal pulses. Minimal lower extremity strength or motion. Const: Vital Signs, click to edit/add: Vital Signs - 24 hr 11/13/24 08:33 11/13/24 11:07 11/13/24 11:07 Temperature 100.3 F H Pulse Rate 101 H Pulse Rate [Right Pulse Oximeter] 101 H 102 H Pulse Rate [Right Radial] Respiratory Rate 28 H 28 H Blood Pressure Blood Pressure [Ri ght Arm] Blood Pressure [Ri ght Upper Arm] 93/66 105/64 Pulse Oximetry 93 96 95 [facility] Room Air 11/13/24 11:27 11/13/24 11:30 11/13/24 11:45 Temperature Pulse Rate 103 H 99 105 H Pulse Rate [Right Pulse Oximeter] Pulse Rate [Right Radial] Respiratory Rate Blood Pressure Blood Pressure [Ri ght Arm] Blood Pressure [Ri ght Upper Arm] Pulse Oximetry 91 92 95 [facility] 11/13/24 11:49 11/13/24 12:00 11/13/24 12:02 Temperature Pulse Rate 100 102 H 101 H Pulse Rate [Right Pulse Oximeter] Pulse Rate [Right Radial] Respiratory Rate Blood Pressure 109/58 L 113/69 Blood Pressure [Ri ght Arm] Blood Pressure [Ri ght Upper Arm] Pulse Oximetry 94 95 95 [facility] 11/13/24 12:15 11/13/24 12:22 11/13/24 12:30 Temperature Pulse Rate 100 100 97 Pulse Rate [Right Pulse Oximeter] Pulse Rate [Right Radial] Respiratory Rate Blood Pressure 122/65 Blood Pressure [Ri ght Arm] Blood Pressure [Ri ght Upper Arm] Pulse Oximetry 93 94 93 Oxygen Delivery Me thod 11/13/24 14:00 11/13/24 14:40 11/13/24 15:38 Temperature 101.6 F H 100.2 F H Pulse Rate 96 Pulse Rate [Right Pulse Oximeter] Pulse Rate [Right Radial] 96 Respiratory Rate 40 H Blood Pressure Blood Pressure [Ri ght Arm] 106/66 Blood Pressure [Ri ght Upper Arm] Pulse Oximetry 92 Oxygen Delivery Me thod Room Air 11/13/24 16:39 11/13/24 17:51 Temperature 99.3 F 99.6 F Pulse Rate Pulse Rate [Right Pulse Oximeter] Pulse Rate [Right Radial] Respiratory Rate Blood Pressure Blood Pressure [Ri ght Arm] Blood Pressure [Ri ght Upper Arm] Pulse Oximetry Oxygen Delivery Me thod Documenting provider has reviewed patient's vital signs: yes Hospitalist - H&P: Result Labs Labs: Short CBC 11/13/24 Range/Units 09:24 WBC 29.50 H* (4.50-11.00) K/uL Hgb 16.0 (13.5-17.5) gm/dL Hct 50.6 (37.0-53.0) % Plt Count 137 L (140-440) K/uL BMP 11/13/24 09:24 Sodium 143 Potassium 3.7 Chloride 108 Carbon Dioxide 21 BUN 25 Creatinine 1.9 H Glucose 147 H Calcium 8.8 Urine 11/13/24 Range/Units 10:11 Urine Color Yellow (Yellow) Urine Appearance Cloudy A (Clear) Urine pH 7.0 (5.0-8.5) Ur Specific [place] 1.015 (1.000-1.030) Urine Protein 2+ A (Negative) Urine Glucose (UA) Negative (Negative) ECG Attestation: I personally reviewed and interpreted this ECG as follows: (Sinus tachycardia with a rate of [address]-T changes which are nonspecific. ) ECG interpretation date: 11/13/[address] Chest/Ab/Pelvis: Radiologist's impression: INDICATION: ABD PAIN, AMS, HX OF INDWELLING CATHETER. TECHNIQUE: CT chest, abdomen and pelvis acquired with 128 cc Isovue 370 IV contrast. COMPARISON: CT abdomen pelvis report dated 09/19/2021. FINDINGS: CHEST: Cardiovascular structures: Heart size is normal. Thoracic aorta is normal in caliber. Mediastinum and maricarmen: Postsurgical changes. No mass or adenopathy. Lungs and pleura: Respiratory motion artifact limits evaluation of the pulmonary parenchyma. Moderate bibasilar dependent consolidations. No evident suspicious nodules. Chest wall and axilla: No mass or adenopathy. Bones: Diffuse osseous demineralization. No evident acute fracture or dislocation. Exaggerated thoracic kyphosis with anterior wedge deformities of multiple thoracic vertebrae. ABDOMEN AND PELVIS: Liver: Redemonstrated suspected small hemangioma in segment 6. Gallbladder and bile ducts: Unremarkable. Pancreas: Unremarkable. Spleen: Unremarkable. No sign of acute injury. Adrenal glands: Unremarkable. Kidneys and bladder: Redemonstrated moderate to severe left and moderate right hydroureteronephrosis. Layering milk of calcium in the left renal pelvis. Suprapubic catheter in place. Bladder is underdistended, limiting evaluation. GI tract: Prominent colonic stool burden. Bowel is normal in caliber without evidence of obstruction. Vascular structures: Unremarkable. Mesenteric arteries are patent. Lymph nodes: Unremarkable. Miscellaneous: Partially visualized large right fat and small bowel containing right inguinal hernia. No free air or significant free fluid. Pelvic Organs: Prostatomegaly. Bones: No acute fracture or dislocation. IMPRESSION: 1. Redemonstrated chronic bilateral hydroureteronephrosis with a suprapubic catheter in place. 2. Moderate dependent bibasilar consolidations in the lungs, which are nonspecific, and may reflect atelectasis, though superimposed pneumonia is not excluded. 3. Prominent colonic stool burden, which may reflect constipation. Assessment and Plan Assessment and plan (1) Sepsis: Problem comment: Due to urinary infection. Monitor closely. Cautious fluid administration due to heart failure. May need pressors. Currently no ICU beds available in this region of [place] if need for ICU care Status: Acute (2) Urinary tract infection: Problem comment: With suprapubic catheter. Recent history of MRSA infection. Treat with imipenem and vancomycin Status: Acute (3) Constipation: Problem comment: Laxatives as tolerated Status: Acute (4) Multiple sclerosis: Problem comment: Quite disabled. In better wheelchair. Unable to bear weight for transfers Status: Acute (5) Neurogenic bladder: Problem comment: Due to MS. Suprapubic catheter Status: Acute (6) Hypertension: Problem comment: Currently borderline hypotensive with sepsis. Hold blood pressure medications. Status: Acute (7) Cognitive impairment: Problem comment: Ongoing assessment. At risk for delirium. Better today. Status: Acute (8) Suprapubic catheter dysfunction: Problem comment: Recurrent problems with leaking around the catheter, bleeding Status: Acute (9) MRSA (methicillin resistant staph aureus) culture positive: Problem comment: Urine 10/12/24 Status: Acute Plan Patient admitted to the hospital with sepsis presumed due to UTI. Here for resuscitation, IV antibiotics pending culture. Total time spent today is 80 minutes in reviewing outside records, talking to daughter and other providers and evaluation and management
[2024-11-13 18:41] LABS: HCO3 VBG 19 mmol/L (21-28); PCO2 VBG 32 mmHG (40-50); PO2 VBG 60.4 mmHG (25-47); pH VBG 7.364 (7.32-7.43)
[2024-11-13 19:02] LABS: Albumin* 3.4 g/dL (3.3-5.0)
[2024-11-13 19:05] LABS: Alkaline Phosphatase* 121 U/L (40-150); Aspartate Amino Transferase* 34 U/L (12-35); Bilirubin Direct* 0.3 mg/dL (0.0-0.5); Bilirubin Total* 0.6 mg/dL (0.1-1.5); Total Protein* 6.5 g/dL (6.0-8.3)
[2024-11-13 19:06] LABS: Alanine Aminotransferase* 29 U/L (4-50)
[2024-11-13 19:15] LABS: Lactate* 3.1 mmol/L (0.5-1.9)
[2024-11-13 19:27] LABS: Troponin I* 0.04 ng/mL (0.01-0.04)
[2024-11-13] MEDS: SODIUM CHLORIDE 0.9 % (FLUSH) 10 ML SYRINGE 5 ML IVF (23:03)
[2024-11-14] VITALS (9 sets, daily range): BP systolic 104–149; BP diastolic 56–90; PULSE 75–86; RESP 25–32; TEMP 36.5–37.6; O2SAT 92–97
[2024-11-14] MEDS: ACETAMINOPHEN 325 MG TABLET 650 MG PO (00:45)
[2024-11-14] MEDS: MORPHINE 4 MG/ML INJ 2 MG IVP (02:27)
[2024-11-14 02:42] LABS: C.Difficile Negative (Negative); CDIFFEPI 027 PRESUMPTIVE NEGATIVE (Negative)
[2024-11-14 06:47] LABS: HCO3 VBG 23 mmol/L (21-28); Lactate* 1.7 mmol/L (0.5-1.9); PCO2 VBG 32 mmHG (40-50); PO2 VBG 62.2 mmHG (25-47); pH VBG 7.459 (7.32-7.43)
[2024-11-14 06:48] LABS: Basophils Percent Auto 0.1 % (0.0-3.0); Hemoglobin* 13.5 gm/dL (13.5-17.5); Immature Granulocytes Pct Auto 0.4 %; Lymphocytes Percent Auto 3.1 % (20-44); Mean Corpuscular HGB Conc 33 gm/dL (32-36); Mean Corpuscular Hemoglobin 29 pg (26-34); Mean Corpuscular Volume 88 fL (80-100); Monocytes Percent Auto 6.5 % (0.0-11.0); Neutrophils Percent Auto 89.9 % (42.0-72.0); Platelet Count* 120 K/uL (140-440); Red Blood Count 4.66 m/uL (4.30-5.90)
[2024-11-14 06:55] LABS: Slide Review Reflex No
[2024-11-14 07:11] LABS: Chloride* 113 mmol/L (96-114); Potassium* 3.1 mmol/L (3.6-5.1); Sodium* 142 mmol/L (135-149)
[2024-11-14 07:14] LABS: Creatinine* 1.1 mg/dL (0.5-1.5); Est. Creatinine Clearance* 54.87; Estimated Glomerular Filt Rate 66 ml/min
[2024-11-14 07:15] LABS: Anion Gap 7 mEq/L (7-15); Blood Urea Nitrogen* 25 mg/dL (7-30); Calcium* 8.1 mg/dL (8.4-10.6); Carbon Dioxide* 22 mmol/L (20-32); Glucose* 127 mg/dL (60-115)
[2024-11-14 07:25] LABS: Troponin I* 0.02 ng/mL (0.01-0.04)
--- NOTE | 2024-11-14 08:22 | PC.NURSE ---
Shift note ([id number]): Patient pleasant alert and cooperative. Remained in bed. Given PRN Tylenol and PRN Morphine?for pain. Small amount of karen blood noted draining from penis, later in morning drainage changed to blood-tinged urine. Good urine output. Suprapubic catheter patent and draining cloudy, straw-colored urine. Trace amount of blood noted at site. Dr Land updated this morning. Loose stools x3 during shift. Senna held.?
[2024-11-14] MEDS: SODIUM CHLORIDE 0.9 % (FLUSH) 10 ML SYRINGE 5 ML IVF ×2 (08:32→21:39)
[2024-11-14] MEDS: MEMANTINE HCL 10 MG TABLET 5 MG PO (08:32)
[2024-11-14] MEDS: DONEPEZIL 10 MG TABLET PO (08:32)
[2024-11-14] MEDS: SERTRALINE 50 MG TABLET PO (08:32)
--- NOTE | 2024-11-14 09:49 | NUTR.NU ---
RDN with nutrition screen related to positive skin risk. Patient admitted with uro-sepsis and UTI+. Past medical history significant for multiple sclerosis and cognitive impairment. Patient likes at [facility]. Current weight 202lb; height 6ft; BMI 27.4 kg/m2. No reliable weight history to assess. MST score 1. Unsure if patient has experienced recent weight loss or not. Current diet is Clear liquids. No nutrition interventions at this time with current diet order. RDN will continue to monitor and follow-up when appropriate.
[2024-11-14] MEDS: POTASSIUM BICARB 25 MEQ EFFERVESCENT TAB 50 MEQ PO (10:25)
[2024-11-14 10:58] LABS: Legionella pneumo Ag Urine L. pneumo Negative (Negative); S pneumo Ag Urine S. pneumo Negative (Negative)
--- NOTE | 2024-11-14 11:11 | PC.SOCIAL ---
Discharge planning: Spoke with Charity, at [facility] who confirmed pt is on a bed hold at [facility] in the [facility] [place]. Pt is expected to discharge back when ready. Nurse to nurse to be completed prior to discharge to coordinate discharge with [facility].
[2024-11-14] MEDS: VANCOMYCIN 1.25 GM/250 ML 1.25 GM/250 ML PIGGYBACK IVPB (13:27)
--- NOTE | 2024-11-14 16:42 | P.IMPN_ITS ---
Progress Note: A&P Assessment and plan (1) Sepsis: Problem details: Due to urinary infection. Monitor closely. Cautious fluid administration due to heart failure. May need pressors. Currently no ICU beds available in this region of [place] if need for ICU care Status: Acute (2) Urinary tract infection: Problem details: With suprapubic catheter. Recent history of MRSA infection. Treat with imipenem and vancomycin Status: Acute (3) Neurogenic bladder: Problem details: Due to MS. Suprapubic catheter Status: Acute (4) Suprapubic catheter dysfunction: Problem details: Recurrent problems with leaking around the catheter, bleeding Status: Acute (5) Cognitive impairment: Problem details: Ongoing assessment. At risk for delirium. Better today. Status: Acute (6) Hypertension: Problem details: Currently borderline hypotensive with sepsis. Hold blood pressure medications. Status: Acute (7) Constipation: Problem details: Laxatives as tolerated Status: Acute (8) Multiple sclerosis: Problem details: Quite disabled. In better wheelchair. Unable to bear weight for transfers Status: Acute (9) Bacteremia: Problem details: Appears to have Staph aureus bacteremia presumably related to Staph aureus in his bladder. ID consult pending Status: Acute Plan Continue in hospital for IV antibiotics, evaluation management of sepsis and other medical problems. Time Spent With Patient Total time spent: Total time spent today is 40 minutes in discussion with patient, daughter, other medical providers management of bladder problems, urosepsis, bacteremia. Subjective Date Seen: 11/14/24 Interval history: Hi Myers is a 84 year old male with multiple sclerosis, suprapubic catheter, history of MRSA urinary infection, obesity admitted to the hospital with onset starting last evening of fever, altered mental status and hematuria. Patient is unable to give history due to altered mental status. His daughter and the medical record provide history at this time. Daughter reports she saw him yesterday earlier in the day and he seemed fine. He did have some leakage and bleeding around his suprapubic catheter and so the staff at the senior living changed it. Catheter was probably also getting plugged with blood clots at the time. I believe yesterday was his typical monthly catheter change. Following that he continued to have some bleeding but then seemed to be getting confused and agitated. He has had some coughing. He developed a fever. This morning he was appearing quite ill and he was brought to the emergency room. He lives at [address] [place] [address] where there is currently an outbreak of both COVID and influenza. Initial evaluation showed sepsis likely due to urinary tract infection. Broad- spectrum antibiotics are initiated. 11/14/2024: Patient improved overnight. He is more alert and able to communicate today. Vital signs are improved. Labs are improved. Urine culture growing MRSA. Blood culture growing Staph aureus. Exam Narrative: Exam Narrative: He is alert and mostly oriented to his circumstances. Head is normal. Respirations are clear to auscultation except for rare basilar crackle. Cardiovascular: S1, S2, regular rate and rhythm. Abdomen: Bowel sounds active. Abdomen is soft without tenderness or mass. Suprapubic catheter appears to be working, not obstructed with no leakage around the tube. Blood at the urethral meatus on the penis however. Legs are unchanged. Minimal strength or active motion in either leg Const: Vital Signs, click to edit/add: Vital Signs - 24 hr 11/13/24 17:51 11/13/24 19:00 11/13/24 22:38 Temperature 99.6 F 99.1 F Pulse Rate Pulse Rate [Right Radial] 94 Respiratory Rate 26 H 24 Blood Pressure [Ri ght Arm] 117/89 Pulse Oximetry 92 93 Oxygen Delivery Me thod Room Air Room Air 11/13/24 22:38 11/13/24 23:00 11/14/24 02:31 Temperature 99.3 F 99.5 F Pulse Rate 91 Pulse Rate [Right Radial] 97 85 Respiratory Rate 24 25 H Blood Pressure [Ri ght Arm] 110/75 104/56 L Pulse Oximetry 94 92 Oxygen Delivery Me thod Room Air Room Air 11/14/24 07:39 11/14/24 07:55 11/14/24 07:55 Temperature 99.0 F Pulse Rate 80 Pulse Rate [Right Radial] 80 Respiratory Rate 28 H 28 H Blood Pressure [Ri ght Arm] 119/69 Pulse Oximetry 95 95 Oxygen Delivery Me thod Room Air Room Air 11/14/24 11:13 11/14/24 15:00 Temperature 99.2 F Pulse Rate Pulse Rate [Right Radial] 86 Respiratory Rate 30 H Blood Pressure [Ri ght Arm] 133/62 Pulse Oximetry 97 95 Oxygen Delivery Me thod Room Air Room Air Documenting provider has reviewed patient's vital signs: yes Labs Labs: Laboratory Results - last 24 hr 11/13/24 11/14/24 11/14/24 18:30 01:42 06:34 WBC 20.30 H RBC 4.66 Hgb 13.5 Hct 41.0 MCV 88 MCH 29 MCHC 33 RDW Coeff of Pily 15.0 Plt Count 120 L Neut % (Auto) 89.9 H Lymph % (Auto) 3.1 L [place] % (Auto) 6.5 Eos % (Auto) 0.0 Baso % (Auto) 0.1 Neut # (Auto) 18.20 H Lymph # (Auto) 0.60 L [place] # (Auto) 1.30 H Eos # (Auto) 0.00 Baso # (Auto) 0.00 Abs Immat Gran (auto) 0.10 Imm/Tot Granulo (auto) 0.4 VBG pH 7.364 7.459 H VBG pCO2 32 L 32 L VBG pO2 60.4 H 62.2 H VBG HCO3 19 L 23 Sodium 142 Potassium 3.1 L Chloride 113 Carbon Dioxide 22 Anion Gap 7 BUN 25 Creatinine 1.1 Estimated Creat Clear 54.87 Estimated GFR 66 Glucose 127 H Lactate 3.1 H 1.7 Calcium 8.1 L Magnesium 2.0 Total Bilirubin 0.6 Direct Bilirubin 0.3 AST 34 ALT 29 Alkaline Phosphatase 121 Troponin I 0.04 0.02 C-Reactive Protein 35.0 H Total Protein 6.5 Albumin 3.4 Urine L. pneumophilia Ag Urine Strep pneumoniae Ag Stl C. diff Tox B Gene Negative Stl C. diff [id number] PRESUMPTIVE NEGATIVE 11/14/24 10:28 WBC RBC Hgb Hct MCV MCH MCHC RDW Coeff of [place] Plt Count Neut % (Auto) Lymph % (Auto) [place] % (Auto) Eos % (Auto) Baso % (Auto) Neut # (Auto) Lymph # (Auto) [place] # (Auto) Eos # (Auto) Baso # (Auto) Abs Immat Gran (auto) Imm/Tot Granulo (auto) VBG pH VBG pCO2 VBG pO2 VBG HCO3 Sodium Potassium Chloride Carbon Dioxide Anion Gap BUN Creatinine Estimated Creat Clear Estimated GFR Glucose Lactate Calcium Magnesium Total Bilirubin Direct Bilirubin AST ALT Alkaline Phosphatase Troponin I C-Reactive Protein Total Protein Albumin Urine L. pneumophilia Ag L. pneumo Negative Urine Strep pneumoniae Ag S. pneumo Negative Stl C. diff Tox B Gene Stl C. diff [id number]
--- NOTE | 2024-11-14 20:24 | PC.NURSE ---
End of Shift: Patient pleasant and cooperative. Alert to self and place. Denies pain. Up to chair with 2 assist and ceiling lift. Family noted some wheezing. Auscultated expiratory wheeze in right upper lobe, respirations 30, updated MD and no new orders at this times. SP cath patent.
[2024-11-15] VITALS (8 sets, daily range): BP systolic 130–153; BP diastolic 65–98; PULSE 71–85; RESP 22–40; TEMP 36.9–37.3; O2SAT 91–95
[2024-11-15 06:57] LABS: HCO3 VBG 25 mmol/L (21-28); PCO2 VBG 32 mmHG (40-50); PO2 VBG 85.9 mmHG (25-47); pH VBG 7.501 (7.32-7.43)
--- NOTE | 2024-11-15 06:59 | PC.NURSE ---
End of Shift: The patient is alert to self only, Q2 repo and check and change. Loose stools continue, suprapubic cath patent and draining. The patient is not very motivated to be repositioned and is a heavy Ax2 to turn... Bilateral LE discoloration and skin is noted to be peeling.. Enjoys sprite. Incontinent of bowel. No reports of pain. Call light within reach. Ludy NICHOLSON BSN
[2024-11-15 07:08] LABS: Basophils Percent Auto 0.3 % (0.0-3.0); Eosinophils Percent Auto 0.1 % (0.0-7.0); Hematocrit 38.3 % (37.0-53.0); Hemoglobin* 12.7 gm/dL (13.5-17.5); Immature Granulocytes Pct Auto 0.4 %; Lymphocytes Percent Auto 5.5 % (20-44); Mean Corpuscular HGB Conc 33 gm/dL (32-36); Mean Corpuscular Hemoglobin 29 pg (26-34); Mean Corpuscular Volume 89 fL (80-100); Monocytes Percent Auto 5.7 % (0.0-11.0); Platelet Count* 121 K/uL (140-440); RDW Coefficient of Variation % 14.9 % (11.5-15.5); Red Blood Count 4.33 m/uL (4.30-5.90); White Blood Count* 13.78 K/uL (4.50-11.00)
[2024-11-15 07:14] LABS: Chloride* 114 mmol/L (96-114); Sodium* 142 mmol/L (135-149)
[2024-11-15 07:17] LABS: Creatinine* 0.8 mg/dL (0.5-1.5); Est. Creatinine Clearance* 60.36; Estimated Glomerular Filt Rate 87 ml/min; Slide Review Reflex No
[2024-11-15 07:18] LABS: Anion Gap 3 mEq/L (7-15); Blood Urea Nitrogen* 17 mg/dL (7-30); Calcium* 8.3 mg/dL (8.4-10.6); Carbon Dioxide* 25 mmol/L (20-32); Glucose* 139 mg/dL (60-115)
[2024-11-15 07:39] LABS: C Reactive Protein* 20.2 mg/dL (0.5-1.0); Potassium* 2.8 mmol/L (3.6-5.1)
[2024-11-15] MEDS: POTASSIUM BICARB 25 MEQ EFFERVESCENT TAB 50 MEQ PO ×2 (08:39→11:04)
[2024-11-15] MEDS: MEMANTINE HCL 10 MG TABLET 5 MG PO (09:31)
[2024-11-15] MEDS: SERTRALINE 50 MG TABLET PO (09:31)
[2024-11-15] MEDS: DONEPEZIL 10 MG TABLET PO (09:32)
[2024-11-15] MEDS: SODIUM CHLORIDE 0.9 % (FLUSH) 10 ML SYRINGE 5 ML IVF ×2 (09:32→20:55)
[2024-11-15] MEDS: VANCOMYCIN 1.25 GM/250 ML 1.25 GM/250 ML PIGGYBACK IVPB (12:53)
[2024-11-15] MEDS: ACETAMINOPHEN 325 MG TABLET 650 MG PO ×2 (14:47→21:05)
[2024-11-15] MEDS: FUROSEMIDE 40 MG TABLET PO (14:47)
--- NOTE | 2024-11-15 17:19 | P.IMPN_ITS ---
Progress Note: A&P Assessment and plan (1) Sepsis: Problem details: Due to urinary infection. Monitor closely. Clinically improving Status: Acute (2) Urinary tract infection: Problem details: With suprapubic catheter. Recurrent MRSA infection. Treat with vancomycin. Consider switching from Cipro to Bactrim for antibiotic prophylaxis before changing suprapubic catheter Status: Acute (3) Constipation: Problem details: Laxatives as tolerated Status: Acute (4) Multiple sclerosis: Problem details: Quite disabled. In better wheelchair. Unable to bear weight for transfers Status: Acute (5) Neurogenic bladder: Problem details: Due to MS. Suprapubic catheter Status: Acute (6) Hypertension: Problem details: Currently borderline hypotensive with sepsis. Hold blood pressure medications. Status: Acute (7) Cognitive impairment: Problem details: Ongoing assessment. At risk for delirium. Better today. Status: Acute (8) Suprapubic catheter dysfunction: Problem details: Recurrent problems with leaking around the catheter, bleeding. Monitoring for catheter obstruction. Resume Eliquis now that bleeding has stopped Status: Acute (9) MRSA (methicillin resistant staph aureus) culture positive: Problem details: Urine 10/12/24 Status: Acute (10) Heart failure: Problem details: Echocardiogram was relatively normal. Resume home diuretics. Status: Acute (11) Bacteremia due to methicillin resistant Staphylococcus aureus: Problem details: Vancomycin for 14 days after negative blood culture Status: Acute Plan Continue in hospital for ongoing IV antibiotics pending negative culture and clinical improvement. Anticipate discharge back to [address] [place] [address] to complete a 2 week course of vancomycin after negative blood culture. Plan of care discussed with patient, family, other providers and ID consult. Total time spent today is 60 minutes in though a campos management and consultation Subjective Date Seen: 11/15/24 Interval history: Hi Myers is a 84 year old male with multiple sclerosis, suprapubic catheter, history of MRSA urinary infection, obesity admitted to the hospital with onset starting last evening of fever, altered mental status and hematuria. Patient is unable to give history due to altered mental status. His daughter and the medical record provide history at this time. Daughter reports she saw him yesterday earlier in the day and he seemed fine. He did have some leakage and bleeding around his suprapubic catheter and so the staff at the skilled nursing changed it. Catheter was probably also getting plu gged with blood clots at the time. I believe yesterday was his typical monthly catheter change. Following that he continued to have some bleeding but then seemed to be getting confused and agitated. He has had some coughing. He developed a fever. This morning he was appearing quite ill and he was brought to the emergency room. He lives at [address] [place] [address] where there is currently an outbreak of both COVID and influenza. Initial evaluation showed sepsis likely due to urinary tract infection. Broad- spectrum antibiotics are initiated. 11/14/2024: Patient improved overnight. He is more alert and able to communicate today. Vital signs are improved. Labs are improved. Urine culture growing MRSA. Blood culture growing Staph aureus. 11/15/2024: Patient has no complaints today. He reports he is doing well. Blood culture and urine culture both coming back with MRSA. Exam Narrative: Exam Narrative: He is alert and appears in no distress. Respirations are clear to auscultation except for a rare basilar crackle. Cardiovascular: S1, S2, regular rate and rhythm. Abdomen is soft without tenderness. Suprapubic puncture site is without obvious redness or bleeding. Const: Vital Signs, click to edit/add: Vital Signs - 24 hr 11/14/24 19:00 11/14/24 19:32 11/14/24 23:00 Temperature 99.7 F H 97.7 F Pulse Rate 84 Pulse Rate [Right Radial] 81 75 Respiratory Rate 32 H 26 H Blood Pressure [Le ft Arm] 135/70 Blood Pressure [Ri ght Arm] 144/90 H Pulse Oximetry 92 93 Oxygen Delivery Me thod Room Air Room Air 11/14/24 23:00 11/14/24 23:54 11/15/24 03:00 Temperature 98.9 F Pulse Rate 77 Pulse Rate [Right Radial] 77 Respiratory Rate 24 Blood Pressure [Le ft Arm] Blood Pressure [Ri ght Arm] 139/71 Pulse Oximetry 93 93 Oxygen Delivery Me thod Room Air Room Air 11/15/24 07:00 11/15/24 08:15 11/15/24 08:15 Temperature Pulse Rate 71 Pulse Rate [Right Radial] 74 Respiratory Rate 24 22 Blood Pressure [Le ft Arm] Blood Pressure [Ri ght Arm] Pulse Oximetry 93 Oxygen Delivery Me thod Room Air 11/15/24 08:15 11/15/24 12:00 11/15/24 15:00 Temperature 99.2 F 98.8 F 99.1 F Pulse Rate Pulse Rate [Right Radial] 74 75 73 Respiratory Rate 22 24 40 H Blood Pressure [Le ft Arm] Blood Pressure [Ri ght Arm] 152/84 H 142/91 H 153/98 H Pulse Oximetry 93 95 92 Oxygen Delivery Me thod Room Air Room Air Room Air 11/15/24 16:29 Temperature Pulse Rate 82 Pulse Rate [Right Radial] Respiratory Rate Blood Pressure [Le ft Arm] Blood Pressure [Ri ght Arm] Pulse Oximetry Oxygen Delivery Me thod Documenting provider has reviewed patient's vital signs: yes Labs Labs: Laboratory Results - last 24 hr 11/15/24 06:49 WBC 13.78 H RBC 4.33 Hgb 12.7 L Hct 38.3 MCV 89 MCH 29 MCHC 33 RDW Coeff of Pily 14.9 Plt Count 121 L Neut % (Auto) 88.0 H Lymph % (Auto) 5.5 L [place] % (Auto) 5.7 Eos % (Auto) 0.1 Baso % (Auto) 0.3 Neut # (Auto) 12.10 H Lymph # (Auto) 0.80 L [place] # (Auto) 0.80 Eos # (Auto) 0.00 Baso # (Auto) 0.00 Abs Immat Gran (auto) 0.10 Imm/Tot Granulo (auto) 0.4 VBG pH 7.501 H VBG pCO2 32 L VBG pO2 85.9 H VBG HCO3 25 Sodium 142 Potassium 2.8 L* Chloride 114 Carbon Dioxide 25 Anion Gap 3 L BUN 17 Creatinine 0.8 Estimated Creat Clear 60.36 Estimated GFR 87 Glucose 139 H Calcium 8.3 L C-Reactive Protein 20.2 H
[2024-11-15] MEDS: POTASSIUM CHLORIDE 10 MEQ CAPSULE ER 20 MEQ PO (19:23)
[2024-11-15] MEDS: APIXABAN 5 MG TABLET 2.5 MG PO (20:54)
[2024-11-16] VITALS (10 sets, daily range): BP systolic 113–150; BP diastolic 55–77; PULSE 62–74; RESP 20–26; TEMP 36.8–37.4; O2SAT 94–97
[2024-11-16 06:43] LABS: Basophils Absolute Auto 0.02 K/uL (0.00-0.30); Basophils Percent Auto 0.3 % (0.0-3.0); Eosinophils Absolute Auto 0.03 K/uL (0.00-0.50); Eosinophils Percent Auto 0.4 % (0.0-7.0); Hematocrit 41.1 % (37.0-53.0); Hemoglobin* 13.4 gm/dL (13.5-17.5); Immature Granulocytes Abs Auto 0.02 K/uL (0.00-0.30); Immature Granulocytes Pct Auto 0.3 %; Lymphocytes Percent Auto 12.8 % (20-44); Mean Corpuscular HGB Conc 33 gm/dL (32-36); Mean Corpuscular Hemoglobin 29 pg (26-34); Mean Corpuscular Volume 89 fL (80-100); Monocytes Percent Auto 8.7 % (0.0-11.0); Neutrophils Percent Auto 77.5 % (42.0-72.0); Platelet Count* 108 K/uL (140-440); RDW Coefficient of Variation % 14.8 % (11.5-15.5); Red Blood Count 4.63 m/uL (4.30-5.90); Slide Review Reflex No
[2024-11-16 06:59] LABS: HCO3 VBG 27 mmol/L (21-28); PCO2 VBG 35 mmHG (40-50); PO2 VBG 65.7 mmHG (25-47); pH VBG 7.494 (7.32-7.43)
[2024-11-16 07:16] LABS: Chloride* 112 mmol/L (96-114); Potassium* 3.3 mmol/L (3.6-5.1); Sodium* 142 mmol/L (135-149)
[2024-11-16 07:18] LABS: Creatinine* 0.8 mg/dL (0.5-1.5); Est. Creatinine Clearance* 60.36; Estimated Glomerular Filt Rate 87 ml/min
[2024-11-16 07:19] LABS: Anion Gap 3 mEq/L (7-15); Blood Urea Nitrogen* 15 mg/dL (7-30); Calcium* 8.2 mg/dL (8.4-10.6); Carbon Dioxide* 27 mmol/L (20-32); Glucose* 105 mg/dL (60-115)
[2024-11-16 07:22] LABS: C Reactive Protein* 6.8 mg/dL (0.5-1.0)
--- NOTE | 2024-11-16 07:24 | PC.NURSE ---
Suprapubic catheter was changed this AM... the patient tolerated this ok. Q2 REPO and change PRN. Heavy Ax2 for turning. Call lgith within reach and alarm is on.
[2024-11-16] MEDS: DONEPEZIL 10 MG TABLET PO (08:48)
[2024-11-16] MEDS: SERTRALINE 50 MG TABLET PO (08:48)
[2024-11-16] MEDS: oxyBUTYnin chloride 5 MG TAB.ER.24 PO (08:48)
[2024-11-16] MEDS: MEMANTINE HCL 10 MG TABLET 5 MG PO (08:48)
[2024-11-16] MEDS: FUROSEMIDE 40 MG TABLET PO ×2 (08:48→14:05)
[2024-11-16] MEDS: POTASSIUM CHLORIDE 10 MEQ CAPSULE ER 20 MEQ PO (08:48)
[2024-11-16] MEDS: APIXABAN 5 MG TABLET 2.5 MG PO ×2 (08:49→21:09)
[2024-11-16] MEDS: SODIUM CHLORIDE 0.9 % (FLUSH) 10 ML SYRINGE 5 ML IVF (09:48)
[2024-11-16] MEDS: ACETAMINOPHEN 325 MG TABLET 650 MG PO ×2 (10:59→21:09)
--- NOTE | 2024-11-16 13:10 | PC.SOCIAL ---
Discharge planning: Secure emailed MD order for IV abx and current progress notes and nursing notes to [facility]. Current plan is for dischareg back to [facility] on Tuesday if pt is ready. [facility] is contacting their pharmacy to be ready for discharge Tuesday with current orders. [facility] needs an update on Tuesday to coordinate return if pt is ready for discharge. stucco worker to follow up as needed.
[2024-11-16] MEDS: VANCOMYCIN 1.25 GM/250 ML 1.25 GM/250 ML PIGGYBACK IVPB (14:05)
--- NOTE | 2024-11-16 14:41 | PC.NURSE ---
Shift Summary: Patient pleasant and cooperative. Up with ceiling lift and two assist to recliner. Had x1 small incont BM, held senna. Decreased appetite, needing total assist with meals. Encouraged to have ensure, had about 25% of drink. Denies pain however will moan at times, given PRN Tylenol for restlessness, see MAR. After lunch patient back in bed and resting.
--- NOTE | 2024-11-16 16:15 | P.IMPN_ITS ---
Progress Note: A&P Assessment and plan (1) Sepsis: Problem details: Due to urinary infection. Monitor closely. Clinically improving. MRSA growing in blood and urine. Status: Acute (2) Urinary tract infection: Problem details: With suprapubic catheter. Recurrent MRSA infection. Treat with vancomycin. Consider switching from Cipro to Bactrim for antibiotic prophylaxis before changing suprapubic catheter Status: Acute (3) Constipation: Problem details: Laxatives as tolerated Status: Acute (4) Multiple sclerosis: Problem details: Quite disabled. In better wheelchair. Unable to bear weight for transfers Status: Acute (5) Neurogenic bladder: Problem details: Due to MS. Suprapubic catheter Status: Acute (6) Hypertension: Problem details: Currently borderline hypotensive with sepsis. Hold blood pressure medications. Status: Acute (7) Cognitive impairment: Problem details: Ongoing assessment. At risk for delirium. Better today. Status: Acute (8) Suprapubic catheter dysfunction: Problem details: Recurrent problems with leaking around the catheter, bleeding. Monitoring for catheter obstruction. Resume Eliquis now that bleeding has stopped Status: Acute (9) MRSA (methicillin resistant staph aureus) culture positive: Problem details: Urine 10/12/24 Status: Acute (10) Heart failure: Problem details: Echocardiogram was relatively normal. Resume home diuretics. Status: Acute (11) Bacteremia due to methicillin resistant Staphylococcus aureus: Problem details: Vancomycin for 14 days after negative blood culture Status: Acute Plan 1. Reviewed impression and recommendations with patient 2. Answered his questions 3. Patient agreeable to the above stated plan recommendations Time Spent With Patient Total time spent: 35 minutes Subjective Date Seen: 11/16/24 Interval history: Hi Myers is a 84 year old male with multiple sclerosis, suprapubic catheter, history of MRSA urinary infection, obesity admitted to the hospital with onset starting last evening of fever, altered mental status and hematuria. Patient is unable to give history due to altered mental status. His daughter and the medical record provide history at this time. Daughter reports she saw him yesterday earlier in the day and he seemed fine. He did have some leakage and bleeding around his suprapubic catheter and so the staff at the residential changed it. Catheter was probably also getting plugged with blood clots at the time. I believe yesterday was his typical monthly catheter change. Following that he continued to have some bleeding but then seemed to be getting confused and agitated. He has had some coughing. He developed a fever. This morning he was appearing quite ill and he was brought to the emergency room. He lives at [address] [place] [address] where there is currently an outbreak of both COVID and influenza. Initial evaluation showed sepsis likely due to urinary tract infection. Broad- spectrum antibiotics are initiated. 11/14/2024: Patient improved overnight. He is more alert and able to communicate today. Vital signs are improved. Labs are improved. Urine culture growing MRSA. Blood culture growing Staph aureus. 11/15/2024: Patient has no complaints today. He reports he is doing well. Blood culture and urine culture both coming back with MRSA. Hospital day 4, 11/16/2024. Feeling a little better than he has in the past. Denies discomforts. Tolerating increased activities now. Exam Narrative: Exam Narrative: Examined patient in his hospital room. Appears comfortable. Cooperative. Hard of hearing but adequate. Mildly decreased vision but adequate. Able to engage in meaningful dialogue in conversation. Lungs clear to auscultation. Heart tones with regular rhythm. Abdomen with active bowel sounds, soft, nontender. Extremities without edema. Const: Vital Signs, click to edit/add: Vital Signs - 24 hr 11/15/24 16:29 11/15/24 19:00 11/15/24 23:00 Temperature 98.7 F Pulse Rate 82 Pulse Rate [Right Radial] 85 Respiratory Rate 34 H Blood Pressure [Le ft Arm] 131/85 Blood Pressure [Ri ght Arm] Pulse Oximetry 91 94 [facility] 11/15/24 23:00 11/16/24 03:00 11/16/24 03:28 Temperature 98.5 F 98.7 F Pulse Rate Pulse Rate [Right Radial] Respiratory Rate 22 24 Blood Pressure [Le ft Arm] Blood Pressure [Ri ght Arm] 130/65 135/68 Pulse Oximetry 94 94 94 [facility] Room Air 11/16/24 07:09 11/16/24 07:36 11/16/24 07:48 Temperature 99.3 F Pulse Rate 65 Pulse Rate [Right Radial] 73 Respiratory Rate 20 20 Blood Pressure [Le ft Arm] Blood Pressure [Ri ght Arm] 120/65 Pulse Oximetry 96 96 [facility] Room Air 11/16/24 10:55 Temperature 98.5 F Pulse Rate Pulse Rate [Right Radial] 74 Respiratory Rate 20 Blood Pressure [Le ft Arm] 150/77 H Blood Pressure [Ri ght Arm] Pulse Oximetry 94 Oxygen Delivery Me thod Room Air Labs Labs: Laboratory Results - last 24 hr 11/16/24 11/16/24 06:32 12:17 WBC 6.70 RBC 4.63 Hgb 13.4 L Hct 41.1 MCV 89 MCH 29 MCHC 33 RDW Coeff of Pily 14.8 Plt Count 108 L Neut % (Auto) 77.5 H Lymph % (Auto) 12.8 L [place] % (Auto) 8.7 Eos % (Auto) 0.4 Baso % (Auto) 0.3 Neut # (Auto) 5.20 Lymph # (Auto) 0.90 [place] # (Auto) 0.60 Eos # (Auto) 0.03 Baso # (Auto) 0.02 Abs Immat Gran (auto) 0.02 Imm/Tot Granulo (auto) 0.3 VBG pH 7.494 H VBG pCO2 35 L VBG pO2 65.7 H VBG HCO3 27 Sodium 142 Potassium 3.3 L Chloride 112 Carbon Dioxide 27 Anion Gap 3 L BUN 15 Creatinine 0.8 Estimated Creat Clear 60.36 Estimated GFR 87 Glucose 105 Calcium 8.2 L C-Reactive Protein 6.8 H Vancomycin Trough 10.4
[2024-11-17] VITALS (9 sets, daily range): BP systolic 127–138; BP diastolic 56–75; PULSE 62–76; RESP 18–27; TEMP 36.4–36.9; O2SAT 94–97
--- NOTE | 2024-11-17 02:55 | PC.NURSE ---
0: The patient is alert to self only, pleasant with interactions and all cares, VSS on RA. No reports of pain, although will moan out oh my. Suprapubic cath is patent and draining.... no longer any blood in his urine. Ax2 with ceiling lift to the chair and for repositioning in bed. Call light within reach. Poor Po intake of fluids and no appetite for meals.
[2024-11-17 06:46] LABS: Basophils Absolute Auto 0.02 K/uL (0.00-0.30); Basophils Percent Auto 0.4 % (0.0-3.0); Hematocrit 41.5 % (37.0-53.0); Hemoglobin* 13.2 gm/dL (13.5-17.5); Immature Granulocytes Abs Auto 0.06 K/uL (0.00-0.30); Immature Granulocytes Pct Auto 1.2 %; Lymphocytes Percent Auto 20.2 % (20-44); Mean Corpuscular HGB Conc 32 gm/dL (32-36); Mean Corpuscular Hemoglobin 28 pg (26-34); Mean Corpuscular Volume 89 fL (80-100); Monocytes Percent Auto 8.5 % (0.0-11.0); Neutrophils Absolute Auto 3.36 K/uL (1.7-7.0); Neutrophils Percent Auto 67.7 % (42.0-72.0); Platelet Count* 108 K/uL (140-440); RDW Coefficient of Variation % 14.7 % (11.5-15.5); Red Blood Count 4.67 m/uL (4.30-5.90); White Blood Count* 4.96 K/uL (4.50-11.00)
[2024-11-17 06:53] LABS: Chloride* 110 mmol/L (96-114)
[2024-11-17 06:54] LABS: Sodium* 141 mmol/L (135-149)
[2024-11-17 06:55] LABS: Slide Review Reflex No
[2024-11-17 06:56] LABS: Creatinine* 0.8 mg/dL (0.5-1.5); Est. Creatinine Clearance* 60.36; Estimated Glomerular Filt Rate 87 ml/min
[2024-11-17 06:57] LABS: Anion Gap 4 mEq/L (7-15); Blood Urea Nitrogen* 13 mg/dL (7-30); Calcium* 7.8 mg/dL (8.4-10.6); Carbon Dioxide* 27 mmol/L (20-32); Glucose* 90 mg/dL (60-115)
[2024-11-17 07:05] LABS: Potassium* 2.8 mmol/L (3.6-5.1)
[2024-11-17] MEDS: MEMANTINE HCL 10 MG TABLET 5 MG PO (08:45)
[2024-11-17] MEDS: SENNOSIDES/DOCUSATE TABLET 2 TAB PO (08:45)
[2024-11-17] MEDS: FUROSEMIDE 40 MG TABLET PO ×2 (08:45→13:32)
[2024-11-17] MEDS: SERTRALINE 50 MG TABLET PO (08:45)
[2024-11-17] MEDS: oxyBUTYnin chloride 5 MG TAB.ER.24 PO (08:45)
[2024-11-17] MEDS: POTASSIUM CHLORIDE 10 MEQ CAPSULE ER 20 MEQ PO (08:45)
[2024-11-17] MEDS: DONEPEZIL 10 MG TABLET PO (08:45)
[2024-11-17] MEDS: APIXABAN 5 MG TABLET 2.5 MG PO ×2 (08:46→20:39)
[2024-11-17 09:25] LABS: Magnesium* 2.2 mg/dL (1.5-2.6)
[2024-11-17] MEDS: POTASSIUM CHLORIDE 10 MEQ CAPSULE ER 40 MEQ PO ×3 (09:27→17:52)
[2024-11-17] MEDS: ACETAMINOPHEN 325 MG TABLET 650 MG PO (13:31)
[2024-11-17] MEDS: SODIUM CHLORIDE 0.9 % (FLUSH) 10 ML SYRINGE 5 ML IVF ×2 (13:33→20:43)
[2024-11-17] MEDS: VANCOMYCIN 1.25 GM/250 ML 1.25 GM/250 ML PIGGYBACK IVPB (14:18)
--- NOTE | 2024-11-17 15:27 | PC.NURSE ---
Nursing Care Hours: [id number] Pt this shift calm and cooperative with cares. Alert and oriented to self and place. C/o pain to bilat feet midday, treated pre eMAR. VSS. Early this morning, sports book writer noted thick yellow sputum in mouth while pt laying down. Assisted pt to sit up and spit sputum out. More found on blanket. LS clear and spo2 stable, hospitalist made aware. White plaques also noted to back of tounge. Pt denies mouth pain. Needs extra encouragement to eat food. Pt refusing or spitting bites out when no one is looking. Pt does drink sprite independently. Urinary cath patent, running dark amy u/o. Lg BM incontinent BM cleaned. Vanco infused.
[2024-11-17 15:52] LABS: Potassium* 3.4 mmol/L (3.6-5.1)
--- NOTE | 2024-11-17 17:20 | P.IMPN_ITS ---
Progress Note: A&P Assessment and plan (1) Sepsis: Problem details: Due to urinary infection. Monitor closely. Clinically improving. MRSA growing in blood and urine. Status: Acute (2) Urinary tract infection: Problem details: With suprapubic catheter. Recurrent MRSA infection. Treat with vancomycin. Consider switching from Cipro to Bactrim for antibiotic prophylaxis before changing suprapubic catheter Status: Acute (3) Constipation: Problem details: Laxatives as tolerated Status: Acute (4) Multiple sclerosis: Problem details: Quite disabled. In better wheelchair. Unable to bear weight for transfers Status: Acute (5) Neurogenic bladder: Problem details: Due to MS. Suprapubic catheter Status: Acute (6) Hypertension: Problem details: Currently borderline hypotensive with sepsis. Hold blood pressure medications. Status: Acute (7) Cognitive impairment: Problem details: Ongoing assessment. At risk for delirium. Better today. Status: Acute (8) Suprapubic catheter dysfunction: Problem details: Recurrent problems with leaking around the catheter, bleeding. Monitoring for catheter obstruction. Resume Eliquis now that bleeding has stopped. Will need prophylactic Bactrim DS 1 tab 12 hours prior to monthly catheter changes hereafter Status: Acute (9) MRSA (methicillin resistant staph aureus) culture positive: Problem details: Urine 10/12/24 Status: Acute (10) Heart failure: Problem details: Echocardiogram was relatively normal. Resume home diuretics. Status: Acute (11) Bacteremia due to methicillin resistant Staphylococcus aureus: Problem details: Vancomycin for 14 days after negative blood culture Status: Acute (12) Hypokalemia: Problem details: -likely due to diuresis efforts and insufficient potassium supplementation -increase potassium supplementation and monitor potassium levels Status: Acute Plan 1. Reviewed impression with patient and daughter 2. Answered their questions 3. There agree with above stated plans and recommendations Time Spent With Patient Total time spent: 35 minutes Subjective Date Seen: 11/17/24 Interval history: Hi Myers is a 84 year old male with multiple sclerosis, suprapubic catheter, history of MRSA urinary infection, obesity admitted to the hospital with onset starting last evening of fever, altered mental status and hematuria. Patient is unable to give history due to altered mental status. His daughter and the medical record provide history at this time. Daughter reports she saw him yesterday earlier in the day and he seemed fine. He did have some leakage and bleeding around his suprapubic catheter and so the staff at the residential changed it. Catheter was probably also getting plugged with blood clots at the time. I believe yesterday was his typical monthly catheter change. Following that he continued to have some bleeding but then seemed to be getting confused and agitated. He has had some coughing. He developed a fever. This morning he was appearing quite ill and he was brought to the emergency room. He lives at [address] [place] [address] where there is currently an outbreak of both COVID and influenza. Initial evaluation showed sepsis likely due to urinary tract infection. Broad- spectrum antibiotics are initiated. 11/14/2024: Patient improved overnight. He is more alert and able to communicate today. Vital signs are improved. Labs are improved. Urine culture growing MRSA. Blood culture growing Staph aureus. 11/15/2024: Patient has no complaints today. He reports he is doing well. Blood culture and urine culture both coming back with MRSA. Hospital day 4, 11/16/2024. Feeling a little better than he has in the past. Denies discomforts. Tolerating increased activities now. Hospital day 5, 11/17/2024. Patient and daughter seem to believe that he is close to his baseline in terms of his cognition and functional abilities. Exam Narrative: Exam Narrative: Examine him in his hospital room. Appears comfortable. Lungs are clear to auscultation. Heart tones with regular rhythm. Abdomen benign. Suprapubic catheter in place. Const: Vital Signs, click to edit/add: Vital Signs - 24 hr 11/16/24 19:00 11/16/24 22:55 11/16/24 23:00 Temperature 98.7 F Pulse Rate 62 Pulse Rate [Left P ulse Oximeter] Pulse Rate [Right Radial] 71 Respiratory Rate 20 Blood Pressure [Le ft Arm] 128/63 Blood Pressure [Ri ght Arm] Pulse Oximetry 95 96 Oxygen Delivery Me thod Room Air Room Air 11/16/24 23:00 11/16/24 23:00 11/17/24 03:00 Temperature 98.8 F 97.6 F Pulse Rate Pulse Rate [Left P ulse Oximeter] Pulse Rate [Right Radial] 66 68 Respiratory Rate 26 H 26 H 21 Blood Pressure [Le ft Arm] Blood Pressure [Ri ght Arm] 128/67 127/67 Pulse Oximetry 96 96 Oxygen Delivery Me thod Room Air Room Air 11/17/24 06:07 11/17/24 08:54 11/17/24 08:54 Temperature Pulse Rate 64 Pulse Rate [Left P ulse Oximeter] Pulse Rate [Right Radial] 68 Respiratory Rate 21 27 H Blood Pressure [Le ft Arm] Blood Pressure [Ri ght Arm] Pulse Oximetry 96 Oxygen Delivery Ny thod Room Air 11/17/24 08:54 11/17/24 11:00 11/17/24 15:29 Temperature 97.6 F 97.9 F Pulse Rate Pulse Rate [Left P ulse Oximeter] 68 68 Pulse Rate [Right Radial] Respiratory Rate 27 H 22 20 Blood Pressure [Le ft Arm] 138/65 137/67 Blood Pressure [Ri ght Arm] Pulse Oximetry 96 95 97 Oxygen Delivery Ny thod Room Air Room Air Room Air 11/17/24 15:29 11/17/24 15:47 Temperature 98.4 F Pulse Rate 62 Pulse Rate [Left P ulse Oximeter] 71 Pulse Rate [Right Radial] Respiratory Rate 20 Blood Pressure [Le ft Arm] Blood Pressure [Ri ght Arm] 130/75 Pulse Oximetry 97 Oxygen Delivery Ny thod Room Air Labs Labs: Laboratory Results - last 24 hr 11/17/24 11/17/24 11/17/24 05:37 08:20 15:26 WBC 4.96 RBC 4.67 Hgb 13.2 L Hct 41.5 MCV 89 MCH 28 MCHC 32 RDW Coeff of Pily 14.7 Plt Count 108 L Neut % (Auto) 67.7 Lymph % (Auto) 20.2 [place] % (Auto) 8.5 Eos % (Auto) 2.0 Baso % (Auto) 0.4 Neut # (Auto) 3.36 Lymph # (Auto) 1.00 [place] # (Auto) 0.40 Eos # (Auto) 0.10 Baso # (Auto) 0.02 Abs Immat Gran (auto) 0.06 Imm/Tot Granulo (auto) 1.2 Sodium 141 Potassium 2.8 L* 3.4 L Chloride 110 Carbon Dioxide 27 Anion Gap 4 L BUN 13 Creatinine 0.8 Estimated Creat Clear 60.36 Estimated GFR 87 Glucose 90 Calcium 7.8 L Magnesium 2.2 Lab Acknowledgement Test Added
--- NOTE | 2024-11-17 23:08 | PC.NURSE ---
Pt pleasant and cooperative. Urinary cath patent and draining. Pt denies any pain, headache, and nausea this shift. Ax2 ceiling lift back to bed. Pt took pills well with sprite. VSS on RA. LSCTA. No cough present on shift. Pt resting in bed with call light in reach.
[2024-11-18 03:00] VITALS: BP 131/66; PULSE 76; RESP 20; TEMP 36.9; O2SAT 94
--- NOTE | 2024-11-18 05:34 | PC.NURSE ---
Shift note ([id number]): Patient pleasant, alert and oriented. Remained in bed this shift. Turned and repositioned when patient allowed. Catheter patent and draining amy colored, cloudy urine. Patient denied discomfort.?
[2024-11-18 06:45] LABS: Basophils Absolute Auto 0.03 K/uL (0.00-0.30); Basophils Percent Auto 0.5 % (0.0-3.0); Eosinophils Absolute Auto 0.13 K/uL (0.00-0.50); Eosinophils Percent Auto 2.1 % (0.0-7.0); Hematocrit 41.8 % (37.0-53.0); Hemoglobin* 13.4 gm/dL (13.5-17.5); Immature Granulocytes Abs Auto 0.09 K/uL (0.00-0.30); Immature Granulocytes Pct Auto 1.4 %; Lymphocytes Percent Auto 16.7 % (20-44); Mean Corpuscular HGB Conc 32 gm/dL (32-36); Mean Corpuscular Hemoglobin 28 pg (26-34); Mean Corpuscular Volume 89 fL (80-100); Monocytes Percent Auto 10.9 % (0.0-11.0); Neutrophils Absolute Auto 4.25 K/uL (1.7-7.0); Neutrophils Percent Auto 68.4 % (42.0-72.0); Platelet Count* 125 K/uL (140-440); RDW Coefficient of Variation % 14.5 % (11.5-15.5); Red Blood Count 4.72 m/uL (4.30-5.90); White Blood Count* 6.22 K/uL (4.50-11.00)
[2024-11-18 06:47] LABS: Slide Review Reflex No
[2024-11-18 06:59] LABS: Chloride* 112 mmol/L (96-114); Potassium* 3.6 mmol/L (3.6-5.1); Sodium* 142 mmol/L (135-149)
[2024-11-18 07:01] LABS: Creatinine* 0.8 mg/dL (0.5-1.5); Est. Creatinine Clearance* 60.36; Estimated Glomerular Filt Rate 87 ml/min
[2024-11-18 07:02] LABS: Anion Gap 6 mEq/L (7-15); Blood Urea Nitrogen* 13 mg/dL (7-30); Calcium* 8.3 mg/dL (8.4-10.6); Carbon Dioxide* 24 mmol/L (20-32); Glucose* 95 mg/dL (60-115)
[2024-11-18 09:05] VITALS: PULSE 65
[2024-11-18] MEDS: POTASSIUM CHLORIDE 10 MEQ CAPSULE ER 40 MEQ PO ×2 (09:12→18:18)
[2024-11-18] MEDS: APIXABAN 5 MG TABLET 2.5 MG PO ×2 (09:13→22:05)
[2024-11-18] MEDS: SERTRALINE 50 MG TABLET PO (09:13)
[2024-11-18] MEDS: DONEPEZIL 10 MG TABLET PO (09:13)
[2024-11-18] MEDS: MEMANTINE HCL 10 MG TABLET 5 MG PO (09:13)
[2024-11-18] MEDS: FUROSEMIDE 40 MG TABLET PO ×2 (09:13→15:24)
[2024-11-18] MEDS: ACETAMINOPHEN 325 MG TABLET 650 MG PO (09:13)
[2024-11-18] MEDS: oxyBUTYnin chloride 5 MG TAB.ER.24 PO (09:14)
[2024-11-18 09:30] VITALS: BP 117/63; PULSE 85; RESP 20; TEMP 37; O2SAT 95
[2024-11-18] MEDS: VANCOMYCIN 1.25 GM/250 ML 1.25 GM/250 ML PIGGYBACK IVPB (12:41)
--- NOTE | 2024-11-18 14:58 | P.IMPN_ITS ---
Progress Note: A&P Assessment and plan (1) Sepsis: Problem details: Due to urinary infection. Monitor closely. Clinically improving. MRSA growing in blood and urine. Status: Acute (2) Urinary tract infection: Problem details: With suprapubic catheter. Recurrent MRSA infection. Treat with vancomycin. Switch from Cipro to Bactrim for antibiotic prophylaxis before changing suprapubic catheter. Status: Acute (3) Constipation: Problem details: Laxatives as tolerated Status: Acute (4) Multiple sclerosis: Problem details: Quite disabled. In better wheelchair. Unable to bear weight for transfers Status: Acute (5) Neurogenic bladder: Problem details: Due to MS. Suprapubic catheter Status: Acute (6) Hypertension: Problem details: Currently borderline hypotensive with sepsis. Hold blood pressure medications. Status: Acute (7) Cognitive impairment: Problem details: Ongoing assessment. At risk for delirium. Better today. Status: Acute (8) Suprapubic catheter dysfunction: Problem details: Recurrent problems with leaking around the catheter, bleeding. Monitoring for catheter obstruction. Resume Eliquis now that bleeding has stopped. Will need prophylactic Bactrim DS 1 tab 12 hours prior to monthly catheter changes hereafter Status: Acute (9) MRSA (methicillin resistant staph aureus) culture positive: Problem details: Urine 10/12/24 Status: Acute (10) Heart failure: Problem details: Echocardiogram was relatively normal. Resume home diuretics. Status: Acute (11) Bacteremia due to methicillin resistant Staphylococcus aureus: Problem details: Vancomycin for 14 days after negative blood culture Status: Acute (12) Hypokalemia: Problem details: -likely due to diuresis efforts and insufficient potassium supplementation -increase potassium supplementation and monitor potassium levels Status: Acute Plan 1. Reviewed impression and recommendations with patient 2. Answered his questions 3. Continue with plan as specified including if blood cultures continue to be negative from 11/15/2024, then place midline IV tomorrow and discharge from hospital with 12 more days of IV vancomycin with ongoing monitoring of labs. Time Spent With Patient Total time spent: 30 minutes Subjective Date Seen: 11/18/24 Interval history: Hi Myers is a 84 year old male with multiple sclerosis, suprapubic catheter, history of MRSA urinary infection, obesity admitted to the hospital with onset starting last evening of fever, altered mental status and hematuria. Patient is unable to give history due to altered mental status. His daughter and the medical record provide history at this time. Daughter reports she saw him yesterday earlier in the day and he seemed fine. He did have some leakage and bleeding around his suprapubic catheter and so the staff at the [place] [facility] changed it. Catheter was probably also getting plugged with blood clots at the time. I believe yesterday was his typical monthly catheter change. Following that he continued to have some bleeding but then seemed to be getting confused and agitated. He has had some coughing. He developed a fever. This morning he was appearing quite ill and he was brought to the emergency room. He lives at [address] [place] [address] where there is currently an outbreak of both COVID and influenza. Initial evaluation showed sepsis likely due to urinary tract infection. Broad- spectrum antibiotics are initiated. 11/14/2024: Patient improved overnight. He is more alert and able to communicate today. Vital signs are improved. Labs are improved. Urine culture growing MRSA. Blood culture growing Staph aureus. 11/15/2024: Patient has no complaints today. He reports he is doing well. Blood culture and urine culture both coming back with MRSA. Hospital day 4, 11/16/2024. Feeling a little better than he has in the past. Denies discomforts. Tolerating increased activities now. Hospital day 5, 11/17/2024. Patient and daughter seem to believe that he is close to his baseline in terms of his cognition and functional abilities. Hospital day 6, 11/18/2024. Patient tells me he is feeling close to his baseline. No concerns today. Exam Narrative: Exam Narrative: I examine him in his hospital room. Appears comfortable no acute distress. Lungs clear to auscultation. Heart tones with regular rhythm. Abdomen benign. Suprapubic catheter in place. Baseline level of neurologic function. Blood culture from 11/14/2024 growing out Gram-positive cocci. Blood cultures from 11/15 and 11/16/2024 still negative to date. Const: Vital Signs, click to edit/add: Vital Signs - 24 hr 11/17/24 15:29 11/17/24 15:29 11/17/24 15:47 Temperature 98.4 F Pulse Rate 62 Pulse Rate [Left P ulse Oximeter] 71 Respiratory Rate 20 20 Blood Pressure [Ri ght Arm] 130/75 Pulse Oximetry 97 97 Oxygen Delivery Me thod Room Air Room Air 11/17/24 19:00 11/17/24 19:41 11/17/24 23:00 Temperature 98.1 F Pulse Rate 70 Pulse Rate [Left P ulse Oximeter] 76 Respiratory Rate 24 18 Blood Pressure [Ri ght Arm] 128/64 Pulse Oximetry 95 94 Oxygen Delivery Vt thod Room Air Room Air 11/17/24 23:00 11/17/24 23:00 11/18/24 03:00 Temperature 98.4 F 98.5 F Pulse Rate 70 Pulse Rate [Left P ulse Oximeter] 73 76 Respiratory Rate 18 20 Blood Pressure [Ri ght Arm] 128/56 L 131/66 Pulse Oximetry 94 94 Oxygen Delivery Vt thod Room Air Room Air 11/18/24 09:05 11/18/24 09:30 11/18/24 09:30 Temperature Pulse Rate 65 Pulse Rate [Left P ulse Oximeter] Respiratory Rate 20 20 Blood Pressure [Ri ght Arm] Pulse Oximetry 95 Oxygen Delivery Vt thod Room Air 11/18/24 09:30 Temperature 98.6 F Pulse Rate Pulse Rate [Left P ulse Oximeter] 85 Respiratory Rate 20 Blood Pressure [Ri ght Arm] 117/63 Pulse Oximetry 95 Oxygen Delivery Vt thod Room Air Labs Labs: Laboratory Results - last 24 hr 11/17/24 11/18/24 15:26 05:44 WBC 6.22 RBC 4.72 Hgb 13.4 L Hct 41.8 MCV 89 MCH 28 MCHC 32 RDW Coeff of Pily 14.5 Plt Count 125 L Neut % (Auto) 68.4 Lymph % (Auto) 16.7 L [place] % (Auto) 10.9 Eos % (Auto) 2.1 Baso % (Auto) 0.5 Neut # (Auto) 4.25 Lymph # (Auto) 1.00 [place] # (Auto) 0.70 Eos # (Auto) 0.13 Baso # (Auto) 0.03 Abs Immat Gran (auto) 0.09 Imm/Tot Granulo (auto) 1.4 Sodium 142 Potassium 3.4 L 3.6 Chloride 112 Carbon Dioxide 24 Anion Gap 6 L BUN 13 Creatinine 0.8 Estimated Creat Clear 60.36 Estimated GFR 87 Glucose 95 Calcium 8.3 L
[2024-11-18 15:00] VITALS: BP 124/63; PULSE 63; PULSE 71; RESP 18; RESP 20; TEMP 36.8; O2SAT 96
[2024-11-18] MEDS: SODIUM CHLORIDE 0.9 % (FLUSH) 10 ML SYRINGE 5 ML IVF (15:54)
--- NOTE | 2024-11-18 18:56 | PC.NURSE ---
Nursing Care Hours: [id number] Pt this shift calm and cooperative, alert and oriented to self and place. No c/o pain but Tylenol given this morning prior to transfer. urinary cath patent. Med BM incontinent cleaned up. Took bites of breakfast and had 50% of yogurt for lunch as well as half of an ensure. Did eat 100% of a burger at dinner. No coughing or signs of difficulty with meal noted. skin intact. VSS. IV abx infused but post infusion, IV site increased redness, puffy and tender. DC'd IV and left out d/t pt getting a PICC placement scheduled tomorrow.
[2024-11-18 19:00] VITALS: BP 117/66; PULSE 80; RESP 24; TEMP 36.9; O2SAT 95
[2024-11-18 22:03] VITALS: BP 125/58; PULSE 79; RESP 20; TEMP 36.7; O2SAT 97
[2024-11-18] MEDS: SENNOSIDES/DOCUSATE TABLET 2 TAB PO (22:05)
[2024-11-19] VITALS (8 sets, daily range): BP systolic 117–133; BP diastolic 58–80; PULSE 68–81; RESP 18–22; TEMP 36.2–37.1; O2SAT 93–96
--- NOTE | 2024-11-19 07:32 | PC.NURSE ---
Shift note ([id number]): Patient pleasant, alert and oriented. Ceiling lift for transfers. Reported no ratable pain, but??some discomfort? in right leg earlier in shift. Denies any pain this morning. IV was discontinued on previous shift. Per Dr. Morgan martin to leave IV out as PICC line will be placed in morning if blood cultures remain negative. If PICC line not placed before 1230 IV Vanco administration time, a new IV will need to be placed. Catheter patent.?
[2024-11-19] MEDS: APIXABAN 5 MG TABLET 2.5 MG PO ×2 (09:34→20:45)
[2024-11-19] MEDS: oxyBUTYnin chloride 5 MG TAB.ER.24 PO (09:34)
[2024-11-19] MEDS: MEMANTINE HCL 10 MG TABLET 5 MG PO (09:34)
[2024-11-19] MEDS: SERTRALINE 50 MG TABLET PO (09:35)
[2024-11-19] MEDS: POTASSIUM CHLORIDE 10 MEQ CAPSULE ER 40 MEQ PO ×2 (09:35→18:36)
[2024-11-19] MEDS: DONEPEZIL 10 MG TABLET PO (09:35)
[2024-11-19] MEDS: FUROSEMIDE 40 MG TABLET PO ×2 (09:35→14:01)
[2024-11-19] MEDS: ACETAMINOPHEN 325 MG TABLET 650 MG PO ×2 (09:35→20:44)
[2024-11-19] MEDS: SODIUM CHLORIDE 0.9 % (FLUSH) 10 ML SYRINGE 5 ML IVF ×2 (09:36→20:44)
--- NOTE | 2024-11-19 11:40 | CRLHL7_ITS ---
For Patients: As a result of the Cures Act, medical imaging exams and procedure reports are released immediately into your electronic medical record. You may view this report before your referring provider. If you have questions, please contact your health care provider. Indication: MS, tachypnea, MRSA bacteremia from bladder source. Technique: AP portable chest. Comparison: Chest x-ray 11/13/2024 Findings: Chronic elevation of the right diaphragm is similar to the previous exam. There is added opacity in the right mid lung zone resulting in partial obscuration of the elevated right diaphragm suspicious for a new area of airspace disease. The left lung remains clear. The cardiomediastinal silhouette and pulmonary vasculature are unchanged. No pulmonary vascular congestion is identified. No pneumothorax is seen. 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 Impression: 1. Chronic elevation of the right diaphragm. 2. Findings suspicious for new area of airspace disease in the right mid lung zone. Dictated by Phi Pritchard MD @ 11/19/2024 12:49:55 PM (Electronically Signed)
[2024-11-19 12:05] LABS: HCO3 VBG 23 mmol/L (21-28); Lactate* 0.9 mmol/L (0.5-1.9); PCO2 VBG 37 mmHG (40-50); PO2 VBG 67.4 mmHG (25-47); pH VBG 7.405 (7.32-7.43)
[2024-11-19 12:11] LABS: Basophils Absolute Auto 0.06 K/uL (0.00-0.30); Eosinophils Absolute Auto 0.15 K/uL (0.00-0.50); Eosinophils Percent Auto 2.6 % (0.0-7.0); Hematocrit 43.3 % (37.0-53.0); Hemoglobin* 13.8 gm/dL (13.5-17.5); Immature Granulocytes Abs Auto 0.07 K/uL (0.00-0.30); Immature Granulocytes Pct Auto 1.2 %; Lymphocytes Percent Auto 19.6 % (20-44); Mean Corpuscular HGB Conc 32 gm/dL (32-36); Mean Corpuscular Hemoglobin 28 pg (26-34); Mean Corpuscular Volume 89 fL (80-100); Monocytes Percent Auto 13.7 % (0.0-11.0); Neutrophils Absolute Auto 3.58 K/uL (1.7-7.0); Neutrophils Percent Auto 61.9 % (42.0-72.0); Platelet Count* 157 K/uL (140-440); RDW Coefficient of Variation % 14.7 % (11.5-15.5); Red Blood Count 4.88 m/uL (4.30-5.90); White Blood Count* 5.78 K/uL (4.50-11.00)
[2024-11-19 12:29] LABS: Slide Review Reflex No
[2024-11-19 12:30] LABS: C Reactive Protein* 1.8 mg/dL (0.5-1.0)
[2024-11-19 12:40] LABS: PCR FLU A Negative PCR FLU A (Negative); PCR FLU B Negative PCR FLU B (Negative); PCR RSV Negative PCR RSV (Negative); SARS PCR* Negative SARS-CoV-2 (Negative)
[2024-11-19 12:44] LABS: Procalcitonin* 1.25 ng/mL (<0.50)
[2024-11-19 12:47] LABS: C.Difficile Negative (Negative); CDIFFEPI 027 PRESUMPTIVE NEGATIVE (Negative)
[2024-11-19] MEDS: VANCOMYCIN 1.25 GM/250 ML 1.25 GM/250 ML PIGGYBACK IVPB (13:19)
--- NOTE | 2024-11-19 14:21 | PC.NURSE ---
PATIENT LETHARGIC THIS MORNING AND MOST OF SHIFT. SLEEPING BETWEEN CARES AND STATED MULTIPLE TIMES HE WANTED TO JUST BE LEFT ALONE. PATIENT ALSO STATED I DON'T WANT TO DO THIS ANYMORE. UP WITH CEILING LIFT TO RECLINER. PATIENT ATE FEW BITES OF BREAKFAST WITH ASSIST. ENCOURAGED ENSURE AND FLUIDS PATIENT TOLERATED. INCONTINENT OF LOOSE STOOL AND CDIFF SAMPLE SENT. PATIENT AFEBRILE. MOANS WITH MOVEMENT BUT DENIES SPECIFIC PAIN. DENIES FEELING NAUSEATED. STATES I JUST DON'T FEEL GOOD. DAUGHTER SHAGUFTA UPDATED.
--- NOTE | 2024-11-19 16:02 | P.IMPN_ITS ---
Progress Note: A&P Assessment and plan (1) Sepsis: Problem details: Due to urinary infection. Monitor closely. Clinically improving. MRSA growing in blood and urine. Blood cultures early on in the hospital were positive for MRSA. Most recent blood culture that turned positive was from 11/15/2024, 86 hours after having been drawn and set up. Repeated blood culture this morning. Will repeat another blood culture tomorrow morning. Status: Acute (2) Urinary tract infection: Problem details: With suprapubic catheter. Suprapubic catheter changed in hospital. Recurrent MRSA infection. Treat with vancomycin. Switch from Cipro to Bactrim for antibiotic prophylaxis before changing suprapubic catheter. Status: Acute (3) Constipation: Problem details: Laxatives as tolerated Status: Acute (4) Multiple sclerosis: Problem details: Quite disabled. In better wheelchair. Unable to bear weight for transfers Status: Acute (5) Neurogenic bladder: Problem details: Due to MS. Suprapubic catheter Status: Acute (6) Hypertension: Problem details: Currently borderline hypotensive with sepsis. Hold blood pressure medications. Status: Acute (7) Cognitive impairment: Problem details: Ongoing assessment. At risk for delirium. Better today. Status: Acute (8) Suprapubic catheter dysfunction: Problem details: Recurrent problems with leaking around the catheter, bleeding. Monitoring for catheter obstruction. Resume Eliquis now that bleeding has stopped. Will need prophylactic Bactrim DS 1 tab 12 hours prior to monthly catheter changes hereafter Status: Acute (9) MRSA (methicillin resistant staph aureus) culture positive: Problem details: Urine 10/12/24 with positive blood cultures on 11/13/2024 through 11/15/2024 at this time. Continue IV vancomycin at this time. Discussed with infectious disease specialists on 11/19/2024. Status: Acute (10) Heart failure: Problem details: Echocardiogram was relatively normal. Resume home diuretics. Status: Acute (11) Bacteremia due to methicillin resistant Staphylococcus aureus: Problem details: Vancomycin for 14 days after negative blood culture Status: Acute (12) Hypokalemia: Problem details: -likely due to diuresis efforts and insufficient potassium supplementation -increase potassium supplementation and monitor potassium levels Status: Acute Plan 1. Reviewed impression with patient and daughter 2. Continue with current efforts 3. They are agreeable Time Spent With Patient Total time spent: 45 minutes Subjective Date Seen: 11/19/24 Interval history: Hi Myers is a 84 year old male with multiple sclerosis, suprapubic catheter, history of MRSA urinary infection, obesity admitted to the hospital with onset starting last evening of fever, altered mental status and hematuria. Patient is unable to give history due to altered mental status. His daughter and the medical record provide history at this time. Daughter reports she saw him yesterday earlier in the day and he seemed fine. He did have some leakage and bleeding around his suprapubic catheter and so the staff at the care home changed it. Catheter was probably also getting plugged with blood clots at the time. I believe yesterday was his typical monthly catheter change. Following that he continued to have some bleeding but then seemed to be getting confused and agitated. He has had some coughing. He developed a fever. This morning he was appearing quite ill and he was brought to the emergency room. He lives at [address] [place] [address] where there is currently an outbreak of both COVID and influenza. Initial evaluation showed sepsis likely due to urinary tract infection. Broad- spectrum antibiotics are initiated. 11/14/2024: Patient improved overnight. He is more alert and able to communicate today. Vital signs are improved. Labs are improved. Urine culture growing MRSA. Blood culture growing Staph aureus. 11/15/2024: Patient has no complaints today. He reports he is doing well. Blood culture and urine culture both coming back with MRSA. Hospital day 4, 11/16/2024. Feeling a little better than he has in the past. Denies discomforts. Tolerating increased activities now. Hospital day 5, 11/17/2024. Patient and daughter seem to believe that he is close to his baseline in terms of his cognition and functional abilities. Hospital day 6, 11/18/2024. Patient tells me he is feeling close to his baseline. No concerns today. Hospital day 7, 11/19/2024. He has no specific complaints or concerns per se today other than to say he wants to stop everything. His daughter comes in in talks with him. Patient's daughter and sons have talked with him at various times about resuscitation status. He has historically consistently, repeatedly indicated he wants full resuscitation in the event of cardiopulmonary demise despite daughter and sons encouraged in him to change the paradigm of his care to comfort focus measures only. After his daughter speaks with him he indicates he wishes to continue with full resuscitation and that he will resume efforts to help himself at this time. Given his evolving mind set change, I do perform various labs today and do not see much change including the chest x-ray. Exam Narrative: Exam Narrative: Appears comfortable no acute distress. Somewhat anxious about wanting to get better and giving up hope about getting better. After his daughter spends fair amount of time speaking with him he seems to settle and calm himself. Decreased breath sounds in both bases otherwise lungs clear, unchanged. Heart tones with regular rhythm. Abdomen benign. No focal motor neurologic deficits. Chronic generalized weakness. Blood culture from 08/15/2025 became positive about 86 hours after being set up. Blood culture from 08/16/2025 still negative after greater than 72 hours. I did draw blood culture this morning. Also ordered blood culture tomorrow morning. Const: Vital Signs, click to edit/add: Vital Signs - 24 hr 11/18/24 19:00 11/18/24 22:03 11/18/24 22:03 Temperature 98.4 F 98.0 F Pulse Rate Pulse Rate [Left P ulse Oximeter] 80 79 Respiratory Rate 24 20 20 Blood Pressure [Le ft Arm] 117/66 Blood Pressure [Ri ght Arm] 125/58 L Pulse Oximetry 95 97 97 [facility] Room [facility] Room Air 11/19/24 01:50 11/19/24 03:00 11/19/24 07:00 Temperature 98.2 F Pulse Rate 75 74 Pulse Rate [Left P ulse Oximeter] 79 Respiratory Rate 22 Blood Pressure [Le ft Arm] 117/58 L Blood Pressure [Ri ght Arm] Pulse Oximetry 94 [facility] 11/19/24 07:45 11/19/24 07:45 11/19/24 07:45 Temperature 97.2 F L Pulse Rate Pulse Rate [Left P ulse Oximeter] 81 81 Respiratory Rate 22 22 22 Blood Pressure [Le ft Arm] Blood Pressure [Ri ght Arm] 130/65 Pulse Oximetry 95 95 [facility] Room Air 11/19/24 12:00 11/19/24 15:00 11/19/24 15:00 Temperature 98.8 F Pulse Rate Pulse Rate [Left P ulse Oximeter] 68 68 Respiratory Rate 22 18 Blood Pressure [Le ft Arm] Blood Pressure [Ri ght Arm] 133/68 Pulse Oximetry 95 93 Oxygen Delivery Me thod Room Air Room Air 11/19/24 15:00 Temperature 98.3 F Pulse Rate Pulse Rate [Left P ulse Oximeter] 81 Respiratory Rate 18 Blood Pressure [Le ft Arm] Blood Pressure [Ri ght Arm] 128/80 Pulse Oximetry 93 Oxygen Delivery Me thod Room Air Labs Labs: Laboratory Results - last 24 hr 11/19/24 11/19/24 11/19/24 11:38 11:56 11:58 WBC 5.78 RBC 4.88 Hgb 13.8 Hct 43.3 MCV 89 MCH 28 MCHC 32 RDW Coeff of Pily 14.7 Plt Count 157 Neut % (Auto) 61.9 Lymph % (Auto) 19.6 L [place] % (Auto) 13.7 H Eos % (Auto) 2.6 Baso % (Auto) 1.0 Neut # (Auto) 3.58 Lymph # (Auto) 1.10 [place] # (Auto) 0.80 Eos # (Auto) 0.15 Baso # (Auto) 0.06 Abs Immat Gran (auto) 0.07 Imm/Tot Granulo (auto) 1.2 VBG pH 7.405 VBG pCO2 37 L VBG pO2 67.4 H VBG HCO3 23 Lactate 0.9 C-Reactive Protein 1.8 H Procalcitonin 1.25 H Stl C. diff Tox B Gene Negative Stl C. diff [id number] PRESUMPTIVE NEGATIVE SARS-CoV-2 (PCR) Negative SARS-CoV-2 Influenza Type A (PCR) Negative PCR FLU A Influenza Type B (PCR) Negative PCR FLU B RSV (PCR) Negative PCR RSV
--- NOTE | 2024-11-19 23:35 | PC.NURSE ---
Pt alert, oriented to self and vitally stable. Pt easily arousable to name, though dozes off while speaking to him. Pt up in chair to eat, ate 25%, tolerated well. Pills crushed in pudding, tolerated well. Pt in bed, appears to be resting, call light within reach.?
[2024-11-20 03:00] VITALS: BP 119/58; PULSE 82; RESP 20; TEMP 36.6; O2SAT 96
--- NOTE | 2024-11-20 05:52 | PC.NURSE ---
End of shift [id number]: Pt AxOx4, oriented to place, self, and birthday. Pt slept for the majority of shift, arousable to name. VSS. TEDS in place with bilat extremities elevated. Repo q2h and per Pt request. Pt tolerating fluids well with an assist. Marr patent and draining. BLE wounds remain CDI, no odor. Pt appears resting with call light in reach. ?
[2024-11-20 07:00] VITALS: BP 133/61; PULSE 71; PULSE 83; RESP 20; TEMP 36.6; O2SAT 96
[2024-11-20] MEDS: MEMANTINE HCL 10 MG TABLET 5 MG PO (07:50)
[2024-11-20] MEDS: FUROSEMIDE 40 MG TABLET PO ×2 (07:50→14:13)
[2024-11-20] MEDS: DONEPEZIL 10 MG TABLET PO (07:50)
[2024-11-20] MEDS: oxyBUTYnin chloride 5 MG TAB.ER.24 PO (07:50)
[2024-11-20] MEDS: SERTRALINE 50 MG TABLET PO (07:50)
[2024-11-20] MEDS: APIXABAN 5 MG TABLET 2.5 MG PO ×2 (07:51→20:04)
[2024-11-20] MEDS: POTASSIUM CHLORIDE 10 MEQ CAPSULE ER 40 MEQ PO ×2 (07:51→18:03)
[2024-11-20] MEDS: SODIUM CHLORIDE 0.9 % (FLUSH) 10 ML SYRINGE 5 ML IVF ×2 (07:51→20:05)
[2024-11-20 11:00] VITALS: BP 132/62; PULSE 85; RESP 18; TEMP 36.6; O2SAT 96
--- NOTE | 2024-11-20 11:48 | PC.SOCIAL ---
Discharge planning: Called dtr, Megan, , who confirms pt is on a bed hold at [facility] and she is expecting him to return there at discharge. Dtr is aware pt will return on IV abx. Dtr is requesting non-emergency transportation and states this transportation has been covered by pt's Medicaid in the past. Called and secure emailed updated information to nurse Joao at [facility] who is aware of planned discharge back tomorrow. family services worker to follow up as needed.
[2024-11-20] MEDS: VANCOMYCIN 1.25 GM/250 ML 1.25 GM/250 ML PIGGYBACK IVPB (12:26)
[2024-11-20] MEDS: LACTOBACILLUS ACIDOPHILUS 1 TABLET 2 TAB PO ×2 (12:26→18:03)
--- NOTE | 2024-11-20 13:39 | PM.IMPN1 ---
Progress Note: A&P Assessment and plan (1) Sepsis: Problem details: Due to urinary infection. Monitor closely. Clinically improving. MRSA growing in blood and urine. Blood cultures early on in the hospital were positive for MRSA. Most recent blood culture that turned positive was from 11/15/2024, 86 hours after having been drawn and set up. Repeated blood culture 11/19/2024 and 11/20/2024. Blood culture from 11/16/2024 still negative after 96+ hours. Will order midline IV insertion so he can complete his IV vancomycin course with last dose to be administered on 11/29/2024. Will need repeat vancomycin trough level and CBC to be drawn on 11/23/2024 with results to his primary care physician. Status: Acute (2) Urinary tract infection: Problem details: With suprapubic catheter. Suprapubic catheter changed in hospital. Recurrent MRSA infection. Treat with vancomycin. Switch from Cipro to Bactrim for antibiotic prophylaxis before changing suprapubic catheter. Status: Acute (3) Constipation: Problem details: Laxatives as tolerated Status: Acute (4) Multiple sclerosis: Problem details: Quite disabled. In bed or wheelchair. Unable to bear weight for transfers Status: Acute (5) Neurogenic bladder: Problem details: Due to MS. Suprapubic catheter. Status: Acute (6) Hypertension: Problem details: Currently borderline hypotensive with sepsis. Hold blood pressure medications. Status: Acute (7) Cognitive impairment: Problem details: Ongoing assessment. At risk for delirium. Better today. Status: Acute (8) Suprapubic catheter dysfunction: Problem details: Recurrent problems with leaking around the catheter, bleeding. Monitoring for catheter obstruction. Resume Eliquis now that bleeding has stopped. Will need prophylactic Bactrim DS 1 tab 1-2 hours prior to monthly catheter changes hereafter Status: Acute (9) MRSA (methicillin resistant staph aureus) culture positive: Problem details: Urine 10/12/24 with positive blood cultures on 11/13/2024 through 11/15/2024 at this time. Continue IV vancomycin at this time. Discussed with infectious disease specialists on 11/19/2024. Status: Acute (10) Heart failure: Problem details: Echocardiogram was relatively normal. Resume home diuretics. Status: Acute (11) Bacteremia due to methicillin resistant Staphylococcus aureus: Problem details: Vancomycin for 14 days after negative blood culture Status: Acute (12) Hypokalemia: Problem details: -likely due to diuresis efforts and insufficient potassium supplementation -increase potassium supplementation and monitor potassium levels Status: Acute Plan 1. Reviewed impression with patient in person and his daughter, Megan, via telephone. 2. Again discussed plan of cares with patient and his daughter Megan, including patient's desire for resuscitation in the event of cardiopulmonary demise. Patient again indicates he wishes full resuscitation at this time. 3. Patient and daughter are agreeable with above stated or plans and recommendations. Time Spent With Patient Total time spent: 45 minutes Subjective Date Seen: 11/20/24 Interval history: Hi Myers is a 84 year old male with multiple sclerosis, suprapubic catheter, history of MRSA urinary infection, obesity admitted to the hospital with onset starting last evening of fever, altered mental status and hematuria. Patient is unable to give history due to altered mental status. His daughter and the medical record provide history at this time. Daughter reports she saw him yesterday earlier in the day and he seemed fine. He did have some leakage and bleeding around his suprapubic catheter and so the staff at the detention changed it. Catheter was probably also getting plugged with blood clots at the time. I believe yesterday was his typical monthly catheter change. Following that he continued to have some bleeding but then seemed to be getting confused and agitated. He has had some coughing. He developed a fever. This morning he was appearing quite ill and he was brought to the emergency room. He lives at [address] [place] [address] where there is currently an outbreak of both COVID and influenza. Initial evaluation showed sepsis likely due to urinary tract infection. Broad-spectrum antibiotics are initiated. 11/14/2024: Patient improved overnight. He is more alert and able to communicate today. Vital signs are improved. Labs are improved. Urine culture growing MRSA. Blood culture growing Staph aureus. 11/15/2024: Patient has no complaints today. He reports he is doing well. Blood culture and urine culture both coming back with MRSA. Hospital day 4, 11/16/2024. Feeling a little better than he has in the past. Denies discomforts. Tolerating increased activities now. Hospital day 5, 11/17/2024. Patient and daughter seem to believe that he is close to his baseline in terms of his cognition and functional abilities. Hospital day 6, 11/18/2024. Patient tells me he is feeling close to his baseline. No concerns today. Hospital day 7, 11/19/2024. He has no specific complaints or concerns per se today other than to say he wants to stop everything. His daughter comes in in talks with him. Patient's daughter and sons have talked with him at various times about resuscitation status. He has historically consistently, repeatedly indicated he wants full resuscitation in the event of cardiopulmonary demise despite daughter and sons encouraged in him to change the paradigm of his care to comfort focus measures only. After his daughter speaks with him he indicates he wishes to continue with full resuscitation and that he will resume efforts to help himself at this time. Given his evolving mind set change, I do perform various labs today and do not see much change including the chest x-ray. Hospital day 8, 11/20/2024. Much less anxious today. Reiterates desire for full resuscitation in the event of cardiopulmonary demise. Asks us to continue with our current efforts to help eradicate his MRSA bacteremia and urinary tract infection. No apparent complications from our efforts. Blood culture from 11/16/2024 negative for growth at 96 hours. If this continues to be negative anticipate discharge as early as tomorrow back to [facility], [place], [place], with last dose of IV antibiotic to be administered on 11/29/2024. Will need repeat vancomycin trough level and CBC on Tuesday11/23/2024. Exam Narrative: Exam Narrative: I examined patient in his hospital room. Appears comfortable and in no acute distress. Cooperative, friendly. Vision and hearing are adequate. Lungs clear to auscultation. Heart tones with regular rhythm. Abdomen is obese with active bowel sounds, soft. Extremities without edema. Skin without rashes, petechiae, jaundice, cyanosis. Baseline level of neurologic function, with no focal motor neurologic deficits. Const: Vital Signs, click to edit/add: Vital Signs - 24 hr 11/19/24 15:00 11/19/24 15:00 11/19/24 15:00 Temperature 98.3 F Pulse Rate Pulse Rate [Left P ulse Oximeter] 68 81 Pulse Rate [Right Radial] Respiratory Rate 18 18 Blood Pressure [Le ft Arm] Blood Pressure [Ri ght Arm] 128/80 Pulse Oximetry 93 93 Oxygen Delivery Me thod Room Air Room Air 11/19/24 15:00 11/19/24 19:00 11/19/24 23:00 Temperature 98.1 F Pulse Rate 77 75 Pulse Rate [Left P ulse Oximeter] 78 Pulse Rate [Right Radial] Respiratory Rate 18 Blood Pressure [Le ft Arm] 129/69 Blood Pressure [Ri ght Arm] Pulse Oximetry 96 [facility] 11/19/24 23:00 11/19/24 23:00 11/20/24 03:00 Temperature 97.7 F 98 F Pulse Rate Pulse Rate [Left P ulse Oximeter] 72 82 Pulse Rate [Right Radial] Respiratory Rate 21 21 20 Blood Pressure [Le ft Arm] Blood Pressure [Ri ght Arm] 120/60 119/58 L Pulse Oximetry 95 95 96 Oxygen Delivery [facility] Room Air Room Air Room Air 11/20/24 07:00 11/20/24 07:00 11/20/24 07:00 Temperature Pulse Rate 71 Pulse Rate [Left P ulse Oximeter] 83 Pulse Rate [Right Radial] Respiratory Rate 20 20 Blood Pressure [Le ft Arm] Blood Pressure [Ri ght Arm] Pulse Oximetry 96 [facility] 11/20/24 07:00 11/20/24 11:00 Temperature 97.8 F 97.8 F Pulse Rate Pulse Rate [Left P ulse Oximeter] 83 Pulse Rate [Right Radial] 85 Respiratory Rate 20 18 Blood Pressure [Le ft Arm] Blood Pressure [Ri ght Arm] 133/61 132/62 Pulse Oximetry 96 96 Oxygen Delivery Me [facility] Room Air Room Air
[2024-11-20] MEDS: MORPHINE 4 MG/ML INJ 2 MG IVP (14:16)
[2024-11-20 14:49] VITALS: BP 126/79; PULSE 74; PULSE 78; RESP 22; TEMP 36.6; O2SAT 96
--- NOTE | 2024-11-20 18:26 | PC.NURSE ---
End of shift report [id number]: Pleasant and cooperative with cares. Alert, oriented to self and date, intermittent confusion to date. At 1420 patient reporting severe pain to bilateral feet, patient states it is a burning and sharp feeling. Mottle Lay Up Operator assessed CMS to bilateral feet, cap refill <3 seconds and patient able to feel where freelance copywriter was touching. No new areas of concern. PRN morphine administered and effective for pain, no further complaints this shift. At 1630 patient had midline placed by PICC stat, no concerns via nurse that placed line and working with no concerns. Patient transfers with assist x 2 with ceiling lift. Patient able to feed self for meals and at 75% or more at each meal time. Suprapubic catheter patent, draining light amy colored urine. Denies any shortness of breath or chest pain.
[2024-11-20 19:00] VITALS: BP 110/85; PULSE 74; RESP 22; TEMP 36.6; O2SAT 94
[2024-11-20 23:00] VITALS: BP 131/81; PULSE 86; PULSE 87; RESP 22; TEMP 36.7; O2SAT 93
[2024-11-21 03:00] VITALS: RESP 20
--- NOTE | 2024-11-21 05:27 | PC.NURSE ---
[id number] Pt slept well during night, denied pain, cath patent and draining.
[2024-11-21 07:00] VITALS: RESP 18; O2SAT 94
[2024-11-21] MEDS: FUROSEMIDE 40 MG TABLET PO (07:49)
[2024-11-21] MEDS: LACTOBACILLUS ACIDOPHILUS 1 TABLET 2 TAB PO (07:49)
[2024-11-21] MEDS: POTASSIUM CHLORIDE 10 MEQ CAPSULE ER 40 MEQ PO (07:49)
[2024-11-21 07:53] VITALS: BP 126/78; PULSE 81; RESP 22; TEMP 36.4; O2SAT 94
--- NOTE | 2024-11-21 08:22 | PM.DS1 ---
DS: Providers Provider Date Seen: 11/21/24 Date of admission: 11/13/24 13:36 Primary care physician: Gabe White MD Admitting Clinician: Juwan Land MD Consults: PT, OT, SW, ID Attending Physician on discharge: Sherrell Bernard MD Date of Discharge: 11/21/24 DS: Diagnosis Discharge Diagnosis (1) Sepsis: Status: Acute Problem details: - 2/2 UTI, MRSA + blood and urine culture - ID consult obtained during stay - blood cultures drawn 11/16/24 and later remain negative - PICC placed for discharge; will require IV Vancomycin daily until 11/29/24 (CBC and Vancomycin trough to be done 11/23/24) (2) Urinary tract infection: Status: Acute Problem details: - has suprapubic catheter, changed during hospitalization - upon discharge, recommend switching from Cipro to Bactrim for antibiotic prophylaxis prior to changing catheter (3) Constipation: Status: Acute Problem details: - bowel regimen (4) Multiple sclerosis: Status: Acute Problem details: - in bed or wheelchair, unable to bear weight for transfers (5) Hypertension: Status: Acute Problem details: - lower BPs on admission, stable upon d/c (6) Cognitive impairment: Status: Acute Problem details: (7) Suprapubic catheter dysfunction: Status: Acute Problem details: - Recurrent problems with leaking around the catheter, bleeding. Eliquis was held early in stay, restarted without recurrent bleeding - Will need prophylactic Bactrim DS 1 tab 1-2 hours prior to monthly catheter changes hereafter (8) MRSA (methicillin resistant staph aureus) culture positive: Status: Acute Problem details: - Urine 10/12/24 with positive blood cultures on 11/13/2024 through 11/15/2024 at this time. - Continue IV vancomycin at this time after discussion with infectious disease specialists on 11/19/2024. (9) Heart failure: Status: Acute Problem details: - HFpEF on 11/14/24 TTE, on Lasix (10) Bacteremia due to methicillin resistant Staphylococcus aureus: Status: Acute Problem details: - Vancomycin for 14 days after negative blood culture per ID recommendations (11) Hypokalemia: Status: Acute Problem details: - likely iatrogenic - stabilized during stay with increased supplementation DS: Summary Hospital Course Hospital Course: From H&P: Hi Myers is a 84 year old male with multiple sclerosis, suprapubic catheter, history of MRSA urinary infection, obesity admitted to the hospital with onset starting last evening of fever, altered mental status and hematuria. Patient is unable to give history due to altered mental status. His daughter and the medical record provide history at this time. Daughter reports she saw him yesterday earlier in the day and he seemed fine. He did have some leakage and bleeding around his suprapubic catheter and so the staff at the correction changed it. Catheter was probably also getting plugged with blood clots at the time. I believe yesterday was his typical monthly catheter change. Following that he continued to have some bleeding but then seemed to be getting confused and agitated. He has had some coughing. He developed a fever. This morning he was appearing quite ill and he was brought to the emergency room. He lives at [address] [place] [address] where there is currently an outbreak of both COVID and influenza. Initial evaluation showed sepsis likely due to urinary tract infection. Broad-spectrum antibiotics initiated. Hi was eventually diagnosed with MRSA UTI and bacteremia. Patient improved during stay and blood cultures from hospital day 3 eventually negative. ID consulted during stay, recommend IV vancomycin until 11/29/24. In addition, he will take Bactrim prior to his monthly suprapubic catheter changes. Other notable findings/comorbidities above. Remained stable. He is discharged back to [address] [place] [address] on 11/21/24. Time Spent with Patient Time attestation: Total time spent providing and/or coordinating discharge services: Time spent: Greater than 30 minutes Specific discharge activities: Medication reconciliation, chart review Exam Narrative: Exam Narrative: Gen: Awake and sitting comfortably in bedside chair, having breakfast with nursing staff HEENT: Normal external ears, EOMIs bilaterally, no scleral icterus CV: RRR, No concerning murmurs, rubs, or gallops R: LCTA bilaterally without concerning wheezing, air movement adequate Ext: PICC line in place, right upper extremity Neuro: Baseline Psych: Appropriate Const: Vital Signs, click to edit/add: Vital Signs - 24 hr 11/20/24 11:00 11/20/24 14:49 11/20/24 14:49 Temperature 97.8 F Pulse Rate 74 Pulse Rate [Left P ulse Oximeter] 78 Pulse Rate [Right Radial] 85 Respiratory Rate 18 22 Blood Pressure [Le ft Arm] Blood Pressure [Ri ght Arm] 132/62 Pulse Oximetry 96 Oxygen Delivery Me thod Room Air 11/20/24 14:49 11/20/24 14:49 11/20/24 19:00 Temperature 97.8 F 97.8 F Pulse Rate Pulse Rate [Left P ulse Oximeter] 78 74 Pulse Rate [Right Radial] Respiratory Rate 22 22 22 Blood Pressure [Le ft Arm] 110/85 Blood Pressure [Ri ght Arm] 126/79 Pulse Oximetry 96 96 94 Oxygen Delivery Me thod Room Air Room Air Room Air 11/20/24 23:00 11/20/24 23:00 11/20/24 23:00 Temperature 98.1 F Pulse Rate 87 Pulse Rate [Left P ulse Oximeter] 86 Pulse Rate [Right Radial] Respiratory Rate 22 22 Blood Pressure [Le ft Arm] 131/81 Blood Pressure [Ri ght Arm] Pulse Oximetry 93 93 Oxygen Delivery Me thod Room Air Room Air 11/21/24 03:00 11/21/24 07:53 Temperature 97.5 F L Pulse Rate Pulse Rate [Left P ulse Oximeter] 81 Pulse Rate [Right Radial] Respiratory Rate 20 22 Blood Pressure [Le ft Arm] 126/78 Blood Pressure [Ri ght Arm] Pulse Oximetry 94 Oxygen Delivery Me thod Room Air DS: Data Data Completed and Pending Labs on day of discharge: Preliminary micro results at discharge 11/20/24 06:05 Blood Culture - Preliminary Blood NO GROWTH AFTER 24 HOURS 11/19/24 12:55 Blood Culture - Preliminary Blood NO GROWTH AFTER 24 HOURS Discharge Plan Discharge Disposition: [facility] Date of Admission: 11/13/24 13:36 Attending Provider on Discharge: Ha Coto Consulting Providers: Holly Maldonado; Mily Stevenson Primary Care Provider: Gabe White Condition: Improved Anticipated Discharge Date/Time: 11/21/24 10:00 Discharge Medications: New sertraline 50 mg Tablet 50 mg PO DAILY 30 Days Qty: 30 1RF vancomycin-diluent combo no.1 1.25 gram/250 mL Piggyback 1.25 g IV Q24H 9 Days Continued cranberry 500 mg capsule 500 mg PO HS melatonin 3 mg tablet 9 mg PO HS acetaminophen 325 mg tablet 650 mg PO Q8H PRN loperamide [Imodium A-D] 2 mg capsule 2 mg PO Q6H PRN sennosides [Natural Senna Laxative] 8.6 mg tablet 8.6 mg PO BID PRN furosemide 40 mg tablet 40 mg PO BID azithromycin 250 mg tablet 500 mg PO .EACH TIME PRN Rx Instructions: PRIOR TO DENTAL APT donepezil 10 mg tablet 10 mg PO HS bacitracin 500 unit/gram ointment 1 applic topical BID tramadol 50 mg tablet 25 mg PO TID Patient Comments: PLUS Q4H PRN triamcinolone acetonide 0.1 % cream 1 applic topical BID potassium chloride 20 mEq tablet,ER particles/crystals 20 meq PO BID oxybutynin chloride 5 mg tablet extended release 24hr 5 mg PO DAILY Acidophilus Capsule 1 cap PO DAILY memantine 5 mg tablet 5 mg PO DAILY Eliquis 2.5 mg tablet 2.5 mg PO BID Discontinued sertraline 25 mg tablet 25 mg PO DAILY Discharge Orders: Discharge Order (Routine); Ordered 11/21/24 Ordered By: Sherrell Bernard Additional Instructions: 1. Midline IV cath cares. 2. May remove midline IV cath after dosing of IV vancomycin is completed. 3. MRSA precautions. 4. Nasal MRSA swab to be obtained 1 week after completion of IV vancomycin, with last dose to be administered on 11/29/2024. 5. Urine culture to be obtained 1 week after completion of IV vancomycin, with last dose to be administered on 11/29/2024. 6. Suprapubic urinary catheter cares, including changing the catheter once monthly. 7. Vancomycin trough level and CBC on Tuesday11/23/2024 with results to his primary resident care provider. Activity Level: Activity as Tolerated Discharge Diet: Regular Follow Up Appointments: Gabe White MD [Primary Care Provider] - Forms: [facility] Info Instructions Admit to: SNF Discharge Potential: Poor Length of Stay: >90 days Can use facility standing orders?: Yes Code Status: Full Code Rehab Potential: Poor Therapy: Physical Therapy and Occupational Therapy Therapy Orders: Evaluate and Treat Oxygen: No Urinary Catheter: Yes (suprapubic) Glucose Checks: n/a Lab Orders: CBC and Vancomycin trough 11/23/24 Orders are good >30 days: Yes Signature: Ha Coto
[2024-11-21] MEDS: APIXABAN 5 MG TABLET 2.5 MG PO (08:48)
[2024-11-21] MEDS: DONEPEZIL 10 MG TABLET PO (08:48)
[2024-11-21] MEDS: SERTRALINE 50 MG TABLET PO (08:49)
[2024-11-21] MEDS: oxyBUTYnin chloride 5 MG TAB.ER.24 PO (08:49)
[2024-11-21] MEDS: MEMANTINE HCL 10 MG TABLET 5 MG PO (08:49)
--- NOTE | 2024-11-21 10:49 | PC.NURSE ---
shift note: vss stable. pt afeb. IV dc'd Lt arm intact. Rt midline drsg intact and patent with flush. LS dim throughout. supra pubic site drsg changed. Nurse to nurse given via phone to [employer]. Pt assisted to EMS stretcher on dc and D.O sent with pt
[2024-11-21 10:53] VITALS: PULSE 80
== END 2024-11-21 10:30 | DRG 872 ==
LOC: ED 12:20 → MEDSURG 12:53
PROVIDERS: Internal Medicine; Physician Assistant; Admitting Provider Family Medicine; Emergency Provider Family Medicine; PCP Family Medicine; Visit Provider Family Medicine
DX: A41.9 Sepsis, unspecified organism (principal); N39.0 Urinary tract infection, site not specified; T83.83XA Hemorrhage due to genitourinary prosthetic devices, implants and grafts, initial encounter; I50.32 Chronic diastolic (congestive) heart failure; A41.02 Sepsis due to Methicillin resistant Staphylococcus aureus; N31.9 Neuromuscular dysfunction of bladder, unspecified; G35 Multiple sclerosis; G31.84 Mild cognitive impairment of uncertain or unknown etiology; T83.038A Leakage of other urinary catheter, initial encounter; K59.09 Other constipation; Z99.3 Dependence on wheelchair; F32.A Depression, unspecified; E87.6 Hypokalemia; I11.0 Hypertensive heart disease with heart failure
CPT/HCPCS: 36410; 36415; 51701; 71045; 71260; 74177; 76937; 80048; 80076; 80202; 81001; 82803; 83605; 83735; 84132; 84145; 84484; 85025; 86140; 87040; 87086; 87186; 87449; 87493; 87631; 87899; 93306; 97161; 97166; 97530; 99284; 99285; 99291; A9270; C1751; J0743; J2270; J3372; J7030; J7120; Q9967

== ENCOUNTER 2024-11-21 10:13 | Outpatient (CLI) | payer MEDICARE, BC, SELFPAY | END 2024-11-21 10:14 | disposition home or self-care (01) | LOC: AMB 12-05 18:07 | PROVIDERS: PCP Family Medicine; Visit Provider Family Medicine | DX: G35 Multiple sclerosis (principal); N39.0 Urinary tract infection, site not specified; Z99.3 Dependence on wheelchair | CPT/HCPCS: A0425; A0428 ==

== ENCOUNTER 2024-12-06 16:53 | Outpatient (REF) | payer MEDICARE, BC, SELFPAY | END 2024-12-06 16:54 | disposition home or self-care (01) | LOC: NPINS 16:53 | PROVIDERS: PCP Family Medicine; Visit Provider Nurse Practitioner Gerontology | DX: A49.02 Methicillin resistant Staphylococcus aureus infection, unspecified site (principal) | CPT/HCPCS: 87081 ==

== ENCOUNTER 2024-12-07 16:50 | Outpatient (REF) | payer MEDICARE, BC, SELFPAY ==
[2024-12-07 17:11] LABS: Appearance Urine Cloudy (Clear); Bilirubin Urine Negative (Negative); Blood Urine 3+ (Negative); Color Urine Dark yellow (Yellow); Glucose Urine Negative (Negative); Ketones Urine Negative (Negative); Leukocyte Esterase Urine 1+ (Negative); Nitrite Urine Negative (Negative); Protein Urine 2+ (Negative); Urobilinogen Urine 0.2 (0.2-1.0); pH Urine 5.5 (5.0-8.5)
[2024-12-07 17:19] LABS: RBC Urine 50-100 (0-2); WBC Clumps Urine Few; WBC Urine 50-100 (0-5)
[2024-12-07 17:20] LABS: Bacteria Urine Many; Squamous Epithelial Cell Urine Few (None-Few)
== END 2024-12-07 16:51 | disposition home or self-care (01) ==
LOC: LAB 16:50
PROVIDERS: PCP Family Medicine; Visit Provider Nurse Practitioner Gerontology
DX: A41.02 Sepsis due to Methicillin resistant Staphylococcus aureus (principal); N39.0 Urinary tract infection, site not specified; B95.62 Methicillin resistant Staphylococcus aureus infection as the cause of diseases classified elsewhere
CPT/HCPCS: 81001; 87086

== ENCOUNTER 2025-01-30 13:54 | Outpatient (CLI) | payer OTHER, BC, SELFPAY | END 2025-01-30 13:55 | disposition home or self-care (01) | LOC: AMB 01-31 10:31 | PROVIDERS: PCP Family Medicine; Visit Provider Family Medicine | DX: N48.89 Other specified disorders of penis (principal); T83.038A Leakage of other urinary catheter, initial encounter | CPT/HCPCS: A0425; A0429 ==

== ENCOUNTER 2025-01-30 14:12 | Inpatient (IN) | payer MEDICARE, BC, SELFPAY ==
[2025-01-30] VITALS (18 sets, daily range): BP systolic 101–119; BP diastolic 55–75; PULSE 76–103; RESP 18–23; TEMP 36.7–38.4; O2SAT 90–95; BMI 29.7; BMI 30.4
--- OUTSIDE RECORDS SUMMARY | 2025-01-30 14:14 | XMS_ITS | Encounter Summary ---
Author Organization [facility] Address [address] [place] [address] Care Team Providers Care Transmitter Chief Name Role Phone Elsewhere, Pcp Primary Care Provider Unavailabl e Reason for Visit * Reason Onset Date Comments Follow-up Orders 01/07/2025 Encounter Details Date Type Department Care Team (Latest Contact Info) Description 01/07/2025 Clinical Communication Department of Urology in [place], [place] [address] [address] Consuelo Castle, ADAN, C.N.P. 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 - 01/08/2025 10:50 AM LOW VOLTAGE ELECTRICIAN Tasia returned call to Uro. Tasia states patient was hospitalized in [place] for urosepsis, per discharge instructions patient was to be on a prophylactic antibiotic but prescription was not sent in. Tasia informed to have patient come to upcoming appointment with current medication list and recent hospitalization notes. Tasia is going to also attempt to fax hospitalization notes, labs now to have in preparation for visit but also encouraged to send a copy with patient. No further needs. VOLTAGE ELECTRICIAN documented in this encounter Plan of Treatment Not on file documented as of this encounter Visit Diagnoses Not on filedocumented in this encounter Additional Health Concerns Assessment Noted Time PHQ-9 Depression Total Score: 3 09/20/20 21 10:00 AM LOW VOLTAGE ELECTRICIAN documented as of this encounter Care Teams Transmitter Chief Relationship Specialty Start Date End Date Elsewhere, Pcp PCP - General Internal Medicine 12/15/21 documented as of this encounter
--- OUTSIDE RECORDS SUMMARY | 2025-01-30 14:14 | XMS_ITS | Encounter Summary ---
Author Organization [facility] Address [address] [place] [address] Care Team Providers Care [employer] Lead Name Role Phone Elsewhere, Pcp Primary Care Provider Unavailabl e Reason for Visit * Reason Comments Urinary Tract Infection * Appointment Request (Routine) - Closed Specialty Diagnoses / Procedures Referred By Anabella sullivan Referred To Contact Urology Diagnoses Urinary Tract Infection Site Not Specified Stephanie Garcia D.N.P. [address] [address] Phone: tel: fax: Referral ID Status Reason Start Date Expiration Date Visits Re quested Visits Authorized [id number] Closed 11/30/2024 03/02/2026 1 1 Encounter Details Date Type Department Care Team (Late st Contact Info) Description 01/11/2025 2:00 PM DROSS PULLER Office Visit Department of Urology in [place], [place] [address] [address] Consuelo Castle APRN, C.N.P. [address], [place] [address] Neurogenic Bladder (Primary Dx); Infection Urinary Tract Personal History; Spasm Bladder; Dementia (HCC) Social History Tobacco Use Types Packs/Day Years [...] on file Legal Sex Male 7:50 AM DROSS PULLER Gender Identity Not on file Sexual Orientation Not on file documented as of this encounter Progress Notes * Consuelo Castle APRN, C.N.P. - 01/11/2025 2:00 PM CST CHIEF COMPLAINT/REASON FOR VISIT Chief Complaint Patient presents with Urinary Tract Infection DATE OF VISIT: 01/11/2025 SUBJECTIVE CHIEF COMPLAINT / REASON FOR VISIT Hi Myers is a 84 y.o. male who presents for evaluation of Urinary Tract Infection. The patient verbally consented to an audio recording of their visit to assist with the completion of documentation. History of Present Illness The patient presents with issues related to suprapubic catheter management and MRSA infection. He is accompanied by his daughter Megan. He has been experiencing complications with his suprapubic catheter, including bypassing of urine during infections and bleeding at the site related to granulation tissue. The catheter is changed by staff at his care facility, with the last change on January 04, 2025. It is currently functioning well. He does not tolerate catheter exchanges well and staff at the [place] is now giving him Ativan and tramadol at the time of catheter exchange. He has a history of MRSA infection and was recently hospitalized November 15-2024 at [facility] due to sepsis. The infection was identified in his bloodstream and urine, and he was treatedin the hospital until his condition improved. Urine cultures collected at the time hospitalization are not available for review. Urine culture results from October 12 show MRSA with resistance to ciprofloxacin, levofloxacin, tetracycline. December 07 urine culture is positive for Proteus mirabilis with intermediate susceptibility to cefazolin and resistance to nitrofurantoin. Urine culture collected on January 04 showed no growth of bacteria. Notes available from his hospitalization in early November show recommendation from hospitalist to provide Bactrim at the time of catheter exchange. He has a history of bladder spasms, especially occurring more often when he has urinary tract infection and has been on oxybutynin, which is associated with a higher risk of dementia. The following portions of the patient's history were reviewed and updated as appropriate: allergies, current medications, family history, medical history, social history, surgical history, and problem list. REVIEW OF SYSTEMS Gastrointestinal: Positive for abdominal (belly) pain or cramping. - Negative for constipation and diarrhea. Genitourinary: Positive for difficulty urinating and blood in urine. OBJECTIVE Physical Exam Vitals and nursing note reviewed. General: Well developed, well nourished, well groomed elderly male in no acute distress. He presents in his wheelchair. Neurological: Alert, cooperative, oriented x3. Appropriate mood and affect. Abdomen: Soft, non-tender, non-distended suprapubic site intact. Catheter draining well. Small amount of granulation tissue is present at stoma site, this is cauterized with silver nitrate stick. Extremities: Warm, without edema or ulcerations. ASSESSMENT/ PLAN Neurogenic Bladder His catheter should continue to be exchanged every 4 weeks and as needed if the catheter is not draining or becomes clogged. His facility is currently giving him tramadol and Ativan at the time of his catheter exchange due to behavioral associated with catheter exchanges. If administering both medications at the same time they are encouraged to monitor closely for any signs of respiratory depression. Infection Urinary Tract Personal History He was previously on ciprofloxacin for 3 days at the time of catheter exchange, he is now resistantto ciprofloxacin. [place] hospitalist recommended Bactrim at the time of catheter exchanges, we are unable to see culture results from hospitalization but assume Bactrim would cover his current bacteria if this has what they recommended. I do recommend that they use single-strength Bactrim and monitor potassium levels and EKG changes as Bactrim can cause elevated potassium levels and QTC changes which could lead to torsades. They can also consider adding Hiprex 1 g twice daily to help prevent infections, this should be given with cranberry supplement and vitamin-C. It is also recommended to encourage him to increase fluid intake. 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 There are more studies showing that oxybutynin can cause higher likelihood of dementia and make dementia symptoms more pronounced. Recommend consideration of Sanctura 20 mg twice daily rather than oxybutynin. Follow-up in the Urology Department as needed. S PULLER documented in this encounter Miscellaneous Notes * Assessment & Plan Note - Consuelo Castle APRN, C.N.P. - 01/11/2025 2:00 PM CSTAssociated Problem(s): Neurogenic Bladder His catheter should continue to be exchanged every 4 weeks and as needed if the catheter is not draining or becomes clogged. His facility is currently giving him tramadol and Ativan at the time of his catheter exchange due to behavioral associated with catheter exchanges. If administering both medications at the same time they are encouraged to monitor closely for any signs of respiratory depression. S PULLER documented in this encounter Plan of Treatment Not on file documented as of this encounter Visit Diagnoses Diagnosis Neurogenic Bladder- Primary Infection Urinary Tract Personal History Spasm Bladder Dementia (HCC) documented in this encounter Additional Health Concerns Assessment Noted Time PHQ-9 Depression Total Score: 3 09/20/20 21 10:00 AM DROSS PULLER documented as of this encounter Care Teams [employer] Lead Relationship Specialty Start Date End Date Elsewhere, Pcp PCP - General Internal Medicine 12/15/21 documented as of this encounter
--- OUTSIDE RECORDS SUMMARY | 2025-01-30 14:15 | XMS_ITS | Clinical Summary ---
Author Organization [facility] Address [facility] [place] [address] Care Team Providers Care Water Trainer Name Role Phone Gabe White MD Primary Care Provider Shelly barajas Allergies Active Allergy Reactions Criticality Noted Date Comments Amoxicillin-Pot Clavulanate Diarrhea 05/21/20 15 Bacitracin *Unknown 05/21/2015 Latex Rash 07/24/2014 Hydrocortisone *Unknown 05/21/2015 Nitrofurantoin *Unknown Silver Sulfadiazine Edema 07/23/2014 infection Adhesive *Unknown 05/21/2015 Medications FOLIC ACID/MULTIVITS- MIN/LUT (CENTRUM SILVER ORAL) Take 1 tablet by mouth once daily. Active acetaminophen (TYLENOL) 325 mg tablet Take 650 mg by mouth once daily if needed for Pain. pain 6 Active Cranberry 500 mg cap Take 500 mg by mouth once daily with evening meal. Active melatonin 3 mg tablet Take 9 mg by mouth at bedtime. Active Lactobacillus acidophilus (PROBIOTIC ORAL) Take 1 Capsule by mouth once daily. Active rivaroxaban (XARELTO) 10 mg tablet Take 10 mg by mouth once daily in the evening. Active traMADoL (ULTRAM) 50 mg tablet Take 50 mg by mouth 3 times daily. For post-op pain Active sennosides-docu sate (SENOKOT S) (8.6-50 mg) tablet Take 1 Tablet by mouth at bedtime if needed for Constipation. Active donepeziL (ARICEPT) 10 mg tablet Take 10 mg by mouth at bedtime. Active atenoloL (TENORMIN) 25 mg tablet Take 25 mg by mouth once daily. Active furosemide (LASIX) 40 mg tablet Take 40 mg by mouth once daily in the evening. Active memantine (Namenda XR) 14 mg extended-releas e capsule Take 14 mg by mouth at bedtime. Active oxybutynin XL (DITROPAN XL) 10 mg CR tablet Take 10 mg by mouth once daily. Active sertraline (ZOLOFT) 50 mg tablet Take 50 mg by mouth once daily. Active acetaminophen (TYLENOL) 325 mg tablet Take 650 mg by mouth 3 times daily. Max acetaminophen dose: 4000mg in 24 hrs. Active amoxicillin (AMOXIL) 500 mg capsule Take 2,000 mg by mouth each time if needed for Other (Specify) (give before any dental appointment). Active loperamide (IMODIUM) 2 mg capsule Take 2 mg by mouth each time if needed for Diarrhea (give after each loose stool up to 16 mg in 24 hours). Active spironolactone (ALDACTONE) 100 mg tabletIndicatio ns:Hypokalemia, Venous stasis Take 1 Tablet (100 mg) by mouth every morning. 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 Bilateral lower leg cellulitis 05/21/2015 MRSA (methicillin resistant staph aureus) cultur e positive 02/05/2014 Overview (05/13/2016): Urine Multiple sclerosis Osteoporosis Essential hypertension Encounters Date Type Department Care Team Description 12/13/2024 Lab Requisition [facility] [phone] Stephanie Garcia NP 12/09/2024 Lab Requisition [facility] [phone] Stephanie Garcia NP 11/23/2024 Lab Requisition [facility] [address] [place] [address] Gabe White MD 11/14/2024 11:00 AM SENIOR SOFTWARE ENGINEERING MANAGER Ancillary Procedure [facility] [place] [facility] [address] [place] [address] from Last 3 Months Family History Medical History Relation Name Comments Diabetes Father Heart Disease Father Other Mother thyroid cancer Relation Name Status Comments Father Mother (Age 98) Social History Tobacco Use Types Packs/Day Years Used Date Smoking Tobacco: Former Pipe Smokeless Tobacco: Never Comments:quit 1974 Alcohol Use Standard Drinks/Week Comments No 0 (1 standard drink = 0.6 oz pur e alcohol) Sex and Gender Information Value Date Recorded Sex Assigned at Not on file Legal Sex Male 8:15 AM CDT Gender Identity Not on file Sexual Orientation Not on file Obstetrics History Last Filed Vital Signs Vital Sign Reading Time Taken Comments Blood Pressure 143/99 10/24/2021 5:03 PM SENIOR SOFTWARE ENGINEERING MANAGER Pulse 70 10/24/2021 5:03 PM SENIOR SOFTWARE ENGINEERING MANAGER Temperature 37 C (98.6 F) 10/24/2021 5:03 PM SENIOR SOFTWARE ENGINEERING MANAGER Respiratory Rate 16 10/24/2021 5:03 PM SENIOR SOFTWARE ENGINEERING MANAGER Oxygen Saturation 95% 10/24/2021 5:03 PM SENIOR SOFTWARE ENGINEERING MANAGER Inhaled Oxygen Concentration - - Weight 98.4 kg (216 lb 14.9 oz) 10/24/2021 5:03 PM SENIOR SOFTWARE ENGINEERING MANAGER Height 167.6 cm (5' 6) 10/23/2021 9:09 AM SENIOR SOFTWARE ENGINEERING MANAGER Body Mass Index 35.01 10/23/2021 9:09 AM SENIOR SOFTWARE ENGINEERING MANAGER Plan of Treatment Health Maintenance Due Date Last Done Comments Tdap 1951 Depression screening for age 12+ 1952 Tetanus booster 1960 Pneumococcal series for age 50+ (1 of 1 - PCV) 1990 Zoster (shingles) series for age 50+ (1 of 2) 1990 RSV vaccine for adults or pr egnancy (1 - 1-dose 75+ series) 2015 BMI (ht and wt on same day) for age 18+ 05/13/2017 0 05/13/2016 COVID-19 vaccine series ( season) 2024 12/09/2020, 11/11/2020 Influenza Vaccine (#1) 2024 Procedures Procedure Name Priority Date/Time Associated Diagnosis Comments BASIC METABOLIC PANEL Routine 12/18/2024 7:59 AM SENIOR SOFTWARE ENGINEERING MANAGER Hyperkalemia BASIC METABOLIC PANEL Routine 12/11/2024 8:43 AM SENIOR SOFTWARE ENGINEERING MANAGER Methicillin resistant Staphylococcus aureus infection as the cause of diseases classified elsewhere RED CELL MORPHOLOGY Routine 11/23/2024 1 0:35 AM SENIOR SOFTWARE ENGINEERING MANAGER Sepsis, unspecified organism (HC) PLATELET ESTIMATE Routine 11/23/2024 10: 35 AM SENIOR SOFTWARE ENGINEERING MANAGER Sepsis, unspecified organism (HC) MANUAL DIFFERENTIAL Routine 11/23/2024 1 0:35 AM SENIOR SOFTWARE ENGINEERING MANAGER Sepsis, unspecified organism (HC) CBC WITH AUTO DIFFERENTIAL Routine 11/23/2024 10:35 AM SENIOR SOFTWARE ENGINEERING MANAGER Sepsis, unspecified organism (HC) VANCOMYCIN TROUGH Routine 11/23/2024 10: 35 AM SENIOR SOFTWARE ENGINEERING MANAGER Sepsis, unspecified organism (HC) CREATININE Routine 11/23/2024 10:35 AM SENIOR SOFTWARE ENGINEERING MANAGER Sepsis, unspecified organism (HC) CBC WITH AUTO DIFFERENTIAL Routine 11/23/2024 10:35 AM SENIOR SOFTWARE ENGINEERING MANAGER Sepsis, unspecified organism (HC) ECHO TTE COMPLETE WO CONTRAST Routine 11/14/2024 11:41 AM SENIOR SOFTWARE ENGINEERING MANAGER Heart failure (HC) from Last 3 Months Results * (ABNORMAL) BASIC METABOLIC PANEL (12/18/2024 7:59 AM SENIOR SOFTWARE ENGINEERING MANAGER) Only the most recent of2 resultswithin the time period is included. SODIUM 142 136 - 145 mmol/L 12/18/2024 9:34 AM [facility] POTASSIUM 3.8 3.5 - 5.1 mmol/L 12/18/2024 9:34 AM [facility] CHLORIDE 105 98 - 107 mmol/L 12/18/2024 9:34 AM [facility] CO2,TOTAL 27 22 - 29 mmol/L 12/18/2024 9:34 AM [facility] ANION GAP 10 5 - 18 12/18/2024 9:34 AM [facility] GLUCOSE 85 70 - 99 mg/dL 12/18/2024 9:34 AM [facility] CALCIUM 8.8 8.8 - 10.4 mg/dL 12/18/2024 9:34 AM [facility] Comment: Reference ranges for this test were updated on 09/11/2024 to reflect our healthy population more accurately. Reference range changes are not retroactively applied to results, but previous results using the same methodology can be interpreted in the context of the new reference range. BUN 13 8 - 23 mg/dL 12/18/2024 9:34 AM [facility] CREATININE 0.74 0.70 - 1.20 mg/dL 12/18/2024 9:34 AM [facility] BUN/CREAT RATIO 18 10 - 20 9:34 AM [facility] eGFR 89(L) >90 mL/min/1.7 3m2 12/18/2024 9:34 AM [facility] Comment:As of 2022, eG FR is calculated by the CKD-EPI creatinine equation without race adjustment. eGFR can be influenced by muscle mass, exercise, and diet. The reported eGFR is an estimation only and is only applicable if the renal function is stable. Blood BLOOD SPECIMEN / Unknown Butterfly / Unknown 12/18/2024 7:59 AM SENIOR SOFTWARE ENGINEERING MANAGER 12/18/2024 9:09 AM SENIOR SOFTWARE ENGINEERING MANAGER us Stephanie aGrcia NP CHEMISTRY Final Resul t [facility] [address] [place] [address] * CBC WITH AUTO DIFFERENTIAL (11/23/2024 10:35 AM [facility]) WHITE BLOOD COUNT 8.8 4.5 - 11.0 thou/cu mm 11/23/2024 12:45 PM [facility] RED BLOOD COUNT 5.18 4.30 - 5.90 mil/cu mm 11/23/2024 12:45 PM [facility] HEMOGLOBIN 15.1 13.5 - 17.5 g/dL 11/23/2024 12:45 PM [facility] HEMATOCRIT 45.5 37.0 - 53.0 % 11/23/2024 12:45 PM [facility] MCV 88 80 - 100 fL 11/23/2024 12:45 PM [facility] MCH 29.2 26.0 - 34.0 pg 11/23/2024 12:45 PM [facility] MCHC 33.2 32.0 - 36.0 g/dL 11/23/2024 12:45 PM [facility] RDW 15.1 11.5 - 15.5 % 11/23/2024 12:45 PM [facility] PLATELET COUNT 257 140 - 440 thou/cu mm 11/23/2024 12:45 PM [facility] MPV 10.1 6.5 - 11.0 fL 11/23/2024 12:45 PM [facility] Blood BLOOD SPECIMEN / Unknown Client Collect / Unknown 11/23/2024 10:35 AM SENIOR SOFTWARE ENGINEERING MANAGER 11/23/2024 11:43 AM SENIOR SOFTWARE ENGINEERING MANAGER us Gabe White MD HEMATOLOGY Final Result [facility] [address] [place] [address] * RED CELL MORPHOLOGY (11/23/2024 10:35 AM SENIOR SOFTWARE ENGINEERING MANAGER) RBC COMMENT RBC morphology appears normal RBC morphology appears normal, RBC morphology within normal limits for newborns. 11/23/2024 12:45 PM [facility] LARGE PLATELETS Present 11/23/2024 12:45 PM [facility] Blood BLOOD SPECIMEN / Unknown Client Collect / Unknown 11/23/2024 10:35 AM SENIOR SOFTWARE ENGINEERING MANAGER 11/23/2024 11:43 AM SENIOR SOFTWARE ENGINEERING MANAGER us Gabe White MD HEMATOLOGY Final Result Performing Organization Address City/[facility]/ZIP Co de Phone Number [facility] [address] [place] [address] * PLATELET ESTIMATE (11/23/2024 10:35 AM SENIOR SOFTWARE ENGINEERING MANAGER) PLATELET ESTIMATE Adequate Adequate, No estimate 11/23/2024 12:45 PM [facility] Blood BLOOD SPECIMEN / Unknown Client Collect / Unknown 11/23/2024 10:35 AM SENIOR SOFTWARE ENGINEERING MANAGER 11/23/2024 11:43 AM SENIOR SOFTWARE ENGINEERING MANAGER us Gabe White MD HEMATOLOGY Final Result Performing Organization Address [facility]/ZIP Co de Phone Number [facility] [address] [place] [address] * (ABNORMAL) MANUAL DIFFERENTIAL (11/23/2024 10:35 AM SENIOR SOFTWARE ENGINEERING MANAGER) % NEUTROPHILS 74.0 % 11/23/2024 12:45 PM [facility] % LYMPHOCYTES 15.0 % 11/23/2024 12:45 PM [facility] % MONOCYTES 9.0 % 11/23/2024 12:45 PM [facility] % EOSINOPHILS 1.0 % 11/23/2024 12:45 PM [facility] % BASOPHILS 0.0 % 11/23/2024 12:45 PM [facility] % METAMYELOCYTES 1.0(H) <0.1 % 11/23/19 12:45 PM [facility] NEUTROPHILS ABSOLUTE 6.5 1.7 - 7.0 thou/cu mm 11/23/2024 12:45 PM [facility] LYMPHOCYTES ABSOLUTE 1.3 0.9 - 2.9 thou/cu mm 11/23/2024 12:45 PM [facility] MONOCYTES ABSOLUTE 0.8 <0.9 thou/cu mm 11/23/2024 12:45 PM [facility] EOSINOPHILS ABSOLUTE 0.1 <0.5 thou/cu mm 11/23/2024 12:45 PM [facility] BASOPHILS ABSOLUTE 0.0 <0.3 thou/cu mm 11/23/2024 12:45 PM [facility] ABSOLUTE METAMYELOCYTES 0.1(H) <=0.0 thou/cu mm 11/23/2024 12:45 PM [facility] Blood BLOOD SPECIMEN / Unknown Client Collect / Unknown 11/23/2024 10:35 AM SENIOR SOFTWARE ENGINEERING MANAGER 11/23/2024 11:43 AM SENIOR SOFTWARE ENGINEERING MANAGER Gabe White MD HEMATOLOGY Final Result Performing Organization Address [facility] Co de Phone Number [facility] [address] [place] [phone] * (ABNORMAL) CREATININE (11/23/2024 10:35 AM SENIOR SOFTWARE ENGINEERING MANAGER) Pathologist [facility] eGFR 87(L) >90 mL/min/1.7 3m2 11/23/2024 12:08 PM [facility] Comment:As of 2022, eG FR is calculated by the CKD-EPI creatinine equation without race adjustment. eGFR can be influenced by muscle mass, exercise, and diet. The reported eGFR is an estimation only and is only applicable if the renal function is stable. CREATININE 0.81 0.70 - 1.20 mg/dL 11/23/2024 12:08 PM [facility] Blood BLOOD SPECIMEN / Unknown Client Collect / Unknown 11/23/2024 10:35 AM SENIOR SOFTWARE ENGINEERING MANAGER 11/23/2024 11:43 AM SENIOR SOFTWARE ENGINEERING MANAGER us Gabe White MD CHEMISTRY Final Result Performing Organization Address [facility] Co de Phone Number [facility] [address] [place] [address] * VANCOMYCIN TROUGH (11/23/2024 10:35 AM SENIOR SOFTWARE ENGINEERING MANAGER) VANCOMYCIN,TRO UGH 15.2 7.0 - 20.0 ug/mL 11/23/2024 1:05 PM SENIOR SOFTWARE ENGINEERING MANAGER [facility] DATE OF LAST DOSE,TROUGH 11/22/2024 11/23/2024 1:05 PM SENIOR SOFTWARE ENGINEERING MANAGER [facility] TIME OF LAST DOSE,TROUGH 11:15 AM 11/23/2024 1:05 PM SENIOR SOFTWARE ENGINEERING MANAGER [facility] Blood BLOOD SPECIMEN / Unknown Client Collect / Unknown 11/23/2024 10:35 AM SENIOR SOFTWARE ENGINEERING MANAGER 11/23/2024 11:43 AM SENIOR SOFTWARE ENGINEERING MANAGER us Gabe White MD CHEMISTRY Final Result [facility] [address] [place] [address] * ECHO TTE COMPLETE WO CONTRAST (11/14/2024 11:41 AM SENIOR SOFTWARE ENGINEERING MANAGER) AORTIC VALVE MEAN PG 4 mmHg EJECTION FRACTION 59 % LVEDD 4.1 cm Anatomical Region Laterality Modality Ultrasound 11/14/2024 11:0 3 AM SENIOR SOFTWARE ENGINEERING MANAGER Narrative 11/14/2024 1:45 PM SENIOR SOFTWARE ENGINEERING MANAGER ECHOCARDIOGRAM ELOISE SUN : 1940 84 years Study Date: 11/14/2024 11:03:10 AM Gender: M BP: 119/69 mmHg Height: 168.00 cm BSA: 2.09 m Weight: 100.00 kg Tech: [facility] Referring MD: JUWAN LAND Site: [facility] Patient Location: Inpatient. Procedure: 2D, Color Doppler and Spectral Doppler. Indication for study: Bacteremia Cardiac Rhythm: Regular.Study quality: Fair. Final Impressions: 1. Normal left ventricular size, normal wall thickness, normal global systolic function, calculated EF of 59 %. 2. Right ventricular cavity size is not well visualized, global systolic RV function is normal. 3. Normal left atrium size. 4. The aortic valve is normal and trileaflet, no stenosis and no regurgitation. 5. The mitral valve is normal, mild mitral regurgitation. 6. Tricuspid valve is normal. 7. No pericardial effusion. Chamber Sizes and Function Normal left ventricular size, normal wall thickness, normal global systolic function, calculated EF of 59 %. No resting regional wall motion abnormality visualized. Left atrial size is normal. Left atrial pressure is normal. Right ventricular cavity size is not well visualized, global systolic RV function is normal. RV wall thickness is normal. The right atrium is not well visualized. The pulmonary artery is of normal size and origin. The sinus of Valsalva is normal sized. The ascending aorta is normal sized. Valves, RV Pressures and Diastolic Function The aortic valve is normal in structure and trileaflet, no stenosis and no regurgitation. The mitral valve is normal in structure, mild mitral regurgitation. Indeterminate pattern of LV diastolic filling. The tricuspid valve is normal in structure. Tricuspid regurgitation is trace regurgitation. The pulmonic valve is normal. No pulmonary regurgitation. Masses, Effusion, Shunts There is no pericardial effusion. The inferior vena cava is not well visualized, respiratory size variation not well visualized. No left to right shunting was detected by limited color flow Doppler interrogation of the interatrial septum. MEASUREMENTS AND CALCULATIONS 2-D Measurements and LV Function: LVID (d) 4.1 cm Planimetered EF 59 % LVID (s) 3.0 cm LV FS% (2D) 26 % IVS (d) 0.9 cm LVOT diameter 2.1 cm LVPW (d) 0.9 cm HR 102 bpm Ao Sinus 3.5 cm LA Vol index 14 ml/m2 Asc Ao 3.7 cm LA 4.2 cm Diastology: Mitral Tissue Doppler E Peak 1.0 m/s e', Septum 0.06 m/s A Peak 1.2 m/s e', Lateral 0.09 m/s E/A 0.9 E/e' Average 13.88 DT 261 msec Aortic Valve: Vmax 1.4 m/s PROSPER (V) 2.61 cm VTI 0.26 m PROSPER (I) 2.56 cm LVOT V max 1.0 m/s Max PG 8 mmHg LVOT VTI 0.18 m Mean PG 4 mmHg SV 66 ml Dim Index 0.71 SV index 32 ml/m CO 6.8 l/min CI 3.2 l/min/m Mitral Valve: MVA 2.9 cm MV P 1/2 76 msec MV Mean G 3 mmHg MV VTI 0.30 m Tricuspid Valve and estimated PA pressures: TAPSE 2.4 cm Pulmonic Valve: PV AT 126 msec . This study was interpreted by an [facility] accredited facility. CC: HIM (med records) [facility], Med/Surg - IP [facility]. Final Procedure Note Regina Collado, [facility] - 11/14/2024 ECHOCARDIOGRAM ELOISE SUN : 1940 84 years Study Date: 11/14/2024 11:03:10 AM Gender: M BP: 119/69 mmHg Height: 168.00 cm BSA: 2.09 m Weight: 100.00 kg Tech: [facility] Referring MD: UJWAN LAND Site: [facility] Reading Location: Mobile- Patient Location: Inpatient. Procedure: 2D, Color Doppler and Spectral Doppler. Indication for study: Bacteremia Cardiac Rhythm: Regular.Study quality: Fair. Final Impressions: 1. Normal left ventricular size, normal wall thickness, normal globalsystolic function, calculated EF of 59 %. 2. Right ventricular cavity size is not well visualized, global systolicRV function is normal. 3. Normal left atrium size. 4. The aortic valve is normal and trileaflet, no stenosis and noregurgitation. 5. The mitral valve is normal, mild mitral regurgitation. 6. Tricuspid valve is normal. 7. No pericardial effusion. Chamber Sizes and Function Normal left ventricular size, normal wall thickness, normal globalsystolic function, calculated EF of 59 %. No resting regional wall motionabnormality visualized. Left atrial size is normal. Left atrial pressureis normal. Right ventricular cavity size is not well visualized, globalsystolic RV function is normal. RV wall thickness is normal. The rightatrium is not well visualized. The pulmonary artery is of normal size andorigin. The sinus of Valsalva is normal sized. The ascending aorta isnormal sized. Valves, RV Pressures and Diastolic Function The aortic valve is normal in structure and trileaflet, no stenosis and noregurgitation. The mitral valve is normal in structure, mild mitralregurgitation. Indeterminate pattern of LV diastolic filling. Thetricuspid valve is normal in structure. Tricuspid regurgitation is traceregurgitation. The pulmonic valve is normal. No pulmonary regurgitation. Masses, Effusion, Shunts There is no pericardial effusion. The inferior vena cava is not wellvisualized, respiratory size variation not well visualized. No left toright shunting was detected by limited color flow Doppler interrogation ofthe interatrial septum. MEASUREMENTS AND CALCULATIONS 2-D Measurements and LV Function: LVID (d) 4.1 cm Planimetered EF 59 % LVID (s) 3.0 cm LV FS% (2D) 26 % IVS (d) 0.9 cm LVOT diameter 2.1 cm LVPW (d) 0.9 cm HR 102 bpm Ao Sinus 3.5 cm LA Vol index 14 ml/m2 Asc Ao 3.7 cm LA 4.2 cm Diastology: Mitral Tissue Doppler E Peak 1.0 m/s e', Septum 0.06 m/s A Peak 1.2 m/s e', Lateral 0.09 m/s E/A 0.9 E/e' Average 13.88 DT 261 msec Aortic Valve: Vmax 1.4 m/s PROSPER (V) 2.61 cm VTI 0.26 m PROSPER (I) 2.56 cm LVOT V max 1.0 m/s Max PG 8 mmHg LVOT VTI 0.18 m Mean PG 4 mmHg SV 66 ml Dim Index 0.71 SV index 32 ml/m CO 6.8 l/min CI 3.2 l/min/m Mitral Valve: MVA 2.9 cm MV P 1/2 76 msec MV Mean G 3 mmHg MV VTI 0.30 m Tricuspid Valve and estimated PA pressures: TAPSE 2.4 cm Pulmonic Valve: PV AT 126 msec . This study was interpreted by an [facility] accredited facility. CC: HIM (med records) [facility], Med/Surg - IP [facility]. Final us Juwan Land MD ECHO ORD Final Result from Last 3 Months Additional Health Concerns Infection Onset Date Last Indicated MRSA Comment:Order contact precautions. Pt. does not meet criteria for discontinuation of precautions due to having risk factor: chronic leg wounds and chronic indwelling devices (Suprapubic cath) as of May 14 2016 and is not eligible for screening per IC policy, unless other medical issues warrant the need to do so. MRSA - urine 02/05/14, 08/17/2018 03/01/2019, 04/26/2020 04/19/2014 1 Insurance MEDICARE PART A HB ONLY MEDICARE PART B HB ONLY MEDICARE PB ONLY BLUE [employer] [place] BLUE HB ONLY MEDICARE PART A HB ONLY BLUE [facility] [place] Advance Directives Documents on File Type Date Recorded Patient Vocational Trainer Expl anation POLST 10/16/2018 Healthcare Directive 03/25/2017 1:01 PM Healthcare Directive 09/17/2013 12:00 AM ADVANCE DIRECTIVE Healthcare Directive 10/29/2010 12:00 AM ADVANCE DIRECTIVE Power of Fitness And Wellness Instructor 01/01/2010 12:00 AM POA Healthcare Directive 01/01/2010 12:00 AM A DVANCE DIRECTIVE * Full Code (Latest Code Status on File) Date Activated Date Inactivated Comments 06/24/2021 3:05 PM 06/26/2021 2:12 PM dementia Question Answer Comments Code Status Discussion: Not Discussed * Full Code Date Activated Date Inactivated Comments 05/13/2016 8:24 PM 05/14/2016 4:32 PM Question Answer Comments Code Status Discussion: Not Discussed * Full Code Date Activated Date Inactivated Comments 05/21/2015 5:22 PM 05/24/2015 3:22 PM Care Teams Water Trainer Relationship Specialty Start Date End Date Gabe White MD [address] [place] [id number] PCP - General Family Practice 11/14/24
--- OUTSIDE RECORDS SUMMARY | 2025-01-30 14:15 | XMS_ITS | Clinical Summary ---
Author Organization [facility] Address [address] [place] [id number] Care Team Providers Care Reservoir Engineering Advisor Name Role Phone Elsewhere, Pcp Primary Care Provider Unavailabl e Source Comments Patient records contain information from all sites at [facility]. For routine questions regarding patient records, call [phone] during business hours, M-F 8:00 AM - 5:00 PM Central Time. Record requests for emergency care only can be directed to [phone] at any time.[facility] Allergies Active Allergy Reactions Criticality Noted Date Comments Adhesive Tape-Silicones Other (see comments) Amoxicillin-Pot Clavulanate Diarrhea 08/03/20 11 Bacitracin-Polymyxin B Rash 01/11/2011 Hydrocortisone Other (see comments) 05/21/2015 Latex Swelling 01/01/2013 Ydtlsbph-Hmoyspqqrw-Kgtxpfch n Itching 10/13/2011 Nitrofurantoin Monohyd/M-Cryst Other (see comments),GI intolerance Low 06/11/2015 Silver Sulfadiazine Other (see comments) 2009 Medications cranberry 500 mg capsule Take 1 capsule by mouth daily. 3 Active donepeziL (Aricept) 10 mg tablet Take 1 tablet by mouth at bedtime. 6 Active multivitamin-mi leveeh-DY-biiwu len-lutein (CENTRUM SILVER) 0.4 mg-300 mcg- 250 [...] Active Additional Information Patient not taking.Reported on 01/11/2025 acetaminophen (TYLENOL) 325 mg tablet Take 2 tablets (650 mg total) by mouth every 8 (eight) hours as needed. 1 Active ciprofloxacin (CIPRO) 500 mg tablet Take 1 tablet (500 mg total) by mouth 2 (two) times a day before breakfast and dinner. For three days after catheter change 6 tablet 5 1 Active Additional Information Patient not taking.Reported on 01/11/2025 traMADoL (ULTRAM) 50 mg tabletIndicatio ns:Chronic Pain/Nonacute [...] for prior to dental treatment PRN Active ciprofloxacin (Cipro) 250 mg tablet 5 Active Active Problems Patient Care Coordination No te Formatting of this note migh t be different from the original. Patient is a resident at a [facility], [facility]. Problem Noted Date Diagnosed Date Personal History Of Infectio us And Parasitic Disease (COVID-19) 12/11/2021 Overview (12/11/2021): COVID Assessment & Plan (12/11/2021 9:56 AM INDUSTRIAL SERVICES WORKER): He was covid positive on 11/30/21. He had minor symptoms and is now off restrictions. Atrial Fibrillation Unspecified 09/21/2021 Overview (12/11/2021): A fib Assessment & Plan (12/11/2021 9:54 AM INDUSTRIAL SERVICES WORKER): Atenolol for rate control and apixaban 2.5 mg bid for anticoagulation. Assessment & Plan (10/20/2021 8:33 AM INDUSTRIAL SERVICES WORKER): He is on long-term anticoagulation. Atrial Fibrillation Personal History 09/20/2021 Overview (10/06/2021): Atenolol for rate control and apixaban for anticoagulation. Assessment & Plan (11/30/2021 3:03 PM INDUSTRIAL SERVICES WORKER): Stable on current medications. Assessment & Plan (10/06/2021 7:44 PM INDUSTRIAL SERVICES WORKER): Heart rate and blood pressure adequate on increased dose of atenolol. Diastasis Recti 05/19/2021 Overview (05/19/2021): Diastasis recti Assessment & Plan (12/11/2021 9:51 AM INDUSTRIAL SERVICES WORKER): He has no pain or symptoms. Assessment & Plan (09/15/2021 8:07 PM INDUSTRIAL SERVICES WORKER): Resp easy. 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 Constipation 03/31/2021 Overview (05/19/2021): Slow transit constipation Assessment & Plan (12/11/2021 9:51 AM INDUSTRIAL SERVICES WORKER): His bowels are moving in his normal pattern using Senna S 1 tab hs prn. He is also on a probiotic daily. Assessment & Plan (11/30/2021 3:03 PM INDUSTRIAL SERVICES WORKER): Bowel agents available. Assessment & Plan (10/20/2021 8:30 AM INDUSTRIAL SERVICES WORKER): His bowels are moving in his normal pattern on senna and probiotic. Assessment & Plan (09/15/2021 8:06 PM INDUSTRIAL SERVICES WORKER): His bowels are moving in a normal [...] posture. Assessment & Plan (12/11/2021 9:48 AM INDUSTRIAL SERVICES WORKER): His legs are wrapped and he elevates them routinely during the day when he is in bed. Assessment & Plan (09/15/2021 8:05 PM INDUSTRIAL SERVICES WORKER): He has dependent edema. Legs are wrapped. [...] Insomnia Assessment & Plan (12/11/2021 9:48 AM INDUSTRIAL SERVICES WORKER): He is sleeping well on Melatonin 9 mg. Assessment & Plan (11/30/2021 3:02 PM INDUSTRIAL SERVICES WORKER): Continue current dose of melatonin. Assessment & Plan (10/20/2021 8:22 AM INDUSTRIAL SERVICES WORKER): The melatonin is effective in helping him sleep[. Assessment & Plan (09/15/2021 8:05 PM INDUSTRIAL SERVICES WORKER): He is sleeping well on melatonin Assessment [...] infection Assessment & Plan (12/11/2021 10:31 AM INDUSTRIAL SERVICES WORKER): He continues on cranberry and has cipro [...] change. Assessment & Plan (10/20/2021 8:23 AM INDUSTRIAL SERVICES WORKER): He is prone to UTI's. He has his catheter changed monthly with a 3 day course of cipro surrounding the changes.. He is also on cranberry 500 mg bid. Assessment & Plan (10/06/2021 7:48 PM INDUSTRIAL SERVICES WORKER): Most recently treated with IV ceftriaxone and then oral Omnicef to total 10 day course of treatment. Assessment & Plan (09/30/2020 2:44 PM INDUSTRIAL SERVICES WORKER): Brad was seen at [facility] emergency department September 03 was diagnosed with [...] MS Assessment & Plan (12/11/2021 9:53 AM INDUSTRIAL SERVICES WORKER): His pain is controlled with Tramadol 25 mg tid and x 1 prn during the night and tylenol 650 mg Q 6 h prn. Assessment & Plan (10/20/2021 8:31 AM INDUSTRIAL SERVICES WORKER): Pain is controlled with tylenol and tramadol. Assessment & Plan (09/15/2021 8:09 PM INDUSTRIAL SERVICES WORKER): He takes tramadol 25 mg tid. This [...] tramadol. Monitor for increased pain and reassess. Long-Term Examination 60 Day Certification Overview (07/10/2019): [facility] Assessment & Plan (11/30/2021 2:57 PM INDUSTRIAL SERVICES WORKER): Current comorbidities, ADL need/level of debility requires skilled care/therapy. Medications and labs all reviewed and appropriate related to comorbidities, unless otherwise indicated. Physician order sheet signed. Continue restorative/maintenance care plan, nutrition intervention, skin protection, and fall prevention. He will be tested for COVID-19 according to the prevalence in the community and in the facility in accordance with [facility] guidelines. 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 Assessment & Plan (09/15/2021 7:47 PM INDUSTRIAL SERVICES WORKER): He is appropriate for long-term care Assessment & Plan (05/19/2021 7:54 PM CDT): He is a long-term resident at [facility] Assessment & Plan (01/20/2021 4:52 PM CDT): He is a long-term resident on the rest of the nursing on. His recently Assessment & Plan (07/15/2020 1:50 PM CDT): He is a long-term resident at [facility]. He shares a room with his Ya. Assessment & Plan (03/18/2020 2:25 PM CDT): He is a long-term resident at [facility]. He shares a room with his . Assessment & Plan (11/13/2019 3:37 PM INDUSTRIAL SERVICES WORKER): He is a long-term resident at [facility] Assessment & Plan (07/10/2019 4:28 PM CDT): He is a long-term side of [facility]. He shares a room with his Major Depressive Disorder, Recurrent, Unspecifie d 12/20/2016 Overview (03/29/2017): Depression Major Recurrent Moderate Assessment & Plan (12/11/2021 9:45 AM INDUSTRIAL SERVICES WORKER): He is on sertraline 50 mg daily. He lost his , who was also his roommate recently. He also vocalized that he will miss his current friends at [facility]. Assessment & Plan (11/30/2021 3:03 PM INDUSTRIAL SERVICES WORKER): Stable on current dose of sertraline. Assessment & Plan (10/20/2021 8:29 AM INDUSTRIAL SERVICES WORKER): Stable on sertraline 50 mg daily. Assessment & Plan (09/15/2021 8:00 PM INDUSTRIAL SERVICES WORKER): Sertraline is effective for managing depression Assessment [...] symptomatology Assessment & Plan (11/13/2019 3:54 PM INDUSTRIAL SERVICES WORKER): He is currently stable on Zoloft 125 [...] mixed Assessment & Plan (12/11/2021 9:39 AM INDUSTRIAL SERVICES WORKER): He has no behaviors and is extremely pleasant. He is stable on donepezil 10 mg at bedtime and memantine 5 mg in the morning. Assessment & Plan (11/30/2021 2:59 PM INDUSTRIAL SERVICES WORKER): He is stable on donepezil and memantine. Assessment & Plan (10/20/2021 8:20 AM INDUSTRIAL SERVICES WORKER): He continues with his memory pills donepezil and memantine Assessment & Plan (09/15/2021 7:58 PM INDUSTRIAL SERVICES WORKER): He is doing well on donepezil and [...] . Assessment & Plan (11/13/2019 3:39 PM INDUSTRIAL SERVICES WORKER): He is stable on Namenda XR 14 mg daily. He is also on Aricept 10 mg at bedtime Assessment & Plan (07/10/2019 4:33 PM CDT): He is currently stable on Namenda. He calls that his memory pill. He also is on Aricept 10 mg daily Hypertension Essential Primary 05/28/2015 Overview (03/29/2017): Hypertension (HTN) Essential Benign Assessment & Plan (12/11/2021 9:46 AM INDUSTRIAL SERVICES WORKER): He is normotensive and hemodynamically stable on Atenolol 50 mg and furosemide 40 mg. Assessment & Plan (11/30/2021 3:03 PM INDUSTRIAL SERVICES WORKER): He is on atenolol and furosemide. Assessment & Plan (10/20/2021 8:28 AM INDUSTRIAL SERVICES WORKER): Blood pressures are stable on furosemide and atenolol. Rate controlled with atenolol. Assessment & Plan (09/15/2021 8:04 PM INDUSTRIAL SERVICES WORKER): He is normotensive and hemodynamically stable on [...] changes Assessment & Plan (11/13/2019 3:42 PM INDUSTRIAL SERVICES WORKER): He is normotensive and hemodynamically stable on [...] days after catheter change. Assessment & Plan (01/11/2025 5:53 PM INDUSTRIAL SERVICES WORKER): His catheter should continue to be exchanged [...] closely for any signs of respiratory depression. Assessment & Plan (12/11/2021 9:47 AM INDUSTRIAL SERVICES WORKER): He has a suprapubic catheter which is changed monthly. The catheter was last changed when it was to be leaking around the site on November. A UA was sent. Next catheter change should be scheduled for December 16, 2019 Assessment & Plan (11/30/2021 2:57 PM INDUSTRIAL SERVICES WORKER): No recent difficulties with his suprapubic catheter. Assessment & Plan (10/20/2021 8:21 AM INDUSTRIAL SERVICES WORKER): Neurogenic bladder from MS. He is prone to urinary tract infections and was recently hospitalized with a UTI that precipitated a bout of atrial fibrillation. He is on anticoagulation with apixaban. Assessment & Plan (09/15/2021 7:55 PM INDUSTRIAL SERVICES WORKER): Suprapubic catheter is patent. The catheter is [...] cranberry. Assessment & Plan (11/13/2019 3:40 PM INDUSTRIAL SERVICES WORKER): He has a suprapubic catheter due to MS. He is also on oxybutynin and cranberry tablets. Assessment & Plan (07/10/2019 4:34 PM CDT): Has a suprapubic catheter which is changed monthly in the [facility] setting. He takes oxybutynin for bladder spasms and cranberry tablets prevent UTIs. When his catheter is changed, he goes on a 3 day course of Cipro 500 mg twice a day. Multiple Sclerosis 12/10/2009 Overview (07/10/2019): MS diagnosed several years ago Assessment & Plan (12/11/2021 9:23 AM INDUSTRIAL SERVICES WORKER): He requires 24 hour care. He has a neurogenic bladder due to the MS. He is nonambulatory and has his own motorized chair. He has no dysphagia. His speech is clear. Assessment & Plan (11/30/2021 2:59 PM INDUSTRIAL SERVICES WORKER): Continues to require 24 hour care, assistance with all cares. Assessment & Plan (10/20/2021 8:18 AM INDUSTRIAL SERVICES WORKER): He remains non-ambulatory. He needs a suprapubic catheter, mechanical life, wheelchair and 24 hour halfway care. Assessment & Plan (09/15/2021 7:50 PM INDUSTRIAL SERVICES WORKER): He is non ambulatory. He requires 24 [...] leg. Assessment & Plan (11/13/2019 3:38 PM INDUSTRIAL SERVICES WORKER): He has a neurogenic bladder and has [...] Problem Noted Date Diagnosed Date Resolved Date Supervisor Component Assembler (Current) Anticoagulant Treatment 11/30/2021 12/11/2021 Overview (11/30/2021): Atrial fibrillation Assessment & Plan (11/30/2021 3:02 PM INDUSTRIAL SERVICES WORKER): He continues on apixaban. Failure Renal Acute (Acute Kidney Injury) 10/06/2021 12/11/2021 Overview (10/06/2021): Peak creatinine during recent hospitalization 1.59 Assessment & Plan (10/06/2021 7:46 PM INDUSTRIAL SERVICES WORKER): Creatinine at discharge 1.23. Spironolactone was held and will be restarted pending adequate renal function. Anemia Of Chronic Disease 10/06/2021 Overview (10/06/2021): Most recent hemoglobin 11.9 at discharge. Assessment & Plan (10/06/2021 7:44 PM INDUSTRIAL SERVICES WORKER): Continue to follow hemoglobin. Hypokalemia 07/28/2021 09/15/2021 [...] (05/12/2020): Added automatically from request for surgery [id number] Pain Leg 12/05/2018 11/13/2019 Stroke/Transient Ischemic Attack NOS 10/03/2017 11/13/2019 Repair Mitral Valve Status Post 10/03/2017 11/13/2019 Atherosclerotic Heart Diseas e Of [place] Coronary Artery Without Angina Pectoris 05/31/2017 11/13/2019 [...] Encounters Date Type Department Care Team Description 01/11/2025 2:00 PM INDUSTRIAL SERVICES WORKER Office Visit Department of Urology in [place], [place] [address] [place] [phone] Consuelo Castle, ADAN, C.N.P. Neurogenic Bladder (Primary Dx); Infection Urinary Tract Personal History; Spasm Bladder; Dementia (HCC) 01/07/2025 Clinical Communication Department of Urology in [place], [place] [address] [phone] Consuelo Castle APRN, C.N.P. Follow-up Orders from Last 3 Months Immunizations Immunization Administration Dates Next Due Influenza Split 08/27/2013 [...] on file Legal Sex Male 7:50 AM INDUSTRIAL SERVICES WORKER Gender Identity Not on file Sexual Orientation Not on file Last Filed Vital Signs Vital Sign Reading Time Taken Comments Blood Pressure 122/69 12/11/2021 10:00 AM INDUSTRIAL SERVICES WORKER Pulse 72 12/11/2021 10:00 AM INDUSTRIAL SERVICES WORKER Temperature 36.8 C (98.2 F) 12/11/2021 10:00 AM INDUSTRIAL SERVICES WORKER Respiratory Rate 16 12/11/2021 10:00 AM INDUSTRIAL SERVICES WORKER Oxygen Saturation 94% 12/11/2021 10:00 AM INDUSTRIAL SERVICES WORKER Room Air Inhaled Oxygen Concentration - - Weight 88.7 kg (195 lb 8 oz) 12/11/2021 10:00 AM INDUSTRIAL SERVICES WORKER Height 172.7 cm (5' 8) 09/25/2021 7:20 PM INDUSTRIAL SERVICES WORKER Body Mass Index 29.73 09/25/2021 7:20 PM INDUSTRIAL SERVICES WORKER Plan of Treatment Health Maintenance Due Date Last Done Comments Office Visit for Blood Pressure Check / Re-check 1940 Zoster Vaccines (1 of 2) 1990 DTaP,Tdap,and Td Vaccines (4 - Td or Tdap) 06/15/2023 06/15/2013, 07/03/2012, 02/20/2002, Additional history exists Fall Risk Screen (Annual) 11/07/2024 COVID-19 Vaccine ( season) 2025 08/31/2024, 03/06/2024, 08/30/2023, Additional history exists Creatinine Level (Kidney Function Test) 12/18/2025 12/18/2024, 12/11/2024, 11/23/2024, Additional history exists Potassium Level 12/18/2025 12/18/2024, 02/0 02/2025, 03/13/2024, Additional history exists Sodium Level 12/18/2025 12/18/2024, 02/0 02/2025, 03/13/2024, Additional history exists Pneumococcal vaccine (50+ years) Completed 12/11/2014, 05/30/2006, 01/19/2005 Influenza Vaccine Completed 08/31/2024, , 12/19/2021, Additional history exists RSV vaccine - (32-36 weeks) or 60+ years Completed 08/31/2024 IPV Vaccines Aged Out No longer eligi ble based on patient's age to complete this topic Medical Devices Implanted Type Area Report Programmer Device Identifier Shelf Expiration Date Model / Serial / Lot Band-Annulopla sty Flex-25mm X 63mm - [place] [id number] Implanted:Qty: 1 on 12/12/2009 Cardiac Valve Prosthesis Other/Legacy - See Implant Description Medtronic Description:Device Manufactu rer - [employer] Body Location - Other. Mitral. Device Status Text - [id number]. [place] Uriel Fuzzy 1 X 1 - [place] [id number] Implanted:Qty: 1 on 12/12/2009 Mesh or Patch [employer] Description:Device Manufactu rer - [employer] Device Status Text - [id number]. [employer] Data - [id number]. Ligation Clips Implanted:Qty: 1 on 05/13/2020 by Vern Dumont M.D. at [facility] Other [employer] [id number] 01/21/2025 [id number] / / [id number] Procedures Procedure Name Priority Date/Time Associated Diagnosis Comments BASIC METABOLIC PANEL, S/P Routine 09/22/2021 6:15 AM INDUSTRIAL SERVICES WORKER from Last 3 Months or Most Recently Relevant to Health Maintenance Insurance MEDICARE [facility] [place] [address] Advance Directives For more information, please contact: [phone] Documents on File Type Date Recorded Patient Paleontology Teacher Expl anation Advance Directives 10/14/2020 11:30 AM [...] Answer Comments Full Code: Discussed Care Teams Reservoir Engineering Advisor Relationship Specialty Start Date End Date Elsewhere, Pcp PCP - General Internal Medicine 12/15/21
--- NOTE | 2025-01-30 14:24 | ED.MALEGU ---
HPI - Male Genitourinary General Time Seen by Provider: 14:24 Date Seen: 01/30/25 Chief complaint: Urogenital Problems, Male Stated complaint: Catheter issue Time Seen by Provider: 01/30/25 14:30 Source: patient, EMS, RN notes reviewed and old records reviewed Mode of arrival: EMS Limitations: no limitations History of Present Illness HPI Narrative: Hi is a very pleasant 84-year-old gentleman with history of hypokalemia, MRSA, heart failure hypertension dementia as well as suprapubic catheter who comes to the emergency room for evaluation of blood from his penis as well as a fever. Last evening patient was scheduled for a suprapubic catheter change. They had done that at the assisted and gave him a prophylactic dose of Bactrim at that time. This morning however he had increased blood in his urine and he had a catheter that was not draining well. They changed the catheter again but ever since then he has had significant amount of blood from the end of his penis and seems to be in pain. Additionally, they noticed a fever and thus had him transfer to the emergency room for evaluation. Patient has some baseline dementia but is able to tell me that he had does have pain in his penis. Denies chest pain fever nausea or vomiting. I do find out later from his daughter that Hi had vomiting this morning. He has not had any diarrhea per report. Noted in chart is a history of bacteremia secondary to MRSA as well as MRSA UTI. Related Data Home Medications ?Medication ?Instructions ?Recorded ?Confirmed Lactobacillus acidophilus 1 cap PO DAILY 03/09/24 01/30/25 (Acidophilus capsule) apixaban 2.5 mg tablet (Eliquis) 2.5 mg PO BID 03/09/24 01/30/25 azithromycin 250 mg tablet 500 mg PO .EACH TIME PRN 03/09/24 01/30/25 bacitracin 500 unit/gram topical 1 applic topical BID 03/09/24 01/30/25 ointment donepezil 10 mg tablet 10 mg PO HS 03/09/24 01/30/25 furosemide 40 mg tablet 40 mg PO BID 03/09/24 01/30/25 memantine 5 mg tablet 5 mg PO DAILY 03/09/24 01/30/25 oxybutynin chloride 5 mg 5 mg PO DAILY 03/09/24 01/30/25 tablet,extended release 24 hr potassium chloride 20 mEq 20 meq PO BID 03/09/24 01/30/25 tablet,extended release(part/cryst) tramadol 50 mg tablet 25 mg PO TID 03/09/24 01/30/25 triamcinolone acetonide 0.1 % 1 applic topical BID 03/09/24 01/30/25 topical cream acetaminophen 325 mg tablet 650 mg PO TID 11/14/24 01/30/25 cranberry 500 mg capsule 500 mg PO HS 11/14/24 01/30/25 loperamide 2 mg capsule (Imodium 2 mg PO Q6H PRN 11/14/24 01/30/25 A-D) melatonin 3 mg tablet 9 mg PO HS 11/14/24 01/30/25 sennosides 8.6 mg tablet (Natural 8.6 mg PO BID PRN 11/14/24 01/30/25 Senna Laxative) ascorbic acid (vitamin C) 500 mg 500 mg PO HS 01/30/25 01/30/25 tablet Previous Rx's ?Medication ?Instructions ?Recorded sertraline 50 mg tablet 50 mg PO DAILY 30 days #30 tabs 11/20/24 Allergies Allergy/AdvReac Type Severity Reaction Status Date / Time adhesive tape Allergy Severe Verified 01/30/25 14:24 amoxicillin (From Augmentin) Allergy Severe Verified 01/30/25 14:24 bacitracin (From Triple Allergy Severe Verified 01/30/25 14:24 Antibiotic) cephalexin (From Keflex) Allergy Severe Verified 01/30/25 14:24 clavulanic acid (From Allergy Severe Verified 01/30/25 14:24 Augmentin) latex Allergy Severe Verified 01/30/25 14:24 neomycin (From Triple Allergy Severe Verified 01/30/25 14:24 Antibiotic) polymyxin B (From Triple Allergy Severe Verified 01/30/25 14:24 Antibiotic) silver sulfadiazine AdvReac Unknown Verified 01/30/25 14:24 Review of Systems Status of ROS: Reports: unobtainable due to mental status [facility] Medical History Health care directive on file ?Z78.9 - Other specified health status (ICD-10) Bacteremia due to methicillin resistant Staphylococcus aureus ?R78.81 - Bacteremia (ICD-10) ?B95.62 - Methicillin resistant Staphylococcus aureus infection as the cause of diseases classified elsewhere (ICD-10) Heart failure ?I50.9 - Heart failure, unspecified (ICD-10) Depression ?F32.A - Depression, unspecified (ICD-10) Hypertension ?I10 - Essential (primary) hypertension (ICD-10) Cognitive impairment ?R41.89 - Other symptoms and signs involving cognitive functions and awareness (ICD-10) Suprapubic catheter dysfunction ?T83.010A - Breakdown (mechanical) of cystostomy catheter, initial encounter (ICD-10) Neurogenic bladder ?N31.9 - Neuromuscular dysfunction of bladder, unspecified (ICD-10) Multiple sclerosis ?G35 - Multiple sclerosis (ICD-10) Surgical History History of mitral valve repair ?Z98.890 - Other specified postprocedural states (ICD-10) Family History Father Diabetes Heart disease Social History Narrative: Resident of [facility]. Has 2 daughters and 2 sons. Two daughters and 1 son live in [place] and 1 son lives in [facility]. According to daughter Megan all 4 are healthcare power of deputy commonwealth's attorney. Code status has been full. Patient is currently considering revising that. Daughter Megan is most closely involved with day-to-day cares. What is your current living situation?: I presently have a place to live Problems where you live: no known problems Problems where you live details: N/A In the past 12 months, utilities in danger of being shut off: no In past 12 months, lack of transportation kept you from medical appts, meetings, work, or getting things needed for daily living: no In the past 12 mos, have been you worried that your food would run out before you had money to buy more?: never true In the past 12 mos, the food you bought just didn't last and you didn't have money to buy more?: never true Smoking Status: Never smoker Do you use any of these nicotine containing products: None Second hand tobacco smoke exposure: No How often do you have a drink containing alcohol: never How often do you have six or more drinks on one occasion: Never AUDIT-C Alcohol total score: 0 Non-prescribed substance use: denies use How often does anyone, including family, friends and others, physically hurt you: never How often does anyone, including family, friends and others, insult or talk down to you: never How often does anyone, including family, friends and others, threaten you with harm: never How often does anyone, including family, friends and others, scream or curse at you: never service: No Exam Narrative: Exam Narrative: Alert to self and place. Patient able to describe growing up he is to [place]. Does not recall what happened this morning or why he is here. EOM is full. Face symmetrical. Heart with regular rate and rhythm. Lungs are with decreased breath sounds in the bases right greater than left. Abdomen is soft. Perhaps some fullness in the suprapubic area. I do see in suprapubic catheter with some blood and urine leaking from this area. He has bright red blood that is coagulated and coming from the end of his penis. It is very difficult to find the end of his penis as it is retracted . Const: Vital Signs, click to edit/add: Vital Signs - 24 hr 01/30/25 14:15 01/30/25 14:17 01/30/25 14:18 Temperature 101.2 F H Pulse Rate 92 98 Pulse Rate [Right Pulse Oximeter] 99 Respiratory Rate 18 Blood Pressure 114/68 Blood Pressure [Ri ght Upper Arm] 114/68 Pulse Oximetry 90 90 90 Oxygen Delivery Me thod Room Air 01/30/25 16:08 01/30/25 16:09 01/30/25 16:13 Temperature 101.1 F H 101.1 F H Pulse Rate 103 H Pulse Rate [Right Pulse Oximeter] 92 Respiratory Rate 18 18 Blood Pressure 119/75 Blood Pressure [Ri ght Upper Arm] 119/75 Pulse Oximetry 93 94 Oxygen Delivery Me thod Room Air 01/30/25 17:00 01/30/25 17:15 01/30/25 17:30 Temperature Pulse Rate 88 88 83 Pulse Rate [Right Pulse Oximeter] Respiratory Rate Blood Pressure Blood Pressure [Ri ght Upper Arm] Pulse Oximetry 90 92 91 Oxygen Delivery Me thod 01/30/25 17:36 01/30/25 17:37 01/30/25 17:45 Temperature 99.6 F 99.6 F Pulse Rate 78 Pulse Rate [Right Pulse Oximeter] Respiratory Rate Blood Pressure Blood Pressure [Ri ght Upper Arm] Pulse Oximetry 92 Oxygen Delivery Me thod 01/30/25 18:00 01/30/25 18:15 01/30/25 18:30 Temperature Pulse Rate 76 78 81 Pulse Rate [Right Pulse Oximeter] Respiratory Rate Blood Pressure Blood Pressure [Ri ght Upper Arm] Pulse Oximetry 93 92 92 Oxygen Delivery Me thod 01/30/25 18:45 01/30/25 18:55 Temperature Pulse Rate 78 Pulse Rate [Right Pulse Oximeter] 83 Respiratory Rate Blood Pressure Blood Pressure [Ri ght Upper Arm] 108/61 Pulse Oximetry 94 Oxygen Delivery Me thod Documenting provider has reviewed patient's vital signs: yes Course Course ED Course: Differential diagnosis includes but is not limited to sepsis, pneumonia, UTI, Ms. Placement of catheter, bladder tumor. This time will place IV, give fluids, check a CBC, comprehensive, lactate, CRP, urinalysis. We do try to flush catheter in this causes pain for the patient. I did try to pull back on the catheter and there is some movement but again significant pain when I do this. Were able to pull back and get some clots through the catheter as well as a small amount a urine. A bedside check for bladder scan done multiple times and shows fluid levels less than 78 mils. Did given 1 g of Tylenol. Reevaluation(s) Reevaluation #1: CT shows that patient has catheter tip will into the urethra with the bulb inflated in the urethra. I do deflate the balloon and patient does have discomfort. I do pull back the catheter at quite a bit and reinflate and patient now has a large amount of clot drain as now clear urine is noted to be draining any appears to be feeling much better. Reevaluation #2: I spoke with Dr. Land about this patient any accepts him in transfer. Because of amoxicillin and cephalexin allergies which cause rash and vomiting we will use Levaquin 500 mg for treatment of UTI. One tablet is given at this time. Urine cultures pending. COVID influenza and RSV are negative. Vital Signs Vital signs: Initial Vital Signs Temperature 101.2 F H 01/30/25 14:15 Temperature Source Temporal Artery Scan 01/30/25 14:15 Pulse Rate 99 03/26/25 14:15 Pulse Rhythm Regular 01/30/25 14:15 Pulse Strength 3+ Normal 01/30/25 14:15 Respiratory Rate 18 01/30/25 14:15 Blood Pressure 114/68 01/30/25 14:15 Blood Pressure Mean 83 01/30/25 14:15 Blood Pressure Position Sitting 01/30/25 14:15 Pulse Oximetry 90 01/30/25 14:15 Oxygen Delivery Method Room Air 01/30/25 14:15 Vital Signs Temperature 101.2 F H 01/30/25 14:15 Pulse Rate 99 01/30/25 14:15 Respiratory Rate 18 01/30/25 14:15 Blood Pressure 114/68 01/30/25 14:15 Pulse Oximetry 90 01/30/25 14:15 Oxygen Delivery Method Room Air 01/30/25 14:15 Temperature 99.6 F 01/30/25 17:37 Pulse Rate 83 01/30/25 18:55 Respiratory Rate 18 01/30/25 16:09 Blood Pressure 108/61 01/30/25 18:55 Pulse Oximetry 94 01/30/25 18:45 Oxygen Delivery Method Room Air 01/30/25 16:08 Medications Administered Medications: Generic Name Dose Route Start Last Admin Trade Name Freq PRN Reason Stop Dose Admin Levofloxacin 500 mg 01/30/25 18:23 01/30/25 18:30 Levofloxacin 500 Mg Tablet PO 01/30/25 18:24 500 mg ONCE ONE Administration Discontinued Medications Generic Name Dose Route Start Last Admin Trade Name Freq PRN Reason Stop Dose Admin Acetaminophen 1,000 mg 01/30/25 16:04 01/30/25 16:13 Acetaminophen 500 Mg Tablet PO 01/30/25 16:05 1,000 mg ONCE ONE Administration Sodium Chloride 1,000 mls @ 1,000 mls/hr 01/30/25 14:31 01/30/25 18:15 0.9 % Sodium Chloride 1000 Ml IV 01/30/25 15:30 Infused .Q1H DEMETRI Infusion MDM - Male Genitourinary MDM Narrative Medical decision making narrative: 1. UTI-complicated with fever. Fortunately no evidence of sepsis with normal lactate and blood pressure. Patient initial temp was 101.2? and he did have a mild elevation of his white count to 12,000. Patient did receive 1 L of normal fluid. He has otherwise been hemodynamically stable. Levaquin 500 mg p.o. given in the ED. further conversation regarding the use of vancomycin was with the hospitalist who will make that final decision. 2. Catheter malfunction-patient has had urethral trauma with the tip of the catheter actually in the urethra. Balloon was deflated catheter retracted lean reinflated and patient now has good drainage of the at catheter. Not currently on blood thinners. 3. Constipation 4. Disposition-admit under the care of hospitalist Dr Land. Further admissions per hospitalist services. No evidence of pneumonia on CT, COVID influenza or RSV. Medical Records Attestation: I reviewed the patient's medical records. Lab Data Attestation: I reviewed the patient's lab results. Labs: Lab Results 01/30/25 01/30/25 01/30/25 Range/Units 14:30 15:18 18:10 WBC 12.02 H (4.50-11.00) K/uL RBC 5.31 (4.30-5.90) m/uL Hgb 15.1 (13.5-17.5) gm/dL Hct 46.9 (37.0-53.0) % MCV 88 (80-100) fL MCH 28 (26-34) pg MCHC 32 (32-36) gm/dL RDW Coeff of [place] 15.5 (11.5-15.5) % Plt Count 132 L (140-440) K/uL Neut % (Auto) 89.1 H (42.0-72.0) % Lymph % (Auto) 2.6 L (20-44) % [place] % (Auto) 7.0 (0.0-11.0) % Eos % (Auto) 0.0 (0.0-7.0) % Baso % (Auto) 0.2 (0.0-3.0) % Neut # (Auto) 10.70 H (1.7-7.0) K/uL Lymph # (Auto) 0.30 L (0.90-2.90) K/uL [place] # (Auto) 0.80 (0.00-0.90) K/UL Eos # (Auto) 0.00 (0.00-0.50) K/uL Baso # (Auto) 0.00 (0.00-0.30) K/uL Abs Immat Gran (auto) 0.10 (0.00-0.30) K/uL Imm/Tot Granulo (auto) 1.1 % Sodium 139 (135-149) mmol/L Potassium 3.9 (3.6-5.1) mmol/L Chloride 105 (96-114) mmol/L Carbon Dioxide 24 (20-32) mmol/L Anion Gap 10 (7-15) mEq/L BUN 15 (7-30) mg/dL Creatinine 0.9 (0.5-1.5) mg/dL Estimated Creat Clear 49.62 Estimated GFR 84 ml/min Glucose 135 H (60-115) mg/dL Lactate 1.5 (0.5-1.9) mmol/L Calcium 8.8 (8.4-10.6) mg/dL Total Bilirubin 1.2 (0.1-1.5) mg/dL AST 54 H (12-35) U/L ALT 33 (4-50) U/L Alkaline Phosphatase 127 (40-150) U/L Total Protein 7.5 (6.0-8.3) g/dL Albumin 4.2 (3.3-5.0) g/dL Urine Color Yellow Cancelled (Yellow) Urine Appearance Clear Cancelled (Clear) Urine pH 7.0 Cancelled (5.0-8.5) Ur Specific [place] 1.010 Cancelled (1.000-1.030) Urine Protein 1+ A Cancelled (Negative) Urine Glucose (UA) Negative Cancelled (Negative) Urine Ketones Negative Cancelled (Negative) Urine Blood 3+ A Cancelled (Negative) Urine Nitrite Positive A Cancelled (Negative) Urine Bilirubin Negative Cancelled (Negative) Urine Urobilinogen 0.2 Cancelled (0.2-1.0) Ur Leukocyte Esterase 1+ A Cancelled (Negative) Urine RBC 10-25 A Cancelled (0-2) Urine WBC 2-5 Cancelled (0-5) Urine WBC Clumps Cancelled Ur Squamous Epith Cells None Cancelled (None-Few) [place] Biurate Crystals Cancelled Calcium Carbonate Cryst Cancelled Calcium Phosphate Cryst Cancelled Calcium Oxalate Crystal Cancelled Cystine Crystals Cancelled Uric Acid Crystals Cancelled Triple Phos Crystals Cancelled Sulfur Crystals Cancelled Cholesterol Crystals Cancelled Tyrosine Crystals Cancelled Hippuric Acid Crystals Cancelled Amorphous Sediment Cancelled Other Sediment Cancelled Urine Bacteria Moderate A Cancelled (None) Fatty Casts Cancelled Hyaline Casts Cancelled Fine Granular Casts Cancelled Coarse Granular Casts Cancelled Waxy Casts Cancelled RBC Casts Cancelled WBC Casts Cancelled Other Casts Cancelled Urine Starch Cancelled Urine Mucus Cancelled Urine Trichomonas Cancelled Urine Yeast Cancelled SARS-CoV-2 (PCR) Negative SARS-CoV-2 (Negative) Influenza Type A (PCR) Negative PCR FLU A (Negative) Influenza Type B (PCR) Negative PCR FLU B (Negative) RSV (PCR) Negative PCR RSV (Negative) Imaging Data Chest x-ray: Attestation: I have reviewed the pertinent imaging results. Radiologist's impression: FINDINGS: As discussed below IMPRESSION: 1. Heart size normal. Median sternotomy. 2. Poor inspiratory effort and soft tissue attenuation factors limit the study. 3. Suspect mild patchy airspace disease in the left midlung and left base. 4. No pleural effusion or pneumothorax. CT Chest/Ab/Pelvis: Attestation: I have reviewed the pertinent imaging results. Radiologist's impression: Lungs and pleura: Limited evaluation secondary to motion artifact. Scattered subsegmental atelectasis in the bilateral lung bases. No large focal consolidation. Heart and vessels: No cardiomegaly, no pericardial effusion. Atherosclerotic coronary artery calcifications. Prior bypass. No large central pulmonary embolus. Thyroid and lower neck: Stable 1.7 cm right thyroid nodule. Mediastinum/maricarmen: No lymphadenopathy. Chest wall: No axillary lymphadenopathy. ABDOMEN/PELVIS: Liver: Too small to characterize hypodense hepatic lesion in segment 6/7, stable, likely benign in the absence of a known malignancy. Gallbladder and bile ducts: Post cholecystectomy. Extensive pneumobilia, which may be secondary to prior sphincterotomy. Pancreas: Unremarkable. Spleen: Unremarkable. Adrenal glands: Unremarkable. Kidneys: Kidneys enhance relatively symmetrically. Stable 0.6 cm calculus in the lower pole of the left kidney. Persistent chronic bilateral hydronephrosis and hydroureter, not significantly changed. Retroperitoneum: No lymphadenopathy. Bowel and mesentery: Stercoral colitis of the distal rectosigmoid colon. No evidence of small-bowel obstruction. No significant ascites. No pneumoperitoneum. Bladder: Suprapubic catheter is present. However, there appears to have been interval migration of the catheter, the balloon is inflated within the urethra. Trabeculated bladder wall with small bladder diverticula. Mild pericystic inflammation. Reproductive organs: Mild prostatomegaly. Pelvic lymph nodes: No lymphadenopathy. Vessels: Scattered atherosclerotic calcifications. Abdominal wall: Small fat filled ventral abdominal wall hernias. There is a partially visualized right inguinal hernia containing multiple loops of small bowel, although no apparent bowel obstruction is seen, the hernia is incompletely evaluated. Bones: Extensive multilevel degenerative changes of the spine. Bones are severely osteopenic. Numerous thoracolumbar vertebral body compression deformities, not significantly changed. IMPRESSION: 1. Interval migration of the suprapubic catheter, the tip and balloon appear to be within the urethra. Repositioning is recommended. 2. Mild pericystic inflammation, compatible with cystitis. 3. Stercoral colitis of the distal rectosigmoid colon. 4. Numerous additional incidental findings as above. Discharge Plan Discharge Clinical Impression: UTI (urinary tract infection), Trauma of urethra, Malfunction of indwelling urinary catheter Patient Disposition: Admitted As Observation Condition: Improved
--- NOTE | 2025-01-30 14:32 | CRLHL7_ITS ---
For Patients: As a result of the Century Cures Act, medical imaging exams and procedure reports are released immediately into your electronic medical record. You may view this report before your referring provider. If you have questions, please contact your health care provider. INDICATION: Fever COMPARISON: November 19, 2024 TECHNIQUE: A single view study was obtained as a portable CXR, January 30, 2025 FINDINGS: As discussed below IMPRESSION: 1. Heart size normal. Median sternotomy. 2. Poor inspiratory effort and soft tissue attenuation factors limit the study. 3. Suspect mild patchy airspace disease in the left midlung and left base. 4. No pleural effusion or pneumothorax. Dictated by Vern Aguayo MD @ 01/30/2025 3:42:32 PM (Electronically Signed)
--- OUTSIDE RECORDS SUMMARY | 2025-01-30 14:35 | XMS_ITS | Clinical Summary ---
Author Organization [facility] Address [address] [place] [id number] Care Team Providers Care Guardian Ad Litem Name Role Phone Elsewhere, Pcp Primary Care Provider Unavailabl e Source Comments Patient records contain information from all sites at [facility]. For routine questions regarding patient records, call [phone] during business hours, M-F 8:00 AM - 5:00 PM Central Time. Record requests for emergency care only can be directed to [phone] at any time.[facility] Allergies Active Allergy Reactions Criticality Noted Date Comments Adhesive Tape-Silicones Other (see comments) Amoxicillin-Pot Clavulanate Diarrhea 08/03/20 11 Bacitracin-Polymyxin B Rash 01/11/2011 Hydrocortisone Other (see comments) 05/21/2015 Latex Swelling 01/01/2013 Odmzwtkt-Gojydgnvgc-Onvpjwqf n Itching 10/13/2011 Nitrofurantoin Monohyd/M-Cryst Other (see comments),GI intolerance Low 06/11/2015 Silver Sulfadiazine Other (see comments) 2009 Medications cranberry 500 mg capsule Take 1 capsule by mouth daily. 3 Active donepeziL (Aricept) 10 mg tablet Take 1 tablet by mouth at bedtime. 6 Active multivitamin-mi nctghc-YV-pmyod len-lutein (CENTRUM SILVER) 0.4 mg-300 mcg- 250 [...] original. Patient is a resident at a [facility], [facility]. Problem Noted Date Diagnosed Date Personal History Of Infectio us And Parasitic Disease (COVID-19) 12/11/2021 Overview (12/11/2021): COVID Assessment & Plan (12/11/2021 9:56 AM DATABASE SUPPORT): He was covid positive on 11/30/21. He had minor symptoms and is now off restrictions. Atrial Fibrillation Unspecified 09/21/2021 Overview (12/11/2021): A fib Assessment & Plan (12/11/2021 9:54 AM DATABASE SUPPORT): Atenolol for rate control and apixaban 2.5 mg bid for anticoagulation. Assessment & Plan (10/20/2021 8:33 AM DATABASE SUPPORT): He is on senior living anticoagulation. Atrial Fibrillation Personal History 09/20/2021 Overview (10/06/2021): Atenolol for rate control and apixaban for anticoagulation. Assessment & Plan (11/30/2021 3:03 PM DATABASE SUPPORT): Stable on current medications. Assessment & Plan (10/06/2021 7:44 PM DATABASE SUPPORT): Heart rate and blood pressure adequate on increased dose of atenolol. Diastasis Recti 05/19/2021 Overview (05/19/2021): Diastasis recti Assessment & Plan (12/11/2021 9:51 AM DATABASE SUPPORT): He has no pain or symptoms. Assessment & Plan (09/15/2021 8:07 PM DATABASE SUPPORT): Resp easy. 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 Constipation 03/31/2021 Overview (05/19/2021): Slow transit constipation Assessment & Plan (12/11/2021 9:51 AM DATABASE SUPPORT): His bowels are moving in his normal pattern using Senna S 1 tab hs prn. He is also on a probiotic daily. Assessment & Plan (11/30/2021 3:03 PM DATABASE SUPPORT): Bowel agents available. Assessment & Plan (10/20/2021 8:30 AM DATABASE SUPPORT): His bowels are moving in his normal pattern on senna and probiotic. Assessment & Plan (09/15/2021 8:06 PM DATABASE SUPPORT): His bowels are moving in a normal [...] posture. Assessment & Plan (12/11/2021 9:48 AM DATABASE SUPPORT): His legs are wrapped and he elevates them routinely during the day when he is in bed. Assessment & Plan (09/15/2021 8:05 PM DATABASE SUPPORT): He has dependent edema. Legs are wrapped. [...] Insomnia Assessment & Plan (12/11/2021 9:48 AM DATABASE SUPPORT): He is sleeping well on Melatonin 9 mg. Assessment & Plan (11/30/2021 3:02 PM DATABASE SUPPORT): Continue current dose of melatonin. Assessment & Plan (10/20/2021 8:22 AM DATABASE SUPPORT): The melatonin is effective in helping him sleep[. Assessment & Plan (09/15/2021 8:05 PM DATABASE SUPPORT): He is sleeping well on melatonin Assessment [...] infection Assessment & Plan (12/11/2021 10:31 AM DATABASE SUPPORT): He continues on cranberry and has cipro [...] change. Assessment & Plan (10/20/2021 8:23 AM DATABASE SUPPORT): He is prone to UTI's. He has his catheter changed monthly with a 3 day course of cipro surrounding the changes.. He is also on cranberry 500 mg bid. Assessment & Plan (10/06/2021 7:48 PM DATABASE SUPPORT): Most recently treated with IV ceftriaxone and then oral Omnicef to total 10 day course of treatment. Assessment & Plan (09/30/2020 2:44 PM DATABASE SUPPORT): Brad was seen at [facility] emergency department September 03 was diagnosed with [...] MS Assessment & Plan (12/11/2021 9:53 AM DATABASE SUPPORT): His pain is controlled with Tramadol 25 mg tid and x 1 prn during the night and tylenol 650 mg Q 6 h prn. Assessment & Plan (10/20/2021 8:31 AM DATABASE SUPPORT): Pain is controlled with tylenol and tramadol. Assessment & Plan (09/15/2021 8:09 PM DATABASE SUPPORT): He takes tramadol 25 mg tid. This [...] tramadol. Monitor for increased pain and reassess. Custodial Examination 60 Day Certification Overview (07/10/2019): [facility] Assessment & Plan (11/30/2021 2:57 PM DATABASE SUPPORT): Current comorbidities, ADL need/level of debility requires skilled care/therapy. Medications and labs all reviewed and appropriate related to comorbidities, unless otherwise indicated. Physician order sheet signed. Continue restorative/maintenance care plan, nutrition intervention, skin protection, and fall prevention. He will be tested for COVID-19 according to the prevalence in the community and in the facility in accordance with [facility] guidelines. 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 Assessment & Plan (09/15/2021 7:47 PM DATABASE SUPPORT): He is appropriate for senior living care Assessment & Plan (05/19/2021 7:54 PM CDT): He is a senior living resident at [facility] Assessment & Plan (01/20/2021 4:52 PM CDT): He is a long-term resident on the rest of the nursing on. His recently Assessment & Plan (07/15/2020 1:50 PM CDT): He is a long-term resident at [facility]. He shares a room with his Ya. Assessment & Plan (03/18/2020 2:25 PM CDT): He is a long-term resident at [facility]. He shares a room with his . Assessment & Plan (11/13/2019 3:37 PM DATABASE SUPPORT): He is a long-term resident at [facility] Assessment & Plan (07/10/2019 4:28 PM CDT): He is a long-term side of [facility]. He shares a room with his Major Depressive Disorder, Recurrent, Unspecifie d 12/20/2016 Overview (03/29/2017): Depression Major Recurrent Moderate Assessment & Plan (12/11/2021 9:45 AM DATABASE SUPPORT): He is on sertraline 50 mg daily. He lost his , who was also his roommate recently. He also vocalized that he will miss his current friends at [facility]. Assessment & Plan (11/30/2021 3:03 PM DATABASE SUPPORT): Stable on current dose of sertraline. Assessment & Plan (10/20/2021 8:29 AM DATABASE SUPPORT): Stable on sertraline 50 mg daily. Assessment & Plan (09/15/2021 8:00 PM DATABASE SUPPORT): Sertraline is effective for managing depression Assessment [...] symptomatology Assessment & Plan (11/13/2019 3:54 PM DATABASE SUPPORT): He is currently stable on Zoloft 125 [...] mixed Assessment & Plan (12/11/2021 9:39 AM DATABASE SUPPORT): He has no behaviors and is extremely pleasant. He is stable on donepezil 10 mg at bedtime and memantine 5 mg in the morning. Assessment & Plan (11/30/2021 2:59 PM DATABASE SUPPORT): He is stable on donepezil and memantine. Assessment & Plan (10/20/2021 8:20 AM DATABASE SUPPORT): He continues with his memory pills donepezil and memantine Assessment & Plan (09/15/2021 7:58 PM DATABASE SUPPORT): He is doing well on donepezil and [...] . Assessment & Plan (11/13/2019 3:39 PM DATABASE SUPPORT): He is stable on Namenda XR 14 mg daily. He is also on Aricept 10 mg at bedtime Assessment & Plan (07/10/2019 4:33 PM CDT): He is currently stable on Namenda. He calls that his memory pill. He also is on Aricept 10 mg daily Hypertension Essential Primary 05/28/2015 Overview (03/29/2017): Hypertension (HTN) Essential Benign Assessment & Plan (12/11/2021 9:46 AM DATABASE SUPPORT): He is normotensive and hemodynamically stable on Atenolol 50 mg and furosemide 40 mg. Assessment & Plan (11/30/2021 3:03 PM DATABASE SUPPORT): He is on atenolol and furosemide. Assessment & Plan (10/20/2021 8:28 AM DATABASE SUPPORT): Blood pressures are stable on furosemide and atenolol. Rate controlled with atenolol. Assessment & Plan (09/15/2021 8:04 PM DATABASE SUPPORT): He is normotensive and hemodynamically stable on [...] changes Assessment & Plan (11/13/2019 3:42 PM DATABASE SUPPORT): He is normotensive and hemodynamically stable on [...] change. Assessment & Plan (01/11/2025 5:53 PM DATABASE SUPPORT): His catheter should continue to be exchanged [...] depression. Assessment & Plan (12/11/2021 9:47 AM DATABASE SUPPORT): He has a suprapubic catheter which is changed monthly. The catheter was last changed when it was to be leaking around the site on November. A UA was sent. Next catheter change should be scheduled for December 16, 2019 Assessment & Plan (11/30/2021 2:57 PM DATABASE SUPPORT): No recent difficulties with his suprapubic catheter. Assessment & Plan (10/20/2021 8:21 AM DATABASE SUPPORT): Neurogenic bladder from MS. He is prone to urinary tract infections and was recently hospitalized with a UTI that precipitated a bout of atrial fibrillation. He is on anticoagulation with apixaban. Assessment & Plan (09/15/2021 7:55 PM DATABASE SUPPORT): Suprapubic catheter is patent. The catheter is [...] cranberry. Assessment & Plan (11/13/2019 3:40 PM DATABASE SUPPORT): He has a suprapubic catheter due to MS. He is also on oxybutynin and cranberry tablets. Assessment & Plan (07/10/2019 4:34 PM CDT): Has a suprapubic catheter which is changed monthly in the half-way setting. He takes oxybutynin for bladder spasms and cranberry tablets prevent UTIs. When his catheter is changed, he goes on a 3 day course of Cipro 500 mg twice a day. Multiple Sclerosis 12/10/2009 Overview (07/10/2019): MS diagnosed several years ago Assessment & Plan (12/11/2021 9:23 AM DATABASE SUPPORT): He requires 24 hour care. He has a neurogenic bladder due to the MS. He is nonambulatory and has his own motorized chair. He has no dysphagia. His speech is clear. Assessment & Plan (11/30/2021 2:59 PM DATABASE SUPPORT): Continues to require 24 hour care, assistance with all cares. Assessment & Plan (10/20/2021 8:18 AM DATABASE SUPPORT): He remains non-ambulatory. He needs a suprapubic catheter, mechanical life, wheelchair and 24 hour retirement care. Assessment & Plan (09/15/2021 7:50 PM DATABASE SUPPORT): He is non ambulatory. He requires 24 [...] leg. Assessment & Plan (11/13/2019 3:38 PM DATABASE SUPPORT): He has a neurogenic bladder and has [...] Problem Noted Date Diagnosed Date Resolved Date Sheet Heater (Current) Anticoagulant Treatment 11/30/2021 12/11/2021 Overview (11/30/2021): Atrial fibrillation Assessment & Plan (11/30/2021 3:02 PM DATABASE SUPPORT): He continues on apixaban. Failure Renal Acute (Acute Kidney Injury) 10/06/2021 12/11/2021 Overview (10/06/2021): Peak creatinine during recent hospitalization 1.59 Assessment & Plan (10/06/2021 7:46 PM DATABASE SUPPORT): Creatinine at discharge 1.23. Spironolactone was held and will be restarted pending adequate renal function. Anemia Of Chronic Disease 10/06/2021 Overview (10/06/2021): Most recent hemoglobin 11.9 at discharge. Assessment & Plan (10/06/2021 7:44 PM DATABASE SUPPORT): Continue to follow hemoglobin. Hypokalemia 07/28/2021 09/15/2021 [...] (05/12/2020): Added automatically from request for surgery [id number] Pain Leg 12/05/2018 11/13/2019 Stroke/Transient Ischemic Attack NOS 10/03/2017 11/13/2019 Repair Mitral Valve Status Post 10/03/2017 11/13/2019 Atherosclerotic Heart Diseas e Of [place] Coronary Artery Without Angina Pectoris 05/31/2017 11/13/2019 [...] Department Care Team Description 01/11/2025 2:00 PM DATABASE SUPPORT Office Visit Department of Urology in [place], [place] [address] [place] [address] Consuelo Castle, ADAN, C.N.P. Neurogenic Bladder (Primary Dx); Infection Urinary Tract Personal History; Spasm Bladder; Dementia (HCC) 01/07/2025 Clinical Communication Department of Urology in [place], [place] [address] [address] Consuelo Castle APRN, C.N.P. Follow-up [...] on file Legal Sex Male 7:50 AM DATABASE SUPPORT Gender Identity Not on file Sexual Orientation Not on file Last Filed Vital Signs Vital Sign Reading Time Taken Comments Blood Pressure 122/69 12/11/2021 10:00 AM DATABASE SUPPORT Pulse 72 12/11/2021 10:00 AM DATABASE SUPPORT Temperature 36.8 C (98.2 F) 12/11/2021 10:00 AM DATABASE SUPPORT Respiratory Rate 16 12/11/2021 10:00 AM DATABASE SUPPORT Oxygen Saturation 94% 12/11/2021 10:00 AM DATABASE SUPPORT Room Air Inhaled Oxygen Concentration - - Weight 88.7 kg (195 lb 8 oz) 12/11/2021 10:00 AM DATABASE SUPPORT Height 172.7 cm (5' 8) 09/25/2021 7:20 PM DATABASE SUPPORT Body Mass Index 29.73 09/25/2021 7:20 PM DATABASE SUPPORT Plan of Treatment Health Maintenance Due Date [...] this topic Medical Devices Implanted Type Area Title Camera Operator Device Identifier Shelf Expiration Date Model / Serial / Lot Band-Annulopla sty Flex-25mm X 63mm - Dimas [id number] Implanted:Qty: 1 on 12/12/2009 Cardiac Valve Prosthesis Other/Legacy - See Implant Description Medtronic Description:Device Manufactu rer - [employer] Body Location - Other. Mitral. Device Status Text - [id number]. [place] Uriel Fuzzy 1 X 1 - [place] [id number] Implanted:Qty: 1 on 12/12/2009 Mesh or Patch Acesis Description:Device Manufactu rer - [employer]. Device Status Text - [id number]. [facility] Data - [id number]. Ligation Clips Implanted:Qty: 1 on 05/13/2020 by Vern Dumont M.D. at [facility] Other [employer] [id number] 01/21/2025 [id number] / / [id number] Procedures Procedure Name Priority Date/Time Associated Diagnosis Comments BASIC METABOLIC PANEL, S/P Routine 09/22/2021 6:15 AM DATABASE SUPPORT from Last 3 Months or Most Recently Relevant to Health Maintenance Insurance [place] [address] Advance Directives For more information, please contact: [phone] Documents on File Type Date Recorded Patient Senior Center Director Expl anation Advance Directives 10/14/2020 11:30 AM [...] Answer Comments Full Code: Discussed Care Teams Guardian Ad Litem Relationship Specialty Start Date End Date Elsewhere, Pcp PCP - General Internal Medicine 12/15/21
--- OUTSIDE RECORDS SUMMARY | 2025-01-30 14:35 | XMS_ITS | Encounter Summary ---
Author Organization [facility] Address [address] [place] [address] Care Team Providers Care Bilingual Sales Assistant Name Role Phone Elsewhere, Pcp Primary Care Provider Unavailabl e Reason for Visit * Reason Onset Date Comments Follow-up Orders 01/07/2025 Encounter Details Date Type Department Care Team (Latest Contact Info) Description 01/07/2025 Clinical Communication Department of Urology in [place], [place] [address] [address] Consuelo Castle, ADAN, C.N.P. [address] [address] Follow-up Orders Social History Tobacco [...] on file Legal Sex Male 7:50 AM MATTRESS RENOVATOR Gender Identity Not on file Sexual Orientation Not on file documented as of this encounter Miscellaneous Notes * Telephone Encounter - Amara Garcia M.S.N., R.N. - 01/08/2025 10:50 AM MATTRESS RENOVATOR Tasia returned call to Uro. Tasia states patient was hospitalized in [place] for urosepsis, per discharge instructions patient was [...] a copy with patient. No further needs. RESS RENOVATOR documented in this encounter Plan of Treatment Not on file documented as of this encounter Visit Diagnoses Not on filedocumented in this encounter Additional Health Concerns Assessment Noted Time PHQ-9 Depression Total Score: 3 09/20/20 21 10:00 AM MATTRESS RENOVATOR documented as of this encounter Care Teams Bilingual Sales Assistant Relationship Specialty Start Date End Date Elsewhere, Pcp PCP - General Internal Medicine 12/15/21 documented as of this encounter
--- OUTSIDE RECORDS SUMMARY | 2025-01-30 14:35 | XMS_ITS | Clinical Summary ---
Author Organization [facility] Address [facility] [place] [address] Care Team Providers Care Supervisor Spring Up Name Role Phone Gabe White MD Primary [...] Department Care Team Description 12/13/2024 Lab Requisition [facility] [phone] Stephanie Garcia NP 12/09/2024 Lab Requisition [facility] [phone] Stephanie Garcia NP 11/23/2024 Lab Requisition [facility] [address] [place] [address] Gabe White MD 11/14/2024 11:00 AM TOE LASTER Ancillary Procedure [facility] [address] [place] [address] from Last 3 Months Family History Medical [...] Comments Blood Pressure 143/99 10/24/2021 5:03 PM TOE LASTER Pulse 70 10/24/2021 5:03 PM TOE LASTER Temperature 37 C (98.6 F) 10/24/2021 5:03 PM TOE LASTER Respiratory Rate 16 10/24/2021 5:03 PM TOE LASTER Oxygen Saturation 95% 10/24/2021 5:03 PM TOE LASTER Inhaled Oxygen Concentration - - Weight 98.4 kg (216 lb 14.9 oz) 10/24/2021 5:03 PM TOE LASTER Height 167.6 cm (5' 6) 10/23/2021 9:09 AM TOE LASTER Body Mass Index 35.01 10/23/2021 9:09 AM TOE LASTER Plan of Treatment Health Maintenance Due Date [...] BASIC METABOLIC PANEL Routine 12/18/2024 7:59 AM TOE LASTER Hyperkalemia BASIC METABOLIC PANEL Routine 12/11/2024 8:43 AM TOE LASTER Methicillin resistant Staphylococcus aureus infection as the cause of diseases classified elsewhere RED CELL MORPHOLOGY Routine 11/23/2024 1 0:35 AM TOE LASTER Sepsis, unspecified organism (HC) PLATELET ESTIMATE Routine 11/23/2024 10: 35 AM TOE LASTER Sepsis, unspecified organism (HC) MANUAL DIFFERENTIAL Routine 11/23/2024 1 0:35 AM TOE LASTER Sepsis, unspecified organism (HC) CBC WITH AUTO DIFFERENTIAL Routine 11/23/2024 10:35 AM TOE LASTER Sepsis, unspecified organism (HC) VANCOMYCIN TROUGH Routine 11/23/2024 10: 35 AM TOE LASTER Sepsis, unspecified organism (HC) CREATININE Routine 11/23/2024 10:35 AM TOE LASTER Sepsis, unspecified organism (HC) CBC WITH AUTO DIFFERENTIAL Routine 11/23/2024 10:35 AM TOE LASTER Sepsis, unspecified organism (HC) ECHO TTE COMPLETE WO CONTRAST Routine 11/14/2024 11:41 AM TOE LASTER Heart failure (HC) from Last 3 Months Results * (ABNORMAL) BASIC METABOLIC PANEL (12/18/2024 7:59 AM TOE LASTER) Only the most recent of2 resultswithin the time period is included. SODIUM 142 136 - 145 mmol/L 12/18/2024 9:34 AM [facility] POTASSIUM 3.8 3.5 - 5.1 mmol/L 12/18/2024 9:34 AM [facility] CHLORIDE 105 98 - 107 mmol/L 12/18/2024 9:34 AM [facility] CO2,TOTAL 27 22 - 29 mmol/L 12/18/2024 9:34 AM [facility] ANION GAP 10 5 - 18 12/18/2024 9:34 AM [facility] GLUCOSE 85 70 - 99 mg/dL 12/18/2024 9:34 AM [facility] CALCIUM 8.8 8.8 - 10.4 mg/dL 12/18/2024 9:34 AM [facility] Comment: Reference ranges for this test were updated on 09/11/2024 to reflect our healthy population more accurately. Reference range changes are not retroactively applied to results, but previous results using the same methodology can be interpreted in the context of the new reference range. BUN 13 8 - 23 mg/dL 12/18/2024 9:34 AM [facility] CREATININE 0.74 0.70 - 1.20 mg/dL 12/18/2024 9:34 AM [facility] BUN/CREAT RATIO 18 10 - 20 9:34 AM [facility] eGFR 89(L) >90 mL/min/1.7 3m2 12/18/2024 9:34 AM [facility] Comment:As of 2022, eG FR is calculated by the CKD-EPI creatinine equation without race adjustment. eGFR can be influenced by muscle mass, exercise, and diet. The reported eGFR is an estimation only and is only applicable if the renal function is stable. Blood BLOOD SPECIMEN / Unknown Butterfly / Unknown 12/18/2024 7:59 AM TOE LASTER 12/18/2024 9:09 AM TOE LASTER us Stephanie Garcia NP CHEMISTRY Final Resul t [facility] [address] [place] [address] * CBC WITH AUTO DIFFERENTIAL (11/23/2024 10:35 AM [facility]) WHITE BLOOD COUNT 8.8 4.5 - 11.0 thou/cu mm 11/23/2024 12:45 PM [facility] RED BLOOD COUNT 5.18 4.30 - 5.90 mil/cu mm 11/23/2024 12:45 PM [facility] HEMOGLOBIN 15.1 13.5 - 17.5 g/dL 11/23/2024 12:45 PM [facility] HEMATOCRIT 45.5 37.0 - 53.0 % 11/23/2024 12:45 PM [facility] MCV 88 80 - 100 fL 11/23/2024 12:45 PM [facility] MCH 29.2 26.0 - 34.0 pg 11/23/2024 12:45 PM [facility] MCHC 33.2 32.0 - 36.0 g/dL 11/23/2024 12:45 PM [facility] RDW 15.1 11.5 - 15.5 % 11/23/2024 12:45 PM [facility] PLATELET COUNT 257 140 - 440 thou/cu mm 11/23/2024 12:45 PM [facility] MPV 10.1 6.5 - 11.0 fL 11/23/2024 12:45 PM [facility] Blood BLOOD SPECIMEN / Unknown Client Collect / Unknown 11/23/2024 10:35 AM TOE LASTER 11/23/2024 11:43 AM TOE LASTER us Gabe White MD HEMATOLOGY Final Result [facility] [address] [place] [address] * RED CELL MORPHOLOGY (11/23/2024 10:35 AM TOE LASTER) RBC COMMENT RBC morphology appears normal RBC morphology appears normal, RBC morphology within normal limits for newborns. 11/23/2024 12:45 PM [facility] LARGE PLATELETS Present 11/23/2024 12:45 PM [facility] Blood BLOOD SPECIMEN / Unknown Client Collect / Unknown 11/23/2024 10:35 AM TOE LASTER 11/23/2024 11:43 AM TOE LASTER us Gabe White MD HEMATOLOGY Final Result Performing Organization Address [facility]/ZIP Co de Phone Number [facility] [address] [place] [address] * PLATELET ESTIMATE (11/23/2024 10:35 AM TOE LASTER) PLATELET ESTIMATE Adequate Adequate, No estimate 11/23/2024 12:45 PM [facility] Blood BLOOD SPECIMEN / Unknown Client Collect / Unknown 11/23/2024 10:35 AM TOE LASTER 11/23/2024 11:43 AM TOE LASTER us Gabe White MD HEMATOLOGY Final Result Performing Organization Address [facility]/ZIP Co de Phone Number [facility] [address] [place] [address] * (ABNORMAL) MANUAL DIFFERENTIAL (11/23/2024 10:35 AM TOE LASTER) % NEUTROPHILS 74.0 % 11/23/2024 12:45 PM [facility] % LYMPHOCYTES 15.0 % 11/23/2024 12:45 PM [facility] % MONOCYTES 9.0 % 11/23/2024 12:45 PM [facility] % EOSINOPHILS 1.0 % 11/23/2024 12:45 PM [facility] % BASOPHILS 0.0 % 11/23/2024 12:45 PM [facility] % METAMYELOCYTES 1.0(H) <0.1 % 11/23/19 12:45 PM [facility] NEUTROPHILS ABSOLUTE 6.5 1.7 - 7.0 thou/cu mm 11/23/2024 12:45 PM [facility] LYMPHOCYTES ABSOLUTE 1.3 0.9 - 2.9 thou/cu mm 11/23/2024 12:45 PM [facility] MONOCYTES ABSOLUTE 0.8 <0.9 thou/cu mm 11/23/2024 12:45 PM [facility] EOSINOPHILS ABSOLUTE 0.1 <0.5 thou/cu mm 11/23/2024 12:45 PM [facility] BASOPHILS ABSOLUTE 0.0 <0.3 thou/cu mm 11/23/2024 12:45 PM [facility] ABSOLUTE METAMYELOCYTES 0.1(H) <=0.0 thou/cu mm 11/23/2024 12:45 PM [facility] Blood BLOOD SPECIMEN / Unknown Client Collect / Unknown 11/23/2024 10:35 AM TOE LASTER 11/23/2024 11:43 AM TOE LASTER Gabe White MD HEMATOLOGY Final Result Performing Organization Address [facility] Co de Phone Number [facility] [address] [place] [phone] * (ABNORMAL) CREATININE (11/23/2024 10:35 AM TOE LASTER) Pathologist [facility] eGFR 87(L) >90 mL/min/1.7 3m2 11/23/2024 12:08 PM [facility] Comment:As of 2022, eG FR is calculated by the CKD-EPI creatinine equation without race adjustment. eGFR can be influenced by muscle mass, exercise, and diet. The reported eGFR is an estimation only and is only applicable if the renal function is stable. CREATININE 0.81 0.70 - 1.20 mg/dL 11/23/2024 12:08 PM [facility] Blood BLOOD SPECIMEN / Unknown Client Collect / Unknown 11/23/2024 10:35 AM TOE LASTER 11/23/2024 11:43 AM TOE LASTER us Gabe White MD CHEMISTRY Final Result Performing Organization Address [facility] Co de Phone Number [facility] [address] [place] [address] * VANCOMYCIN TROUGH (11/23/2024 10:35 AM TOE LASTER) VANCOMYCIN,TRO UGH 15.2 7.0 - 20.0 ug/mL 11/23/2024 1:05 PM TOE LASTER [facility] DATE OF LAST DOSE,TROUGH 11/22/2024 11/23/2024 1:05 PM TOE LASTER [facility] TIME OF LAST DOSE,TROUGH 11:15 AM 11/23/2024 1:05 PM TOE LASTER [facility] Blood BLOOD SPECIMEN / Unknown Client Collect / Unknown 11/23/2024 10:35 AM TOE LASTER 11/23/2024 11:43 AM TOE LASTER us Gabe White MD CHEMISTRY Final Result [facility] [address] [place] [address] * ECHO TTE COMPLETE WO CONTRAST (11/14/2024 11:41 AM TOE LASTER) AORTIC VALVE MEAN PG 4 mmHg EJECTION FRACTION 59 % LVEDD 4.1 cm Anatomical Region Laterality Modality Ultrasound 11/14/2024 11:0 3 AM TOE LASTER Narrative 11/14/2024 1:45 PM TOE LASTER ECHOCARDIOGRAM ELOISE SUN : 1940 84 years Study Date: 11/14/2024 11:03:10 AM Gender: M BP: 119/69 mmHg Height: 168.00 cm BSA: 2.09 m Weight: 100.00 kg Tech: [facility] Referring MD: JUWAN LAND Site: [facility] Reading Location: [facility] Patient Location: Inpatient. Procedure: 2D, Color Doppler [...] . This study was interpreted by an [facility] accredited facility. CC: HIM (med records) [facility], Med/Surg - IP [facility]. Final Procedure Note Regina Collado, [facility] - 11/14/2024 ECHOCARDIOGRAM ELOISE SUN : 1940 84 years Study Date: 11/14/2024 11:03:10 AM Gender: M BP: 119/69 mmHg Height: 168.00 cm BSA: 2.09 m Weight: 100.00 kg Tech: [facility] Referring MD: JUWAN LAND Site: [facility] Reading Location: Mobile- Patient Location: [...] . This study was interpreted by an [facility] accredited facility. CC: HIM (med records) [facility], Med/Surg - IP [facility]. 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
--- OUTSIDE RECORDS SUMMARY | 2025-01-30 14:35 | XMS_ITS | Encounter Summary ---
Author Organization [facility] Address [address] [place] [address] Care Team Providers Care Music Assistant Name Role Phone Elsewhere, Pcp Primary Care Provider Unavailabl e Reason for Visit * Reason Comments Urinary Tract Infection * Appointment Request (Routine) - Closed Specialty Diagnoses / Procedures Referred By Anabella sullivan Referred To Contact Urology Diagnoses Urinary Tract Infection Site Not Specified Stephanie Garcia D.N.P. [address] [address] Phone: tel: fax: Referral ID Status Reason Start Date Expiration Date Visits Re quested Visits Authorized [id number] Closed 11/30/2024 03/02/2026 1 1 Encounter Details Date Type Department Care Team (Late st Contact Info) Description 01/11/2025 2:00 PM MANAGER DESKTOP Office Visit Department of Urology in [place], [place] [address] [address] Consuelo Castle APRN, C.N.P. [address], [place] [address] Neurogenic Bladder (Primary Dx); Infection [...] on file Legal Sex Male 7:50 AM MANAGER DESKTOP Gender Identity Not on file Sexual Orientation [...] catheter exchanges well and staff at the alf is now giving him Ativan and tramadol at the time of catheter exchange. He has a history of MRSA infection and was recently hospitalized November 15-2024 at [facility] due to sepsis. The infection was identified [...] catheter exchange, he is now resistantto ciprofloxacin. [place] hospitalist recommended Bactrim at the time of [...] Follow-up in the Urology Department as needed. GER DESKTOP documented in this encounter Miscellaneous Notes * [...] closely for any signs of respiratory depression. GER DESKTOP documented in this encounter Plan of Treatment Not on file documented as of this encounter Visit Diagnoses Diagnosis Neurogenic Bladder- Primary Infection Urinary Tract Personal History Spasm Bladder Dementia (HCC) documented in this encounter Additional Health Concerns Assessment Noted Time PHQ-9 Depression Total Score: 3 09/20/20 21 10:00 AM MANAGER DESKTOP documented as of this encounter Care Teams Music Assistant Relationship Specialty Start Date End Date Elsewhere, Pcp PCP - General Internal Medicine 12/15/21 documented as of this encounter
[2025-01-30 15:23] LABS: Lactate* 1.5 mmol/L (0.5-1.9)
[2025-01-30 15:25] LABS: Basophils Percent Auto 0.2 % (0.0-3.0); Hematocrit 46.9 % (37.0-53.0); Hemoglobin* 15.1 gm/dL (13.5-17.5); Immature Granulocytes Pct Auto 1.1 %; Lymphocytes Percent Auto 2.6 % (20-44); Mean Corpuscular HGB Conc 32 gm/dL (32-36); Mean Corpuscular Hemoglobin 28 pg (26-34); Mean Corpuscular Volume 88 fL (80-100); Neutrophils Percent Auto 89.1 % (42.0-72.0); Platelet Count* 132 K/uL (140-440); RDW Coefficient of Variation % 15.5 % (11.5-15.5); Red Blood Count 5.31 m/uL (4.30-5.90); White Blood Count* 12.02 K/uL (4.50-11.00)
[2025-01-30 15:28] LABS: Slide Review Reflex No
[2025-01-30 15:43] LABS: Chloride* 105 mmol/L (96-114); Potassium* 3.9 mmol/L (3.6-5.1); Sodium* 139 mmol/L (135-149)
[2025-01-30 15:46] LABS: Alanine Aminotransferase* 33 U/L (4-50); Alkaline Phosphatase* 127 U/L (40-150); Anion Gap 10 mEq/L (7-15); Bilirubin Total* 1.2 mg/dL (0.1-1.5); Blood Urea Nitrogen* 15 mg/dL (7-30); Calcium* 8.8 mg/dL (8.4-10.6); Carbon Dioxide* 24 mmol/L (20-32); Creatinine* 0.9 mg/dL (0.5-1.5); Est. Creatinine Clearance* 49.62; Estimated Glomerular Filt Rate 84 ml/min; Glucose* 135 mg/dL (60-115)
--- NOTE | 2025-01-30 16:01 | CRLHL7_ITS ---
For Patients: As a result of the Century Cures Act, medical imaging exams and procedure reports are released immediately into your electronic medical record. You may view this report before your referring provider. If you have questions, please contact your health care provider. INDICATION: Fever. TECHNIQUE: CT chest, abdomen, and pelvis acquired with 90 mL Isovue 370 IV contrast. COMPARISON: CT chest/abdomen/pelvis dated 11/13/2024. FINDINGS: CHEST: Lungs and pleura: Limited evaluation secondary to motion artifact. Scattered subsegmental atelectasis in the bilateral lung bases. No large focal consolidation. Heart and vessels: No cardiomegaly, no pericardial effusion. Atherosclerotic coronary artery calcifications. Prior bypass. No large central pulmonary embolus. Thyroid and lower neck: Stable 1.7 cm right thyroid nodule. Mediastinum/maricarmen: No lymphadenopathy. Chest wall: No axillary lymphadenopathy. ABDOMEN/PELVIS: Liver: Too small to characterize hypodense hepatic lesion in segment 6/7, stable, likely benign in the absence of a known malignancy. Gallbladder and bile ducts: Post cholecystectomy. Extensive pneumobilia, which may be secondary to prior sphincterotomy. Pancreas: Unremarkable. Spleen: Unremarkable. Adrenal glands: Unremarkable. Kidneys: Kidneys enhance relatively symmetrically. Stable 0.6 cm calculus in the lower pole of the left kidney. Persistent chronic bilateral hydronephrosis and hydroureter, not significantly changed. Retroperitoneum: No lymphadenopathy. Bowel and mesentery: Stercoral colitis of the distal rectosigmoid colon. No evidence of small-bowel obstruction. No significant ascites. No pneumoperitoneum. Bladder: Suprapubic catheter is present. However, there appears to have been interval migration of the catheter, the balloon is inflated within the urethra. Trabeculated bladder wall with small bladder diverticula. Mild pericystic inflammation. Reproductive organs: Mild prostatomegaly. Pelvic lymph nodes: No lymphadenopathy. Vessels: Scattered atherosclerotic calcifications. Abdominal wall: Small fat filled ventral abdominal wall hernias. There is a partially visualized right inguinal hernia containing multiple loops of small bowel, although no apparent bowel obstruction is seen, the hernia is incompletely evaluated. Bones: Extensive multilevel degenerative changes of the spine. Bones are severely osteopenic. Numerous thoracolumbar vertebral body compression deformities, not significantly changed. IMPRESSION: 1. Interval migration of the suprapubic catheter, the tip and balloon appear to be within the urethra. Repositioning is recommended. 2. Mild pericystic inflammation, compatible with cystitis. 3. Stercoral colitis of the distal rectosigmoid colon. 4. Numerous additional incidental findings as above. Please note that all CT scans at this facility use dose modulation, iterative reconstruction, and/or weight-based dosing when appropriate to reduce radiation dose to as low as reasonably achievable. Dictated by Malik Yusuf MD @ 01/30/2025 5:50:15 PM (Electronically Signed)
[2025-01-30 16:05] LABS: PCR FLU A Negative PCR FLU A (Negative); PCR FLU B Negative PCR FLU B (Negative); PCR RSV Negative PCR RSV (Negative); SARS PCR* Negative SARS-CoV-2 (Negative)
[2025-01-30 16:08] LABS: Albumin* 4.2 g/dL (3.3-5.0)
[2025-01-30 16:10] LABS: Aspartate Amino Transferase* 54 U/L (12-35)
[2025-01-30 16:11] LABS: Total Protein* 7.5 g/dL (6.0-8.3)
[2025-01-30] MEDS: ACETAMINOPHEN 500 MG TABLET 1000 MG PO (16:13)
[2025-01-30] MEDS: 0.9 % SODIUM CHLORIDE 1000 ml 1,000 ML IV (16:45)
[2025-01-30 18:18] LABS: Appearance Urine Clear (Clear); Bilirubin Urine Negative (Negative); Blood Urine 3+ (Negative); Color Urine Yellow (Yellow); Glucose Urine Negative (Negative); Ketones Urine Negative (Negative); Leukocyte Esterase Urine 1+ (Negative); Nitrite Urine Positive (Negative); Protein Urine 1+ (Negative); Urobilinogen Urine 0.2 (0.2-1.0)
[2025-01-30 18:19] LABS: Bacteria Urine Moderate
[2025-01-30] MEDS: levoFLOXacin 500 MG TABLET PO (18:30)
--- NOTE | 2025-01-30 20:46 | PM.IMHP1 ---
Assessment and Plan Assessment and plan (1) UTI (urinary tract infection): Problem comment: Due to allergies will start Levaquin. One dose of vancomycin with history of MRSA UTI and bacteremia 2 months ago. Follow clinically. Await cultures. Status: Acute (2) Fever: Problem comment: Likely due to urinary tract infection. Status: Acute (3) Neurogenic bladder: Problem comment: Consider switch to Sanctura instead of Ditropan Status: Acute (4) Multiple sclerosis: Problem comment: Marked loss of lower extremity function. In better chair. No weight-bearing on legs. Status: Acute (5) Constipation: Status: Acute (6) Stercoral colitis: Problem comment: Monitor for complications, laxatives. If having liquid stools he may be stooling around a mass in his rectum Status: Acute (7) Malfunction of indwelling urinary catheter: Problem comment: Suprapubic catheter was placed in his proximal urethra or the balloon was infiltrated in his prostate. Likely the cause of hematuria and malfunctioning catheter Status: Acute (8) Trauma of urethra: Problem comment: Due to suprapubic catheter being placed in his urethra and balloon inflated in the prostatic urethra. Repositioning has apparently resolved hematuria Status: Acute (9) Heart failure: Problem comment: - HFpEF on 11/14/24 TTE. Will continue heart failure medications Status: Chronic (10) Dementia: Status: Acute Plan 84-year-old male with severe disability due to multiple sclerosis and now dementia with recurrent urinary infections including MRSA UTI and bacteremia 2 months ago is presenting now with fever and hematuria. Also found to have stercoral colitis on CT scan. Initiate IV vancomycin and Levaquin for UTI pending cultures and clinical course. Treat constipation. Total Time Spent Total Time Spent: Total time spent today is 80 minutes in coordination of care, reviewing outside records, discussing with patient, daughter and other providers ongoing management of urinary infection constipation and disability. Hospitalist- H&P: HPI History of Present Illness Date Seen: 01/30/25 Chief complaint: Catheter issue Narrative: Hi Myers is a 84 year old male with multiple sclerosis, MRSA urinary infection, obesity, dementia and suprapubic catheter and recurrent urinary tract infection admitted to the hospital with fever and hematuria. Yesterday he had a routine suprapubic catheter change in the half-way. He received a prophylactic dose of Bactrim at the time of catheter change. This morning they had noted that he had blood in his urine and the catheter was not working very well. They changed the suprapubic catheter again and he developed bleeding through his urethra and penis. He then developed some fever and he also had an emesis. He was hospitalized here in early November with MRSA urinary infection and bacteremia and treated for bacteremia with 2 weeks IV vancomycin. About a week later he developed a urinary infection with Proteus mirabilis. Since then he has not had any recurrent problems with infection. He was seen by his urologist on January 11. Urologist also recommended switching from oxybutynin to Sanctura 20 mg twice daily. Prophylactic treatment with Hiprex, cranberry and vitamin-C was also recommended. History is primarily obtained from his daughter as the patient has dementia and is unable to give a lot of detail. She reports he has had some problems with loose/liquid stools. Current CT scan suggest stercoral colitis of the distal rectosigmoid colon. He is possibly passing liquid stool around his rectal stool mass. Review of Systems Narrative: Patient reports no other concern. His daughter is not aware of problems except as noted above [facility] Medical History (Updated 01/30/25 @ 21:09 by Juwan Land MD) Dementia ?F03.90 - Unspecified dementia, unspecified severity, without behavioral disturbance, psychotic disturbance, mood disturbance, and anxiety (ICD-10) Neurogenic bladder (01/11/11) ?N31.9 - Neuromuscular dysfunction of bladder, unspecified (ICD-10) Multiple sclerosis (12/10/09) ?G35 - Multiple sclerosis (ICD-10) Constipation (03/31/21) ?K59.00 - Constipation, unspecified (ICD-10) Major depressive disorder, recurrent, unspecified (12/20/16) ?F33.9 - Major depressive disorder, recurrent, unspecified (ICD-10) Insomnia (01/20/21) ?G47.00 - Insomnia, unspecified (ICD-10) Edema (03/03/21) ?R60.9 - Edema, unspecified (ICD-10) Diastasis recti (05/19/21) ?M62.08 - Separation of muscle (nontraumatic), other site (ICD-10) Chronic pain syndrome (03/13/19) ?G89.4 - Chronic pain syndrome (ICD-10) Stercoral colitis ?K52.89 - Other specified noninfective gastroenteritis and colitis (ICD-10) Health care directive on file ?Z78.9 - Other specified health status (ICD-10) Bacteremia due to methicillin resistant Staphylococcus aureus ?R78.81 - Bacteremia (ICD-10) ?B95.62 - Methicillin resistant Staphylococcus aureus infection as the cause of diseases classified elsewhere (ICD-10) Heart failure ?I50.9 - Heart failure, unspecified (ICD-10) Depression ?F32.A - Depression, unspecified (ICD-10) Hypertension ?I10 - Essential (primary) hypertension (ICD-10) Cognitive impairment ?R41.89 - Other symptoms and signs involving cognitive functions and awareness (ICD-10) Suprapubic catheter dysfunction ?T83.010A - Breakdown (mechanical) of cystostomy catheter, initial encounter (ICD-10) Neurogenic bladder ?N31.9 - Neuromuscular dysfunction of bladder, unspecified (ICD-10) Multiple sclerosis ?G35 - Multiple sclerosis (ICD-10) Surgical History History of mitral valve repair ?Z98.890 - Other specified postprocedural states (ICD-10) Family History Father Diabetes Heart disease Social History (Updated 01/30/25 @ 20:58 by Juwan Land MD) Narrative: Resident of [facility]. Has 2 daughters and 2 sons. Two daughters and 1 son live in [place] and 1 son lives in [facility]. According to scott Guzman all 4 are healthcare power of regulatory attorney. He continues to request full code status. Scott Guzman is most closely involved with day-to-day cares. What is your current living situation?: I presently have a place to live Problems where you live: unsafe mekhi/stairs and no known problems Problems where you live details: n/a In the past 12 months, utilities in danger of being shut off: no In past 12 months, lack of transportation kept you from medical appts, meetings, work, or getting things needed for daily living: no In the past 12 mos, have been you worried that your food would run out before you had money to buy more?: never true In the past 12 mos, the food you bought just didn't last and you didn't have money to buy more?: never true Smoking Status: Former smoker What tobacco products do you use: pipe Do you use any of these nicotine containing products: None Second hand tobacco smoke exposure: No How often do you have a drink containing alcohol: never How often do you have six or more drinks on one occasion: Never AUDIT-C Alcohol total score: 0 Non-prescribed substance use: denies use How often does anyone, including family, friends and others, physically hurt you: never How often does anyone, including family, friends and others, insult or talk down to you: never How often does anyone, including family, friends and others, threaten you with harm: never How often does anyone, including family, friends and others, scream or curse at you: never service: No Health Related Social Needs: Inadequate housing (Z59.1) Meds Home Medications and Allergies Home Medications ?Medication ?Instructions ?Recorded ?Confirmed ?Type Lactobacillus acidophilus 1 cap PO DAILY 03/09/24 01/30/25 History (Acidophilus capsule) apixaban 2.5 mg tablet (Eliquis) 2.5 mg PO BID 03/09/24 01/30/25 History azithromycin 250 mg tablet 500 mg PO .EACH TIME PRN 03/09/24 01/30/25 History bacitracin 500 unit/gram topical 1 applic topical BID 03/09/24 01/30/25 History ointment donepezil 10 mg tablet 10 mg PO HS 03/09/24 01/30/25 History furosemide 40 mg tablet 40 mg PO BID 03/09/24 01/30/25 History memantine 5 mg tablet 5 mg PO DAILY 03/09/24 01/30/25 History oxybutynin chloride 5 mg 5 mg PO DAILY 03/09/24 01/30/25 History tablet,extended release 24 hr potassium chloride 20 mEq 20 meq PO BID 03/09/24 01/30/25 History tablet,extended release(part/cryst) tramadol 50 mg tablet 25 mg PO TID 03/09/24 01/30/25 History triamcinolone acetonide 0.1 % 1 applic topical BID 03/09/24 01/30/25 History topical cream acetaminophen 325 mg tablet 650 mg PO TID 11/14/24 01/30/25 History cranberry 500 mg capsule 500 mg PO HS 11/14/24 01/30/25 History loperamide 2 mg capsule (Imodium 2 mg PO Q6H PRN 11/14/24 01/30/25 History A-D) melatonin 3 mg tablet 9 mg PO HS 11/14/24 01/30/25 History sennosides 8.6 mg tablet (Natural 8.6 mg PO BID PRN 11/14/24 01/30/25 History Senna Laxative) ascorbic acid (vitamin C) 500 mg 500 mg PO HS 01/30/25 01/30/25 History tablet Allergies Allergy/AdvReac Type Severity Reaction Status Date / Time adhesive tape Allergy Severe Verified 01/30/25 14:24 amoxicillin (From Augmentin) Allergy Severe Verified 01/30/25 14:24 bacitracin (From Triple Allergy Severe Verified 01/30/25 14:24 Antibiotic) cephalexin (From Keflex) Allergy Severe Verified 01/30/25 14:24 clavulanic acid (From Allergy Severe Verified 01/30/25 14:24 Augmentin) latex Allergy Severe Verified 01/30/25 14:24 neomycin (From Triple Allergy Severe Verified 01/30/25 14:24 Antibiotic) polymyxin B (From Triple Allergy Severe Verified 01/30/25 14:24 Antibiotic) silver sulfadiazine AdvReac Unknown Verified 01/30/25 14:24 Exam Narrative: Exam Narrative: He is alert but not oriented to his circumstances. Limited ability to answer questions appropriately. He falls asleep when left undisturbed. Head is normal. Eyes normal. Oropharynx with small airway and very dry mucous membranes. Neck is supple without mass or adenopathy. Respirations with breath sounds are clear except for an occasional basilar crackle which improves with coughing. Cardiovascular: S1, S2 regular rate and rhythm. Abdomen: Protuberant abdomen. Bowel sounds are active with drain like sounds noted in the right abdomen. He has minimal diffuse tenderness. No focal tenderness no peritonitis no mass. External genitalia notable for trace blood at the urethral meatus. No active bleeding. Suprapubic catheter noted with suprapubic puncture site relatively clean and free of erythema. Right lower extremity has minimal motion and plantar flexion at the ankle. Unable to lift right leg or foot. Left lower extremity has plantar flexion contracture as well but not as prominent as the right. He has minimal ability to lift his left leg compared to his right. Chronic calluses on the dorsum of his toes consistent with pressure area is a. No significant erythema no drainage. Feet are warm to touch. Diminished pedal pulses. No rash Const: Vital Signs, click to edit/add: Vital Signs - 24 hr 01/30/25 14:15 01/30/25 14:17 01/30/25 14:18 Temperature 101.2 F H Pulse Rate 92 98 Pulse Rate [Pulse Oximeter] Pulse Rate [Right Pulse Oximeter] 99 Respiratory Rate 18 Blood Pressure 114/68 Blood Pressure [Le ft Arm] Blood Pressure [Ri ght Upper Arm] 114/68 Pulse Oximetry 90 90 90 Oxygen Delivery Me thod Room Air 01/30/25 16:08 01/30/25 16:09 01/30/25 16:13 Temperature 101.1 F H 101.1 F H Pulse Rate 103 H Pulse Rate [Pulse Oximeter] Pulse Rate [Right Pulse Oximeter] 92 Respiratory Rate 18 18 Blood Pressure 119/75 Blood Pressure [Le ft Arm] Blood Pressure [Ri ght Upper Arm] 119/75 Pulse Oximetry 93 94 Oxygen Delivery Me thod Room Air 01/30/25 17:00 01/30/25 17:15 01/30/25 17:30 Temperature Pulse Rate 88 88 83 Pulse Rate [Pulse Oximeter] Pulse Rate [Right Pulse Oximeter] Respiratory Rate Blood Pressure Blood Pressure [Le ft Arm] Blood Pressure [Ri ght Upper Arm] Pulse Oximetry 90 92 91 Oxygen Delivery Me thod 01/30/25 17:36 01/30/25 17:37 01/30/25 17:45 Temperature 99.6 F 99.6 F Pulse Rate 78 Pulse Rate [Pulse Oximeter] Pulse Rate [Right Pulse Oximeter] Respiratory Rate Blood Pressure Blood Pressure [Le ft Arm] Blood Pressure [Ri ght Upper Arm] Pulse Oximetry 92 Oxygen Delivery Me thod 01/30/25 18:00 01/30/25 18:15 01/30/25 18:30 Temperature Pulse Rate 76 78 81 Pulse Rate [Pulse Oximeter] Pulse Rate [Right Pulse Oximeter] Respiratory Rate Blood Pressure Blood Pressure [Le ft Arm] Blood Pressure [Ri ght Upper Arm] Pulse Oximetry 93 92 92 Oxygen Delivery Me thod 01/30/25 18:45 01/30/25 18:55 01/30/25 19:40 Temperature 98.0 F Pulse Rate 78 Pulse Rate [Pulse Oximeter] 79 Pulse Rate [Right Pulse Oximeter] 83 Respiratory Rate 22 Blood Pressure Blood Pressure [Le ft Arm] 101/55 L Blood Pressure [Ri ght Upper Arm] 108/61 Pulse Oximetry 94 95 Oxygen Delivery Me thod Room Air 01/30/25 19:40 Temperature 98.0 F Pulse Rate Pulse Rate [Pulse Oximeter] 79 Pulse Rate [Right Pulse Oximeter] Respiratory Rate 23 Blood Pressure Blood Pressure [Le ft Arm] 101/55 L Blood Pressure [Ri ght Upper Arm] Pulse Oximetry 95 Oxygen Delivery Me thod Room Air Documenting provider has reviewed patient's vital signs: yes Hospitalist - H&P: Result Labs Labs: Short CBC 01/30/25 Range/Units 15:18 WBC 12.02 H (4.50-11.00) K/uL Hgb 15.1 (13.5-17.5) gm/dL Hct 46.9 (37.0-53.0) % Plt Count 132 L (140-440) K/uL BMP 01/30/25 15:18 Sodium 139 Potassium 3.9 Chloride 105 Carbon Dioxide 24 BUN 15 Creatinine 0.9 Glucose 135 H Calcium 8.8 Liver Function 01/30/25 Range/Units 15:18 Total Bilirubin 1.2 (0.1-1.5) mg/dL AST 54 H (12-35) U/L ALT 33 (4-50) U/L Alkaline Phosphatase 127 (40-150) U/L Albumin 4.2 (3.3-5.0) g/dL Urine 01/30/25 01/30/25 Range/Units 14:30 18:10 Urine Color Yellow Cancelled (Yellow) Urine Appearance Clear Cancelled (Clear) Urine pH 7.0 Cancelled (5.0-8.5) Ur Specific [place] 1.010 Cancelled (1.000-1.030) Urine Protein 1+ A Cancelled (Negative) Urine Glucose (UA) Negative Cancelled (Negative) Imaging CT Chest/Ab/Pelvis: Radiologist's impression: INDICATION: Fever. TECHNIQUE: CT chest, abdomen, and pelvis acquired with 90 mL Isovue 370 IV contrast. COMPARISON: CT chest/abdomen/pelvis dated 11/13/2024. FINDINGS: CHEST: Lungs and pleura: Limited evaluation secondary to motion artifact. Scattered subsegmental atelectasis in the bilateral lung bases. No large focal consolidation. Heart and vessels: No cardiomegaly, no pericardial effusion. Atherosclerotic coronary artery calcifications. Prior bypass. No large central pulmonary embolus. Thyroid and lower neck: Stable 1.7 cm right thyroid nodule. Mediastinum/maricarmen: No lymphadenopathy. Chest wall: No axillary lymphadenopathy. ABDOMEN/PELVIS: Liver: Too small to characterize hypodense hepatic lesion in segment 6/7, stable, likely benign in the absence of a known malignancy. Gallbladder and bile ducts: Post cholecystectomy. Extensive pneumobilia, which may be secondary to prior sphincterotomy. Pancreas: Unremarkable. Spleen: Unremarkable. Adrenal glands: Unremarkable. Kidneys: Kidneys enhance relatively symmetrically. Stable 0.6 cm calculus in the lower pole of the left kidney. Persistent chronic bilateral hydronephrosis and hydroureter, not significantly changed. Retroperitoneum: No lymphadenopathy. Bowel and mesentery: Stercoral colitis of the distal rectosigmoid colon. No evidence of small-bowel obstruction. No significant ascites. No pneumoperitoneum. Bladder: Suprapubic catheter is present. However, there appears to have been interval migration of the catheter, the balloon is inflated within the urethra. Trabeculated bladder wall with small bladder diverticula. Mild pericystic inflammation. Reproductive organs: Mild prostatomegaly. Pelvic lymph nodes: No lymphadenopathy. Vessels: Scattered atherosclerotic calcifications. Abdominal wall: Small fat filled ventral abdominal wall hernias. There is a partially visualized right inguinal hernia containing multiple loops of small bowel, although no apparent bowel obstruction is seen, the hernia is incompletely evaluated. Bones: Extensive multilevel degenerative changes of the spine. Bones are severely osteopenic. Numerous thoracolumbar vertebral body compression deformities, not significantly changed. IMPRESSION: 1. Interval migration of the suprapubic catheter, the tip and balloon appear to be within the urethra. Repositioning is recommended. 2. Mild pericystic inflammation, compatible with cystitis. 3. Stercoral colitis of the distal rectosigmoid colon. 4. Numerous additional incidental findings as above.
[2025-01-30] MEDS: DOCUSATE SODIUM/BENZOCAINE 5 ML ENEMA PR (23:08)
[2025-01-30] MEDS: TRAMADOL HCL 50 MG TABLET 25 MG PO (23:12)
[2025-01-30] MEDS: ACETAMINOPHEN 325 MG TABLET 650 MG PO (23:13)
[2025-01-30] MEDS: DONEPEZIL 10 MG TABLET PO (23:13)
[2025-01-30] MEDS: MELATONIN 3 MG TABLET 9 MG PO (23:14)
[2025-01-30] MEDS: 0.9 % SODIUM CHLORIDE 250 ml IV (23:15)
[2025-01-30] MEDS: SENNOSIDES 1 TAB TABLET PO (23:18)
[2025-01-30] MEDS: SODIUM CHLORIDE 0.9 % (FLUSH) 10 ML SYRINGE 5 ML IVF (23:19)
[2025-01-31] VITALS (7 sets, daily range): BP systolic 110–122; BP diastolic 53–87; PULSE 62–80; RESP 17–23; TEMP 36.9–37.3; O2SAT 94–96; BMI 30.6
[2025-01-31] MEDS: polyethylene glycoL 3350 17 GM PACK PO ×2 (00:41→09:19)
[2025-01-31 07:07] LABS: Basophils Absolute Auto 0.02 K/uL (0.00-0.30); Basophils Percent Auto 0.4 % (0.0-3.0); Eosinophils Absolute Auto 0.03 K/uL (0.00-0.50); Eosinophils Percent Auto 0.5 % (0.0-7.0); Hematocrit 40.7 % (37.0-53.0); Lymphocytes Percent Auto 7.9 % (20-44); Mean Corpuscular HGB Conc 32 gm/dL (32-36); Mean Corpuscular Hemoglobin 29 pg (26-34); Mean Corpuscular Volume 90 fL (80-100); Monocytes Percent Auto 11.7 % (0.0-11.0); Neutrophils Percent Auto 79.5 % (42.0-72.0); Platelet Count* 107 K/uL (140-440); RDW Coefficient of Variation % 15.7 % (11.5-15.5); Red Blood Count 4.51 m/uL (4.30-5.90); White Blood Count* 5.47 K/uL (4.50-11.00)
[2025-01-31 07:13] LABS: Chloride* 108 mmol/L (96-114); Potassium* 3.3 mmol/L (3.6-5.1); Sodium* 140 mmol/L (135-149)
[2025-01-31 07:16] LABS: Slide Review Reflex No
[2025-01-31 07:17] LABS: Anion Gap 8 mEq/L (7-15); Blood Urea Nitrogen* 15 mg/dL (7-30); Calcium* 8.6 mg/dL (8.4-10.6); Carbon Dioxide* 24 mmol/L (20-32); Est. Creatinine Clearance* 51.41; Estimated Glomerular Filt Rate 74 ml/min; Glucose* 100 mg/dL (60-115)
--- NOTE | 2025-01-31 07:47 | PC.NURSE ---
Patient pleasant alert and cooperative with cares. Denied pain during night. Trace amount of active bleeding from penis. Suprapubic catheter patent and draining dark amy colored urine.
[2025-01-31 08:52] LABS: C Reactive Protein* 20.1 mg/dL (0.5-1.0)
[2025-01-31] MEDS: FUROSEMIDE 40 MG TABLET PO ×2 (09:17→15:01)
[2025-01-31] MEDS: LACTOBACILLUS ACIDOPHILUS 1 TABLET 1 TAB PO (09:17)
[2025-01-31] MEDS: ACETAMINOPHEN 325 MG TABLET 650 MG PO ×3 (09:17→22:09)
[2025-01-31] MEDS: TRAMADOL HCL 50 MG TABLET 25 MG PO ×3 (09:17→22:07)
[2025-01-31] MEDS: MEMANTINE HCL 10 MG TABLET 5 MG PO (09:18)
[2025-01-31] MEDS: POTASSIUM CHLORIDE 10 MEQ CAPSULE ER 20 MEQ PO ×2 (09:18→22:08)
[2025-01-31] MEDS: SENNOSIDES 1 TAB TABLET PO ×2 (09:18→22:09)
[2025-01-31] MEDS: SERTRALINE 50 MG TABLET PO (09:18)
[2025-01-31] MEDS: APIXABAN 5 MG TABLET 2.5 MG PO ×2 (09:18→22:10)
[2025-01-31] MEDS: SODIUM CHLORIDE 0.9 % (FLUSH) 10 ML SYRINGE 5 ML IVF ×2 (09:19→22:15)
--- NOTE | 2025-01-31 10:59 | REH.OT ---
Per notes, pt is a resident at [facility] where he receives assist with all ADLs/IADLs but was indep with self feeding; pt using juan lift and w/c at baseline for mobility. OT observes pt self feeding and brings in adaptive feeding utensils of built up fork, built up spoon, and suction plate w/ built up side to increase indep with self feeding. It was noted pt required increased cueing to intiate task of self feeding. Recommend pt have Ax1 for self feeding for cueing to initate task and attend to task; may require assist with cutting up foods and placing on fork. No further OT warranted during IP stay; recommend formal OT evaluation at SNF for self feeding if pt continues to be below baseline.
--- NOTE | 2025-01-31 13:30 | PC.SOCIAL ---
Social work: Called [facility] and confirmed pt is on a bed hold at their facility. Hospital to update the facility when discharge date is determined.
--- NOTE | 2025-01-31 15:17 | PM.IMPN1 ---
Assessment and Plan Assessment and plan (1) Fever: Problem comment: -Gram-negative perfecto bacteremia and urinary tract infection with Gram-negative rods, id and sensitivities pending as of 01/31/2025 -continue with empiric levofloxacin and vancomycin for now Status: Acute (2) UTI (urinary tract infection): Problem comment: Due to allergies will start Levaquin. One dose of vancomycin with history of MRSA UTI and bacteremia 2 months ago. Follow clinically. Await cultures. Status: Acute (3) Neurogenic bladder: Problem comment: Consider switch to Sanctura instead of Ditropan Status: Acute (4) Multiple sclerosis: Problem comment: Marked loss of lower extremity function. In better chair. No weight-bearing on legs. Status: Acute (5) Malfunction of indwelling urinary catheter: Problem comment: Suprapubic catheter was placed in his proximal urethra or the balloon was infiltrated in his prostate. Likely the cause of hematuria and malfunctioning catheter Status: Acute (6) Trauma of urethra: Problem comment: Due to suprapubic catheter being placed in his urethra and balloon inflated in the prostatic urethra. Repositioning has apparently resolved hematuria Status: Acute (7) Constipation: Status: Acute (8) Stercoral colitis: Problem comment: Monitor for complications, laxatives. If having liquid stools he may be stooling around a mass in his rectum Status: Acute (9) Dementia: Status: Acute (10) Heart failure: Problem comment: - HFpEF on 11/14/24 TTE. Will continue heart failure medications Status: Chronic Plan 1. Reviewed impression with patient in person and daughter, Megan, via telephone 2. Answered their questions 3. Agree with above stated plan recommendations Total Time Spent Total Time Spent: 50 minutes Subjective Date Seen: 01/31/25 Interval history: Admission history of present illness: ?84 year old male with multiple sclerosis, MRSA urinary infection, obesity, dementia and suprapubic catheter and recurrent urinary tract infection admitted to the hospital with fever and hematuria. Yesterday he had a routine suprapubic catheter change in the skilled nursing. He received a prophylactic dose of Bactrim at the time of catheter change. This morning they had noted that he had blood in his urine and the catheter was not working very well. They changed the suprapubic catheter again and he developed bleeding through his urethra and penis. He then developed some fever and he also had an emesis. ?He was hospitalized here in early November with MRSA urinary infection and bacteremia and treated for bacteremia with 2 weeks IV vancomycin. About a week later he developed a urinary infection with Proteus mirabilis. Since then he has not had any recurrent problems with infection. He was seen by his urologist on January 11. Urologist also recommended switching from oxybutynin to Sanctura 20 mg twice daily. Prophylactic treatment with Hiprex, cranberry and vitamin-C was also recommended. ?History is primarily obtained from his daughter as the patient has dementia and is unable to give a lot of detail. She reports he has had some problems with loose/liquid stools. Current CT scan suggest stercoral colitis of the distal rectosigmoid colon. He is possibly passing liquid stool around his rectal stool mass.? Hospital day 2 (01/31/2025). While he is kind and gracious, has poor recollection. Indicates he is feeling well at this time. Exam Narrative: Exam Narrative: I examine him in his hospital room bed. No acute distress. Somewhat hard of hearing with vision intact. Lungs clear to auscultation. Barrel-shaped chest. Heart tones with regular rhythm. Abdomen with active bowel sounds, soft. No focal motor neurologic deficits. Generalized weakness. Urine culture growing out Gram-negative perfecto and blood culture growing out a Gram-negative perfecto. On empiric levofloxacin and vancomycin. Const: Vital Signs, click to edit/add: Vital Signs - 24 hr 01/30/25 16:08 01/30/25 16:09 01/30/25 16:13 Temperature 101.1 F H 101.1 F H Pulse Rate 103 H Pulse Rate [Pulse Oximeter] Pulse Rate [Right Pulse Oximeter] 92 Respiratory Rate 18 18 Blood Pressure 119/75 Blood Pressure [Le ft Arm] Blood Pressure [Ri ght Upper Arm] 119/75 Pulse Oximetry 93 94 Oxygen Delivery Me thod Room Air 01/30/25 17:00 01/30/25 17:15 01/30/25 17:30 Temperature Pulse Rate 88 88 83 Pulse Rate [Pulse Oximeter] Pulse Rate [Right Pulse Oximeter] Respiratory Rate Blood Pressure Blood Pressure [Le ft Arm] Blood Pressure [Ri ght Upper Arm] Pulse Oximetry 90 92 91 Oxygen Delivery Me thod 01/30/25 17:36 01/30/25 17:37 01/30/25 17:45 Temperature 99.6 F 99.6 F Pulse Rate 78 Pulse Rate [Pulse Oximeter] Pulse Rate [Right Pulse Oximeter] Respiratory Rate Blood Pressure Blood Pressure [Le ft Arm] Blood Pressure [Ri ght Upper Arm] Pulse Oximetry 92 Oxygen Delivery Me thod 01/30/25 18:00 01/30/25 18:15 01/30/25 18:30 Temperature Pulse Rate 76 78 81 Pulse Rate [Pulse Oximeter] Pulse Rate [Right Pulse Oximeter] Respiratory Rate Blood Pressure Blood Pressure [Le ft Arm] Blood Pressure [Ri ght Upper Arm] Pulse Oximetry 93 92 92 Oxygen Delivery Me thod 01/30/25 18:45 01/30/25 18:55 01/30/25 19:40 Temperature 98.0 F Pulse Rate 78 Pulse Rate [Pulse Oximeter] 79 Pulse Rate [Right Pulse Oximeter] 83 Respiratory Rate 22 Blood Pressure Blood Pressure [Le ft Arm] 101/55 L Blood Pressure [Ri ght Upper Arm] 108/61 Pulse Oximetry 94 95 Oxygen Delivery Ca thod Room Air 01/30/25 19:40 01/30/25 19:40 01/31/25 02:06 Temperature 98.0 F 98.7 F Pulse Rate Pulse Rate [Pulse Oximeter] 79 66 Pulse Rate [Right Pulse Oximeter] Respiratory Rate 23 19 Blood Pressure Blood Pressure [Le ft Arm] 101/55 L 119/65 Blood Pressure [Ri ght Upper Arm] Pulse Oximetry 95 94 [facility] Room Air 01/31/25 04:45 01/31/25 07:00 01/31/25 11:00 Temperature 98.8 F 98.9 F Pulse Rate Pulse Rate [Pulse Oximeter] 73 75 64 Pulse Rate [Right Pulse Oximeter] Respiratory Rate 17 22 22 Blood Pressure Blood Pressure [Le ft Arm] 116/71 119/70 115/67 Blood Pressure [Ri ght Upper Arm] Pulse Oximetry 94 94 94 Oxygen Delivery Me thod Room Air Room Air Room Air Labs Labs: Laboratory Results - last 24 hr 01/30/25 01/30/25 01/30/25 14:30 15:18 18:10 WBC 12.02 H RBC 5.31 Hgb 15.1 Hct 46.9 MCV 88 MCH 28 MCHC 32 RDW Coeff of Pily 15.5 Plt Count 132 L Neut % (Auto) 89.1 H Lymph % (Auto) 2.6 L [place] % (Auto) 7.0 Eos % (Auto) 0.0 Baso % (Auto) 0.2 Neut # (Auto) 10.70 H Lymph # (Auto) 0.30 L [place] # (Auto) 0.80 Eos # (Auto) 0.00 Baso # (Auto) 0.00 Abs Immat Gran (auto) 0.10 Imm/Tot Granulo (auto) 1.1 Sodium 139 Potassium 3.9 Chloride 105 Carbon Dioxide 24 Anion Gap 10 BUN 15 Creatinine 0.9 Estimated Creat Clear 49.62 Estimated GFR 84 Glucose 135 H Lactate 1.5 Calcium 8.8 Total Bilirubin 1.2 AST 54 H ALT 33 Alkaline Phosphatase 127 C-Reactive Protein Total Protein 7.5 Albumin 4.2 Urine Color Yellow Cancelled Urine Appearance Clear Cancelled Urine pH 7.0 Cancelled Ur Specific [place] 1.010 Cancelled Urine Protein 1+ A Cancelled Urine Glucose (UA) Negative Cancelled Urine Ketones Negative Cancelled Urine Blood 3+ A Cancelled Urine Nitrite Positive A Cancelled Urine Bilirubin Negative Cancelled Urine Urobilinogen 0.2 Cancelled Ur Leukocyte Esterase 1+ A Cancelled Urine RBC 10-25 A Cancelled Urine WBC 2-5 Cancelled Urine WBC Clumps Cancelled Ur Squamous Epith Cells None Cancelled Alan Biurate Crystals Cancelled Calcium Carbonate Cryst Cancelled Calcium Phosphate Cryst Cancelled Calcium Oxalate Crystal Cancelled Cystine Crystals Cancelled Uric Acid Crystals Cancelled Triple Phos Crystals Cancelled Sulfur Crystals Cancelled Cholesterol Crystals Cancelled Tyrosine Crystals Cancelled Hippuric Acid Crystals Cancelled Amorphous Sediment Cancelled Other Sediment Cancelled Urine Bacteria Moderate A Cancelled Fatty Casts Cancelled Hyaline Casts Cancelled Fine Granular Casts Cancelled Coarse Granular Casts Cancelled Waxy Casts Cancelled RBC Casts Cancelled WBC Casts Cancelled Other Casts Cancelled Urine Starch Cancelled Urine Mucus Cancelled Urine Trichomonas Cancelled Urine Yeast Cancelled SARS-CoV-2 (PCR) Negative SARS-CoV-2 Influenza Type A (PCR) Negative PCR FLU A Influenza Type B (PCR) Negative PCR FLU B RSV (PCR) Negative PCR RSV 01/31/25 06:32 WBC 5.47 RBC 4.51 Hgb 13.0 L Hct 40.7 MCV 90 MCH 29 MCHC 32 RDW Coeff of Pily 15.7 H Plt Count 107 L Neut % (Auto) 79.5 H Lymph % (Auto) 7.9 L [place] % (Auto) 11.7 H Eos % (Auto) 0.5 Baso % (Auto) 0.4 Neut # (Auto) 4.30 Lymph # (Auto) 0.40 L [place] # (Auto) 0.60 Eos # (Auto) 0.03 Baso # (Auto) 0.02 Abs Immat Gran (auto) 0.00 Imm/Tot Granulo (auto) 0.0 Sodium 140 Potassium 3.3 L Chloride 108 Carbon Dioxide 24 Anion Gap 8 BUN 15 Creatinine 1.0 Estimated Creat Clear 51.41 Estimated GFR 74 Glucose 100 Lactate Calcium 8.6 Total Bilirubin AST ALT Alkaline Phosphatase C-Reactive Protein 20.1 H Total Protein Albumin Urine Color Urine Appearance Urine pH Ur Specific [place] Urine Protein Urine Glucose (UA) Urine Ketones Urine Blood Urine Nitrite Urine Bilirubin Urine Urobilinogen Ur Leukocyte Esterase Urine RBC Urine WBC Urine WBC Clumps Ur Squamous Epith Cells [place] Biurate Crystals Calcium Carbonate Cryst Calcium Phosphate Cryst Calcium Oxalate Crystal Cystine Crystals Uric Acid Crystals Triple Phos Crystals Sulfur Crystals Cholesterol Crystals Tyrosine Crystals Hippuric Acid Crystals Amorphous Sediment Other Sediment Urine Bacteria Fatty Casts Hyaline Casts Fine Granular Casts Coarse Granular Casts Waxy Casts RBC Casts WBC Casts Other Casts Urine Starch Urine Mucus Urine Trichomonas Urine Yeast SARS-CoV-2 (PCR) Influenza Type A (PCR) Influenza Type B (PCR) RSV (PCR)
--- NOTE | 2025-01-31 15:38 | REH.PT ---
PT eval order noted. Patient is at baseline with [facility] transfer. DC PT
[2025-01-31] MEDS: levoFLOXacin 500 MG TABLET PO (18:37)
--- NOTE | 2025-01-31 19:24 | PC.NURSE ---
End of shift [id number] ? Pt alert, consistently oriented to self and intermittently oriented to place. Not up from bed, repositioned Q2h. Suprapubic catheter noted to be patent and draining, no BM during shift. Pt able to eat and drink with standby assistance and queuing and prompting. Tolerating RA and regular diet/fluids. Verbalizes pain when repositioned, but when asked to clarify source and strength of pain the pt denies experiencing pain. VSS and afebrile during shift. Observed to sleep during shift, appears to be resting comfortably in bed with call light within reach.
[2025-01-31] MEDS: DONEPEZIL 10 MG TABLET PO (22:10)
[2025-01-31] MEDS: MELATONIN 3 MG TABLET 9 MG PO (22:10)
[2025-02-01] VITALS (8 sets, daily range): BP systolic 124–130; BP diastolic 53–73; PULSE 68–77; RESP 16–20; TEMP 36.6–37.5; O2SAT 91–95
[2025-02-01 06:57] LABS: Basophils Percent Auto 0.6 % (0.0-3.0); Eosinophils Percent Auto 2.5 % (0.0-7.0); Hematocrit 38.5 % (37.0-53.0); Hemoglobin* 12.4 gm/dL (13.5-17.5); Lymphocytes Percent Auto 19.9 % (20-44); Mean Corpuscular HGB Conc 32 gm/dL (32-36); Mean Corpuscular Hemoglobin 29 pg (26-34); Mean Corpuscular Volume 90 fL (80-100); Monocytes Percent Auto 18.2 % (0.0-11.0); Neutrophils Percent Auto 58.8 % (42.0-72.0); Platelet Count* 108 K/uL (140-440); RDW Coefficient of Variation % 15.6 % (11.5-15.5); Red Blood Count 4.28 m/uL (4.30-5.90); White Blood Count* 3.62 K/uL (4.50-11.00)
[2025-02-01 07:15] LABS: Chloride* 109 mmol/L (96-114)
--- NOTE | 2025-02-01 07:15 | PC.NURSE ---
Shift note ([id number]: Patient pleasant, alert and cooperative. Temp 98.4-99.5. Denies pain. Moderate sized very soft BM this morning. Catheter patent. Urine is amy colored and cloudy.?
[2025-02-01 07:16] LABS: Potassium* 3.7 mmol/L (3.6-5.1); Sodium* 140 mmol/L (135-149)
[2025-02-01 07:18] LABS: Blood Urea Nitrogen* 13 mg/dL (7-30); Creatinine* 0.8 mg/dL (0.5-1.5); Est. Creatinine Clearance* 51.41; Estimated Glomerular Filt Rate 87 ml/min
[2025-02-01 07:19] LABS: Anion Gap 7 mEq/L (7-15); Calcium* 8.5 mg/dL (8.4-10.6); Carbon Dioxide* 24 mmol/L (20-32); Glucose* 95 mg/dL (60-115)
[2025-02-01 07:31] LABS: Slide Review Reflex No
[2025-02-01 07:37] LABS: C Reactive Protein* 13.8 mg/dL (0.5-1.0)
[2025-02-01] MEDS: LACTOBACILLUS ACIDOPHILUS 1 TABLET 1 TAB PO (08:46)
[2025-02-01] MEDS: MEMANTINE HCL 10 MG TABLET 5 MG PO (08:46)
[2025-02-01] MEDS: FUROSEMIDE 40 MG TABLET PO ×2 (08:46→14:29)
[2025-02-01] MEDS: APIXABAN 5 MG TABLET 2.5 MG PO ×2 (08:46→20:32)
[2025-02-01] MEDS: POTASSIUM CHLORIDE 10 MEQ CAPSULE ER 20 MEQ PO ×2 (08:47→20:27)
[2025-02-01] MEDS: ACETAMINOPHEN 325 MG TABLET 650 MG PO ×3 (08:47→20:31)
[2025-02-01] MEDS: TRAMADOL HCL 50 MG TABLET 25 MG PO ×3 (08:48→20:27)
[2025-02-01] MEDS: SERTRALINE 50 MG TABLET PO (08:49)
[2025-02-01] MEDS: SODIUM CHLORIDE 0.9 % (FLUSH) 10 ML SYRINGE 5 ML IVF ×2 (08:49→20:34)
[2025-02-01] MEDS: SENNOSIDES 1 TAB TABLET PO ×2 (08:49→20:33)
--- NOTE | 2025-02-01 14:53 | PC.NURSE ---
End of shift: VS WNL. Denies pain. Afebrile. Pt remains on contact precautions. Catheter intact and patent. Ambulates with juan lift. Tolerating regular diet. IV SL in left wrist.
--- NOTE | 2025-02-01 16:20 | PM.IMPN1 ---
Assessment and Plan Assessment and plan (1) Fever: Problem comment: -Gram-negative perfecto bacteremia and urinary tract infection with Gram-negative rods, id and sensitivities pending as of 01/31/2025 -continue with empiric levofloxacin. Stopped empiric vancomycin IV. Status: Acute (2) UTI (urinary tract infection): Problem comment: - 01/30/2025: Due to allergies will start Levaquin. One dose of vancomycin with history of MRSA UTI and bacteremia 2 months ago. Follow clinically. Await cultures. - 02/01/2025: Stop vancomycin. Continue with levofloxacin. Await blood culture sensitivities on the Proteus mirabilis. Status: Acute (3) Neurogenic bladder: Problem comment: Consider switch to Sanctura instead of Ditropan Status: Acute (4) Multiple sclerosis: Problem comment: Marked loss of lower extremity function. In better chair. No weight-bearing on legs. Status: Acute (5) Malfunction of indwelling urinary catheter: Problem comment: -01/30/2025: Suprapubic catheter was placed in his proximal urethra or the balloon was infiltrated in his prostate. Likely the cause of hematuria and malfunctioning catheter. -02/01/2025: No more bleeding notice through the meatus of the glans penis Status: Acute (6) Trauma of urethra: Problem comment: Due to suprapubic catheter being placed in his urethra and balloon inflated in the prostatic urethra. Repositioning has apparently resolved hematuria Status: Acute (7) Constipation: Status: Acute (8) Stercoral colitis: Problem comment: Monitor for complications, laxatives. If having liquid stools he may be stooling around a mass in his rectum Status: Acute (9) Dementia: Status: Acute (10) Heart failure: Problem comment: - HFpEF on 11/14/24 TTE. Will continue heart failure medications Status: Chronic Plan 1. Reviewed impression with patient. Called and reviewed impression with his daughter, Megan. 2. Answered their questions 3. They are agreeable to above stated plans and recommendations 4. Anticipate patient might possibly be ready to return back to [facility] as early as tomorrow if we obtain all the data in regard to the microbiology that we are still awaiting at this time and he is doing well Total Time Spent Total Time Spent: 45 minutes Subjective Date Seen: 02/01/25 Interval history: Admission history of present illness: ?84 year old male with multiple sclerosis, MRSA urinary infection, obesity, dementia and suprapubic catheter and recurrent urinary tract infection admitted to the hospital with fever and hematuria. Yesterday he had a routine suprapubic catheter change in the assisted. He received a prophylactic dose of Bactrim at the time of catheter change. This morning they had noted that he had blood in his urine and the catheter was not working very well. They changed the suprapubic catheter again and he developed bleeding through his urethra and penis. He then developed some fever and he also had an emesis. ?He was hospitalized here in early November with MRSA urinary infection and bacteremia and treated for bacteremia with 2 weeks IV vancomycin. About a week later he developed a urinary infection with Proteus mirabilis. Since then he has not had any recurrent problems with infection. He was seen by his urologist on January 11. Urologist also recommended switching from oxybutynin to Sanctura 20 mg twice daily. Prophylactic treatment with Hiprex, cranberry and vitamin-C was also recommended. ?History is primarily obtained from his daughter as the patient has dementia and is unable to give a lot of detail. She reports he has had some problems with loose/liquid stools. Current CT scan suggest stercoral colitis of the distal rectosigmoid colon. He is possibly passing liquid stool around his rectal stool mass.? Hospital day 2 (01/31/2025). While he is kind and gracious, has poor recollection. Indicates he is feeling well at this time. Hospital day 3 (02/01/2025). Presently on levofloxacin. Continues to feel a little better today than yesterday. More interactive and less sleepy today. Denies concerns are problems. Eating more today than yesterday. Exam Narrative: Exam Narrative: I examine him in his hospital room. Appears comfortable no acute distress. Alert and oriented to self, place, not so much to time, in part to situation. Lungs are clear. Heart tones with regular rhythm. Abdomen is obese, with active bowel sounds, soft, nontender. Suprapubic catheter in place. Chronic upper and lower extremity weakness without focal motor neurologic deficits Urine culture grows out Proteus mirabilis, [id number] colony-forming units per mL, with following sensitivity pattern: Sensitive to ampicillin, cefazolin, cefepime, ceftazidime, ceftriaxone, ciprofloxacin, ertapenem, gentamicin, levofloxacin, meropenem, trimethoprim sulfamethoxazole, piperacillin with tazobactam. Intermediate sensitivity to cefazolin. Resistant to nitrofurantoin. Blood culture also grew out Proteus mirabilis. Sensitivity pattern for this is still pending. Const: Vital Signs, click to edit/add: Vital Signs - 24 hr 01/31/25 19:00 01/31/25 22:18 02/01/25 03:00 Temperature 99.2 F 98.4 F 99.5 F Pulse Rate [Pulse Oximeter] 80 71 69 Respiratory Rate 20 23 20 Blood Pressure [Le ft Arm] 114/62 110/53 L 124/72 Pulse Oximetry 96 95 93 Oxygen Delivery Me thod Room Air Room Air Room Air 02/01/25 07:00 02/01/25 07:00 02/01/25 11:00 Temperature 97.8 F 98 F Pulse Rate [Pulse Oximeter] 68 68 72 Respiratory Rate 20 20 20 Blood Pressure [Le ft Arm] 128/58 L 126/53 L Pulse Oximetry 95 92 Oxygen Delivery Me thod Room Air Room Air Labs Labs: Laboratory Results - last 24 hr 02/01/25 06:08 WBC 3.62 L RBC 4.28 L Hgb 12.4 L Hct 38.5 MCV 90 MCH 29 MCHC 32 RDW Coeff of Pily 15.6 H Plt Count 108 L Neut % (Auto) 58.8 Lymph % (Auto) 19.9 L [place] % (Auto) 18.2 H Eos % (Auto) 2.5 Baso % (Auto) 0.6 Neut # (Auto) 2.10 Lymph # (Auto) 0.70 L [place] # (Auto) 0.70 Eos # (Auto) 0.10 Baso # (Auto) 0.00 Abs Immat Gran (auto) 0.00 Imm/Tot Granulo (auto) 0.0 Sodium 140 Potassium 3.7 Chloride 109 Carbon Dioxide 24 Anion Gap 7 BUN 13 Creatinine 0.8 Estimated Creat Clear 51.41 Estimated GFR 87 Glucose 95 Calcium 8.5 C-Reactive Protein 13.8 H
[2025-02-01] MEDS: levoFLOXacin 500 MG TABLET PO (18:25)
[2025-02-01] MEDS: DONEPEZIL 10 MG TABLET PO (20:31)
[2025-02-01] MEDS: MELATONIN 3 MG TABLET 9 MG PO (20:33)
[2025-02-02 01:56] VITALS: BP 144/77; PULSE 74; RESP 16; TEMP 36.9; O2SAT 94
--- NOTE | 2025-02-02 04:57 | PC.NURSE ---
Pt rested well this night. Pleasant and cooperative. VS unremarkable. Reporting zero pain. Urine Clear yellow.
[2025-02-02 07:00] VITALS: BP 138/67; PULSE 65; RESP 18; TEMP 36.8; O2SAT 95
[2025-02-02] MEDS: TRAMADOL HCL 50 MG TABLET 25 MG PO (09:03)
[2025-02-02] MEDS: FUROSEMIDE 40 MG TABLET PO (09:04)
[2025-02-02] MEDS: SENNOSIDES 1 TAB TABLET PO (09:04)
[2025-02-02] MEDS: LACTOBACILLUS ACIDOPHILUS 1 TABLET 1 TAB PO (09:04)
[2025-02-02] MEDS: SERTRALINE 50 MG TABLET PO (09:04)
[2025-02-02] MEDS: MEMANTINE HCL 10 MG TABLET 5 MG PO (09:04)
[2025-02-02] MEDS: APIXABAN 5 MG TABLET 2.5 MG PO (09:04)
[2025-02-02] MEDS: POTASSIUM CHLORIDE 10 MEQ CAPSULE ER 20 MEQ PO (09:04)
[2025-02-02] MEDS: ACETAMINOPHEN 325 MG TABLET 650 MG PO (09:05)
[2025-02-02] MEDS: polyethylene glycoL 3350 17 GM PACK PO (09:05)
[2025-02-02] MEDS: SODIUM CHLORIDE 0.9 % (FLUSH) 10 ML SYRINGE 5 ML IVF (09:05)
--- NOTE | 2025-02-02 10:41 | P.DS_ITS ---
DS: Providers Provider Date Seen: 02/02/25 Date of admission: 01/30/25 19:09 Primary care physician: Gabe White MD Admitting Clinician: Juwan Land MD Consults: 01/30/25 18:42 Consult to Occupational Therapy [CONS] Routine Comment: Reason(s) for OT Consult:: Evaluate and Treat Any Restrictions?:: No Restrictions Attending Physician on discharge: Deyanira Johansen MD DS: Diagnosis Discharge Diagnosis (1) Gram-negative bacteremia: Status: Acute Problem details: -Gram-negative perfecto bacteremia and urinary tract infection with Proteus mirabilis. -patient needs to complete his levofloxacin antibiotic course to treat his Gram- negative bacteremia (Proteus mirabilis). Patient has been hemodynamically stable, no fever for more than 48 hours. -another blood culture that was taken on the 01 of February is still pending, follow-up to confirm that no new pathogens showing up other than Proteus mirabilis. There is little data to support routine follow-up blood cultures in patients with gram-negative bacilli bloodstream infection, so no need for more blood cultures. -S/P empiric vancomycin IV. Blood Culture* Final ML Organism 1 Proteus mirabilis Growth detected in Pediatric bottle Critical Results Called To & Readback By: JOCELYN Reported By: LIOR 01/31/25 1348 P mirabili LEIGH RX --------- --- Ampicillin <=2 S Ampicillin/Sulbactam <=2 S Cefazolin 4 I Cefepime <=0.12 S Ceftazidime <=0.5 S Ceftriaxone <=0.25 S Ciprofloxacin 0.25 S Ertapenem <=0.12 S Gentamicin <=1 S Levofloxacin 0.25 S * Meropenem 0.5 S Trimethoprim/Sulfamethoxazole <=20 S Piperacillin/Tazobactam <=4 S (2) UTI (urinary tract infection): Status: Acute Problem details: - 01/30/2025: Due to allergies will start Levaquin. One dose of vancomycin with history of MRSA UTI and bacteremia 2 months ago. Follow clinically. Await cultures. - 02/01/2025: Stop vancomycin. Continue with levofloxacin. Await blood culture sensitivities on the Proteus mirabilis. - 02/02/25: As above (3) Neurogenic bladder: Status: Acute Problem details: Consider switch to Sanctura instead of Ditropan (4) Multiple sclerosis: Status: Acute Problem details: Marked loss of lower extremity function. In better chair. No weight-bearing on legs. (5) Malfunction of indwelling urinary catheter: Status: Resolved Problem details: -01/30/2025: Suprapubic catheter was placed in his proximal urethra or the balloon was infiltrated in his prostate. Likely the cause of hematuria and malfunctioning catheter. -02/01/2025: No more bleeding notice through the meatus of the glans penis (6) Trauma of urethra: Status: Acute Problem details: Due to suprapubic catheter being placed in his urethra and balloon inflated in the prostatic urethra. Repositioning has apparently resolved hematuria (7) Constipation: Status: Acute (8) Stercoral colitis: Status: Acute Problem details: Monitor for complications, laxatives. If having liquid stools he may be stooling around a mass in his rectum (9) Dementia: Status: Acute (10) Heart failure: Status: Chronic Problem details: - HFpEF on 11/14/24 TTE. Will continue heart failure medications DS: Summary Hospital Course Hospital Course: Hi Myers is a 84 year old male with multiple sclerosis, MRSA urinary infection, obesity, dementia and suprapubic catheter and recurrent urinary tract infection admitted to the hospital with fever and hematuria. He had a routine suprapubic catheter change in the shelter. He received a prophylactic dose of Bactrim at the time of catheter change. Then they had noted that he had blood in his urine and the catheter was not working very well. They changed the suprapubic catheter again and he developed bleeding through his urethra and penis. He then developed some fever and he also had an emesis. Suprapubic catheter was placed in his proximal urethra or the balloon was infiltrated in his prostate. Likely the cause of hematuria and malfunctioning catheter, catherter was changed and Pt improved and no more bleeding noticed through the meatus of the glans penis. Pt was found to have Gram-negative perfecto bacteremia and urinary tract infection with Proteus mirabilis. S/P empiric vancomycin IV. Patient needs to complete his levofloxacin antibiotic course to treat his Gram-negative bacteremia (Proteus mirabilis) total of 14 days. Patient has been hemodynamically stable, no fever for more than 48 hours but has a suprapubic catheter. Another blood culture that was taken on the 01 of February is still pending, follow-up to confirm that no new pathogens showing up other than Proteus mirabilis. There is little data to support routine follow-up blood cultures in patients with gram-negative bacilli bloodstream infection, so no need for more blood cultures. Time Spent with Patient Time attestation: Total time spent providing and/or coordinating discharge services: 60 Exam Narrative: Exam Narrative: Physical exam GENERAL: Comfortable, no acute distress. HEAD AND NECK: Atraumatic, normocephalic CARDIOVASCULAR: RRR. Normal S1, S2. No murmurs. RESPIRATORY: Clear to auscultation B/L. Good air entry B/L. No wheezes or rhonchi. GASTROINTESTINAL: Obese, not tender to palpation. UROGENITAL: Suprapubic catheter in, no tenderness or redness or swelling around the catheter. No evidence of active bleeding through the glans penis. NEUROLOGY: Alert, awake. confused at baseline. Normal speech. Const: Vital Signs, click to edit/add: Vital Signs - 24 hr 02/01/25 11:00 02/01/25 16:00 02/01/25 16:00 Temperature 98 F 98 F Pulse Rate [Pulse Oximeter] 72 72 72 Respiratory Rate 20 20 20 Blood Pressure [Le ft Arm] 126/53 L 126/53 L Pulse Oximetry 92 92 Oxygen Delivery Me thod Room Air Room Air 02/01/25 19:13 02/01/25 20:31 02/01/25 22:12 Temperature 98.6 F 98.6 F 98.4 F Pulse Rate [Pulse Oximeter] 71 77 Respiratory Rate 16 16 Blood Pressure [Le ft Arm] 125/70 130/73 Pulse Oximetry 91 92 Oxygen Delivery Me thod Room Air Room Air 02/01/25 22:15 02/02/25 01:56 02/02/25 07:00 Temperature 98.4 F 98.2 F Pulse Rate [Pulse Oximeter] 77 74 65 Respiratory Rate 16 16 18 Blood Pressure [Le ft Arm] 144/77 H 138/67 Pulse Oximetry 94 95 Oxygen Delivery Me thod Room Air Room Air DS: Data Data Completed and Pending Completed studies during hospitalization: Procedures Change Drainage Device in Bladder, External Approach (11/13/24) Insertion of Infusion Device into Right Brachial Vein, Percutaneous Approach (11/13/24) Labs on day of discharge: Preliminary micro results at discharge 01/30/25 15:18 Blood Culture - Preliminary Blood NO GROWTH AFTER 48 HOURS Discharge Plan Discharge Disposition: Xfer [facility] Discharge Location: [facility] Date of Admission: 01/30/25 19:09 Attending Provider on Discharge: Deyanira Johansen Primary Care Provider: Gabe White Condition: Improved Anticipated Discharge Date/Time: 02/02/25 10:18 Discharge Medications: New polyethylene glycol 3350 [Miralax] 17 gram Powder In Packet 17 g PO DAILY 7 Days Qty: 7 1RF levofloxacin 500 mg Tablet 500 mg PO Q24H 11 Days Qty: 11 0RF Continued cranberry 500 mg capsule 500 mg PO HS melatonin 3 mg tablet 9 mg PO HS acetaminophen 325 mg tablet 650 mg PO TID Rx Instructions: PLUS Q8H PRN sennosides [Natural Senna Laxative] 8.6 mg tablet 8.6 mg PO BID PRN sertraline 50 mg Tablet 50 mg PO DAILY 30 Days Qty: 30 1RF ascorbic acid (vitamin C) 500 mg tablet 500 mg PO HS furosemide 40 mg tablet 40 mg PO BID azithromycin 250 mg tablet 500 mg PO .EACH TIME PRN Rx Instructions: PRIOR TO DENTAL APT donepezil 10 mg tablet 10 mg PO HS bacitracin 500 unit/gram ointment 1 applic topical BID tramadol 50 mg tablet 25 mg PO TID Patient Comments: PLUS Q4H PRN triamcinolone acetonide 0.1 % cream 1 applic topical BID potassium chloride 20 mEq tablet,ER particles/crystals 20 meq PO BID oxybutynin chloride 5 mg tablet extended release 24hr 5 mg PO DAILY Acidophilus Capsule 1 cap PO DAILY memantine 5 mg tablet 5 mg PO DAILY Eliquis 2.5 mg tablet 2.5 mg PO BID Discontinued loperamide [Imodium A-D] 2 mg capsule 2 mg PO Q6H PRN Discharge Orders: Discharge Order (Routine); Ordered 02/02/25 Ordered By: Deyanira Johansen Additional Instructions: -patient needs to complete his levofloxacin antibiotic course to treat his Gram- negative bacteremia (Proteus mirabilis). Patient has been hemodynamically stable, no fever for more than 48 hours. -another blood culture that was taken on the 01 of February is still pending, please follow-up to confirm that no new pathogens showing up other than Proteus mirabilis. There is little data to support routine follow-up blood cultures in patients with gram-negative bacilli bloodstream infection, so no need for more blood cultures. Activity Level: Activity as Tolerated Discharge Diet: Heart Healthy (2 gm sodium, low fat) Follow Up Appointments: Gabe White MD [Primary Care Provider] - Forms: [facility] Info Instructions Admit to: SNF Discharge Potential: Fair Length of Stay: 30-90 days Can use facility standing orders?: Yes Code Status: Full Code TEDs: Bilateral Knee Rehab Potential: Fair Therapy: Physical Therapy and Occupational Therapy Therapy Orders: Evaluate and Treat Oxygen: No Urinary Catheter: Yes
--- NOTE | 2025-02-02 11:36 | PC.NURSE ---
DC: Pt alert, oriented to self and vitally stable. Baseline dementia. Pt has suprapubic catheter, patent and draining, denies pain. Pt 2a, turned and repositioned throughout shift. Pt takes pills whole, regular diet, tolerates well. Pt had moderate, soft and unformed BM. Mepilex changed and replaced to left buttock. Nurse to nurse given to JANA Cheema information faxed. IV removed, tip intact. Pt DC via EMS at 1123.
== END 2025-02-02 11:23 | DRG 872 ==
LOC: ED 18:47 → MEDSURG 19:09
PROVIDERS: Admitting Provider Family Medicine; Emergency Provider Family Medicine; PCP Family Medicine; Visit Provider Family Medicine
DX: R78.81 Bacteremia (principal); T83.511A Infection and inflammatory reaction due to indwelling urethral catheter, initial encounter; I50.32 Chronic diastolic (congestive) heart failure; S37.39XA Other injury of urethra, initial encounter; N39.0 Urinary tract infection, site not specified; T83.028A Displacement of other urinary catheter, initial encounter; T83.091A Other mechanical complication of indwelling urethral catheter, initial encounter; B96.4 Proteus (mirabilis) (morganii) as the cause of diseases classified elsewhere; R31.9 Hematuria, unspecified; N31.9 Neuromuscular dysfunction of bladder, unspecified; G35 Multiple sclerosis; K59.00 Constipation, unspecified; K52.89 Other specified noninfective gastroenteritis and colitis; F03.90 Unspecified dementia, unspecified severity, without behavioral disturbance, psychotic disturbance, mood disturbance, and anxiety; I11.0 Hypertensive heart disease with heart failure; E66.9 Obesity, unspecified; Z86.14 Personal history of Methicillin resistant Staphylococcus aureus infection; F32.A Depression, unspecified; B96.89 Other specified bacterial agents as the cause of diseases classified elsewhere
CPT/HCPCS: 36415; 51798; 71045; 71260; 74177; 80048; 80053; 81001; 83605; 85025; 86140; 87040; 87086; 87631; 87800; 99284; 99285; A9270; J3370; J7030; J7050; Q9967

== ENCOUNTER 2025-02-02 11:20 | Outpatient (CLI) | payer MEDICARE, BC, SELFPAY | END 2025-02-02 11:21 | disposition home or self-care (01) | PROVIDERS: PCP Family Medicine; Visit Provider Family Medicine | DX: N39.0 Urinary tract infection, site not specified (principal); F03.90 Unspecified dementia, unspecified severity, without behavioral disturbance, psychotic disturbance, mood disturbance, and anxiety | CPT/HCPCS: A0425; A0428 ==

== ENCOUNTER 2025-05-28 20:35 | Outpatient (CLI) | payer MEDICARE, BC, SELFPAY | END 2025-05-28 20:36 | disposition home or self-care (01) | PROVIDERS: PCP Family Medicine; Visit Provider Orthopaedic Surgery | DX: T83.028A Displacement of other urinary catheter, initial encounter (principal) | CPT/HCPCS: A0425; A0429 ==

== ENCOUNTER 2025-05-28 20:53 | Inpatient (IN) | payer MEDICARE, BC, SELFPAY ==
--- OUTSIDE RECORDS SUMMARY | 2025-04-23 10:00 | XMS_ITS | Encounter Summary ---
Author Organization [facility] Address [address] [place] [address] Care Team Providers Care Manufacturing Storeperson Name Role Phone Elsewhere, Pcp Primary Care Provider Unavailabl e Reason for Referral * Outpatient (Routine) - Authorized Specialty Diagnoses / Procedures Referred By Anabella sullivan Referred To Contact Diagnoses Retention Urinary Chronic Procedures Bladder Catheterization Consuelo Castle APRN, C.N.P. [address] [place] [address] Phone: tel: fax: [facility] Region Referral ID Status Reason Start Date Expiration Date V isits Requested Visits Authorized [id number] Authorized 04/23/2025 07/24/2026 1 1 Reason for Visit * Reason Comments Nurse Visit Removal / Exchange Catheter * Appointment Request (Routine) - Closed Specialty Diagnoses / Procedures Referred By Anabella sullivan Referred To Contact Urology Referral ID Status Reason Start Date Expiration Date Visits Re quested Visits Authorized [id number] Closed 02/27/2025 05/30/2026 1 1 Encounter Details Date Type Department Care Team (Late st Contact Info) Description 04/23/2025 10:00 AM CDT Nurse Only Department of Urology in [place], [place] [address] [place] [address] Nereyda Torres, R.N. 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 - 04/23/2025 10:00 AM CDTAssociated Order(s): Bladder Catheterization Post-Procedure Diagnose(s): Retention Urinary Chronic Bladder Catheterization Performed by: Nereyda Torres R.N. Authorized by: Consuelo Castle APRN, C.N.P. PROCEDURE DETAILS Catheter insertion: suprapubic Suprapubic catheter type: exchange Catheter type: arroyo Catheter size: 24 Fr Balloon inflation amount (mL): 10 Bladder irrigation: no Number of attempts: 1 Urine characteristics: clear and yellow CONSENT Consent obtained: verbal Consent given by: patient [employer]IVERSAL [employer]OL All relevant documentation and testing were reviewed and available. All required blood products, implants, devices and or special equipment were made available as applicable. Pre-procedure verification was conducted and the correct site was marked if required. A fire risk and smoke assessment were done as applicable. The procedural time-out to verify correct patient, correct side/site, and procedure was conducted prior to performing the procedure and confirmed in a procedural pause. PRE-PROCEDURE DETAILS Indication: urinary retention Appropriate hand hygiene, gown, cap, mask, protective eyewear, sterile gloves, skin preparation, sterile drape, and strict aseptic technique were utilized as applicable for the procedure: yes SEDATION / ANESTHESIA Anesthesia method: none COMMENTS Patient tolerated well, no concerns. documented in this encounter Plan of Treatment Not on file documented as of this encounter Procedures Procedure Name Priority Date/Time Associated Diagnosis Comments BLADDER CATHETERIZATION Routine 04/23/20 10:00 AM CDT Retention Urinary Chronic documented in this encounter Results * Bladder Catheterization (04/23/2025 10:00 AM CDT) Narrative [facility] - 04/23/2025 10:00 AM CDT Nereyda Torres R.N. 04/23/2025 10:28 AM Bladder Catheterization Performed by: Nereyda Torres R.N. Authorized by: Consuelo Castle APRN CTrevorN.PTrevor PROCEDURE DETAILS Catheter insertion: suprapubic Suprapubic catheter type: exchange Catheter type: arroyo Catheter size: 24 Fr Balloon inflation amount (mL): 10 Bladder irrigation: no Number of attempts: 1 Urine characteristics: clear and yellow CONSENT Consent obtained: verbal Consent given by: patient UNIVERSAL PROTOCOL All relevant documentation and testing were reviewed and available. All required blood products, implants, devices and or special equipment were made available as applicable. Pre-procedure verification was conducted and the correct site was marked if required. A fire risk and smoke assessment were done as applicable. The procedural time-out to verify correct patient, correct side/site, and procedure was conducted prior to performing the procedure and confirmed in a procedural pause. PRE-PROCEDURE DETAILS Indication: urinary retention Appropriate hand hygiene, gown, cap, mask, protective eyewear, sterile gloves, skin preparation, sterile drape, and strict aseptic technique were utilized as applicable for the procedure: yes SEDATION / ANESTHESIA Anesthesia method: none COMMENTS Patient tolerated well, no concerns. us Consuelo Castle APRN CTrevorN.P. 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
--- OUTSIDE RECORDS SUMMARY | 2025-05-28 20:56 | XMS_ITS | Clinical Summary ---
Author Organization [facility] [employer] Address [facility] [place] [address] Care Team Providers Care Frame Polisher Name Role Phone Gabe White MD Primary [...] (100 mg) by mouth every morning. 0 1 Active Vitamin C 500 mg tablet 5 Active Senna 8.6 mg tablet 4 Active albuterol 0.083% (2.5 mg/3 mL) neb solution 4 Active azithromycin 250 mg tablet 5 Active Antifungal (Clotrimazole) 1 % cream 5 Active bacitracin 500 unit/g ointment 4 Active potassium chloride 20 mEq extended-releas e tablet (part/cryst) 5 Active Active Problems Problem Noted Date Diagnosed [...] Encounters Date Type Department Care Team Description 04/03/2025 1:30 PM CDT Office Visit [facility] [address] [place] [address] Andrew Castro DPM Consult (Bilateral great toe wound) 04/03/2025 Travel from Last 3 Months Family History Medical [...] Sign Reading Time Taken Comments Blood Pressure 127/75 04/03/2025 1:52 PM CDT Pulse 64 04/03/2025 1:52 PM CDT Temperature 37 C (98.6 F) 10/24/2021 5:03 PM PROGRAM PARAPROFESSIONAL Respiratory Rate 16 10/24/2021 5:03 PM PROGRAM PARAPROFESSIONAL Oxygen Saturation 92% 04/03/2025 1:52 PM CDT Inhaled Oxygen Concentration - - Weight 98.4 kg (216 lb 14.9 oz) 10/24/2021 5:03 PM PROGRAM PARAPROFESSIONAL Height 167.6 cm (5' 6) 10/23/2021 9:09 AM PROGRAM PARAPROFESSIONAL Body Mass Index 35.01 10/23/2021 9:09 AM PROGRAM PARAPROFESSIONAL Plan of Treatment Health Maintenance Due Date Last Done Comments Tetanus booster 1951 Depression screening for age 12+ 1952 Pneumococcal series for age 50+ (1 of 2 - PCV) 1959 Zoster (shingles) series for age 50+ (1 of 2) 1990 Medicare Wellness for age 65+ 2005 RSV vaccine for adults or (1 - 1-dose 75+ series) 2015 BMI (ht and wt on same day) for age 18+ 05/13/2017 05/13/2016 Influenza Vaccine (#1) 2025 COVID-19 vaccine series Completed 03/20/20, 08/31/2024, 03/06/2024, Additional history exists Hepatitis B series for 19+ Aged Out N o longer eligible based on patient's age to complete this topic Additional Health Concerns Infection Onset Date Last [...] 02/05/14, 08/17/2018 03/01/2019, 04/26/2020 04/19/2014 1 Insurance MR BC [employer] MEDICARE PART A HB ONLY MEDICARE PART B HB ONLY MEDICARE PB ONLY [facility] HB ONLY MEDICARE PART A HB ONLY BLUE PENDING S[facility] [place] Advance Directives Documents on File Type Date Recorded Patient Domestic Technician Expl anation POLST 10/16/2018 Healthcare Directive 03/25/2017 1:01 PM Healthcare Directive 09/17/2013 12:00 AM ADVANCE DIRECTIVE Healthcare Directive 10/29/2010 12:00 AM ADVANCE DIRECTIVE Power of Scrap Handler 01/01/2010 12:00 AM POA Healthcare Directive 01/01/2010 [...] 5:22 PM 05/24/2015 3:22 PM Care Teams Frame Polisher Relationship Specialty Start Date End Date Gabe White MD [address] [place] [id number] PCP - General Family Practice 11/14/24
--- OUTSIDE RECORDS SUMMARY | 2025-05-28 20:56 | XMS_ITS | Clinical Summary ---
Author Organization [facility] Address [address] [place] [id number] Care Team Providers Care Crepe Sole Scourer Name Role Phone Elsewhere, Pcp Primary Care Provider Unavailabl e Source Comments Patient records contain information from all sites at [facility]. For routine questions regarding patient records, call [phone] during business hours, M-F 8:00 AM - 5:00 PM Central Time. Record requests for emergency care only can be directed to [phone] at any time.[facility] Allergies Active Allergy Reactions Criticality Noted Date Comments Adhesive Tape-Silicones Other (see comments) Amoxicillin-Pot Clavulanate Diarrhea 08/03/20 11 Bacitracin-Polymyxin B Rash 01/11/2011 Hydrocortisone Other (see comments) 05/21/2015 Latex Swelling 01/01/2013 Ifdbmnok-Elijdpkzpg-Xvuywswz n Itching 10/13/2011 Nitrofurantoin Monohyd/M-Cryst Other (see comments),GI intolerance Low 06/11/2015 Silver Sulfadiazine Other (see comments) 2009 Medications cranberry 500 mg capsule Take 1 capsule by mouth daily. 3 Active donepeziL (Aricept) 10 mg tablet Take 1 tablet by mouth at bedtime. 6 Active multivitamin-mi gbvhlw-RX-pzdmw len-lutein (CENTRUM SILVER) 0.4 mg-300 mcg- 250 [...] original. Patient is a resident at a [facility]. Problem Noted Date Diagnosed Date Personal History Of Infectio us And Parasitic Disease (COVID-19) 12/11/2021 Overview (12/11/2021): COVID Assessment & Plan (12/11/2021 9:56 AM TRAUMA COUNSELLOR): He was covid positive on 11/30/21. He had minor symptoms and is now off restrictions. Atrial Fibrillation Unspecified 09/21/2021 Overview (12/11/2021): A fib Assessment & Plan (12/11/2021 9:54 AM TRAUMA COUNSELLOR): Atenolol for rate control and apixaban 2.5 mg bid for anticoagulation. Assessment & Plan (10/20/2021 8:33 AM TRAUMA COUNSELLOR): He is on retirement anticoagulation. Atrial Fibrillation Personal History 09/20/2021 Overview (10/06/2021): Atenolol for rate control and apixaban for anticoagulation. Assessment & Plan (11/30/2021 3:03 PM TRAUMA COUNSELLOR): Stable on current medications. Assessment & Plan (10/06/2021 7:44 PM TRAUMA COUNSELLOR): Heart rate and blood pressure adequate on increased dose of atenolol. Diastasis Recti 05/19/2021 Overview (05/19/2021): Diastasis recti Assessment & Plan (12/11/2021 9:51 AM TRAUMA COUNSELLOR): He has no pain or symptoms. Assessment & Plan (09/15/2021 8:07 PM TRAUMA COUNSELLOR): Resp easy. 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 Constipation 03/31/2021 Overview (05/19/2021): Slow transit constipation Assessment & Plan (12/11/2021 9:51 AM TRAUMA COUNSELLOR): His bowels are moving in his normal pattern using Senna S 1 tab hs prn. He is also on a probiotic daily. Assessment & Plan (11/30/2021 3:03 PM TRAUMA COUNSELLOR): Bowel agents available. Assessment & Plan (10/20/2021 8:30 AM TRAUMA COUNSELLOR): His bowels are moving in his normal pattern on senna and probiotic. Assessment & Plan (09/15/2021 8:06 PM TRAUMA COUNSELLOR): His bowels are moving in a normal [...] posture. Assessment & Plan (12/11/2021 9:48 AM TRAUMA COUNSELLOR): His legs are wrapped and he elevates them routinely during the day when he is in bed. Assessment & Plan (09/15/2021 8:05 PM TRAUMA COUNSELLOR): He has dependent edema. Legs are wrapped. [...] Insomnia Assessment & Plan (12/11/2021 9:48 AM TRAUMA COUNSELLOR): He is sleeping well on Melatonin 9 mg. Assessment & Plan (11/30/2021 3:02 PM TRAUMA COUNSELLOR): Continue current dose of melatonin. Assessment & Plan (10/20/2021 8:22 AM TRAUMA COUNSELLOR): The melatonin is effective in helping him sleep[. Assessment & Plan (09/15/2021 8:05 PM TRAUMA COUNSELLOR): He is sleeping well on melatonin Assessment [...] infection Assessment & Plan (12/11/2021 10:31 AM TRAUMA COUNSELLOR): He continues on cranberry and has cipro [...] change. Assessment & Plan (10/20/2021 8:23 AM TRAUMA COUNSELLOR): He is prone to UTI's. He has his catheter changed monthly with a 3 day course of cipro surrounding the changes.. He is also on cranberry 500 mg bid. Assessment & Plan (10/06/2021 7:48 PM TRAUMA COUNSELLOR): Most recently treated with IV ceftriaxone and then oral Omnicef to total 10 day course of treatment. Assessment & Plan (09/30/2020 2:44 PM TRAUMA COUNSELLOR): Brad was seen at [facility] emergency department September 03 was diagnosed [...] MS Assessment & Plan (12/11/2021 9:53 AM TRAUMA COUNSELLOR): His pain is controlled with Tramadol 25 mg tid and x 1 prn during the night and tylenol 650 mg Q 6 h prn. Assessment & Plan (10/20/2021 8:31 AM TRAUMA COUNSELLOR): Pain is controlled with tylenol and tramadol. Assessment & Plan (09/15/2021 8:09 PM TRAUMA COUNSELLOR): He takes tramadol 25 mg tid. This [...] tramadol. Monitor for increased pain and reassess. [facility] Examination 60 Day Certification Overview (07/10/2019): [facility] Assessment & Plan (11/30/2021 2:57 PM TRAUMA COUNSELLOR): Current comorbidities, ADL need/level of debility requires skilled care/therapy. Medications and labs all reviewed and appropriate related to comorbidities, unless otherwise indicated. Physician order sheet signed. Continue restorative/maintenance care plan, nutrition intervention, skin protection, and fall prevention. He will be tested for COVID-19 according to the prevalence in the community and in the facility in accordance with [facility] guidelines. 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 His recently Assessment & Plan (07/15/2020 1:50 PM CDT): He is a long-term resident at [facility]. He shares a room with his Ya. Assessment & Plan (03/18/2020 2:25 PM CDT): He is a long-term resident at [facility]. He shares a room with his . Assessment & Plan (11/13/2019 3:37 PM TRAUMA COUNSELLOR): He is a long-term resident at [facility] Assessment & Plan (07/10/2019 4:28 PM CDT): He is a long-term side of [facility]. He shares a room with his Major Depressive Disorder, Recurrent, Unspecifie d 12/20/2016 Overview (03/29/2017): Depression Major Recurrent Moderate Assessment & Plan (12/11/2021 9:45 AM TRAUMA COUNSELLOR): He is on sertraline 50 mg daily. He lost his , who was also his roommate recently. He also vocalized that he will miss his current friends at [facility]. Assessment & Plan (11/30/2021 3:03 PM TRAUMA COUNSELLOR): Stable on current dose of sertraline. Assessment & Plan (10/20/2021 8:29 AM TRAUMA COUNSELLOR): Stable on sertraline 50 mg daily. Assessment & Plan (09/15/2021 8:00 PM TRAUMA COUNSELLOR): Sertraline is effective for managing depression Assessment [...] symptomatology Assessment & Plan (11/13/2019 3:54 PM TRAUMA COUNSELLOR): He is currently stable on Zoloft 125 [...] mixed Assessment & Plan (12/11/2021 9:39 AM TRAUMA COUNSELLOR): He has no behaviors and is extremely pleasant. He is stable on donepezil 10 mg at bedtime and memantine 5 mg in the morning. Assessment & Plan (11/30/2021 2:59 PM TRAUMA COUNSELLOR): He is stable on donepezil and memantine. Assessment & Plan (10/20/2021 8:20 AM TRAUMA COUNSELLOR): He continues with his memory pills donepezil and memantine Assessment & Plan (09/15/2021 7:58 PM TRAUMA COUNSELLOR): He is doing well on donepezil and [...] . Assessment & Plan (11/13/2019 3:39 PM TRAUMA COUNSELLOR): He is stable on Namenda XR 14 mg daily. He is also on Aricept 10 mg at bedtime Assessment & Plan (07/10/2019 4:33 PM CDT): He is currently stable on Namenda. He calls that his memory pill. He also is on Aricept 10 mg daily Hypertension Essential Primary 05/28/2015 Overview (03/29/2017): Hypertension (HTN) Essential Benign Assessment & Plan (12/11/2021 9:46 AM TRAUMA COUNSELLOR): He is normotensive and hemodynamically stable on Atenolol 50 mg and furosemide 40 mg. Assessment & Plan (11/30/2021 3:03 PM TRAUMA COUNSELLOR): He is on atenolol and furosemide. Assessment & Plan (10/20/2021 8:28 AM TRAUMA COUNSELLOR): Blood pressures are stable on furosemide and atenolol. Rate controlled with atenolol. Assessment & Plan (09/15/2021 8:04 PM TRAUMA COUNSELLOR): He is normotensive and hemodynamically stable on [...] changes Assessment & Plan (11/13/2019 3:42 PM TRAUMA COUNSELLOR): He is normotensive and hemodynamically stable on [...] change. Assessment & Plan (01/11/2025 5:53 PM TRAUMA COUNSELLOR): His catheter should continue to be exchanged [...] depression. Assessment & Plan (12/11/2021 9:47 AM TRAUMA COUNSELLOR): He has a suprapubic catheter which is changed monthly. The catheter was last changed when it was to be leaking around the site on November. A UA was sent. Next catheter change should be scheduled for December 16, 2019 Assessment & Plan (11/30/2021 2:57 PM TRAUMA COUNSELLOR): No recent difficulties with his suprapubic catheter. 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 He is prone to urinary tract infections and was recently hospitalized with a UTI that precipitated a bout of atrial fibrillation. He is on anticoagulation with apixaban. Assessment & Plan (09/15/2021 7:55 PM TRAUMA COUNSELLOR): Suprapubic catheter is patent. The catheter is [...] cranberry. Assessment & Plan (11/13/2019 3:40 PM TRAUMA COUNSELLOR): He has a suprapubic catheter due to [...] ago Assessment & Plan (12/11/2021 9:23 AM TRAUMA COUNSELLOR): He requires 24 hour care. He has a neurogenic bladder due to the MS. He is nonambulatory and has his own motorized chair. He has no dysphagia. His speech is clear. Assessment & Plan (11/30/2021 2:59 PM TRAUMA COUNSELLOR): Continues to require 24 hour care, assistance with all cares. Assessment & Plan (10/20/2021 8:18 AM TRAUMA COUNSELLOR): He remains non-ambulatory. He needs a suprapubic catheter, mechanical life, wheelchair and 24 hour long term care. Assessment & Plan (09/15/2021 7:50 PM TRAUMA COUNSELLOR): He is non ambulatory. He requires 24 [...] leg. Assessment & Plan (11/13/2019 3:38 PM TRAUMA COUNSELLOR): He has a neurogenic bladder and has [...] Problem Noted Date Diagnosed Date Resolved Date Cat Driver (Current) Anticoagulant Treatment 11/30/2021 12/11/2021 Overview (11/30/2021): Atrial fibrillation Assessment & Plan (11/30/2021 3:02 PM TRAUMA COUNSELLOR): He continues on apixaban. Failure Renal Acute (Acute Kidney Injury) 10/06/2021 12/11/2021 Overview (10/06/2021): Peak creatinine during recent hospitalization 1.59 Assessment & Plan (10/06/2021 7:46 PM TRAUMA COUNSELLOR): Creatinine at discharge 1.23. Spironolactone was held and will be restarted pending adequate renal function. Anemia Of Chronic Disease 10/06/2021 Overview (10/06/2021): Most recent hemoglobin 11.9 at discharge. Assessment & Plan (10/06/2021 7:44 PM TRAUMA COUNSELLOR): Continue to follow hemoglobin. Hypokalemia 07/28/2021 09/15/2021 [...] (05/12/2020): Added automatically from request for surgery [id number] Pain Leg 12/05/2018 11/13/2019 Stroke/Transient Ischemic Attack NOS 10/03/2017 11/13/2019 Repair Mitral Valve Status Post 10/03/2017 11/13/2019 Atherosclerotic Heart Diseas e Of [place] Coronary Artery Without Angina Pectoris 05/31/2017 11/13/2019 [...] Encounters Date Type Department Care Team Description 04/23/2025 10:00 AM CDT Nurse Only Department of Urology in [place], [place] [address] [place] [phone] Nereyda Torres R.N. Nurse Visit; Removal / Exchange Catheter 04/23/2025 Clinical Communication Department of Urology in [place], [place] [address], [place] [address] Consuelo Castle APRN, C.N.P. call back 03/19/2025 10:30 AM CDT Nurse Only Department of Urology in [place], [place] [address] [place] [address] Nereyda Torres R.N. Nurse Visit; Removal / Exchange Catheter 02/27/2025 Clinical Communication Department of Urology in [place], [place] [address] [place] [address] Consuelo Castle APRN, C.N.P. from Last 3 Months Immunizations Immunization Administration [...] on file Legal Sex Male 7:50 AM TRAUMA COUNSELLOR Gender Identity Not on file Sexual Orientation Not on file Last Filed Vital Signs Vital Sign Reading Time Taken Comments Blood Pressure 122/69 12/11/2021 10:00 AM TRAUMA COUNSELLOR Pulse 72 12/11/2021 10:00 AM TRAUMA COUNSELLOR Temperature 36.8 C (98.2 F) 12/11/2021 10:00 AM TRAUMA COUNSELLOR Respiratory Rate 16 12/11/2021 10:00 AM TRAUMA COUNSELLOR Oxygen Saturation 94% 12/11/2021 10:00 AM TRAUMA COUNSELLOR Room Air Inhaled Oxygen Concentration - - Weight 88.7 kg (195 lb 8 oz) 12/11/2021 10:00 AM TRAUMA COUNSELLOR Height 172.7 cm (5' 8) 09/25/2021 7:20 PM TRAUMA COUNSELLOR Body Mass Index 29.73 09/25/2021 7:20 PM TRAUMA COUNSELLOR Plan of Treatment Health Maintenance Due Date Last Done Comments Office Visit for Blood Pressure Check / Re-check 1940 DTaP,Tdap,and Td Vaccines (4 - Td or Tdap) 06/15/2023 06/15/2013, 07/03/2012, 02/20/2002, Additional history exists Fall Risk Screen (Annual) 11/07/2024 Zoster Vaccines (2 of 2) 05/15/2025 03/20/2025 Influenza Vaccine (#1) 2025 , 2022, 12/19/2021, Additional history exists Creatinine Level (Kidney Function Test) 12/18/2025 12/18/2024, 12/11/2024, 11/23/2024, Additional history exists Potassium Level 12/18/2025 12/18/2024, 02/0 02/2025, 03/13/2024, Additional history exists Sodium Level 12/18/2025 12/18/2024, 02/0 02/2025, 03/13/2024, Additional history exists Pneumococcal vaccine (50+ years) Completed 05/11/2024, 12/11/2014, 05/30/2006, Additional history exists RSV vaccine - (32-36 weeks) or 60+ years Completed 08/31/2024 COVID-19 Vaccine Completed 03/20/2025, , 03/06/2024, Additional history exists IPV Vaccines Aged Out No longer eligi ble based on patient's age to complete this topic Medical Devices Implanted Type Area Utility Manager Device Identifier Shelf Expiration Date Model / Serial / Lot Band-Annulopla sty Flex-25mm X 63mm - Dimas [id number] Implanted:Qty: 1 on 12/12/2009 Cardiac Valve Prosthesis Other/Legacy - See Implant Description Medtronic Description:Device Manufactu rer - [employer]. Body Location - Other. Mitral. Device Status Text - [id number]. Bazine Uriel Fuzzy 1 X 1 - Dimas [id number] Implanted:Qty: 1 on 12/12/2009 Mesh or Patch Kubi Mobi Description:Device Manufactu Front Up - Bizily. Device Status Text - [id number]. ROSA Data - [id number]. Ligation Clips Implanted:Qty: 1 on 05/13/2020 by Vern Dumont M.D. at [facility] Other [employer] [id number] 01/21/2025 [id number] / / [id number] Procedures Procedure Name Priority Date/Time Associated Diagnosis Comments BLADDER CATHETERIZATION Routine 04/23/20 10:00 AM CDT Retention Urinary Chronic BLADDER CATHETERIZATION Routine 03/19/20 10:30 AM CDT Retention Urinary Chronic BASIC METABOLIC PANEL, S/P Routine 09/22/2021 6:15 AM TRAUMA COUNSELLOR from Last 3 Months or Most Recently Relevant to Health Maintenance Results * Bladder Catheterization (04/23/2025 10:00 AM [...] none COMMENTS Patient tolerated well, no concerns. Consuelo Castle APRN CTrevorN.P. PROCEDURE/MINOR S URGICAL ORDERABLES Final Result Performing Organization Address [facility] Phone Number MMODAL NA * Bladder Catheterization (03/19/2025 10:30 AM CDT) Narrative MMODAL - 03/19/2025 10:30 AM CDT Nereyda Torres R.N. 03/19/2025 11:52 AM Bladder Catheterization Performed by: Nereyda Torres R.N. Authorized by: Consuelo Castle APRN, CTrevorNTrevorPTrevor PROCEDURE DETAILS Catheter insertion: suprapubic Suprapubic catheter [...] yes SEDATION / ANESTHESIA Anesthesia method: none POST-PROCEDURE DETAILS Procedure completed successfully: yes Complications: no immediate complications COMMENTS Patient tolerated well, no concerns. Consuelo Csatle APRN, C.N.P. PROCEDURE/MINOR S URGICAL ORDERABLES Final Result Performing Organization Address [facility] de Phone Number MMODAL NA * (ABNORMAL) Basic Metabolic Panel (09/22/2021 6:15 AM TRAUMA COUNSELLOR) Potassium, S 3.4(L) 3.6 - 5.2 mmol/L 09/22/2021 8:40 AM TRAUMA COUNSELLOR DTL Sodium, S 141 135 - 145 mmol/L 09/22/2021 8:40 AM TRAUMA COUNSELLOR DTL Chloride, S 104 98 - 107 mmol/L 09/22/2021 8:40 AM TRAUMA COUNSELLOR DTL Bicarbonate, S 24 22 - 29 mmol/L 09/22/2021 8:40 AM TRAUMA COUNSELLOR DTL Anion Gap 13 7 - 15 09/22/2021 8:40 AM TRAUMA COUNSELLOR DTL BUN (Blood Urea Nitrogen), S 22 8 - 24 mg/dL 09/22/2021 8:40 AM TRAUMA COUNSELLOR DTL Creatinine 1.23 0.74 - 1.35 mg/dL 09/22/2021 8:40 AM TRAUMA COUNSELLOR DTL eGFR-Non Black/ 55(L) >=60 mL/min/BSA 09/22/2021 8:40 AM TRAUMA COUNSELLOR DTL Comment: ----ADDITIONAL INFORMATION---- Estimated GFR calculated using the 2009 CKD_EPI creatinine equation. eGFR-Black/Afri can [place] 63 >=60 mL/min/BSA 09/22/2021 8:40 AM TRAUMA COUNSELLOR DTL Comment: ----ADDITIONAL INFORMATION---- Estimated GFR calculated using the 2009 CKD_EPI creatinine equation. Calcium, Total, S 8.5(L) 8.8 - 10.2 mg/dL 09/22/2021 8:40 AM TRAUMA COUNSELLOR DTL Glucose, S 88 70 - 140 mg/dL 09/22/2021 8:40 AM TRAUMA COUNSELLOR DTL Blood (Blood, Venous) 09/22/2021 6:15 AM TRAUMA COUNSELLOR 09/22/2021 7:44 AM TRAUMA COUNSELLOR Eligio Bro M.D. LAB BLOOD ADD-ON Final Resul t [facility] [address] [place] [address], [place] DTL [facility] [address] [place] [address] from Last 3 Months or Most Recently Relevant to Health Maintenance Insurance MEDICARE [facility] [place] [address] Advance Directives For more information, please contact: [phone] Documents on File Type Date Recorded Patient Pai Gow Manager Expl anation Advance Directives 10/14/2020 11:30 AM [...] Answer Comments Full Code: Discussed Care Teams Crepe Sole Scourer Relationship Specialty Start Date End Date Elsewhere, Pcp PCP - General Internal Medicine 12/15/21
--- OUTSIDE RECORDS SUMMARY | 2025-05-28 20:56 | XMS_ITS | Encounter Summary ---
Author Organization [facility] Address [address] [place] [address] Care Team Providers Care Rib Cutter Name Role Phone Elsewhere, Pcp Primary Care Provider Unavailabl e Reason for Visit * Reason Onset Date Comments call back 04/23/2025 Encounter Details Date Type Department Care Team (Late st Contact Info) Description 04/23/2025 Clinical Communication Department of Urology in [place], [place] [address] [phone] Consuelo Castle, ADAN, C.N.P. 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 - 04/23/2025 10:54 AM CDT Patient's daughter also called [facility] and spoke with RN. Patient's catheter exchange went without difficulty. Did mention catheter exchange at the living facility would likely be more comfortable forthe patient. documented in this encounter Plan of Treatment Not on file documented as of this encounter Visit Diagnoses Not on filedocumented in this encounter Additional Health Concerns Assessment Noted Time PHQ-9 Depression Total Score: 3 09/20/20 21 10:00 AM VEGETABLE I FARMWORKER documented as of this encounter Care Teams Rib Cutter Relationship Specialty Start Date End Date Elsewhere, Pcp PCP - General Internal Medicine 12/15/21 documented as of this encounter
[2025-05-28 21:00] VITALS: BP 140/68; PULSE 72; RESP 20; TEMP 36.6; O2SAT 96; BMI 24.4
--- NOTE | 2025-05-28 21:06 | ED.GENADULT ---
HPI - General Adult General Time Seen by Provider: 21:06 Date Seen: 05/28/25 Chief complaint: Urogenital Problems, Male Stated complaint: catheter issues Time Seen by Provider: 05/28/25 21:06 Source: patient, family (daughter) and EMS Mode of arrival: EMS History of Present Illness HPI narrative: Hi is a 84 yo male who has a past medical history of hypertension, dementia, neurogenic bladder status post suprapubic catheter placement, history of bacteremia, recurrent UTIs who presents to the emergency department for evaluation of left foot infection as well as suprapubic catheter dysfunction. History is provided by EMS as well as his daughter over the phone. The daughter reports that today at his [facility] they were changing his catheter this afternoon which is a routine monthly change. Patient reports that the 1st nurse tried and was unable to get it so the 2nd nurse tried once and was unable to get however then was able to relax him and they were able to get the catheter placed. Since that time they have noted no urine output since this afternoon and noted some urine leaking around the catheter site. Concerned that catheter is not in place. Daughter notes that patient is currently on antibiotics for urinary tract infection. Daughter also notes that he has developed left great toe and foot pain, swelling, redness since yesterday and is concerned for infection. States the [facility] was going to start him on an antibiotic tonight for infection however he came to the ER. Daughter reports history of bacteremia and sepsis in the past. Patient denies any specific complaints, denies any abdominal pain, nausea, vomiting, fever, chills, leg pain, no complaints. Related Data Home Medications ?Medication ?Instructions ?Recorded ?Confirmed Lactobacillus acidophilus 1 cap PO DAILY 03/09/24 01/30/25 (Acidophilus capsule) apixaban 2.5 mg tablet (Eliquis) 2.5 mg PO BID 03/09/24 01/30/25 azithromycin 250 mg tablet 500 mg PO .EACH TIME PRN 03/09/24 01/30/25 bacitracin 500 unit/gram topical 1 applic topical BID 03/09/24 01/30/25 ointment donepezil 10 mg tablet 10 mg PO HS 03/09/24 01/30/25 furosemide 40 mg tablet 40 mg PO BID 03/09/24 01/30/25 memantine 5 mg tablet 5 mg PO DAILY 03/09/24 01/30/25 oxybutynin chloride 5 mg 5 mg PO DAILY 03/09/24 01/30/25 tablet,extended release 24 hr potassium chloride 20 mEq 20 meq PO BID 03/09/24 01/30/25 tablet,extended release(part/cryst) tramadol 50 mg tablet 25 mg PO TID 03/09/24 01/30/25 triamcinolone acetonide 0.1 % 1 applic topical BID 03/09/24 01/30/25 topical cream acetaminophen 325 mg tablet 650 mg PO TID 11/14/24 01/30/25 cranberry 500 mg capsule 500 mg PO HS 11/14/24 01/30/25 melatonin 3 mg tablet 9 mg PO HS 11/14/24 01/30/25 sennosides 8.6 mg tablet (Natural 8.6 mg PO BID PRN 11/14/24 01/30/25 Senna Laxative) ascorbic acid (vitamin C) 500 mg 500 mg PO HS 01/30/25 01/30/25 tablet Previous Rx's ?Medication ?Instructions ?Recorded sertraline 50 mg tablet 50 mg PO DAILY 30 days #30 tabs 11/20/24 levofloxacin 500 mg tablet 500 mg PO Q24H 11 days #11 tabs 02/02/25 polyethylene glycol 3350 17 gram 17 g PO DAILY 7 days #7 ea 02/02/25 oral powder packet (Miralax) Allergies Allergy/AdvReac Type Severity Reaction Status Date / Time adhesive tape Allergy Severe Verified 01/30/25 14:24 amoxicillin (From Augmentin) Allergy Severe Verified 01/30/25 14:24 bacitracin (From Triple Allergy Severe Verified 01/30/25 14:24 Antibiotic) cephalexin (From Keflex) Allergy Severe Verified 01/30/25 14:24 clavulanic acid (From Allergy Severe Verified 01/30/25 14:24 Augmentin) latex Allergy Severe Verified 01/30/25 14:24 neomycin (From Triple Allergy Severe Verified 01/30/25 14:24 Antibiotic) polymyxin B (From Triple Allergy Severe Verified 01/30/25 14:24 Antibiotic) silver sulfadiazine AdvReac Unknown Verified 01/30/25 14:24 Review of Systems Narrative: Past medical history, past surgical history, medications, allergies, family history, and social history were reviewed with the patient. No additional pertinent items. A medically appropriate review of systems was performed with pertinent positives and negatives noted in HPI, all other systems negative. [facility] Medical History (Updated 05/29/25 @ 01:52 by Robyn Arzola MD) Dementia ?F03.90 - Unspecified dementia, unspecified severity, without behavioral disturbance, psychotic disturbance, mood disturbance, and anxiety (ICD-10) Neurogenic bladder (01/11/11) ?N31.9 - Neuromuscular dysfunction of bladder, unspecified (ICD-10) Multiple sclerosis (12/10/09) ?G35 - Multiple sclerosis (ICD-10) Constipation (03/31/21) ?K59.00 - Constipation, unspecified (ICD-10) Major depressive disorder, recurrent, unspecified (12/20/16) ?F33.9 - Major depressive disorder, recurrent, unspecified (ICD-10) Insomnia (01/20/21) ?G47.00 - Insomnia, unspecified (ICD-10) Edema (03/03/21) ?R60.9 - Edema, unspecified (ICD-10) Diastasis recti (05/19/21) ?M62.08 - Separation of muscle (nontraumatic), other site (ICD-10) Chronic pain syndrome (03/13/19) ?G89.4 - Chronic pain syndrome (ICD-10) Stercoral colitis ?K52.89 - Other specified noninfective gastroenteritis and colitis (ICD-10) Health care directive on file ?Z78.9 - Other specified health status (ICD-10) Bacteremia due to methicillin resistant Staphylococcus aureus ?R78.81 - Bacteremia (ICD-10) ?B95.62 - Methicillin resistant Staphylococcus aureus infection as the cause of diseases classified elsewhere (ICD-10) Heart failure ?I50.9 - Heart failure, unspecified (ICD-10) Depression ?F32.A - Depression, unspecified (ICD-10) Hypertension ?I10 - Essential (primary) hypertension (ICD-10) Cognitive impairment ?R41.89 - Other symptoms and signs involving cognitive functions and awareness (ICD-10) Suprapubic catheter dysfunction ?T83.010A - Breakdown (mechanical) of cystostomy catheter, initial encounter (ICD-10) Neurogenic bladder ?N31.9 - Neuromuscular dysfunction of bladder, unspecified (ICD-10) Multiple sclerosis ?G35 - Multiple sclerosis (ICD-10) Surgical History History of mitral valve repair ?Z98.890 - Other specified postprocedural states (ICD-10) Family History Father Diabetes Heart disease Social History (Updated 01/30/25 @ 20:58 by Juwan Land MD) Narrative: Resident of [facility]. Has 2 daughters and 2 sons. Two daughters and 1 son live in [place] and 1 son lives in [facility]. According to daughter Megan all 4 are healthcare power of document review attorney. He continues to request full code status. Daughter Megan is most closely involved with day-to-day cares. What is your current living situation?: I presently have a place to live Problems where you live: no known problems Problems where you live details: n/a In the past 12 months, utilities in danger of being shut off: no In past 12 months, lack of transportation kept you from medical appts, meetings, work, or getting things needed for daily living: no In the past 12 mos, have been you worried that your food would run out before you had money to buy more?: never true In the past 12 mos, the food you bought just didn't last and you didn't have money to buy more?: never true Highest level of school completed/degree received: high school graduate Smoking Status: Former smoker What tobacco products do you use: pipe Do you use any of these nicotine containing products: None Second hand tobacco smoke exposure: No How often do you have a drink containing alcohol: never How often do you have six or more drinks on one occasion: Never AUDIT-C Alcohol total score: 0 Non-prescribed substance use: denies use How often does anyone, including family, friends and others, physically hurt you: never How often does anyone, including family, friends and others, insult or talk down to you: never How often does anyone, including family, friends and others, threaten you with harm: never How often does anyone, including family, friends and others, scream or curse at you: never service: No Exam Narrative: Exam Narrative: General: Afebrile, no acute distress HEENT: Normocephalic, atraumatic, conjunctiva normal. MMM Neck: non-tender, supple Cardio: regular rate. regular rhythm Resp: Normal work of breathing, no respiratory distress, lungs clear bilaterally, no wheezing, rhonchi, rales Chest/Back: no visual signs of trauma, no midline tenderness, no CVA tenderness Abdomen: soft, non distension, no tenderness, no peritoneal signs; suprapubic catheter in place, no urine output in Marr bag, signs of leakage of urine around the catheter site/insertion site Neuro: alert and fully oriented. CN II-XII grossly intact. Grossly normal strength and sensation in all extremities. MSK: +Swelling, erythema, left foot Integumentary/Skin: no rash visualized, normal color Psych: normal affect, normal behavior Const: Vital Signs, click to edit/add: Vital Signs - 24 hr 05/28/25 21:00 05/28/25 21:30 05/28/25 22:45 Temperature 97.8 F 98.7 F Pulse Rate [Pulse Oximeter] 72 63 Respiratory Rate 20 20 Blood Pressure [Le ft Upper Arm] 140/68 H 128/91 H Pulse Oximetry 96 98 98 Oxygen Delivery Me thod Room Air Room Air Course Vital Signs Vital signs: Initial Vital Signs Temperature 97.8 F 05/28/25 21:00 Temperature Source Temporal Artery Scan 05/28/25 21:00 Pulse Rate 72 05/28/25 21:00 Respiratory Rate 20 05/28/25 21:00 Blood Pressure 140/68 H 05/28/25 21:00 Blood Pressure Mean 92 05/28/25 21:00 Blood Pressure Position Supine 05/28/25 21:00 Pulse Oximetry 96 05/28/25 21:00 Oxygen Delivery Method Room Air 05/28/25 21:00 Vital Signs Temperature 97.8 F 05/28/25 21:00 Pulse Rate 72 05/28/25 21:00 Respiratory Rate 20 05/28/25 21:00 Blood Pressure 140/68 H 05/28/25 21:00 Pulse Oximetry 96 05/28/25 21:00 Oxygen Delivery Method Room Air 05/28/25 21:00 Temperature 98.6 F 05/29/25 01:29 Pulse Rate 71 05/29/25 01:29 Respiratory Rate 18 05/29/25 01:29 Blood Pressure 142/83 H 05/29/25 01:29 Pulse Oximetry 98 05/29/25 01:29 Oxygen Delivery Method Room Air 05/29/25 01:29 Medications Administered Medications: Discontinued Medications Generic Name Dose Route Start Last Admin Trade Name Lakeisha PRN Reason Stop Dose Admin Vancomycin/PEG/NADA/Lysine/Water 1.5 gm in 300 mls @ 200 mls/hr 05/28/25 22:10 05/29/25 01:14 Vancomycin 1.5 Gm/300 Ml IVPB 05/28/25 23:39 Infused ONCE ONE Infusion Protocol Sodium Chloride 500 mls @ 500 mls/hr 05/28/25 22:30 05/29/25 01:14 0.9 % Sodium Chloride 500 Ml IV 05/28/25 23:29 Infused .Q1H DEMETRI Infusion Medical Decision Making MDM Narrative Medical decision making narrative: Hi is a 84 yo male who has a past medical history of hypertension, dementia, neurogenic bladder status post suprapubic catheter placement, history of bacteremia, recurrent UTIs who presents to the emergency department for evaluation of left foot infection as well as suprapubic catheter dysfunction. Upon arrival patient is nontoxic appearing, afebrile, no distress. Differential diagnosis includes but is not limited to Marr catheter displacement versus infection versus obstruction secondary to clots. Left lower extremity concern for cellulitis. Upon arrival Marr catheter was able to flush easily however difficulty withdrawing from the catheter, blood clots noted. Ultrasound was performed which demonstrates decompressed bladder with a volume of 18 mm, urinary catheter is not clearly visualized within the bladder. At this time suprapubic catheter was removed and a new catheter was placed. Given low bladder volume patient was treated with 500 CC IVF. Comprehensive labs remarkable with no leukocytosis white blood cell count 7.31, hemoglobin 13.5, no acute metabolic or electrolyte abnormality, BUN 16, creatinine 1.0, ESR elevated at 71, lactic acid normal 1.3. I personally viewed and interpreted x-ray of the left foot which demonstrates soft tissue swelling with no radiographic evidence of osteomyelitis, recommend MRI for further evaluation. There is patchy a medialization of the bones diffusely. Patient with no tenderness to palpation over the base of the 5th metatarsal, patient is nonweightbearing in bed both less likely acute nondisplaced fracture. Initially consider transfer for urological evaluation however after IV fluids, patient with urine output, initially bloody, then pain, then amy. Suspect likely obstruction secondary to misplaced suprapubic catheter which has now resolved after replacing catheter in the ED. will plan to continue monitor patient's urine output. Given patient's history of bacteremia, sepsis, MRSA, now with increasing left foot pain, swelling, erythema over the past 2 days, patient was started on vancomycin, will plan on admission for IV antibiotics, MRI. I discussed patient management with hospitalist who agrees with the plan. Lab Data Labs: Lab Results 05/28/25 Range/Units 21:30 WBC 7.31 (4.50-11.00) K/uL RBC 4.65 (4.30-5.90) m/uL Hgb 13.5 (13.5-17.5) gm/dL Hct 42.8 (37.0-53.0) % MCV 92 (80-100) fL MCH 29 (26-34) pg MCHC 32 (32-36) gm/dL RDW Coeff of Pily 15.0 (11.5-15.5) % Plt Count 185 (140-440) K/uL Neut % (Auto) 66.9 (42.0-72.0) % Lymph % (Auto) 17.4 L (20-44) % Ceiba % (Auto) 12.6 H (0.0-11.0) % Eos % (Auto) 2.5 (0.0-7.0) % Baso % (Auto) 0.5 (0.0-3.0) % Neut # (Auto) 4.89 (1.7-7.0) K/uL Lymph # (Auto) 1.30 (0.90-2.90) K/uL Ceiba # (Auto) 0.90 (0.00-0.90) K/UL Eos # (Auto) 0.18 (0.00-0.50) K/uL Baso # (Auto) 0.04 (0.00-0.30) K/uL Abs Immat Gran (auto) 0.01 (0.00-0.30) K/uL Imm/Tot Granulo (auto) 0.1 % ESR 71 H (2-15) mm/hr Sodium 140 (135-149) mmol/L Potassium 3.8 (3.6-5.1) mmol/L Chloride 106 (96-114) mmol/L Carbon Dioxide 29 (20-32) mmol/L Anion Gap 5 L (7-15) mEq/L BUN 16 (7-30) mg/dL Creatinine 1.0 (0.5-1.5) mg/dL Estimated Creat Clear 54.99 Estimated GFR 74 ml/min Glucose 105 (60-115) mg/dL Lactate 1.3 (0.5-1.9) mmol/L Calcium 8.8 (8.4-10.6) mg/dL Total Bilirubin 0.3 (0.1-1.5) mg/dL AST 33 (12-35) U/L ALT 23 (4-50) U/L Alkaline Phosphatase 122 (40-150) U/L Total Protein 7.1 (6.0-8.3) g/dL Albumin 3.7 (3.3-5.0) g/dL Discharge Plan Discharge Clinical Impression: Cellulitis of foot, left, Suprapubic catheter dysfunction Patient Disposition: Admitted As Observation Condition: Improved
--- NOTE | 2025-05-28 21:27 | CRLHL7_ITS ---
For Patients: As a result of the Century Cures Act, medical imaging exams and procedure reports are released immediately into your electronic medical record. You may view this report before your referring provider. If you have questions, please contact your health care provider. Indication: Hematuria with clots and no urine output. Supra-pubic arroyo catheter inserted. Technique: Grayscale sonographic evaluation of the bladder was performed. Comparison: None. Findings/Impression: The decompressed bladder is unremarkable in appearance with a volume of 18 milliliters. The urinary catheter is not clearly visualized within bladder. No discrete mass lesion identified within the bladder lumen. Dictated by Milton Coy MD @ 05/28/2025 11:04:09 PM (Electronically Signed)
[2025-05-28 21:30] VITALS: O2SAT 98
--- NOTE | 2025-05-28 21:37 | CRLHL7_ITS ---
For Patients: As a result of the Century Cures Act, medical imaging exams and procedure reports are released immediately into your electronic medical record. You may view this report before your referring provider. If you have questions, please contact your health care provider. Indication: Pain, redness, swelling. Technique: Right foot 4 views. Comparison: None. Findings: Hammertoe deformities of multiple toes. Patchy mineralization of the bones diffusely. Possible acute nondisplaced fracture of the base of the 5th metatarsal. Normal alignment. Mild degenerative changes throughout the midfoot. Soft tissue swelling about the foot and ankle. Impression: 1. Patchy mineralization of the bones diffusely. While this could represent osteopenia, an infiltrative marrow disorder or diffuse osseous metastatic disease could appear similar. 2. Possible acute nondisplaced fracture of the base of the 5th metatarsal. Recommend correlation with site of focal tenderness. Given the above findings, a pathologic or insufficiency fracture are considerations. 3. Soft tissue swelling about the foot and ankle. No convincing radiographic evidence for osteomyelitis. However, recommend MRI if there is persistent clinical concern. Dictated by Milton Coy MD @ 05/28/2025 11:49:17 PM (Electronically Signed)
[2025-05-28 21:41] LABS: Lactate* 1.3 mmol/L (0.5-1.9)
[2025-05-28 21:46] LABS: Hematocrit 42.8 % (37.0-53.0); Hemoglobin* 13.5 gm/dL (13.5-17.5); Immature Granulocytes Abs Auto 0.01 K/uL (0.00-0.30); Immature Granulocytes Pct Auto 0.1 %; Mean Corpuscular HGB Conc 32 gm/dL (32-36); Mean Corpuscular Hemoglobin 29 pg (26-34); Mean Corpuscular Volume 92 fL (80-100); RDW Coefficient of Variation % 15.0 % (11.5-15.5); Red Blood Count 4.65 m/uL (4.30-5.90); White Blood Count* 7.31 K/uL (4.50-11.00)
[2025-05-28 21:52] LABS: Chloride* 106 mmol/L (96-114)
[2025-05-28 21:53] LABS: Albumin* 3.7 g/dL (3.3-5.0); Potassium* 3.8 mmol/L (3.6-5.1); Sodium* 140 mmol/L (135-149)
[2025-05-28 21:55] LABS: Alanine Aminotransferase* 23 U/L (4-50); Anion Gap 5 mEq/L (7-15); Aspartate Amino Transferase* 33 U/L (12-35); Blood Urea Nitrogen* 16 mg/dL (7-30); Carbon Dioxide* 29 mmol/L (20-32); Creatinine* 1.0 mg/dL (0.5-1.5); Est. Creatinine Clearance* 54.99; Estimated Glomerular Filt Rate 74 ml/min
[2025-05-28 21:56] LABS: Alkaline Phosphatase* 122 U/L (40-150); Bilirubin Total* 0.3 mg/dL (0.1-1.5); Calcium* 8.8 mg/dL (8.4-10.6); Glucose* 105 mg/dL (60-115); Total Protein* 7.1 g/dL (6.0-8.3)
[2025-05-28 22:02] LABS: Lymphocytes Absolute Auto 1.30 K/uL (0.90-2.90); Slide Review Reflex No
[2025-05-28] MEDS: VANCOMYCIN 1.5 GM/300 ML 1.5 GM/300 ML PIGGYBACK IVPB (22:37)
[2025-05-28] MEDS: 0.9 % SODIUM CHLORIDE 500 ML 500 ML IV (22:43)
[2025-05-28 22:45] VITALS: BP 128/91; PULSE 63; RESP 20; TEMP 37.1; O2SAT 98
[2025-05-28 22:50] LABS: Erythrocyte SedimentationRate* 71 mm/hr (2-15)
[2025-05-29] VITALS (12 sets, daily range): BP systolic 107–142; BP diastolic 65–83; PULSE 68–112; RESP 18–24; TEMP 37–38.3; O2SAT 94–98; BMI 28.3; BMI 28.4
--- NOTE | 2025-05-29 01:25 | W.PM.TELEH&P ---
Telehealth- H&P: HPI History of Present Illness Date Seen: 05/29/25 Chief complaint: catheter issues Narrative: Hi Myers is seen as an Interactive Telehealth visit. Hi Myers is a 84 year old Male With past medical history significant for HTN, dementia, Multiple sclerosis, neurogenic bladder status post suprapubic catheter, on anticoagulation with Eliquis who is presenting to emergency department with complaints of problems with his suprapubic catheter and left foot great toe and foot pain swelling and redness. Patient reports yesterday he had issues with his suprapubic catheter. He is at the tried 2 times and were not successful. He has also been having pain in his left foot with increased warmth to touch. He is denying any fever, chills, abdominal pain, nausea or vomiting. He is denying any cough, difficulty breathing. In the emergency department were able to flush the Marr however difficulty withdrawing from the catheter. Subsequently there was blood clots from the Marr bag. By ER that has cleared up since then. Workup in the emergency department showed WBC 7.31, hemoglobin 13.5, hematocrit 42.8, platelets 185. ESR 71, sodium 140, potassium 3.8, chloride 106, bicarb 29, BUN 16, creatinine 1.0, glucose 105, lactate 1.3, calcium 8.8 Review of Systems Narrative: Complete ROS was performed, pertinent positives and negatives per HPI. [facility] Medical History (Updated 05/29/25 @ 01:52 by Robyn Arzola MD) Dementia ?F03.90 - Unspecified dementia, unspecified severity, without behavioral disturbance, psychotic disturbance, mood disturbance, and anxiety (ICD-10) Neurogenic bladder (01/11/11) ?N31.9 - Neuromuscular dysfunction of bladder, unspecified (ICD-10) Multiple sclerosis (12/10/09) ?G35 - Multiple sclerosis (ICD-10) Constipation (03/31/21) ?K59.00 - Constipation, unspecified (ICD-10) Major depressive disorder, recurrent, unspecified (12/20/16) ?F33.9 - Major depressive disorder, recurrent, unspecified (ICD-10) Insomnia (01/20/21) ?G47.00 - Insomnia, unspecified (ICD-10) Edema (03/03/21) ?R60.9 - Edema, unspecified (ICD-10) Diastasis recti (05/19/21) ?M62.08 - Separation of muscle (nontraumatic), other site (ICD-10) Chronic pain syndrome (03/13/19) ?G89.4 - Chronic pain syndrome (ICD-10) Stercoral colitis ?K52.89 - Other specified noninfective gastroenteritis and colitis (ICD-10) Health care directive on file ?Z78.9 - Other specified health status (ICD-10) Bacteremia due to methicillin resistant Staphylococcus aureus ?R78.81 - Bacteremia (ICD-10) ?B95.62 - Methicillin resistant Staphylococcus aureus infection as the cause of diseases classified elsewhere (ICD-10) Heart failure ?I50.9 - Heart failure, unspecified (ICD-10) Depression ?F32.A - Depression, unspecified (ICD-10) Hypertension ?I10 - Essential (primary) hypertension (ICD-10) Cognitive impairment ?R41.89 - Other symptoms and signs involving cognitive functions and awareness (ICD-10) Suprapubic catheter dysfunction ?T83.010A - Breakdown (mechanical) of cystostomy catheter, initial encounter (ICD-10) Neurogenic bladder ?N31.9 - Neuromuscular dysfunction of bladder, unspecified (ICD-10) Multiple sclerosis ?G35 - Multiple sclerosis (ICD-10) Surgical History History of mitral valve repair ?Z98.890 - Other specified postprocedural states (ICD-10) Family History Father Diabetes Heart disease Social History (Updated 01/30/25 @ 20:58 by Juwan Land MD) Narrative: Resident of [facility]. Has 2 daughters and 2 sons. Two daughters and 1 son live in [place] and 1 son lives in [facility]. According to scott Guzman all 4 are healthcare power of finance attorney. He continues to request full code status. Scott Guzman is most closely involved with day-to-day cares. What is your current living situation?: I presently have a place to live Problems where you live: no known problems Problems where you live details: n/a In the past 12 months, utilities in danger of being shut off: no In past 12 months, lack of transportation kept you from medical appts, meetings, work, or getting things needed for daily living: no In the past 12 mos, have been you worried that your food would run out before you had money to buy more?: never true In the past 12 mos, the food you bought just didn't last and you didn't have money to buy more?: never true Highest level of school completed/degree received: high school graduate Smoking Status: Former smoker What tobacco products do you use: pipe Do you use any of these nicotine containing products: None Second hand tobacco smoke exposure: No How often do you have a drink containing alcohol: never How often do you have six or more drinks on one occasion: Never AUDIT-C Alcohol total score: 0 Non-prescribed substance use: denies use How often does anyone, including family, friends and others, physically hurt you: never How often does anyone, including family, friends and others, insult or talk down to you: never How often does anyone, including family, friends and others, threaten you with harm: never How often does anyone, including family, friends and others, scream or curse at you: never service: No Meds Home Medications and Allergies Home Medications ?Medication ?Instructions ?Recorded ?Confirmed ?Type Lactobacillus acidophilus 1 cap PO DAILY 03/09/24 01/30/25 History (Acidophilus capsule) apixaban 2.5 mg tablet (Eliquis) 2.5 mg PO BID 03/09/24 01/30/25 History azithromycin 250 mg tablet 500 mg PO .EACH TIME PRN 03/09/24 01/30/25 History bacitracin 500 unit/gram topical 1 applic topical BID 03/09/24 01/30/25 History ointment donepezil 10 mg tablet 10 mg PO HS 03/09/24 01/30/25 History furosemide 40 mg tablet 40 mg PO BID 03/09/24 01/30/25 History memantine 5 mg tablet 5 mg PO DAILY 03/09/24 01/30/25 History oxybutynin chloride 5 mg 5 mg PO DAILY 03/09/24 01/30/25 History tablet,extended release 24 hr potassium chloride 20 mEq 20 meq PO BID 03/09/24 01/30/25 History tablet,extended release(part/cryst) tramadol 50 mg tablet 25 mg PO TID 03/09/24 01/30/25 History triamcinolone acetonide 0.1 % 1 applic topical BID 03/09/24 01/30/25 History topical cream acetaminophen 325 mg tablet 650 mg PO TID 11/14/24 01/30/25 History cranberry 500 mg capsule 500 mg PO HS 11/14/24 01/30/25 History melatonin 3 mg tablet 9 mg PO HS 11/14/24 01/30/25 History sennosides 8.6 mg tablet (Natural 8.6 mg PO BID PRN 11/14/24 01/30/25 History Senna Laxative) sertraline 50 mg tablet 50 mg PO DAILY 30 days #30 tabs 11/20/24 01/30/25 Rx ascorbic acid (vitamin C) 500 mg 500 mg PO HS 01/30/25 01/30/25 History tablet levofloxacin 500 mg tablet 500 mg PO Q24H 11 days #11 tabs 02/02/25 Rx polyethylene glycol 3350 17 gram 17 g PO DAILY 7 days #7 ea 02/02/25 Rx oral powder packet (Miralax) Allergies Allergy/AdvReac Type Severity Reaction Status Date / Time adhesive tape Allergy Severe Verified 01/30/25 14:24 amoxicillin (From Augmentin) Allergy Severe Verified 01/30/25 14:24 bacitracin (From Triple Allergy Severe Verified 01/30/25 14:24 Antibiotic) cephalexin (From Keflex) Allergy Severe Verified 01/30/25 14:24 clavulanic acid (From Allergy Severe Verified 01/30/25 14:24 Augmentin) latex Allergy Severe Verified 01/30/25 14:24 neomycin (From Triple Allergy Severe Verified 01/30/25 14:24 Antibiotic) polymyxin B (From Triple Allergy Severe Verified 01/30/25 14:24 Antibiotic) silver sulfadiazine AdvReac Unknown Verified 01/30/25 14:24 Exam Narrative Exam Narrative: Physical Exam GENERAL: ?vital signs reviewed, well developed and nourished, in no distress. oriented to self, place, and events. Not oriented to todays' date. HEENT: pupils are equal round and reactive to light, extraocular movements are grossly within normal limits and oral mucosa is moist. NECK: Supple without lymphadenopathy or thyromegaly according to nursing staff examination observation HEART: Regular rate and rhythm without any rubs, murmurs, or gallops. LUNGS: Clear to auscultation bilaterally with good air movement throughout ABDOMEN: Observation from nurse assisted exam, abdomen appears soft, nontender, and nondistended with Positive bowel sounds noted. + subapubic catheter in place. EXTREMITIES: Strength and sensation is observed to be grossly within normal limits in the upper and lower extremities.? No focal strength deficit is observed. SKIN:? Observed warm and dry with color normal Const Vital Signs, click to edit/add: Vital Signs - 24 hr 05/28/25 21:00 05/28/25 21:30 05/28/25 22:45 Temperature 97.8 F 98.7 F Pulse Rate [Pulse Oximeter] 72 63 Respiratory Rate 20 20 Blood Pressure [Left Upper Arm] 140/68 H 128/91 H Pulse Oximetry 96 98 98 Oxygen Delivery Method Room Air Room Air 05/29/25 01:11 Temperature 98.7 F Pulse Rate [Pulse Oximeter] 68 Respiratory Rate 20 Blood Pressure [Left Upper Arm] 128/81 Pulse Oximetry 98 Oxygen Delivery Method Room Air Hospitalist - H&P: Result Labs Labs: Short CBC 05/28/25 Range/Units 21:30 WBC 7.31 (4.50-11.00) K/uL Hgb 13.5 (13.5-17.5) gm/dL Hct 42.8 (37.0-53.0) % Plt Count 185 (140-440) K/uL BMP 05/28/25 21:30 Sodium 140 Potassium 3.8 Chloride 106 Carbon Dioxide 29 BUN 16 Creatinine 1.0 Glucose 105 Calcium 8.8 Liver Function 05/28/25 Range/Units 21:30 Total Bilirubin 0.3 (0.1-1.5) mg/dL AST 33 (12-35) U/L ALT 23 (4-50) U/L Alkaline Phosphatase 122 (40-150) U/L Albumin 3.7 (3.3-5.0) g/dL Assessment and Plan Assessment and plan (1) Cellulitis of foot, left: Status: Acute (2) Neurogenic bladder: Problem comment: Consider switch to [place] instead of Ditropan Status: Acute (3) Multiple sclerosis: Problem comment: Marked loss of lower extremity function. In better chair. No weight-bearing on legs. Status: Acute (4) UTI (urinary tract infection): Problem comment: - 01/30/2025: Due to allergies will start Levaquin. One dose of vancomycin with history of MRSA UTI and bacteremia 2 months ago. Follow clinically. Await cultures. - 02/01/2025: Stop vancomycin. Continue with levofloxacin. Await blood culture sensitivities on the Proteus mirabilis. - 02/02/25: As above Status: Acute Plan - - Suprapubic catheter was flushed in the emergency department and is currently draining. However he was initially noticed to have blood clots in the bag which has subsequently resolved. He is denying any abdominal pain. For left foot cellulitis, x-ray is concerning and unable to rule out osteomyelitis. Consider getting MRI of the foot versus podiatry evaluation in the morning. Will continue with broad-spectrum antibiotics with Vanco and cefepime/imipenem for broad-spectrum coverage. Patient has known history of MRSA bacteremia earlier in the year. Resume all home medications once verified. Telehealth: Statement Statement Telehealth Visit: Today's History and Physical is provided via interactive telehealth by Aliyah Vega MD.? Patient is located at [facility].? Provider is located at [facility].? Nursing staff assisted with the patient's exam. The visit being done today meets criteria for a telehealth visit and the patient or patient?s parent/guardian is aware the visit is a telehealth visit. Camera Start Time: 01:53 Camera End Time: 02:03
[2025-05-29] MEDS: CEFEPIME HCL 2 GM in 0.9 % SODIUM CHLORIDE Mini-bag 100 ML IVPB ×2 (04:29→15:57)
--- NOTE | 2025-05-29 04:45 | PC.NURSE ---
Pt admitted to floor @ 0100 for left foot Cellulitis. Foot red and swollen. RN outlined extent of redness upon arrival. Pt pleasant and very confused. Bilateral Foot Drop. Pt has Supra-pubic Cath which was changed in ED. Pt has scant blood seepage from penis. Urine was dark amy upon arrival to the floor. Now Urine has become yellow and clear. Pt has open wound on left big toe. RN preformed wound care and covered toe with bandage. Pt also has open sore to Buttocks. Mepilex applied. Pt afebrile.
[2025-05-29 06:54] LABS: Hematocrit 45.1 % (37.0-53.0); Hemoglobin* 14.3 gm/dL (13.5-17.5); Immature Granulocytes Abs Auto 0.01 K/uL (0.00-0.30); Immature Granulocytes Pct Auto 0.1 %; Lymphocytes Absolute Auto 0.50 K/uL (0.90-2.90); Mean Corpuscular HGB Conc 32 gm/dL (32-36); Mean Corpuscular Hemoglobin 29 pg (26-34); Mean Corpuscular Volume 92 fL (80-100); RDW Coefficient of Variation % 15.0 % (11.5-15.5); Red Blood Count 4.92 m/uL (4.30-5.90); Slide Review Reflex No; White Blood Count* 8.69 K/uL (4.50-11.00)
[2025-05-29 07:12] LABS: Chloride* 107 mmol/L (96-114); Potassium* 4.0 mmol/L (3.6-5.1); Sodium* 140 mmol/L (135-149)
[2025-05-29 07:15] LABS: Anion Gap 5 mEq/L (7-15); Blood Urea Nitrogen* 13 mg/dL (7-30); Carbon Dioxide* 28 mmol/L (20-32); Creatinine* 0.8 mg/dL (0.5-1.5); Est. Creatinine Clearance* 54.99; Estimated Glomerular Filt Rate 87 ml/min
[2025-05-29 07:16] LABS: Calcium* 8.8 mg/dL (8.4-10.6); Glucose* 108 mg/dL (60-115)
--- NOTE | 2025-05-29 09:13 | P.IMPN_ITS ---
Assessment and Plan Assessment and plan (1) Cellulitis of foot, left: Problem comment: - with L great toe ulcer, on Vancomycin and Cefepime (05/28) - high risk for complications given comorbidities - MRI 05/29, Podiatry consulted, likely will require surgical intervention Status: Acute (2) Neurogenic bladder: Problem comment: - with suprapubic catheter in place Status: Acute (3) Multiple sclerosis: Problem comment: - with marked loss of lower extremity function, non weight bearing Status: Acute (4) UTI (urinary tract infection): Problem comment: - multiple historically, culture pending - was on Bactrim prior to admission 05/29/25 - Cefepime and Vancomycin (05/28) Status: Acute Plan - per above - HOLDING Eliquis for anticipated surgery - daughter Megan updated by phone, questions answered - requires inpatient management given complicated cellulitis, comorbidities, Podiatry referral Subjective Date Seen: 05/29/25 Interval history: Hi was admitted to the hospital last night for LLE cellulitis and concern for suprapubic catheter dysfunction. History of MS with subsequent neurogenic bladder requiring suprapubic catheter, MCI, recurrent UTIs. Was on Bactrim for UTI prior to ER presentation. Suprapubic catheter replaced in ER on 05/28,draining well. In ER, noted to have erythematous R foot with an ulcer over the R great toe's distal phalanx. + pain with palpation. Photos uploaded in nursing notes on 05/29. On IV Vancomycin and IV Cefepime. HOLDING Eliquis as of 05/28. Dr. Castro of Podiatry has been consulted, pending MRI results, likely surgical intervention on 05/31. Exam Narrative: Exam Narrative: GEN: Alert and answering questions appropriately, sitting up in bed HEENT: Missing most of his upper teeth, no evidence of acute infection, EOMIs bilaterally CV: RRR, No concerning murmurs R: LCTA bilaterally without concerning wheezing Ext: Hyperpigmentation BLEs anteriorly, c/w PVD. Erythema of LLE, up past foot, outlined by staff. Ulcer over distal phalanx, L great toe, + serous drainage. Photos in nursing notes 05/29 Psych: Appears to have MCI, no agitation, otherwise appropriate Const: Vital Signs, click to edit/add: Vital Signs - 24 hr 05/28/25 21:00 05/28/25 21:30 05/28/25 22:45 Temperature 97.8 F 98.7 F Pulse Rate [Left R adial] Pulse Rate [Pulse Oximeter] 72 63 Respiratory Rate 20 20 Blood Pressure [Le ft Arm] Blood Pressure [Le ft Upper Arm] 140/68 H 128/91 H Blood Pressure [Ri ght Arm] Pulse Oximetry 96 98 98 Oxygen Delivery Me thod Room Air Room Air 05/29/25 01:11 05/29/25 01:29 05/29/25 01:30 Temperature 98.7 F 98.6 F 98.6 F Pulse Rate [Left R adial] 71 71 Pulse Rate [Pulse Oximeter] 68 Respiratory Rate 20 18 18 Blood Pressure [Le ft Arm] 142/83 H 142/83 H Blood Pressure [Le ft Upper Arm] 128/81 Blood Pressure [Ri ght Arm] Pulse Oximetry 98 98 98 Oxygen Delivery Il thod Room Air Room Air Room Air 05/29/25 02:06 05/29/25 07:00 Temperature 98.6 F 101 F H Pulse Rate [Left R adial] 71 108 H Pulse Rate [Pulse Oximeter] Respiratory Rate 18 22 Blood Pressure [Le ft Arm] 142/83 H Blood Pressure [Le ft Upper Arm] Blood Pressure [Ri ght Arm] 128/77 Pulse Oximetry 98 94 Oxygen Delivery Me thod Room Air Room Air Labs Labs: Laboratory Results - last 24 hr 05/28/25 05/29/25 21:30 06:36 WBC 7.31 8.69 RBC 4.65 4.92 Hgb 13.5 14.3 Hct 42.8 45.1 MCV 92 92 MCH 29 29 MCHC 32 32 RDW Coeff of Pily 15.0 15.0 Plt Count 185 155 Neut % (Auto) 66.9 82.8 H Lymph % (Auto) 17.4 L 5.9 L [place] % (Auto) 12.6 H 9.4 Eos % (Auto) 2.5 1.6 Baso % (Auto) 0.5 0.2 Neut # (Auto) 4.89 7.20 H Lymph # (Auto) 1.30 0.50 L [place] # (Auto) 0.90 0.80 Eos # (Auto) 0.18 0.14 Baso # (Auto) 0.04 0.02 Abs Immat Gran (auto) 0.01 0.01 Imm/Tot Granulo (auto) 0.1 0.1 ESR 71 H Sodium 140 140 Potassium 3.8 4.0 Chloride 106 107 Carbon Dioxide 29 28 Anion Gap 5 L 5 L BUN 16 13 Creatinine 1.0 0.8 Estimated Creat Clear 54.99 54.99 Estimated GFR 74 87 Glucose 105 108 Lactate 1.3 Calcium 8.8 8.8 Total Bilirubin 0.3 AST 33 ALT 23 Alkaline Phosphatase 122 Total Protein 7.1 Albumin 3.7
--- NOTE | 2025-05-29 09:17 | CRLHL7_ITS ---
For Patients: As a result of the Cures Act, medical imaging exams and procedure reports are released immediately into your electronic medical record. You may view this report before your referring provider. If you have questions, please contact your health care provider. INDICATION: Left foot cellulitis. Evaluate for osteomyelitis. TECHNIQUE: Noncontrast MRI of the left forefoot and midfoot. Axial, sagittal and coronal T1 and STIR images were obtained. 1.5 david MRI scanner. COMPARISON: Radiographs 05/28/2025. FINDINGS: There appears to be a soft tissue wound involving the dorsal aspect of the great toe adjacent to the IP joint and head of the proximal phalanx. There is soft tissue signal abnormality in that region suggesting cellulitis changes. There is no associated fluid collection. There is abnormal marrow signal within the head and neck of the proximal phalanx with duskiness of the fatty marrow on T1 weighted images which likely reflects osteomyelitis changes. Bone marrow edema is also present within the distal phalanx of the great toe though with only minimal limited duskiness of the marrow fatty marrow along the lateral base of the distal phalanx. The marrow changes involving the distal phalanx are therefore not specific for osteomyelitis and could reflect either severe reactive marrow changes or limited early osteomyelitis. Note that the majority of the fatty marrow within the distal phalanx is preserved. No excessive interphalangeal joint fluid. No osteomyelitis of the 2nd through 5th toes. Denervation changes involving foot musculature. Soft tissue edema. No acute fracture. IMPRESSION: 1. Soft tissue wound involving the dorsal aspect of the great toe with cellulitis changes. 2. No associated fluid collection. 3. Probable osteomyelitis of the head and neck of the proximal phalanx of the great toe. Reactive marrow changes versus small area of limited early osteomyelitis of the lateral base of the distal phalanx of the great toe. 4. No osteomyelitis of the 2nd through 5th toes. Dictated by Faisal Valadez MD @ 05/29/2025 2:22:25 PM (Electronically Signed)
--- NOTE | 2025-05-29 10:28 | PC.PHA ---
Vancomycin consult note: Indication for vancomycin: [FOOT CELLULITIS] Age: [84] Height: [175 CM] Weight: [87 KG] Most recent SCr: [0.8] Estimated CrCL: [] Recommended dose and frequency: [1000 MG IV Q12 HR] to obtain an estimated AUC/LEIGH of 400-600 mcg*hr/m 513 Additional comment: []
[2025-05-29] MEDS: VANCOMYCIN 1 GM/200 ML 1 GM/200 ML PIGGYBACK IVPB ×2 (10:34→22:43)
[2025-05-29] MEDS: SODIUM CHLORIDE 0.9 % (FLUSH) 10 ML SYRINGE 5 ML IVF ×2 (10:34→21:03)
--- NOTE | 2025-05-29 12:36 | PC.SOCIAL ---
Discharge planning: sanitation worker confirmed with [facility] that the pt is on a bed hold with them and the plan will be for him to return to [facility] when he is medically ready. Social work to follow-up as needed.
--- NOTE | 2025-05-29 13:42 | PM.EN ---
Chart Event Note Chart Event Note: Staff notified me that Hi's BC x 2 grew out G+cocci. I have reviewed his medication list. He is currently on Cefepime and Vancomycin IV, which would provide adequate coverage.
[2025-05-29] MEDS: FUROSEMIDE 40 MG TABLET PO (15:45)
--- NOTE | 2025-05-29 15:50 | PC.NURSE ---
3lcc given update that patient will not be returning today.
--- NOTE | 2025-05-29 17:25 | P.PODCN_ITS ---
HPI - Podiatry Data of Consult Time Seen by Provider: 17:15 Date Seen: 05/29/25 Patient: Arley Patient Consult date: 05/29/25 Requesting physician: Aliyah Vega MD Primary care provider: Gabe White MD Consult Narrative Reason for consult: Left great toe infection Narrative: Hi Myers is a 84 year old male with past medical history significant for HTN, dementia, Multiple sclerosis, neurogenic bladder status post suprapubic catheter, on anticoagulation with Eliquis who is presenting to emergency department with complaints of problems with his suprapubic catheter and left foot great toe and foot pain swelling and redness. The patient proximally and that the toe started to become swollen and painful 2 days ago. He states that could be prior to this but really became noticeable 2 days ago. He presented to the emergency department before nursing facility can start antibiotics. He was seen by myself in March at which time he had a small eschar over the same site that was stable without signs of infection. The area was to be protected but unfortunately must have broke open at some point and become infected. He states the great toe is extremely painful 5th moved to bone. No significant pain more proximal in the midfoot. Currently he denies any fever chills nausea vomiting. He has history of MRSA infections. cc:: CC: Aliyah Vega MD Review of Systems Status of ROS: Reports: 10 or more systems reviewed and unremarkable except as noted in History and below [facility] Medical History (Updated 05/29/25 @ 11:39 by Sherrell Bernard MD) Dementia ?F03.90 - Unspecified dementia, unspecified severity, without behavioral disturbance, psychotic disturbance, mood disturbance, and anxiety (ICD-10) Neurogenic bladder (01/11/11) ?N31.9 - Neuromuscular dysfunction of bladder, unspecified (ICD-10) Multiple sclerosis (12/10/09) ?G35 - Multiple sclerosis (ICD-10) Constipation (03/31/21) ?K59.00 - Constipation, unspecified (ICD-10) Major depressive disorder, recurrent, unspecified (12/20/16) ?F33.9 - Major depressive disorder, recurrent, unspecified (ICD-10) Insomnia (01/20/21) ?G47.00 - Insomnia, unspecified (ICD-10) Edema (03/03/21) ?R60.9 - Edema, unspecified (ICD-10) Diastasis recti (05/19/21) ?M62.08 - Separation of muscle (nontraumatic), other site (ICD-10) Chronic pain syndrome (03/13/19) ?G89.4 - Chronic pain syndrome (ICD-10) Stercoral colitis ?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 - Other specified noninfective gastroenteritis and colitis (ICD-10) Health care directive on file ?Z78.9 - Other specified health status (ICD-10) Bacteremia due to methicillin resistant Staphylococcus aureus ?R78.81 - Bacteremia (ICD-10) ?B95.62 - Methicillin resistant Staphylococcus aureus infection as the cause of diseases classified elsewhere (ICD-10) Heart failure ?I50.9 - Heart failure, unspecified (ICD-10) Depression ?F32.A - Depression, unspecified (ICD-10) Hypertension ?I10 - Essential (primary) hypertension (ICD-10) Cognitive impairment ?R41.89 - Other symptoms and signs involving cognitive functions and awareness (ICD-10) Suprapubic catheter dysfunction ?T83.010A - Breakdown (mechanical) of cystostomy catheter, initial encounter (ICD-10) Neurogenic bladder ?N31.9 - Neuromuscular dysfunction of bladder, unspecified (ICD-10) Multiple sclerosis ?G35 - Multiple sclerosis (ICD-10) Surgical History History of mitral valve repair ?Z98.890 - Other specified postprocedural states (ICD-10) Family History Father Diabetes Heart disease Social History (Updated 01/30/25 @ 20:58 by Juwan Land MD) Narrative: Resident of [facility]. Has 2 daughters and 2 sons. Two daughters and 1 son live in [place] and 1 son lives in [place]. According to scott Guzman all 4 are healthcare power of real estate associate attorney. He continues to request full code status. Scott Guzman is most closely involved with day-to-day cares. What is your current living situation?: I presently have a place to live Problems where you live: no known problems Problems where you live details: n/a In the past 12 months, utilities in danger of being shut off: no In past 12 months, lack of transportation kept you from medical appts, meetings, work, or getting things needed for daily living: no In the past 12 mos, have been you worried that your food would run out before you had money to buy more?: never true In the past 12 mos, the food you bought just didn't last and you didn't have money to buy more?: never true Highest level of school completed/degree received: high school graduate Smoking Status: Former smoker What tobacco products do you use: pipe Do you use any of these nicotine containing products: None Second hand tobacco smoke exposure: No How often do you have a drink containing alcohol: never How often do you have six or more drinks on one occasion: Never AUDIT-C Alcohol total score: 0 Non-prescribed substance use: denies use How often does anyone, including family, friends and others, physically hurt you : never How often does anyone, including family, friends and others, insult or talk down to you: never How often does anyone, including family, friends and others, threaten you with harm: never How often does anyone, including family, friends and others, scream or curse at you: never service: No Exam Narrative: Exam Narrative: General: No distress resting comfortably. Vascular: Faintly palpable dorsalis pedis and posterior tibial pulses. Cap refill time less 3 seconds all digits. Neuro: Sensation to light touch. Musculoskeletal: Flexion deformities of digits 1 through 5. The deformities are rigid. Derm: Erythema to the left great toe and dorsal midfoot. There is an open wound dorsal IPJ left great toe with drainage. No purulence noted. Exposed joint noted. There is no fluctuance or induration. There is moderate edema to the dorsal forefoot did, midfoot and left great toe. Labs: White blood cell count 8.69, neutrophils 82.8, ESR 71, total protein 7.1, albumin 3.7 X-ray left foot: Diffuse osteopenia, possible 5th metatarsal neck fracture, no evidence of osteomyelitis. MRI left foot: Open wound over the left great toe with no evidence of abscess. Osteomyelitis of the proximal phalanx hallux and distal phalangeal base. Blood culture: Gram-positive cocci clusters Assessment: Left great toe infection with septic joint and osteomyelitis pro ximal and distal phalanx bone, bacteremia Plan: I reviewed the clinical picture and the MRI results with christine Do unfortunately the wound has now exposed the joint and infection is in both bones of the great toe. I recommend amputation to cure the infection but also to treat the underlying toe deformity that led to the open wound and infection. I anticipate that anything short of surgery will put him at risk of further limb loss. His Eliquis has been held starting today and we will proceed with surgery on Tuesday at 12:00 p.m.. Patient understands the plan and the necessity for amputation. I reviewed the procedure, recovery, expectations and post central complications. All questions are answered. Continue Mepilex border dressing to the wound. Continue to hold Eliquis until 12 hours post surgery. Continue current IV antibiotics until sensitivities complete. Const: Vital Signs, click to edit/add: Vital Signs - 24 hr 05/28/25 21:00 05/28/25 21:30 05/28/25 22:45 Temperature 97.8 F 98.7 F Pulse Rate [Left R adial] Pulse Rate [Pulse Oximeter] 72 63 Respiratory Rate 20 20 Blood Pressure [Le ft Arm] Blood Pressure [Le ft Upper Arm] 140/68 H 128/91 H Blood Pressure [Ri ght Arm] Pulse Oximetry 96 98 98 Oxygen Delivery Me thod Room Air Room Air 05/29/25 01:11 05/29/25 01:29 05/29/25 01:30 Temperature 98.7 F 98.6 F 98.6 F Pulse Rate [Left R adial] 71 71 Pulse Rate [Pulse Oximeter] 68 Respiratory Rate 20 18 18 Blood Pressure [Le ft Arm] 142/83 H 142/83 H Blood Pressure [Le ft Upper Arm] 128/81 Blood Pressure [Ri ght Arm] Pulse Oximetry 98 98 98 Oxygen Delivery Me thod Room Air Room Air Room Air 05/29/25 02:06 05/29/25 07:00 Temperature 98.6 F 101 F H Pulse Rate [Left R adial] 71 108 H Pulse Rate [Pulse Oximeter] Respiratory Rate 18 22 Blood Pressure [Le ft Arm] 142/83 H Blood Pressure [Le ft Upper Arm] Blood Pressure [Ri ght Arm] 128/77 Pulse Oximetry 98 94 Oxygen Delivery Me thod Room Air Room Air Documenting provider has reviewed patient's vital signs: yes Nail Debridement Qualifies If: Qualifiers If:: A patient qualifies for nail debridement if they have: 1 class A finding (Q7) 2 class B findings (Q8) OR 1 class B & 2 class C findings in addition to a primary condition (Q9)
[2025-05-29] MEDS: POTASSIUM CHLORIDE 10 MEQ CAPSULE ER 20 MEQ PO (18:26)
[2025-05-29] MEDS: ACETAMINOPHEN 325 MG TABLET 650 MG PO (18:35)
--- NOTE | 2025-05-29 19:05 | PC.NURSE ---
Arrived to find the patient in bed alert and oriented but with altered cognition. Remote memory somewhat impaired. Very weak of strength and not moving much in bed. Drop foot is significant. +1 pitting edema of the lower legs, ankles, and feet. Bone infection of the left big toe. Skin is red in most of foot to ankle and is outlined. Receding slowly. Catheter in place producing moderate amounts of pale yellow to light amy urine. No smell. Some bloody discharge from catheter site in the morning. The patient is not complaining of pain. Vitally they have been maintaining a fever. On MRSA precautions. The patient was in a stable state of health at time of transfer of care.
--- NOTE | 2025-05-29 19:14 | PC.NURSE ---
updated with temp 100.6. Tylenol given.
--- NOTE | 2025-05-29 19:14 | PC.NURSE ---
Daughter Megan updated with Gloria's progress note/info with patent's permission. Dr. Castro call to speak directly with daughter.
[2025-05-29] MEDS: SENNOSIDES 1 TAB TABLET PO (21:02)
[2025-05-29] MEDS: DONEPEZIL 10 MG TABLET PO (21:02)
--- NOTE | 2025-05-29 21:17 | PC.NURSE ---
Nurse in patient room around 1930 to get patient from the chair to the bed using the ceiling lift. Nurses noticed brief was saturated at that time. When placing patient back in bed, brief was changed. The pad and chux were completely saturated with urine. Nurse noticed bright red blood coming from patient penis as well. Blood noted on pad as well. Patient denied any pain and suprapubic catheter was patent and draining. Provider Jeniffer was notified. Nursing to continue to monitor. Nurse went back to patient room to reposition at 2129 and check penis drainage. No blood or urine noted on patients pad at that time.
[2025-05-30] VITALS (7 sets, daily range): BP systolic 93–132; BP diastolic 49–75; PULSE 70–87; RESP 18–24; TEMP 36.7–37.6; O2SAT 94–97
[2025-05-30] MEDS: CEFEPIME HCL 2 GM in 0.9 % SODIUM CHLORIDE Mini-bag 100 ML IVPB ×4 (00:10→23:52)
[2025-05-30] MEDS: SODIUM CHLORIDE 0.9 % (FLUSH) 10 ML SYRINGE 5 ML IVF ×4 (00:11→22:51)
--- NOTE | 2025-05-30 06:35 | PC.NURSE ---
Pt alert to self. Pt slept most of the shift. Pt repositioned Q2H. Pt to have surgery on Tuesday, 05/31.
[2025-05-30 06:43] LABS: Hematocrit 38.9 % (37.0-53.0); Hemoglobin* 12.5 gm/dL (13.5-17.5); Immature Granulocytes Pct Auto 0.3 %; Mean Corpuscular HGB Conc 32 gm/dL (32-36); Mean Corpuscular Hemoglobin 30 pg (26-34); Mean Corpuscular Volume 92 fL (80-100); RDW Coefficient of Variation % 15.2 % (11.5-15.5); Red Blood Count 4.24 m/uL (4.30-5.90); White Blood Count* 3.57 K/uL (4.50-11.00)
[2025-05-30 06:44] LABS: Immature Granulocytes Abs Auto 0.00 K/uL (0.00-0.30); Lymphocytes Absolute Auto 0.50 K/uL (0.90-2.90); Slide Review Reflex No
[2025-05-30 06:56] LABS: Chloride* 110 mmol/L (96-114); Potassium* 3.2 mmol/L (3.6-5.1); Sodium* 141 mmol/L (135-149)
[2025-05-30 06:59] LABS: Anion Gap 5 mEq/L (7-15); Blood Urea Nitrogen* 14 mg/dL (7-30); Calcium* 8.6 mg/dL (8.4-10.6); Carbon Dioxide* 26 mmol/L (20-32); Creatinine* 0.9 mg/dL (0.5-1.5); Est. Creatinine Clearance* 54.99; Estimated Glomerular Filt Rate 84 ml/min; Glucose* 102 mg/dL (60-115)
--- NOTE | 2025-05-30 08:54 | PM.IMPN1 ---
Assessment and Plan Assessment and plan (1) Osteomyelitis: Problem comment: - L great toe - MRI 05/29: probable osteomyelitis of great toe proximal phalanx, possible early osteomyelitis of lateral base of great toe's distal phalan Status: Acute (2) Bacteremia: Problem comment: - 2/2 blood cultures collected 05/28 + for GPCs, on Vancomycin and Cefepime (05/28) Status: Acute (3) Cellulitis of foot, left: Problem comment: - with L great toe ulcer, on Vancomycin and Cefepime (05/28) - high risk for complications given comorbidities, + MRSA, + blood cultures 05/28 - MRI 05/29: probable osteomyelitis of great toe proximal phalanx, possible early osteomyelitis of lateral base of great toe's distal phalan - Dr. Csatro of Podiatry following, plans for surgery 05/31 Status: Acute (4) Neurogenic bladder: Problem comment: - with suprapubic catheter in place, replaced in ER 05/28 - urine culture currently negative Status: Acute (5) Multiple sclerosis: Problem comment: - with marked loss of lower extremity function, non weight bearing chronically Status: Acute (6) Paroxysmal atrial fibrillation: Problem comment: - on Eliquis (holding since 05/28 given upcoming surgery), currently in rate controlled sinus rhythm - will repeat EKG 05/30 given upcoming surgery Status: Acute (7) Suprapubic catheter dysfunction: Problem comment: - recurrent, replaced in ED 05/28, intermittent blood from urethra (daughter notes this happens occasionally after catheter change) Status: Acute (8) MRSA (methicillin resistant staph aureus) culture positive: Problem comment: - nasal swab, collected on admission, on IV Vancomycin and Cefepime (05/28) Status: Acute Plan - per above - daughter Megan updated bedside, questions answered - holding Eliquis, will restart postoperatively - will obtain EKG today for upcoming procedure; moderate risk for complications given comorbidities but benefits >risks of surgical intervention for osteomyelitis with bacteremia - Discussion with patient and daughter today about acute illness, goals of care; he would like to continue full medical treatment but amenable to changing code status to DNR/DNI Subjective Date Seen: 05/30/25 Interval history: Hi was admitted to the hospital on 05/29/25 for LLE cellulitis, great toe ulceration, and concern for suprapubic catheter dysfunction. Comorbidities include MS with subsequent neurogenic bladder requiring suprapubic catheter, MCI, recurrent UTIs, paroxysmal a fib, h/o CVA, cognitive impairment. Was on Bactrim for UTI prior to ER presentation. Suprapubic catheter replaced in ER on 05/28,draining well. In ER, noted to have erythematous R foot with an ulcer over the R great toe's distal phalanx, + pain. Photos uploaded in nursing notes on 05/29. On IV Vancomycin and IV Cefepime, held Eliquis on admission given surgical need. Both blood cultures from 05/28 are + for GPC, MRSA swab of nare positive. MRI on 05/29: 1. Soft tissue wound involving the dorsal aspect of the great toe with cellulitis changes. 2. No associated fluid collection. 3. Probable osteomyelitis of the head and neck of the proximal phalanx of the great toe. Reactive marrow changes versus small area of limited early osteomyelitis of the lateral base of the distal phalanx of the great toe. Dr. Castro of Podiatry is following, plans for surgery/amputation 05/31. Exam Narrative: Exam Narrative: GEN: Awake, resting in bed, nontoxic but appears chronically ill HEENT: Missing upper teeth without evidence of acute infection, EOMIs bilaterally, no scleral icterus CV: RRR, No concerning murmurs R: LCTA bilaterally without concerning wheezing, decreased bibasilar breath sounds Ext: Contractures BLE, erythema of LLE has improved Skin: Hyperpigmentation BLE c/w PVD, great toe ulcer is covered and not formally examined this morning Neuro: Baseline per comorbidities, no resting tremor Psych: Mild congnitive impairment, otherwise appropriate Const: Vital Signs, click to edit/add: Vital Signs - 24 hr 05/29/25 15:00 05/29/25 18:24 05/29/25 18:35 Temperature 100.6 F H 100.6 F H Pulse Rate [Left R adial] 112 H 112 H Pulse Rate [Pulse Oximeter] Respiratory Rate 20 20 Blood Pressure [Le ft Arm] Blood Pressure [Ri ght Arm] 132/72 Pulse Oximetry 95 Oxygen Delivery Me thod Room Air 05/29/25 19:00 05/29/25 20:24 05/29/25 21:06 Temperature 100.1 F H 100.1 F H 99.3 F Pulse Rate [Left R adial] 93 83 Pulse Rate [Pulse Oximeter] Respiratory Rate 24 24 Blood Pressure [Le ft Arm] Blood Pressure [Ri ght Arm] 107/65 118/70 Pulse Oximetry 94 94 Oxygen Delivery Me thod Room Air Room Air 05/30/25 00:15 05/30/25 04:34 Temperature 98.2 F 98.0 F Pulse Rate [Left R adial] Pulse Rate [Pulse Oximeter] 79 70 Respiratory Rate 24 24 Blood Pressure [Le ft Arm] 93/49 L 109/68 Blood Pressure [Ri ght Arm] Pulse Oximetry 95 95 Oxygen Delivery Me thod Room Air Room Air Labs Labs: Laboratory Results - last 24 hr 05/30/25 06:07 WBC 3.57 L RBC 4.24 L Hgb 12.5 L Hct 38.9 MCV 92 MCH 30 MCHC 32 RDW Coeff of [place] 15.2 Plt Count 138 L Neut % (Auto) 68.6 Lymph % (Auto) 13.7 L [place] % (Auto) 15.1 H Eos % (Auto) 1.7 Baso % (Auto) 0.6 Neut # (Auto) 2.40 Lymph # (Auto) 0.50 L [place] # (Auto) 0.50 Eos # (Auto) 0.10 Baso # (Auto) 0.00 Abs Immat Gran (auto) 0.00 Imm/Tot Granulo (auto) 0.3 Sodium 141 Potassium 3.2 L Chloride 110 Carbon Dioxide 26 Anion Gap 5 L BUN 14 Creatinine 0.9 Estimated Creat Clear 54.99 Estimated GFR 84 Glucose 102 Calcium 8.6 C-Reactive Protein 17.2 H
[2025-05-30] MEDS: MEMANTINE HCL 10 MG TABLET 5 MG PO (09:11)
[2025-05-30] MEDS: POTASSIUM CHLORIDE 10 MEQ CAPSULE ER 20 MEQ PO ×2 (09:11→17:32)
[2025-05-30] MEDS: SENNOSIDES 1 TAB TABLET PO ×2 (09:12→20:24)
[2025-05-30] MEDS: oxyBUTYnin chloride 5 MG TAB.ER.24 PO (09:12)
[2025-05-30] MEDS: SERTRALINE 50 MG TABLET PO (09:12)
[2025-05-30] MEDS: FUROSEMIDE 40 MG TABLET PO ×2 (09:12→16:08)
[2025-05-30] MEDS: VANCOMYCIN 1 GM/200 ML 1 GM/200 ML PIGGYBACK IVPB ×2 (10:44→22:43)
--- NOTE | 2025-05-30 11:12 | PC.SOCIAL ---
Discharge planning: bull gang worker received a call from [facility] stating that pt's health care marketing specialist with [facility] is [place] #[phone] and he can assist with discharge planning needs. bull gang worker also sent updated notes to staff at [facility] on the pt and the plan during this hospitalization. Social work to follow-up as needed.
[2025-05-30] MEDS: DONEPEZIL 10 MG TABLET PO (20:24)
[2025-05-31] VITALS (12 sets, daily range): BP systolic 109–135; BP diastolic 52–94; PULSE 60–88; RESP 18–26; TEMP 36.8–37.3; O2SAT 93–97
[2025-05-31 06:25] LABS: Hematocrit 35.8 % (37.0-53.0); Hemoglobin* 11.5 gm/dL (13.5-17.5); Immature Granulocytes Abs Auto 0.01 K/uL (0.00-0.30); Immature Granulocytes Pct Auto 0.2 %; Lymphocytes Absolute Auto 0.90 K/uL (0.90-2.90); Mean Corpuscular HGB Conc 32 gm/dL (32-36); Mean Corpuscular Hemoglobin 29 pg (26-34); Mean Corpuscular Volume 90 fL (80-100); RDW Coefficient of Variation % 15.1 % (11.5-15.5); Red Blood Count 3.98 m/uL (4.30-5.90); White Blood Count* 5.37 K/uL (4.50-11.00)
[2025-05-31 06:26] LABS: Slide Review Reflex No
--- NOTE | 2025-05-31 06:26 | PC.NURSE ---
: Pleasant and cooperative. T&R. Suprapubic cath patent and draining. BM x 1. VSS. NPO at midnight. Mepilex applied to buttock wound. BLE elevated on pillows.?
[2025-05-31 06:50] LABS: Chloride* 111 mmol/L (96-114); Potassium* 3.1 mmol/L (3.6-5.1); Sodium* 140 mmol/L (135-149)
[2025-05-31 06:53] LABS: Anion Gap 5 mEq/L (7-15); Blood Urea Nitrogen* 13 mg/dL (7-30); Carbon Dioxide* 24 mmol/L (20-32); Creatinine* 0.8 mg/dL (0.5-1.5); Est. Creatinine Clearance* 54.99; Estimated Glomerular Filt Rate 87 ml/min
[2025-05-31 06:54] LABS: Calcium* 8.4 mg/dL (8.4-10.6); Glucose* 105 mg/dL (60-115)
[2025-05-31] MEDS: CEFEPIME HCL 2 GM in 0.9 % SODIUM CHLORIDE Mini-bag 100 ML IVPB (07:41)
[2025-05-31] MEDS: BUPIVACAINE 0.25% 30 ML INJECTION (08:56)
--- NOTE | 2025-05-31 09:07 | SUR.OPER ---
PATIENT QUESTIONS ANSWERED SATISFACTORILY PREOPERATIVELY. PATIENT BROUGHT TO OR #3 PER M/S BED. Patient positioned supine on OR #3 M/S bed. Final approval of positioning by surgeon.
--- NOTE | 2025-05-31 09:43 | W.PM.PODPROC ---
Date of Procedure: 05/31/25 Surgeon: Andrew Castro DPM Pre-op Diagnosis: Osteomyelitis left great toe Post-op Diagnosis: Osteomyelitis left great toe Type of Procedure: Amputation left great toe by MPJ disarticulation Indications: Patient has underlying osteomyelitis necessitating amputation of his left great toe. I reviewed the procedure, recovery, expectation potential complications. These include but not limited to: Poor wound healing, continued infection, potential need for fusion after surgery, potentially for more proximal amputation, deep venous thrombosis, pulmonary embolism possible . He understands risks written consent was obtained. Surgery was also discussed with his daughter Megan. Site marked. Procedure Description: Patient is on the operating room and left on the hospital bed. IV sedation was initiated local anesthetic injected into the left foot. Left foot was prepped and draped in sterile fashion. Standard time-out protocol followed. Left foot was exsanguinated and the tourniquet inflated. [place] incision was made around the left great toe creating dorsal and plantar flaps. Incision was carried directly to bone. The great toe was disarticulated at the metatarsophalangeal joint removed in total. Wound was thoroughly irrigated normal sterile saline. Metatarsal head appeared healthy as stated surrounding tissues. Tourniquet was released and all bleeding vessels were cauterized. Dorsal plantar flaps were then brought together and closed with 3-0 nylon using both simple and retention sutures. Sterile dressing was applied. He tolerated anesthesia procedure well was transferred from [place] to [facility] with vital signs stable and vascular status intact left foot. Continue IV antibiotics. Anesthesia: MAC and local Hemostasis: ankle Estimated blood loss (mL): 2 Specimens: specimen obtained, sent to pathology Disposition: floor
--- NOTE | 2025-05-31 09:47 | P.ANES_ITS ---
Anesthesia Charges Start Date/Time Anesthesia Start Date: 05/31/25 Anesthesia Start Time: 08:47 Stop Date/Time Anesthesia Stop Date: 05/31/25 Anesthesia Stop Time: 09:41 Summary Extremes of Age - Over 70 or under 1: CYLINDER VALVE REPAIRER Coding CPT Codes CPT Codes: ANESTH LOWER LEG BONE SURG - 34852 ([id number]) P3 - PATIENT W/SEVERE SYS DISEASE, QZ - CYLINDER VALVE REPAIRER SVC W/O CUSTOMER SERVICES SUPERVISOR BY Additional Codes: Summary - Extremes of Age - Over 70 or under 1: CYLINDER VALVE REPAIRER ([id number])
--- NOTE | 2025-05-31 09:47 | W.ANESCHARGE ---
Anesthesia Charges Start Date/Time Anesthesia Start Date: 05/31/25 Anesthesia Start Time: 08:47 Stop Date/Time Anesthesia Stop Date: 05/31/25 Anesthesia Stop Time: 09:41 Summary Extremes of Age - Over 70 or under 1: MAJOR DONOR COORDINATOR Coding CPT Codes CPT Codes: ANESTH LOWER LEG BONE SURG - 55856 ([id number]) P3 - PATIENT W/SEVERE SYS DISEASE, QZ - MAJOR DONOR COORDINATOR SVC W/O ROTARY SURFACE GRINDER BY Additional Codes: Summary - Extremes of Age - Over 70 or under 1: MAJOR DONOR COORDINATOR ([id number])
[2025-05-31] MEDS: ACETAMINOPHEN 325 MG TABLET 650 MG PO (10:23)
--- NOTE | 2025-05-31 10:26 | P.IMPN_ITS ---
Assessment and Plan Assessment and plan (1) Osteomyelitis: Problem comment: - L great toe - MRI 05/29: probable osteomyelitis of great toe proximal phalanx, possible early osteomyelitis of lateral base of great toe's distal phalanx - s/p amputation of L great toe by Dr. Castro of Podiatry on 05/31/25 - d/c'd Cefepime with Vancomycin as monotherapy 05/31 given bacteremia Status: Acute (2) Bacteremia: Problem comment: - 2/2 blood cultures collected 05/28 + for GPCs, on Vancomycin and Cefepime (05/28), + fever 05/29 - 05/31: + Blood culture identified as MRSA, Cefepime discontinued Status: Acute (3) Cellulitis of foot, left: Problem comment: - with L great toe ulcer, on Vancomycin and Cefepime (05/28) - high risk for complications given comorbidities, + MRSA, + blood cultures 05/28 - 05/31: significant clinical improvement Status: Acute (4) Hypokalemia: Problem comment: - likely iatrogenic from Furosemide - increased K supplementation from 2->3 times daily on 05/31 Status: Acute (5) Neurogenic bladder: Problem comment: - with suprapubic catheter in place, replaced in ER 05/28 - urine culture currently negative Status: Acute (6) Suprapubic catheter dysfunction: Problem comment: - recurrent, replaced in ED 05/28, intermittent blood from urethra (daughter notes this happens occasionally after catheter change) Status: Acute (7) Multiple sclerosis: Problem comment: - with marked loss of lower extremity function, non weight bearing chronically Status: Acute (8) Paroxysmal atrial fibrillation: Problem comment: - on Eliquis (holding since 05/28 given upcoming surgery), currently in rate controlled sinus rhythm - 05/30: sinus rhythm with sinus arrythmia on EKG Status: Acute Plan - continue IV Vancomycin given severity of illness on presentation - continue daily blood cultures - restart Eliquis 06/01 - Podiatry following, s/p amputation L great toe for osteomyelitis - likely back to [facility] early next week pending clinical course - daughter Megan updated bedside, questions answered Subjective Date Seen: 05/31/25 Interval history: Hi was admitted to the hospital on 05/29/25 for LLE cellulitis, great toe ulceration, and concern for suprapubic catheter dysfunction. Comorbidities include MS with subsequent neurogenic bladder requiring suprapubic catheter, MCI, recurrent UTIs, paroxysmal a fib, h/o CVA, cognitive impairment. Since admission: - suprapubic catheter replaced in ER 05/28, draining well. Negative urine culture - Cefepime and Vancomycin initiated 05/28 for L foot cellulitis and L great toe ulceration concerning for osteomyelitis - MRI 05/29 c/w osteomyelitis - Blood culture from admission POSITIVE for MRSA, Tmax 100.6 on 05/29/25 - Cefepime discontinued on 05/31, Vancomycin continued - s/p L great toe amputation with Dr. Castro on 05/31 Hi is seen postoperatively with daughter Megan at bedside. He has a little pain in his L foot, no other concerns this morning. Exam Narrative: Exam Narrative: GEN: Sitting up in bed, alert and answering questions appropriately HEENT: Poor dentition, no active dental infection. EOMIs bilaterally, no scleral icterus CV: RRR, No concerning murmurs R: LCTA bilaterally without concerning wheezing, air movement adequate. Seems to be breathing from abdomen but not tachypneic, daughter states this can be normal for him Ext: No concerning edema, + contractures BLE, L foot wrapped and surgical site is not formally examined today Skin: Erythema of LLE has almost entirely resolved, hyperpigmentation of BLE c/w PVD Neuro: Baseline for MS history Psych: Cognitive impairment is evident, no agitation Const: Vital Signs, click to edit/add: Vital Signs - 24 hr 05/30/25 13:10 05/30/25 16:06 05/30/25 20:15 Temperature 98.7 F 98.8 F 99.7 F H Pulse Rate [Pulse Oximeter] 84 79 85 Respiratory Rate 20 20 20 Blood Pressure [Le ft Arm] 117/75 132/67 Blood Pressure [Ri ght Arm] 124/65 Pulse Oximetry 95 96 97 Oxygen Delivery Me thod Room Air Room Air Room Air 05/30/25 23:30 05/31/25 04:00 05/31/25 07:52 Temperature 99.4 F 98.9 F 99.2 F Pulse Rate [Pulse Oximeter] 87 85 80 Respiratory Rate 18 18 18 Blood Pressure [Le ft Arm] 127/62 109/59 L 111/52 L Blood Pressure [Ri ght Arm] Pulse Oximetry 94 94 93 Oxygen Delivery Me thod Room Air Room Air Room Air Labs Labs: Laboratory Results - last 24 hr 05/31/25 06:00 WBC 5.37 RBC 3.98 L Hgb 11.5 L Hct 35.8 L MCV 90 MCH 29 MCHC 32 RDW Coeff of Pily 15.1 Plt Count 151 Neut % (Auto) 64.6 Lymph % (Auto) 16.8 L [place] % (Auto) 15.8 H Eos % (Auto) 1.9 Baso % (Auto) 0.7 Neut # (Auto) 3.47 Lymph # (Auto) 0.90 [place] # (Auto) 0.80 Eos # (Auto) 0.10 Baso # (Auto) 0.04 Abs Immat Gran (auto) 0.01 Imm/Tot Granulo (auto) 0.2 Sodium 140 Potassium 3.1 L Chloride 111 Carbon Dioxide 24 Anion Gap 5 L BUN 13 Creatinine 0.8 Estimated Creat Clear 54.99 Estimated GFR 87 Glucose 105 Calcium 8.4
[2025-05-31] MEDS: FUROSEMIDE 40 MG TABLET PO ×2 (10:55→15:31)
[2025-05-31] MEDS: LACTATED RINGERS 1000 ML 1,000 ML 100 ML IV (11:11)
[2025-05-31] MEDS: POTASSIUM BICARB 25 MEQ EFFERVESCENT TAB 50 MEQ PO (11:12)
[2025-05-31] MEDS: SODIUM CHLORIDE 0.9 % (FLUSH) 10 ML SYRINGE 5 ML IVF (11:12)
[2025-05-31] MEDS: VANCOMYCIN 1 GM/200 ML 1 GM/200 ML PIGGYBACK IVPB ×2 (12:03→23:16)
[2025-05-31] MEDS: POTASSIUM CHLORIDE 10 MEQ CAPSULE ER 20 MEQ PO ×2 (12:41→18:23)
--- NOTE | 2025-05-31 19:42 | PC.NURSE ---
Arrived to find the patient alert but not fully oriented. Recent memory impaired. Mention seems to change from better to worse and back over time. Chairbound at baseline. We have been moving the patient from chair to bed and back over the day using overhead device. Turning. Pressure injury, redness, on buttocks. Foam dressing in place. Two episodes of stool incontinence. The patient has a suprapubic catheter but does episodically produce urine from his urethra. Foot drop noted on both feet. CMS intact. Their left big toe was removed in the morning. The dressing is dry and in place. Soreness noted once back followed by a pain sensation. PRN, Tylenol and Oxycodone given. No complaints since this time. He did note numbness in his left foot at one point but did not report it again as being present. Breathing is notable in that he breaths deeply and frequently. His daughter reports this as being his normal. I have not noted any desaturation during his stay. He is on continual monitoring. At time of transfer of care the patient appeared to be in a stable state of health. ?
[2025-05-31] MEDS: MELATONIN 3 MG TABLET PO (21:40)
[2025-05-31] MEDS: DONEPEZIL 10 MG TABLET PO (21:40)
[2025-06-01] VITALS (9 sets, daily range): BP systolic 115–123; BP diastolic 64–83; PULSE 72–85; RESP 20–24; TEMP 36.7–37.2; O2SAT 93–95
--- NOTE | 2025-06-01 06:50 | PC.NURSE ---
[id number]: Patient cooperative with cares. Dementia and chair bound at baseline. Afebrile. L. foot wrap C/D/I. Denies pain except when repositioning. Incontinent of BMx2 during shift. Mepilex soiled and removed. Barrier cream applied. Suprapubic cath intact and draining large amounts of yellow urine. Frequent T&R.
[2025-06-01] MEDS: ACETAMINOPHEN 325 MG TABLET 650 MG PO ×2 (08:52→20:28)
[2025-06-01] MEDS: POTASSIUM CHLORIDE 10 MEQ CAPSULE ER 20 MEQ PO ×3 (08:53→18:16)
[2025-06-01] MEDS: APIXABAN 5 MG TABLET 2.5 MG PO ×2 (08:53→20:27)
[2025-06-01] MEDS: oxyBUTYnin chloride 5 MG TAB.ER.24 PO (08:54)
[2025-06-01] MEDS: SERTRALINE 50 MG TABLET PO (08:54)
[2025-06-01] MEDS: MEMANTINE HCL 10 MG TABLET 5 MG PO (08:54)
[2025-06-01] MEDS: FUROSEMIDE 40 MG TABLET PO ×2 (08:54→15:50)
[2025-06-01] MEDS: LACTOBACILLUS ACIDOPHILUS 1 TABLET 1 TAB PO (08:55)
[2025-06-01] MEDS: SODIUM CHLORIDE 0.9 % (FLUSH) 10 ML SYRINGE 5 ML IVF ×2 (08:55→20:29)
[2025-06-01 09:04] LABS: Hematocrit 37.8 % (37.0-53.0); Hemoglobin* 12.0 gm/dL (13.5-17.5); Immature Granulocytes Abs Auto 0.04 K/uL (0.00-0.30); Immature Granulocytes Pct Auto 0.7 %; Mean Corpuscular HGB Conc 32 gm/dL (32-36); Mean Corpuscular Hemoglobin 29 pg (26-34); Mean Corpuscular Volume 90 fL (80-100); RDW Coefficient of Variation % 15.2 % (11.5-15.5); Red Blood Count 4.18 m/uL (4.30-5.90); White Blood Count* 5.36 K/uL (4.50-11.00)
[2025-06-01 09:08] LABS: Lymphocytes Absolute Auto 1.00 K/uL (0.90-2.90); Slide Review Reflex No
[2025-06-01 09:45] LABS: Chloride* 111 mmol/L (96-114); Sodium* 141 mmol/L (135-149)
[2025-06-01 09:46] LABS: Potassium* 3.3 mmol/L (3.6-5.1)
[2025-06-01 09:49] LABS: Anion Gap 6 mEq/L (7-15); Blood Urea Nitrogen* 13 mg/dL (7-30); Calcium* 8.7 mg/dL (8.4-10.6); Carbon Dioxide* 24 mmol/L (20-32); Creatinine* 0.7 mg/dL (0.5-1.5); Est. Creatinine Clearance* 54.99; Estimated Glomerular Filt Rate 91 ml/min; Glucose* 102 mg/dL (60-115)
[2025-06-01] MEDS: VANCOMYCIN 1 GM/200 ML 1 GM/200 ML PIGGYBACK IVPB ×2 (10:58→22:44)
--- NOTE | 2025-06-01 11:19 | W.PM.PODPN ---
Podiatry-PN: Subj Subjective Time Seen by Provider: 11:00 Date Seen: 06/01/25 Interval history: Hi is seen bedside this a.m. postop day 1 following amputation left great toe. He has no current complaints. States she has no significant pain in the left foot. Denies any fever chills nausea vomiting. Since admission: - suprapubic catheter replaced in ER 05/28, draining well. Negative urine culture - Cefepime and Vancomycin initiated 05/28 for L foot cellulitis and L great toe ulceration concerning for osteomyelitis - MRI 05/29 c/w osteomyelitis - Blood culture from admission POSITIVE for MRSA, Tmax 100.6 on 05/29/25 - Cefepime discontinued on 05/31, Vancomycin continued - s/p L great toe amputation with Dr. Castro on 05/31 Exam Narrative: Exam Narrative: General: No distress Vascular: Faintly palpable dorsalis pedis and posterior tibial pulse left. Capillary fill time of remaining 4 toes is within normal limits. Neuro: Sensate to light touch throughout. Musculoskeletal: Absent left great toe. Derm: Erythema is nearly resolved. Incisions well coapted with no active bleeding. Sutures intact from minimal edema. Assessment:S/p left great toe amputation postop day 1 Plan: Sterile dressing change today. Incision is looking excellent. No further dressing change needed until Tuesday when a dry dressing change is all that is needed. Plan for follow-up with myself in 3 weeks for suture removal. Patient is nonambulatory. Protection of feet during juan lift is important. Const: Vital Signs, click to edit/add: Vital Signs - 24 hr 05/31/25 14:00 05/31/25 15:00 05/31/25 20:32 Temperature 98.3 F 98.8 F Pulse Rate [Pulse Oximeter] 72 88 Respiratory Rate 20 20 22 Blood Pressure [Le ft Arm] 126/62 135/66 Pulse Oximetry 95 95 Oxygen Delivery Me thod Room Air Room Air 05/31/25 23:16 06/01/25 04:31 06/01/25 07:00 Temperature 99.0 F 98.8 F Pulse Rate [Pulse Oximeter] 82 85 80 Respiratory Rate 20 24 24 Blood Pressure [Le ft Arm] 134/94 H 123/66 Pulse Oximetry 95 93 Oxygen Delivery Me thod Room Air Room Air 06/01/25 08:02 06/01/25 11:00 Temperature 98.4 F 98.1 F Pulse Rate [Pulse Oximeter] 80 79 Respiratory Rate 24 20 Blood Pressure [Le ft Arm] 115/64 119/66 Pulse Oximetry 94 93 Oxygen Delivery Me thod Room Air Room Air Documenting provider has reviewed patient's vital signs: yes Podiatry-PN: Obj Labs Labs: Laboratory Results - last 24 hr 06/01/25 08:55 WBC 5.36 RBC 4.18 L Hgb 12.0 L Hct 37.8 MCV 90 MCH 29 MCHC 32 RDW Coeff of Pily 15.2 Plt Count 151 Neut % (Auto) 62.4 Lymph % (Auto) 17.[address] [place] % (Auto) 15.1 H Eos % (Auto) 3.0 Baso % (Auto) 0.9 Neut # (Auto) 3.34 Lymph # (Auto) 1.00 [place] # (Auto) 0.80 Eos # (Auto) 0.16 Baso # (Auto) 0.05 Abs Immat Gran (auto) 0.04 Imm/Tot Granulo (auto) 0.7 Sodium 141 Potassium 3.3 L Chloride 111 Carbon Dioxide 24 Anion Gap 6 L BUN 13 Creatinine 0.7 Estimated Creat Clear 54.99 Estimated GFR 91 Glucose 102 Calcium 8.7 C-Reactive Protein 7.2 H
--- NOTE | 2025-06-01 14:41 | P.IMPN_ITS ---
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 s/p amputation on 05/31 -Vancomycin monotherapy -ID to be called on Tuesday - 06/03 to discuss PICC vs oral linezolid. Status: Acute (2) Osteomyelitis: Problem comment: - L great toe - MRI 05/29: probable osteomyelitis of great toe proximal phalanx, possible early osteomyelitis of lateral base of great toe's distal phalanx - s/p amputation of L great toe by Dr. Castro of Podiatry on 05/31/25 - d/c'd Cefepime with Vancomycin as monotherapy 05/31 given bacteremia Status: Acute (3) Multiple sclerosis: Problem comment: - in bed or wheelchair, unable to bear weight for transfers - where left baseline, lives in the [address] [place] [address]. Status: Acute (4) Hypokalemia: Problem comment: - likely iatrogenic from Furosemide - increased K supplementation from 2->3 times daily on 05/31 Status: Acute (5) Neurogenic bladder: Problem comment: - with suprapubic catheter in place, replaced in ER 05/28 - urine culture currently negative Status: Acute (6) Suprapubic catheter dysfunction: Problem comment: - recurrent, replaced in ED 05/28, intermittent blood from urethra (daughter notes this happens occasionally after catheter change) Status: Acute (7) Paroxysmal atrial fibrillation: Problem comment: - Eliquis for OAC - rate controlled Status: Acute (8) Dementia: Status: Acute Subjective Date Seen: 06/01/25 Interval history: Daily Progress Note - Hospital Medicine Day #: 4 Post-Op Day #:1 Amputation left great toe by MPJ disarticulation CC: Osteomyelitis, MRSA bacteremia 24 HOUR UPDATE: Stable night. No new fevers. Tolerating p.o. this morning. Blood cultures have finalized to MRSA. Subsequent blood cultures negative to date. Notable Labs, Micro, Rads, Interventions: CBC is reassuring and essentially unremarkable. Mild hypokalemia but this is improved over the last 2 days. Normal renal function. CRP down trending UA showed just a mixed Gram-positive svetlana. No further workup. Initial blood cultures did show MRSA, as did the nasal swab. We have had 3 subsequent blood cultures which are negative to date. Objective: Eating his cereal. Is able to communicate his needs. We are lived at baseline. Vitals: Stable Lungs: Clear. Cardiac: S1S2. Bilateral extremities: Sensation intact. Left foot is wrapped with a surgical dressing. Podiatry is here and is managing wound care. Disposition/Potential discharge - Back to the Care Center in the next 24-48 hours. Today I spent 50minutes seeing the patient, reviewing Expanse and EPIC notes/diagnostics, discussing the care plan with our care time that includes social work, PT/OT, pharmacy, RT, penitentiary and documenting my impressions and plan in the medical record. Exam Const: Vital Signs, click to edit/add: Vital Signs - 24 hr 05/31/25 15:00 05/31/25 20:32 05/31/25 23:16 Temperature 98.3 F 98.8 F 99.0 F Pulse Rate [Pulse Oximeter] 72 88 82 Respiratory Rate 20 22 20 Blood Pressure [Le ft Arm] 126/62 135/66 134/94 H Pulse Oximetry 95 95 95 Oxygen Delivery Me thod Room Air Room Air Room Air 06/01/25 04:31 06/01/25 07:00 06/01/25 08:02 Temperature 98.8 F 98.4 F Pulse Rate [Pulse Oximeter] 85 80 80 Respiratory Rate 24 24 24 Blood Pressure [Le ft Arm] 123/66 115/64 Pulse Oximetry 93 94 Oxygen Delivery Me thod Room Air Room Air 06/01/25 11:00 Temperature 98.1 F Pulse Rate [Pulse Oximeter] 79 Respiratory Rate 20 Blood Pressure [Le ft Arm] 119/66 Pulse Oximetry 93 Oxygen Delivery Me thod Room Air Labs Labs: Laboratory Results - last 24 hr 06/01/25 08:55 WBC 5.36 RBC 4.18 L Hgb 12.0 L Hct 37.8 MCV 90 MCH 29 MCHC 32 RDW Coeff of Pily 15.2 Plt Count 151 Neut % (Auto) 62.4 Lymph % (Auto) 17.9 L [place] % (Auto) 15.1 H Eos % (Auto) 3.0 Baso % (Auto) 0.9 Neut # (Auto) 3.34 Lymph # (Auto) 1.00 [place] # (Auto) 0.80 Eos # (Auto) 0.16 Baso # (Auto) 0.05 Abs Immat Gran (auto) 0.04 Imm/Tot Granulo (auto) 0.7 Sodium 141 Potassium 3.3 L Chloride 111 Carbon Dioxide 24 Anion Gap 6 L BUN 13 Creatinine 0.7 Estimated Creat Clear 54.99 Estimated GFR 91 Glucose 102 Calcium 8.7 C-Reactive Protein 7.2 H
--- NOTE | 2025-06-01 18:56 | PC.NURSE ---
End of shift-- Very pleasant patient. Alert and oriented to person and birthday. VSS and pt is afebrile. SPO2 maintained >90% on RA. Pain appears well managed with PRN Tylenol. Dressing to left foot was changed by Dr. Castro this afternoon and is C/D/I. Pt appears to have sensation in his feet, pedal pulse present in right foot. DAISY pedal pulse in right foot, but cap refill <3 sec. LS CTA. He denied nausea and ate 100% of both lunch and dinner with set up only. BM x1 today. He was up to the chair with ceiling lift twice today and tolerated it well. Old, healing stage I pressure ulcer on left buttock noted and barrier cream applied. Report to BHARAT Ware.
[2025-06-01] MEDS: MELATONIN 3 MG TABLET PO (20:27)
[2025-06-01] MEDS: DONEPEZIL 10 MG TABLET PO (20:28)
[2025-06-02 03:05] VITALS: BP 121/74; PULSE 77; RESP 18; TEMP 36.8; O2SAT 94
[2025-06-02 06:12] LABS: Hematocrit 37.1 % (37.0-53.0); Hemoglobin* 11.8 gm/dL (13.5-17.5); Mean Corpuscular HGB Conc 32 gm/dL (32-36); Mean Corpuscular Hemoglobin 29 pg (26-34); Mean Corpuscular Volume 91 fL (80-100); Red Blood Count 4.08 m/uL (4.30-5.90); White Blood Count* 4.73 K/uL (4.50-11.00)
[2025-06-02 06:18] LABS: Slide Review Reflex No
--- NOTE | 2025-06-02 06:56 | PC.NURSE ---
[id number]: Pt pleasant, alert and oriented to self. VSS. Pt denies pain unless with movement. Pt had 3 large BMs throughout the shift. Checked, changed, and repositioned q2h. Heavy 2a. Marr patent and draining. Pt had one urine brief during the shift. Left LE redness seemingly receding the outline, dressing C/D/I. LE elevated. Pt in bed, appears to be resting, call light within reach.
[2025-06-02 06:57] LABS: Chloride* 112 mmol/L (96-114)
[2025-06-02 06:58] LABS: Potassium* 3.3 mmol/L (3.6-5.1); Sodium* 143 mmol/L (135-149)
[2025-06-02 07:00] VITALS: BP 121/65; PULSE 63; RESP 18; TEMP 36.7; O2SAT 96
[2025-06-02 07:01] LABS: Anion Gap 8 mEq/L (7-15); Blood Urea Nitrogen* 16 mg/dL (7-30); Calcium* 8.9 mg/dL (8.4-10.6); Carbon Dioxide* 23 mmol/L (20-32); Creatinine* 0.8 mg/dL (0.5-1.5); Est. Creatinine Clearance* 54.99; Estimated Glomerular Filt Rate 87 ml/min; Glucose* 111 mg/dL (60-115)
[2025-06-02] MEDS: POTASSIUM CHLORIDE 10 MEQ CAPSULE ER 20 MEQ PO ×3 (08:54→18:04)
[2025-06-02] MEDS: APIXABAN 5 MG TABLET 2.5 MG PO ×2 (08:54→20:43)
[2025-06-02] MEDS: LACTOBACILLUS ACIDOPHILUS 1 TABLET 1 TAB PO (08:55)
[2025-06-02] MEDS: MEMANTINE HCL 10 MG TABLET 5 MG PO (08:55)
[2025-06-02] MEDS: oxyBUTYnin chloride 5 MG TAB.ER.24 PO (08:55)
[2025-06-02] MEDS: FUROSEMIDE 40 MG TABLET PO ×2 (08:55→16:37)
[2025-06-02] MEDS: SERTRALINE 50 MG TABLET PO (08:55)
[2025-06-02] MEDS: SODIUM CHLORIDE 0.9 % (FLUSH) 10 ML SYRINGE 5 ML IVF ×2 (08:56→20:44)
[2025-06-02] MEDS: ACETAMINOPHEN 325 MG TABLET 650 MG PO (10:01)
[2025-06-02 11:00] VITALS: BP 132/73; PULSE 75; TEMP 37; O2SAT 95
[2025-06-02] MEDS: VANCOMYCIN 1 GM/200 ML 1 GM/200 ML PIGGYBACK IVPB ×2 (11:47→23:47)
[2025-06-02 15:00] VITALS: BP 136/77; PULSE 77; RESP 24; TEMP 36.7; O2SAT 97
--- NOTE | 2025-06-02 16:22 | P.IMPN_ITS ---
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 s/p amputation on 05/31 -Vancomycin monotherapy -ID to be called on Tuesday - 06/03 to discuss PICC vs oral linezolid. Status: Acute (2) Osteomyelitis: Problem comment: - L great toe - MRI 05/29: probable osteomyelitis of great toe proximal phalanx, possible early osteomyelitis of lateral base of great toe's distal phalanx - s/p amputation of L great toe by Dr. Castro of Podiatry on 05/31/25 - d/c'd Cefepime with Vancomycin as monotherapy 05/31 given bacteremia Status: Acute (3) Multiple sclerosis: Problem comment: - in bed or wheelchair, unable to bear weight for transfers - where left baseline, lives in the [address] [place] [address]. Status: Acute (4) Hypokalemia: Problem comment: - likely iatrogenic from Furosemide - increased K supplementation from 2->3 times daily on 05/31 Status: Acute (5) Neurogenic bladder: Problem comment: - with suprapubic catheter in place, replaced in ER 05/28 - urine culture currently negative Status: Acute (6) Suprapubic catheter dysfunction: Problem comment: - recurrent, replaced in ED 05/28, intermittent blood from urethra (daughter notes this happens occasionally after catheter change) Status: Acute (7) Paroxysmal atrial fibrillation: Problem comment: - Eliquis for OAC - rate controlled Status: Acute (8) Dementia: Status: Acute Subjective Date Seen: 06/02/25 Interval history: Daily Progress Note - Hospital Medicine Day #: 5 Post-Op Day #: 2 Amputation left great toe by MPJ disarticulation CC: Osteomyelitis, MRSA bacteremia 24 HOUR UPDATE: Stable night. No new fevers. Tolerating p.o. this morning. Blood cultures have finalized to MRSA. Subsequent blood cultures negative to date. Notable Labs, Micro, Rads, Interventions: CBC is reassuring and essentially unremarkable. Mild hypokalemia but this is improved over the last 2 days. Normal renal function. CRP down trending UA showed just a mixed Gram-positive svetlana. No further workup. Initial blood cultures did show MRSA, as did the nasal swab. We have had 3 subsequent blood cultures which are negative to date. Objective: Eating his cereal. Is able to communicate his needs. Garth Lift at baseline. Vitals: Stable Lungs: Clear. Cardiac: S1S2. Bilateral extremities: Sensation intact. Left foot is wrapped with a surgical dressing. Podiatry is here and is managing wound care. Disposition/Potential discharge - Back to the Care Center in the next 24-48 hours. Today I spent 50minutes seeing the patient, reviewing Expanse and EPIC notes/diagnostics, discussing the care plan with our care time that includes social work, PT/OT, pharmacy, RT, correction and documenting my impressions and plan in the medical record. Exam Const: Vital Signs, click to edit/add: Vital Signs - 24 hr 06/01/25 20:22 06/01/25 22:48 06/01/25 23:00 Temperature 98.9 F 98.8 F Pulse Rate [Pulse Oximeter] 80 72 72 Respiratory Rate 22 22 22 Blood Pressure [Le ft Arm] 123/74 120/68 Pulse Oximetry 95 95 Oxygen Delivery Me thod Room Air Room Air 06/02/25 03:05 06/02/25 07:00 06/02/25 07:00 Temperature 98.2 F 98.1 F Pulse Rate [Pulse Oximeter] 77 63 63 Respiratory Rate 18 18 18 Blood Pressure [Le ft Arm] 121/74 121/65 Pulse Oximetry 94 96 Oxygen Delivery Me thod Room Air Room Air 06/02/25 11:00 Temperature 98.6 F Pulse Rate [Pulse Oximeter] 75 Respiratory Rate Blood Pressure [Le ft Arm] 132/73 Pulse Oximetry 95 Oxygen Delivery Me thod Room Air Labs Labs: Laboratory Results - last 24 hr 06/02/25 05:57 WBC 4.73 RBC 4.08 L Hgb 11.8 L Hct 37.1 MCV 91 MCH 29 MCHC 32 Plt Count 173 Sodium 143 Potassium 3.3 L Chloride 112 Carbon Dioxide 23 Anion Gap 8 BUN 16 Creatinine 0.8 Estimated Creat Clear 54.99 Estimated GFR 87 Glucose 111 Calcium 8.9 C-Reactive Protein 8.6 H
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
[2025-06-02 19:21] VITALS: BP 125/66; PULSE 71; RESP 18; TEMP 36.8; O2SAT 94
[2025-06-02] MEDS: DONEPEZIL 10 MG TABLET PO (20:43)
[2025-06-02] MEDS: MELATONIN 3 MG TABLET PO (20:46)
[2025-06-02 23:00] VITALS: BP 122/68; PULSE 75; RESP 18; TEMP 37; O2SAT 93
[2025-06-03] VITALS (7 sets, daily range): BP systolic 122–132; BP diastolic 63–85; PULSE 65–79; RESP 18; TEMP 36.6–37.2; O2SAT 94–95
[2025-06-03 06:49] LABS: Chloride* 109 mmol/L (96-114)
[2025-06-03 06:50] LABS: Albumin* 3.4 g/dL (3.3-5.0); Potassium* 3.2 mmol/L (3.6-5.1); Sodium* 140 mmol/L (135-149)
[2025-06-03 06:53] LABS: Anion Gap 8 mEq/L (7-15); Blood Urea Nitrogen* 14 mg/dL (7-30); Calcium* 9.0 mg/dL (8.4-10.6); Carbon Dioxide* 23 mmol/L (20-32); Creatinine* 0.8 mg/dL (0.5-1.5); Est. Creatinine Clearance* 54.99; Estimated Glomerular Filt Rate 87 ml/min; Glucose* 103 mg/dL (60-115)
--- NOTE | 2025-06-03 07:07 | PC.NURSE ---
Pt pleasant, alert and oriented to self. VSS. Pt denies pain unless with movement. Pt had 1 BM throughout the shift, senna held due to loose stool. Checked, changed, and repositioned q2h. Heavy 2a. Marr patent and draining. Pt had one urine brief during the shift. Left LE redness seemingly receding the outline, dressing C/D/I. LE elevated. Pt in bed, appears to be resting, call light within reach.? ?
[2025-06-03] MEDS: MEMANTINE HCL 10 MG TABLET 5 MG PO (08:25)
[2025-06-03] MEDS: APIXABAN 5 MG TABLET 2.5 MG PO ×2 (08:26→20:59)
[2025-06-03] MEDS: SODIUM CHLORIDE 0.9 % (FLUSH) 10 ML SYRINGE 5 ML IVF ×2 (08:26→21:00)
[2025-06-03] MEDS: FUROSEMIDE 40 MG TABLET PO ×2 (08:26→16:41)
[2025-06-03] MEDS: LACTOBACILLUS ACIDOPHILUS 1 TABLET 1 TAB PO (09:38)
[2025-06-03] MEDS: SENNOSIDES 1 TAB TABLET PO (09:38)
[2025-06-03] MEDS: oxyBUTYnin chloride 5 MG TAB.ER.24 PO (09:39)
[2025-06-03] MEDS: SERTRALINE 50 MG TABLET PO (09:39)
[2025-06-03] MEDS: POTASSIUM CHLORIDE 10 MEQ CAPSULE ER 20 MEQ PO ×3 (09:40→18:31)
--- NOTE | 2025-06-03 10:04 | CRLHL7_ITS ---
For Patients: As a result of the Century Cures Act, medical imaging exams and procedure reports are released immediately into your electronic medical record. You may view this report before your referring provider. If you have questions, please contact your health care provider. INDICATION: PICC placement evaluation. COMPARISON: 01/30/2025 TECHNIQUE: Two views of the chest. FINDINGS: The left PICC tip is located in the high right atrium, approximately 1.4cm below the cavoatrial junction. Location of the tip of the PICC with the greatest safety profile is at the cavoatrial junction (Reference 1 linked below, Section 4, Standard 23.3). According to that reference: Patient repositioning or movement results in distal or proximal migration of the catheter tip by as much as 2cm dependent on the movement. Please refer to Reference 2 for definition of terms regarding description of radiographic anatomy such as the level of the cavoatrial junction (which is defined as two vertebral body units below the lower border of the randa; one vertebral body unit equal to vertebral body plus vertebral disc). Reference 1: Infusion Therapy Standards of Practice, 8th Edition Reference 2: Defining peripherally inserted central catheter tip position and an evaluation of insertions in one unit. Deneen et al. Other Medical Devices: None. Lung Volumes: Shallow inspiration. Lungs: Left basilar curvilinear discoid atelectasis. Pleura and Pleural spaces: No significant pleural effusion. No pneumothorax. Mediastinum: Mitral annuloplasty ring. 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 Bony Thorax and Soft Tissues: Median sternotomy. Unchanged chronic healed right 6th posterior rib fracture deformity. IMPRESSION: 1. The left PICC tip is located in the high right atrium, approximately 1.4cm below the cavoatrial junction. [place] position is at the cavoatrial junction. As discussed above, migration of the catheter tip may very as much as 2 cm depending on patient movement posture. Therefore, the tip of the PICC is likely in good position. Consider adjustment as clinically appropriate. 2. Other findings: See above. Dictated by Wilfredo Rodriguez MD @ 06/03/2025 12:49:51 PM (Electronically Signed)
--- NOTE | 2025-06-03 12:20 | P.IMPN_ITS ---
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 s/p amputation -Vancomycin monotherapy (adjusted dosing based on trough 06/03) -Echo TTE - no obvious vegetations -PICC line placed -can return to care center 06/04 Status: Acute (2) Osteomyelitis: Problem comment: - L great toe - surgical pathology pending - MRI 05/29: probable osteomyelitis of great toe proximal phalanx, possible early osteomyelitis of lateral base of great toe's distal phalanx - s/p amputation of L great toe by Dr. Castro of Podiatry on 05/31/25 - d/c'd Cefepime with Vancomycin as monotherapy 05/31 given bacteremia Status: Acute (3) Multiple sclerosis: Problem comment: - in bed or wheelchair, unable to bear weight for transfers - where left baseline, lives in the [address] [place] [address]. Status: Acute (4) Hypokalemia: Problem comment: - likely iatrogenic from Furosemide - increased K supplementation from 2->3 times daily on 05/31 Status: Acute (5) Neurogenic bladder: Problem comment: - with suprapubic catheter in place, replaced in ER 05/28 - urine culture currently negative Status: Acute (6) Suprapubic catheter dysfunction: Problem comment: - recurrent, replaced in ED 05/28, intermittent blood from urethra (daughter notes this happens occasionally after catheter change) Status: Acute (7) Paroxysmal atrial fibrillation: Problem comment: - Eliquis for OAC - rate controlled Status: Acute (8) Dementia: Status: Acute Subjective Date Seen: 06/03/25 Interval history: Daily Progress Note - Hospital Medicine Day #: 6 Post-Op Day #: 3 Amputation left great toe by MPJ disarticulation CC: Osteomyelitis, MRSA bacteremia 24 HOUR UPDATE: Stable night. No new fevers. Tolerating p.o. this morning. Blood cultures have finalized to MRSA. Subsequent blood cultures negative to date. Echo this morning Final Impressions: 1. Normal LV size, normal wall thickness, normal global systolic function with an estimated EF of 65 - 70%. 2. RV not well visualized though function likely normal. 3. The aortic valve is normal, trileaflet and sclerotic, no stenosis and mild regurgitation. 4. The mitral valve is normal, mild mitral regurgitation. 5. No obvious signs of infective endocarditis, though ANGEL is a more sensitive imaging modality if there remains clinical concern for such. PICC line placed this am Trough level for Vanc - supratherapeutic minimally at 20.9, reducing total 24 hour dose to 1.25g daily vs the 1 gram BID Notable Labs, Micro, Rads, Interventions: CBC is reassuring and essentially unremarkable. Mild hypokalemia but this is improved over the last 2 days. Normal renal function. CRP down trending UA showed just a mixed Gram-positive svetlana. No further workup. Initial blood cultures did show MRSA, as did the nasal swab. We have had 3 subsequent blood cultures which are negative to date. Objective: Eating his cereal. Is able to communicate his needs. Garth Lift at baseline. Vitals: Stable Lungs: Clear. Cardiac: S1S2. Bilateral extremities: Sensation intact. Left foot is wrapped with a surgical dressing. Podiatry is here and is managing wound care. Disposition/Potential discharge - Back to the Care Center in the next 24-48 hours. Today I spent 50minutes seeing the patient, reviewing Expanse and EPIC notes/diagnostics, discussing the care plan with our care time that includes social work, PT/OT, pharmacy, RT, fci and documenting my impressions and plan in the medical record. Exam Const: Vital Signs, click to edit/add: Vital Signs - 24 hr 06/02/25 15:00 06/02/25 15:00 06/02/25 19:21 Temperature 98.1 F 98.3 F Pulse Rate Pulse Rate [Pulse Oximeter] 77 77 71 Respiratory Rate 24 24 18 Blood Pressure Blood Pressure [Le ft Arm] 136/77 125/66 Pulse Oximetry 97 94 Oxygen Delivery Me thod Room Air Room Air 06/02/25 23:00 06/02/25 23:00 06/03/25 03:00 Temperature 98.6 F 97.9 F Pulse Rate Pulse Rate [Pulse Oximeter] 75 75 67 Respiratory Rate 18 18 18 Blood Pressure Blood Pressure [Le ft Arm] 122/68 132/85 Pulse Oximetry 93 95 Oxygen Delivery Me thod Room Air Room Air 06/03/25 08:30 06/03/25 08:30 06/03/25 11:00 Temperature 98.3 F 98.0 F Pulse Rate Pulse Rate [Pulse Oximeter] 65 65 72 Respiratory Rate 18 18 18 Blood Pressure Blood Pressure [Le ft Arm] 123/63 126/73 Pulse Oximetry 95 95 Oxygen Delivery Me thod Room Air Room Air 06/03/25 11:00 Temperature 98.0 F Pulse Rate 72 Pulse Rate [Pulse Oximeter] Respiratory Rate 18 Blood Pressure 126/73 Blood Pressure [Le ft Arm] Pulse Oximetry 95 Oxygen Delivery Me thod Room Air Labs Labs: Laboratory Results - last 24 hr 06/03/25 05:45 Sodium 140 Potassium 3.2 L Chloride 109 Carbon Dioxide 23 Anion Gap 8 BUN 14 Creatinine 0.8 Estimated Creat Clear 54.99 Estimated GFR 87 Glucose 103 Calcium 9.0 Phosphorus 2.6 C-Reactive Protein 4.3 H Albumin 3.4
--- NOTE | 2025-06-03 12:56 | PC.SOCIAL ---
Discharge planning: PRATIK called [facility] to determine if patient can discharge back today on IV antibiotics. PRATIK spoke with Avani who states she will pass this on to one of the clinical coordinators. PRATIK spoke with Delia who states it is possible that patient could return today if they gets the orders neeta, but she will need to call their speciality pharmacy to see if this is doable after the orders have been sent. PRATIK updated by scrap charger that patient will not be ready today and they are hoping for a discharge of 1100 tomorrow. PRATIK updated Delia at [facility] that this will work, however, they still need orders neeta. SW to assist as needed.
[2025-06-03] MEDS: VANCOMYCIN 1 GM/200 ML 1 GM/200 ML PIGGYBACK IVPB (13:16)
[2025-06-03] MEDS: PERFLUTREN LIPID MICROSPHERES 2 ML VIAL IVP (14:12)
--- NOTE | 2025-06-03 19:30 | PC.NURSE ---
End of Shift: Patient pleasant and cooperative, only oriented to self. VSS, afebrile. Dressing to left foot C/D/I. Ceiling lift. Tolerating regular diet. Takes pills whole. ?
[2025-06-03] MEDS: MELATONIN 3 MG TABLET PO (20:59)
[2025-06-03] MEDS: DONEPEZIL 10 MG TABLET PO (20:59)
[2025-06-04 03:00] VITALS: BP 136/68; PULSE 70; RESP 16; TEMP 36.6; O2SAT 98
--- NOTE | 2025-06-04 07:08 | PC.NURSE ---
Pt pleasant, alert and oriented to self. VSS. Pt denies pain unless with movement. Pt had 1 BM throughout the shift, senna held due to loose stool. Checked, changed, and repositioned q2h. Heavy 2a. Amrr patent and draining. Pt had one urine brief during the shift. LE elevated as tolerated. Pt in bed, appears to be resting, call light within reach.? ?
[2025-06-04 08:29] VITALS: BP 129/69; PULSE 82; RESP 18; TEMP 36.6; O2SAT 96
[2025-06-04 08:31] VITALS: PULSE 82; RESP 18
[2025-06-04] MEDS: oxyBUTYnin chloride 5 MG TAB.ER.24 PO (08:43)
[2025-06-04] MEDS: MEMANTINE HCL 10 MG TABLET 5 MG PO (08:43)
[2025-06-04] MEDS: SERTRALINE 50 MG TABLET PO (08:43)
[2025-06-04] MEDS: FUROSEMIDE 40 MG TABLET PO (08:44)
[2025-06-04] MEDS: APIXABAN 5 MG TABLET 2.5 MG PO (08:44)
[2025-06-04] MEDS: POTASSIUM CHLORIDE 10 MEQ CAPSULE ER 20 MEQ PO ×2 (08:44→11:32)
[2025-06-04] MEDS: LACTOBACILLUS ACIDOPHILUS 1 TABLET 1 TAB PO (08:45)
[2025-06-04] MEDS: SODIUM CHLORIDE 0.9 % (FLUSH) 10 ML SYRINGE 5 ML IVF (08:45)
[2025-06-04] MEDS: SENNOSIDES 1 TAB TABLET PO (08:45)
[2025-06-04] MEDS: SODIUM CHLORIDE 0.9 % (FLUSH) 10 ML SYRINGE IVF (08:49)
[2025-06-04 11:00] VITALS: BP 113/82; PULSE 84; RESP 16; TEMP 36.9; O2SAT 96
[2025-06-04] MEDS: VANCOMYCIN 1.5 GM/300 ML 1.5 GM/300 ML PIGGYBACK IVPB (11:32)
--- NOTE | 2025-06-04 13:16 | PC.SOCIAL ---
Discharge planning: PRATIK secure emailed Delia and Julianne at [facility] to update that patient should be ready for discharge. PRATIK emailed stating that the correct IV antibiotic does has been determined and sent to the [facility] and sent the order to Delia and Julianne. Delia states that there should be no concerns with him returning today, especially since he will get his IV dose here. PRATIK updated with discharge time from 1330 to 1400. PRATIK left vm for patient's daughter stating patient will be returning to [facility] today. PRATIK left call back number. SW to assist if other needs arise.
--- NOTE | 2025-06-04 14:43 | P.DS_ITS ---
DS: Providers Provider Date Seen: 06/04/25 Date of admission: 05/29/25 11:28 Primary care physician: Gabe White MD Admitting Clinician: Aliyah Vega MD Attending Physician on discharge: Say Land MD Date of Discharge: 06/04/25 DS: Diagnosis Discharge Diagnosis (1) MRSA bacteremia: Status: Acute Problem details: 2nd occurrence this year; 12/01 (UTI) and now 05/31 (osteo of the left great toe) source - left great toe. s/p amputation -Vancomycin monotherapy (adjusted dosing based on trough 06/03) -Echo TTE - no obvious vegetations -PICC line placed -can return to care center 06/04 (2) Osteomyelitis: Status: Acute Problem details: - L great toe - surgical pathology pending - MRI 05/29: probable osteomyelitis of great toe proximal phalanx, possible early osteomyelitis of lateral base of great toe's distal phalanx - s/p amputation of L great toe by Dr. Castro of Podiatry on 05/31/25 - d/c'd Cefepime with Vancomycin as monotherapy 05/31 given bacteremia (3) Multiple sclerosis: Status: Acute Problem details: - in bed or wheelchair, unable to bear weight for transfers - where left baseline, lives in the [address] [place] [address]. (4) Hypokalemia: Status: Acute Problem details: - likely iatrogenic from Furosemide - increased K supplementation from 2->3 times daily on 05/31 (5) Neurogenic bladder: Status: Acute Problem details: - with suprapubic catheter in place, replaced in ER 05/28 - urine culture currently negative (6) Suprapubic catheter dysfunction: Status: Acute Problem details: - recurrent, replaced in ED 05/28, intermittent blood from urethra (daughter notes this happens occasionally after catheter change) (7) Paroxysmal atrial fibrillation: Status: Acute Problem details: - Eliquis for OAC - rate controlled (8) Dementia: Status: Acute DS: Summary Hospital Course Hospital Course: Hi Myers is a 84 year old Male With past medical history significant for HTN, dementia, Multiple sclerosis, neurogenic bladder status post suprapubic catheter, on anticoagulation with Eliquis who is presenting to emergency department with complaints of problems with his suprapubic catheter and left foot great toe and foot pain swelling and redness. Patient reports yesterday he had issues with his suprapubic catheter. He is at the tried 2 times and were not successful. He has also been having pain in his left foot with increased warmth to touch. He is denying any fever, chills, abdominal pain, nausea or vomiting. He is denying any cough, difficulty breathing. Since admission patient has been treated for osteomyelitis of the left great toe. He received antibiotics including vancomycin and cefepime and underwent left great toe amputation on May [address] Castro. Blood cultures subsequently grew MRSA. The blood cultures cleared quickly, in about a day and a half. Consultation with Infectious Disease recommended a 2 week course of IV vancomycin. TTE was negative. He has subsequently done well with his foot wound and no ongoing evidence of systemic infection Status at Discharge Overall status at discharge: patient is progressing back to baseline Time Spent with Patient Time attestation: Total time spent providing and/or coordinating discharge services: 45 minutes Time spent: Greater than 30 minutes Exam Narrative: Exam Narrative: He is alert and appears in no distress. Unable to give significant history of recent events. Oriented to being in the hospital. Reports feeling well today. Breathing is unlabored. Lower extremities with bandage wrapped around his left foot. Trace edema. Const: Vital Signs, click to edit/add: Vital Signs - 24 hr 06/03/25 16:30 06/03/25 16:30 06/03/25 19:55 Temperature 98.9 F 98.5 F Pulse Rate [Pulse Oximeter] 79 79 79 Respiratory Rate 18 18 18 Blood Pressure [Le ft Arm] 128/69 122/64 Pulse Oximetry 94 95 Oxygen Delivery Me thod Room Air Room Air 06/03/25 23:00 06/03/25 23:22 06/04/25 03:00 Temperature 98.1 F 97.9 F Pulse Rate [Pulse Oximeter] 78 78 70 Respiratory Rate 18 18 16 Blood Pressure [Le ft Arm] 130/81 136/68 Pulse Oximetry 94 98 Oxygen Delivery Ms thod Room Air Room Air 06/04/25 08:29 06/04/25 08:31 06/04/25 11:00 Temperature 98 F 98.4 F Pulse Rate [Pulse Oximeter] 82 82 84 Respiratory Rate 18 18 16 Blood Pressure [Le ft Arm] 129/69 113/82 Pulse Oximetry 96 96 [facility] Delivery [facility] Room Air Documenting provider has reviewed patient's vital signs: yes DS: Data Data Completed and Pending Completed studies during hospitalization: Procedures Change Drainage Device in Bladder, External Approach (11/13/24) Insertion of Infusion Device into Right Brachial Vein, Percutaneous Approach (11/13/24) Labs on day of discharge: Labs from last 24 hours 06/04/25 10:00 Vancomycin Trough 17.9 Preliminary micro results at discharge 06/01/25 08:55 Blood Culture - Preliminary Blood NO GROWTH AFTER 72 HOURS 05/31/25 06:00 Blood Culture - Preliminary Blood NO GROWTH AFTER 96 HOURS Imaging Foot MRI: Radiologist's impression: INDICATION: Left foot cellulitis. Evaluate for osteomyelitis. TECHNIQUE: Noncontrast MRI of the left forefoot and midfoot. Axial, sagittal and coronal T1 and STIR images were obtained. 1.5 david MRI scanner. COMPARISON: Radiographs 05/28/2025. FINDINGS: There appears to be a soft tissue wound involving the dorsal aspect of the great toe adjacent to the IP joint and head of the proximal phalanx. There is soft tissue signal abnormality in that region suggesting cellulitis changes. There is no associated fluid collection. There is abnormal marrow signal within the head and neck of the proximal phalanx with duskiness of the fatty marrow on T1 weighted images which likely reflects osteomyelitis changes. Bone marrow edema is also present within the distal phalanx of the great toe though with only minimal limited duskiness of the marrow fatty marrow along the lateral base of the distal phalanx. The marrow changes involving the distal phalanx are therefore not specific for osteomyelitis and could reflect either severe reactive marrow changes or limited early osteomyelitis. Note that the majority of the fatty marrow within the distal phalanx is preserved. No excessive interphalangeal joint fluid. No osteomyelitis of the 2nd through 5th toes. Denervation changes involving foot musculature. Soft tissue edema. No acute fracture. IMPRESSION: 1. Soft tissue wound involving the dorsal aspect of the great toe with cellulitis changes. 2. No associated fluid collection. 3. Probable osteomyelitis of the head and neck of the proximal phalanx of the great toe. Reactive marrow changes versus small area of limited early osteomyelitis of the lateral base of the distal phalanx of the great toe. 4. No osteomyelitis of the 2nd through 5th toes. Discharge Plan Discharge Disposition: [facility] Date of Admission: 05/29/25 11:28 Attending Provider on Discharge: Juwan Land Primary Care Provider: Gabe White Condition: Improved Discharge Medications: Continued cranberry 500 mg capsule 500 mg PO HS melatonin 3 mg tablet 3 mg PO HS sennosides [Natural Senna Laxative] 8.6 mg tablet 8.6 mg PO BID sertraline 50 mg Tablet 50 mg PO DAILY 30 Days Qty: 30 1RF ascorbic acid (vitamin C) 500 mg tablet 500 mg PO HS acetaminophen 500 mg tablet 1,000 mg PO TID furosemide 40 mg tablet 40 mg PO BID azithromycin 250 mg tablet 500 mg PO .EACH TIME PRN Rx Instructions: PRIOR TO DENTAL APT donepezil 10 mg tablet 10 mg PO HS bacitracin 500 unit/gram ointment 1 applic topical BID tramadol 50 mg tablet 25 mg PO TID Patient Comments: PLUS Q4H PRN triamcinolone acetonide 0.1 % cream 1 applic topical BID oxybutynin chloride 5 mg tablet extended release 24hr 5 mg PO DAILY Acidophilus Capsule 1 cap PO DAILY memantine 5 mg tablet 5 mg PO DAILY Eliquis 2.5 mg tablet 2.5 mg PO BID Changed potassium chloride 20 mEq tablet,ER particles/crystals 20 meq PO TID Qty: 90 0RF Discontinued sulfamethoxazole-trimethoprim 800-160 mg tablet 1 tab PO BID Discharge Orders: Discharge Order (Routine); Ordered 06/04/25 Ordered By: Juwan Land Additional Instructions: Per ID recommendations: IV vancomycin for 2 weeks. Day 0 is the day of surgery 05/31. Last day therapy would then be 06/14/25 as we have source control. osteomyelitis: appt with Dr Castro June 19. Activity Level: Activity as Tolerated Discharge Diet: Regular Follow Up Appointments: Gabe White MD [Primary Care Provider, Family Practice] Referral Note: 1 week - [facility] to Andrew Najera DPM [Staff Physician, Podiatry] Referral Note: 3 days Forms: [facility] Info Instructions Wound Care: dry dressing change to left foot on 06/05/25. Follow up with podiatry in 3 days for suture removal and additional follow up care/dressing changes needed Admit to: SNF Discharge Potential: Poor Length of Stay: >90 days Can use facility standing orders?: Yes Code Status: DNR/DNI Rehab Potential: Poor Oxygen: No Urinary Catheter: Yes (suprapubic changed monthly with pre-procedure antibiotics. no change plan) Lab Orders: basic metabolic panel in 1 week Orders are good >30 days: Yes
--- NOTE | 2025-06-04 15:53 | PC.NURSE ---
[id number]: Pt. is baseline intermittent confusion; pleasantly confused. VSS, afebrile. Cooperates with cares. Suprapubic cath assessed & dressing changed. PICC to remain in L AC, dressing CDI. PICC placed yesterday, per policy & procedures does not need to be changed for one week. R hand IV access removed. Wound on L foot is CDI. No redness or foul odor. Transported back to SNF via EMS.
== END 2025-06-04 14:18 | DRG 504 ==
LOC: ED 21:34 → MEDSURG 05-29 00:51
PROVIDERS: Family Medicine; Podiatrist; Admitting Provider Internal Medicine; Emergency Provider Emergency Medicine; PCP Family Medicine; Visit Provider Internal Medicine
PROC: 0Y6Q0Z0 Detachment at Left 1st Toe, Complete, Open Approach (ICD-10-PCS; principal; 2025-05-31 08:30)
DX: M86.172 Other acute osteomyelitis, left ankle and foot (principal); D61.818 Other pancytopenia; R78.81 Bacteremia; L03.116 Cellulitis of left lower limb; T83.511A Infection and inflammatory reaction due to indwelling urethral catheter, initial encounter; N39.0 Urinary tract infection, site not specified; F33.9 Major depressive disorder, recurrent, unspecified; L97.524 Non-pressure chronic ulcer of other part of left foot with necrosis of bone; B95.62 Methicillin resistant Staphylococcus aureus infection as the cause of diseases classified elsewhere; T83.028A Displacement of other urinary catheter, initial encounter; G35 Multiple sclerosis; N31.9 Neuromuscular dysfunction of bladder, unspecified; F03.90 Unspecified dementia, unspecified severity, without behavioral disturbance, psychotic disturbance, mood disturbance, and anxiety; R31.9 Hematuria, unspecified; B96.89 Other specified bacterial agents as the cause of diseases classified elsewhere; E87.6 Hypokalemia; I48.0 Paroxysmal atrial fibrillation; I11.0 Hypertensive heart disease with heart failure; I50.9 Heart failure, unspecified; Z79.01 Long term (current) use of anticoagulants; Z99.3 Dependence on wheelchair; Z74.01 Bed confinement status; Z99.89 Dependence on other enabling machines and devices; Z87.440 Personal history of urinary (tract) infections
CPT/HCPCS: 51702; 01480; 36415; 36573; 73630; 73718; 76857; 80048; 80053; 80069; 80202; 81001; 83605; 85025; 85027; 85651; 86140; 87040; 87081; 87086; 87186; 87800; 88305; 88311; 93005; 93306; 94761; 99100; 99285; A9270; C1751; G0378; J0665; J0692; J2704; J3010; J3375; J7030; J7120; Q9957

== ENCOUNTER 2025-06-04 14:08 | Outpatient (CLI) | payer MEDICARE, BC, SELFPAY | END 2025-06-04 14:09 | disposition home or self-care (01) | LOC: AMB 06-10 15:32 | PROVIDERS: PCP Family Medicine; Visit Provider Family Medicine | DX: R78.81 Bacteremia (principal); F03.90 Unspecified dementia, unspecified severity, without behavioral disturbance, psychotic disturbance, mood disturbance, and anxiety; M86.9 Osteomyelitis, unspecified | CPT/HCPCS: A0425; A0428 ==

== ENCOUNTER 2025-11-05 12:34 | Outpatient (REF) | payer MEDICARE, BC, SELFPAY ==
--- OUTSIDE RECORDS SUMMARY | 2025-10-02 11:00 | XMS_ITS | Encounter Summary ---
Author Organization [facility] Address [address] [place] [address] Care Team Providers Care Windows Administrator Name Role Phone Elsewhere, Pcp Primary Care Provider Unavailabl e Reason for Referral * Outpatient (Routine) - AuthorizedSpecialtyDiagnoses / ProceduresReferred By ContactReferred To Contact Diagnoses Retention Urinary Chronic Procedures Bladder Catheterization Consuelo Castle APRN, C.N.P. [address] [place] [address] Phone: tel: fax: [facility] Region Referral IDStatusReasonStart DateExpiration DateVisits RequestedVisits [id number] Reason for Visit * ReasonCommentsNurse VisitUrinary Catheter Change Encounter Details DateTypeDepartmentCare Team (Latest Contact Info)Yhhevliqewy26/26/2025 11:00 AM CSTNurse Only Department of Urology in [place], [place] [address] [place] [address] Nereyda Torres, RTervorN. Nurse Visit; Urinary Catheter Change Social History Tobacco UseTypesPacks/DayYears UsedDateSmoking Tobacco: NeverSmokeless Tobacco: NeverAlcohol UseStandard Drinks/WeekCommentsNot Currently0 (1 standard drink = 0.6 oz pure alcohol) DepressionAnswerDate RecordedPHQ-9 Total Score (max 27)ex and Gender InformationValueDate RecordedSex Assigned at BirthNot on fileLegal HfwWpzt0512/09/2016 7:50 AM CSTGender IdentityNot on file Sexual OrientationNot on filedocumented as of this encounter Procedure Notes * Nereyda Torres R.N. - 10/02/2025 11:00 AM CSTAssociated Order(s): Bladder Catheterization Post-Procedure Diagnose(s): Retention Urinary Chronic Bladder Catheterization Performed by: Nereyda Torres R.N. Authorized by: Consuelo Castle APRN, C.N.P. PROCEDURE DETAILS Catheter insertion: suprapubic Suprapubic catheter type: exchange Catheter type: arroyo Catheter size: 18 Fr Balloon inflation amount (mL): 10 Bladder [...] completed successfully: yes Complications: no immediate complications ER documented in this encounter Plan of Treatment Not on file documented as of this encounter Procedures Procedure NamePriorityDate/TimeAssociated DiagnosisCommentsBLADDER [id number]/26/2025 11:00 AM TRADER Retention Urinary Chronic documented in this encounter Results * Bladder Catheterization (10/02/2025 11:00 AM TRADER) Narrative MMODAL - 10/02/2025 11:00 AM TRADER Nereyda Torres R.N. 10/02/2025 11:14 AM Bladder Catheterization Performed by: Nereyda Torres R.N. Authorized by: Consuelo Castle APRN, C.N.P. ?? PROCEDURE DETAILS Catheter insertion: suprapubic Suprapubic catheter type: exchange Catheter type: arroyo Catheter size: 18 Fr Balloon inflation amount (mL): 10 Bladder irrigation: no ?? Number of attempts: 1 Urine characteristics: clear [...] procedural pause. PRE-PROCEDURE DETAILS Indication: urinary retention ?? Appropriate hand hygiene, gown, cap, mask, protective eyewear, sterile gloves, skin preparation, sterile drape, and strict aseptic technique were utilized as applicable for the procedure: yes ?? SEDATION / ANESTHESIA Anesthesia method: none POST-PROCEDURE DETAILS Procedure completed successfully: yes ?? Complications: no immediate complications ?? Authorizing ProviderResult TypeResult StatusGretchen Thang Castle APRN C.N.P. PROCEDURE/MINOR SURGICAL ORDERABLESFinal ResultPerforming OrganizationAddress City/State/ZIP CodePhone Number MMODAL NA documented in this encounter Visit Diagnoses Diagnosis Retention Urinary Chronic- Primary documented in this encounter Additional Health Concerns AssessmentNoted TimePHQ-9 Depression Total Score: 311 10:00 AM TRADER documented as of this encounter Care Teams Team MemberRelationshipSpecialtyStart DateEnd Date Elsewhere, Pcp PCP - GeneralInternal Medicine12/15/21documented as of this encounter
[2025-11-05 13:12] LABS: Appearance Urine Clear (Clear)
--- OUTSIDE RECORDS SUMMARY | 2025-11-06 00:15 | XMS_ITS | Clinical Summary ---
Author Organization [facility] Address [address] [place] [address] Care Team Providers Care Assistant Professor Of History Name Role Phone Elsewhere, Pcp Primary Care Provider Unavailabl e Source Comments Patient records contain information from all sites at [facility]. For routine questions regarding patient records, call [phone] during business hours, M-F 8:00 AM - 5:00 PM Central Time. Record requests for emergency care only can be directed to [phone] at any time.[facility] Allergies Active AllergyReactionsCriticalityNoted DateCommentsAdhesive Tape-SiliconesOther (see comments)01/11/2011moxicillin-Pot BievbowrbtfFgfakzpc97/27/2011acitracin- Polymyxin BRash01/11/2011HydrocortisoneOther (see comments)05/21/2015Latex Epoexpei06/25/1294Jyoezokl-Ihmoowmdfl-LqqyonnfgExiafwe88/07/2011Nitrofurantoin Monohyd/M-CrystOther (see comments),GI xearplbmnxmDru21/05/2015Silver SulfadiazineOther (see comments)03/17/2010 Medications MedicationSigDispense QuantityRefillsLast FilledStart DateEnd DateStatus cranberry 500 mg capsule Take 1 capsule by mouth daily.11/06/2013ctive donepeziL (Aricept) 10 mg tablet Take 1 tablet by mouth at bedtime.04/12/2016Active ajiutjnagfil-txtfivsd-JR-lycopene-lutein (CENTRUM SILVER) 0.4 mg-300 mcg- 250 mcg tablet Take 1 tablet by mouth daily.03/18/2010ctive loperamide (IMODIUM A-D) 2 mg capsule Give 1 tablet by mouth as needed for diarrhea 2 mg after each loose stool up to 60 mg in 24 hours 90 capsule Active sennosides-docusate sodium (SENOKOT-S) 8.6-50 mg per tablet Take 1 tablet by mouth at bedtime as needed for constipation.05/14/2020Active L.acidoph-B.lactis-B.longum (FLORAJEN 3) 460 mg (7.5-6- 1.5 bill. cell) per capsule Take 1 capsule by mouth daily.Active melatonin 3 mg tablet Take 3 tablets (9 mg total) by mouth at bedtime.06/24/2021ctive sertraline (ZOLOFT) 50 mg tablet Take 1 tablet (50 mg total) by mouth daily.06/24/2021ctive apixaban (ELIQUIS) 2.5 mg tablet Take 2.5 mg by mouth 2 (two) times a day.Active memantine (NAMENDA) 5 mg tablet Take 1 tablet (5 mg total) by mouth daily.07/28/2021ctive furosemide (LASIX) 40 mg tablet Take 1 tablet (40 mg total) by mouth daily.07/28/2021ctive atenoloL (TENORMIN) 50 mg tablet Take 1 tablet (50 mg total) by mouth daily. 90 tablet ctive Additional Information Patient not taking.Reported on 01/11/2025 acetaminophen (TYLENOL) 325 mg tablet Take 2 tablets (650 mg total) by mouth every 8 (eight) hours as needed. 10/06/2021ctive ciprofloxacin (CIPRO) 500 mg tablet Take 1 tablet (500 mg total) by mouth 2 (two) times a day before breakfast and dinner. For three days after catheter change 6 tablet ctive Additional Information Patient not taking.Reported on 01/11/2025 traMADoL (ULTRAM) 50 mg tablet Indications:Chronic Pain/Nonacute PainTake 0.5 tablets (25 mg total) by mouth 3 (three) times a day Indications: Chronic Pain/Nonacute Pain. And one dose ( 25 mg ) during the night PRN pain. 45 tablet 11/27/2021ctive oxybutynin (DITROPAN-XL) 5 mg 24 hr tablet 03/12/2022ctive potassium chloride (KLOR-CON M/KDUR) 20 mEq ER tablet 03/16/2022ctive doxycycline hyclate (VIBRAMYCIN) 100 mg capsule 02/10/2023ctive oseltamivir (TAMIFLU) 75 mg capsule 02/08/2023ctive albuterol 2.5 mg /3 mL nebulizer solution 09/14/2024ctive bacitracin 500 unit/gram ointment 07/11/2024ctive LORazepam (Ativan) 0.5 mg tablet 08/23/2024ctive triamcinolone (Kenalog) 0.1 % cream 08/26/2024ctive sertraline (Zoloft) 25 mg tablet 09/07/2024ctive nystatin (Mycostatin) 100,000 unit/gram cream 07/20/2024ctive AZITHROMYCIN ORAL Take 250 mg by mouth as needed. 2 tablets by mouth as needed for prior to dental treatment PRNActive ciprofloxacin (Cipro) 250 mg tablet 01/01/2025tive Active Problems Patient Care Coordination No te Formatting of this note migh t be different from the original. Patient is a resident at a [facility]. ProblemNoted DateDiagnosed DatePersonal History Of Infectious And Parasitic Disease (COVID-19)12/11/2021 Overview (12/11/2021): COVID Assessment & Plan (12/11/2021 9:56 AM FOREST FIRE PREVENTION MANAGER): He was covid positive on 11/30/21. He had minor symptoms and is now off restrictions. Atrial Fibrillation Vhkjfwzxpae12/15/2021 Overview (12/11/2021): A fib Assessment & Plan (12/11/2021 9:54 AM FOREST FIRE PREVENTION MANAGER): Atenolol for rate control and apixaban 2.5 mg bid for anticoagulation. Assessment & Plan (10/20/2021 8:33 AM FOREST FIRE PREVENTION MANAGER): He is on group home anticoagulation. Atrial Fibrillation Personal Iydvpyd4609/20/2021 Overview (10/06/2021): Atenolol for rate control and apixaban for anticoagulation. Assessment & Plan (11/30/2021 3:03 PM FOREST FIRE PREVENTION MANAGER): Stable on current medications. Assessment & Plan (10/06/2021 7:44 PM FOREST FIRE PREVENTION MANAGER): Heart rate and blood pressure adequate on increased dose of atenolol. Diastasis Recti05/19/2021 Overview (05/19/2021): Diastasis recti Assessment & Plan (12/11/2021 9:51 AM FOREST FIRE PREVENTION MANAGER): He has no pain or symptoms. Assessment & Plan (09/15/2021 8:07 PM FOREST FIRE PREVENTION MANAGER): Resp easy. 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 Zyqnjrvrcpvr44/25/2021 Overview (05/19/2021): Slow transit constipation Assessment & Plan (12/11/2021 9:51 AM FOREST FIRE PREVENTION MANAGER): His bowels are moving in his normal pattern using Senna S 1 tab hs prn. He is also on a probiotic daily. Assessment & Plan (11/30/2021 3:03 PM FOREST FIRE PREVENTION MANAGER): Bowel agents available. Assessment & Plan (10/20/2021 8:30 AM FOREST FIRE PREVENTION MANAGER): His bowels are moving in his normal pattern on senna and probiotic. Assessment & Plan (09/15/2021 8:06 PM FOREST FIRE PREVENTION MANAGER): His bowels are moving in a normal pattern with his scheduled bowel meds Assessment & Plan (07/28/2021 1:18 PM CDT): Bowel agents available. Assessment & Plan (05/19/2021 8:02 PM CDT): His bowels are moving in his normal bowel pattern Assessment & Plan (03/31/2021 9:03 PM CDT): Bowel agents available. Edema03/03/2021 Overview (03/31/2021): Bilateral lower extremity edema This is multifactorial and related mostly to immobility and dependent posture. Assessment & Plan (12/11/2021 9:48 AM FOREST FIRE PREVENTION MANAGER): His legs are wrapped and he elevates them routinely during the day when he is in bed. Assessment & Plan (09/15/2021 8:05 PM FOREST FIRE PREVENTION MANAGER): He has dependent edema. Legs are wrapped. [...] up in his wheelchair most of the daywith his legs down. Benjamin wraps were ordered however today he only has Tubigrip on. He has 4+ tight edema in his right lower extremity. He also has edema in his left lower extremity. He will have Lasix increased from 40-60 mg in the morning keeping the 40 mg afternoon dose. PT willdo of lymphedema evaluation to help reduce the [...] in the morning and off at night Khdaxsmx43/16/2021 Overview (01/20/2021): Insomnia Assessment & Plan (12/11/2021 9:48 AM FOREST FIRE PREVENTION MANAGER): He is sleeping well on Melatonin 9 mg. Assessment & Plan (11/30/2021 3:02 PM FOREST FIRE PREVENTION MANAGER): Continue current dose of melatonin. Assessment & Plan (10/20/2021 8:22 AM FOREST FIRE PREVENTION MANAGER): The melatonin is effective in helping him sleep[. Assessment & Plan (09/15/2021 8:05 PM FOREST FIRE PREVENTION MANAGER): He is sleeping well on melatonin Assessment & Plan (07/28/2021 1:20 PM CDT): He continues on melatonin. Assessment & Plan (05/19/2021 8:01 PM CDT): He sleeps well on Melatonin Assessment & Plan (03/31/2021 9:04 PM CDT): Continue melatonin. Assessment & Plan (01/20/2021 4:56 PM CDT): He is sleeping well on melatonin 6 mg at bedtime Urinary Tract Infection Site Not Elgrzlsjn44/24/2020 Overview (09/30/2020): History of Urinary tract infection Assessment & Plan (12/11/2021 10:31 AM FOREST FIRE PREVENTION MANAGER): He continues on cranberry and has cipro [...] change. Assessment & Plan (10/20/2021 8:23 AM FOREST FIRE PREVENTION MANAGER): He is prone to UTI's. He has his catheter changed monthly with a 3 day course of cipro surrounding the changes.. He is also on cranberry 500 mg bid. Assessment & Plan (10/06/2021 7:48 PM FOREST FIRE PREVENTION MANAGER): Most recently treated with IV ceftriaxone and then oral Omnicef to total 10 day course of treatment. Assessment & Plan (09/30/2020 2:44 PM FOREST FIRE PREVENTION MANAGER): Brad was seen at [facility] emergency department September 03 was diagnosed [...] bladder due to multiple sclerosis. Chronic Pain Vsvwkhxa92/07/2019 Overview (09/15/2021): Chronic pain of MS Assessment & Plan (12/11/2021 9:53 AM FOREST FIRE PREVENTION MANAGER): His pain is controlled with Tramadol 25 mg tid and x 1 prn during the night and tylenol 650 mg Q 6 h prn. Assessment & Plan (10/20/2021 8:31 AM FOREST FIRE PREVENTION MANAGER): Pain is controlled with tylenol and tramadol. Assessment & Plan (09/15/2021 8:09 PM FOREST FIRE PREVENTION MANAGER): He takes tramadol 25 mg tid. This [...] tramadol. Monitor for increased pain and reassess. Fpc Examination 60 Day Iaxaabxdtugrx02/25/2018 Overview (07/10/2019): [facility] Assessment & Plan (11/30/2021 2:57 PM FOREST FIRE PREVENTION MANAGER): Current comorbidities, ADL need/level of debility requires skilled care/therapy. Medications and labs all reviewed and appropriate related to comorbidities, unless otherwise indicated. Physician order sheet signed. Continue restorative/maintenance care plan, nutrition intervention, skin protection, and fall prevention. He will be tested for COVID-19 according to the prevalence in the community and in the facility in accordance with [facility] guidelines. Assessment & Plan (10/20/2021 8:15 AM FOREST FIRE PREVENTION MANAGER): He is a group home resident at [facility]. 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 Assessment & Plan (11/13/2019 3:37 PM FOREST FIRE PREVENTION MANAGER): He is a long-term resident at [facility] Assessment & Plan (07/10/2019 4:28 PM CDT): He is a long-term side of [facility]. He shares a room with his Major Depressive Disorder, Recurrent, Qqrzldrqqda03/13/2017 Overview (03/29/2017): Depression Major Recurrent Moderate Assessment & Plan (12/11/2021 9:45 AM FOREST FIRE PREVENTION MANAGER): He is on sertraline 50 mg daily. He lost his , who was also his roommate recently. He also vocalized that he will miss his current friends at [facility]. Assessment & Plan (11/30/2021 3:03 PM FOREST FIRE PREVENTION MANAGER): Stable on current dose of sertraline. Assessment & Plan (10/20/2021 8:29 AM FOREST FIRE PREVENTION MANAGER): Stable on sertraline 50 mg daily. Assessment & Plan (09/15/2021 8:00 PM FOREST FIRE PREVENTION MANAGER): Sertraline is effective for managing depression Assessment [...] symptomatology Assessment & Plan (11/13/2019 3:54 PM FOREST FIRE PREVENTION MANAGER): He is currently stable on Zoloft 125 mg daily. Assessment & Plan (07/10/2019 4:32 PM CDT): He is currently stable on Zoloft 50 mg daily. No dose reduction will be done as his disease processis progressing. This could add to his situational depression. 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 He is stable on donepezil 10 mg at bedtime and memantine 5 mg in the morning. Assessment & Plan (11/30/2021 2:59 PM FOREST FIRE PREVENTION MANAGER): He is stable on donepezil and memantine. Assessment & Plan (10/20/2021 8:20 AM FOREST FIRE PREVENTION MANAGER): He continues with his memory pills donepezil and memantine Assessment & Plan (09/15/2021 7:58 PM FOREST FIRE PREVENTION MANAGER): He is doing well on donepezil and [...] on the Namenda which he calls is ???memory pill ???. Assessment & Plan (11/13/2019 3:39 PM FOREST FIRE PREVENTION MANAGER): He is stable on Namenda XR 14 mg daily. He is also on Aricept 10 mg at bedtime Assessment & Plan (07/10/2019 4:33 PM CDT): He is currently stable on Namenda. He calls that his memory pill. He also is on Aricept 10 mg daily Hypertension Essential Uciyeam6805/28/2015 Overview (03/29/2017): Hypertension (HTN) Essential Benign Assessment & Plan (12/11/2021 9:46 AM FOREST FIRE PREVENTION MANAGER): He is normotensive and hemodynamically stable on Atenolol 50 mg and furosemide 40 mg. Assessment & Plan (11/30/2021 3:03 PM FOREST FIRE PREVENTION MANAGER): He is on atenolol and furosemide. Assessment & Plan (10/20/2021 8:28 AM FOREST FIRE PREVENTION MANAGER): Blood pressures are stable on furosemide and atenolol. Rate controlled with atenolol. Assessment & Plan (09/15/2021 8:04 PM FOREST FIRE PREVENTION MANAGER): He is normotensive and hemodynamically stable on [...] changes Assessment & Plan (11/13/2019 3:42 PM FOREST FIRE PREVENTION MANAGER): He is normotensive and hemodynamically stable on [...] 0.72 - 1.25 mg/dL 0.97 BUN/CREAT RATIO ? 10 - 20 18 GFR if >60 ml/min/1.73m2 >60 GFR if not >60 ml/min/1.73m2 >60 He will be due soon for a repeat basic metabolic panel Assessment & Plan (07/10/2019 4:31 PM CDT): He is normotensive and hemodynamically stable on atenolol, furosemide and potassium. A CBC and a BMP will be drawn for monitoring of renal function electrolytes and blood indices. Neurogenic Tbeowuo7201/11/2011 Overview (03/31/2021): Neurogenic bladder He has a suprapubic catheter which is changed monthly and p.r.n.. He gets Cipro for 3 days after catheter change. Assessment & Plan (01/11/2025 5:53 PM FOREST FIRE PREVENTION MANAGER): His catheter should continue to be exchanged [...] depression. Assessment & Plan (12/11/2021 9:47 AM FOREST FIRE PREVENTION MANAGER): He has a suprapubic catheter which is changed monthly. The catheter was last changed when it was jeanette leaking around the site on November. A UA was sent. Next catheter change should be scheduled for December 16, 2019 Assessment & Plan (11/30/2021 2:57 PM FOREST FIRE PREVENTION MANAGER): No recent difficulties with his suprapubic catheter. Assessment & Plan (10/20/2021 8:21 AM FOREST FIRE PREVENTION MANAGER): Neurogenic bladder from MS. He is prone to urinary tract infections and was recently hospitalized with a UTI that precipitated a bout of atrial fibrillation. He is on anticoagulation with apixaban. Assessment & Plan (09/15/2021 7:55 PM FOREST FIRE PREVENTION MANAGER): Suprapubic catheter is patent. The catheter is [...] He gets Cipro prior to changing the catheter.He is on cranberry tablets 500 mg daily [...] cranberry. Assessment & Plan (11/13/2019 3:40 PM FOREST FIRE PREVENTION MANAGER): He has a suprapubic catheter due to MS. He is also on oxybutynin and cranberry tablets. Assessment & Plan (07/10/2019 4:34 PM CDT): Has a suprapubic catheter which is changed monthly in the residential setting. He takes oxybutyninfor bladder spasms and cranberry tablets prevent UTIs. When his catheter is changed, he goes on a 3day course of Cipro 500 mg twice a day. Multiple Sclerosis, Igrzifjsiwm28/03/2010 Overview (07/10/2019): MS diagnosed several years ago Assessment & Plan (12/11/2021 9:23 AM FOREST FIRE PREVENTION MANAGER): He requires 24 hour care. He has a neurogenic bladder due to the MS. He is nonambulatory and has his own motorized chair. He has no dysphagia. His speech is clear. Assessment & Plan (11/30/2021 2:59 PM FOREST FIRE PREVENTION MANAGER): Continues to require 24 hour care, assistance with all cares. Assessment & Plan (10/20/2021 8:18 AM FOREST FIRE PREVENTION MANAGER): He remains non-ambulatory. He needs a suprapubic catheter, mechanical life, wheelchair and 24 hour retirement care. Assessment & Plan (09/15/2021 7:50 PM FOREST FIRE PREVENTION MANAGER): He is non ambulatory. He requires 24 [...] placed outside at door without leaving the roomto play. Assessment & Plan (03/18/2020 2:25 PM CDT): He remains stable. He wears a brace on his right leg. Assessment & Plan (11/13/2019 3:38 PM FOREST FIRE PREVENTION MANAGER): He has a neurogenic bladder and has [...] melatonin 3 mg at bedtime Resolved Problems ProblemNoted DateDiagnosed DateResolved DateLong Term (Current) Anticoagulant Nwnpjczfs10/02/2022 Overview (11/30/2021): Atrial fibrillation Assessment & Plan (11/30/2021 3:02 PM FOREST FIRE PREVENTION MANAGER): He continues on apixaban. Failure Renal Acute (Acute Kidney Injury)/02/2022 Overview (10/06/2021): Peak creatinine during recent hospitalization 1.59 Assessment & Plan (10/06/2021 7:46 PM FOREST FIRE PREVENTION MANAGER): Creatinine at discharge 1.23. Spironolactone was held and will be restarted pending adequate renal function. Anemia Of Chronic Eavskvf59/30/834956/ Overview (10/06/2021): Most recent hemoglobin 11.9 at discharge. Assessment & Plan (10/06/2021 7:44 PM FOREST FIRE PREVENTION MANAGER): Continue to follow hemoglobin. Rfhkrsxdgvv27/21/202111/07/2021 Overview (07/28/2021): Severe hyponatremia on 06/24, potassium 2.6, requiring inpatient care. Diuretics were adjusted and spironolactone was added. Assessment & Plan (07/28/2021 1:19 PM CDT): Most recent potassium 3.7 on 07/15/2021. Hfulhdsx20/ Overview (06/24/2021): Lack of appetite. Assessment & Plan (06/24/2021 11:04 AM CDT): He just has not been hungry. Likely multifactorial but at least in part due to depression. Will check chemistries and address depression. Rigidity Ukkqpkysq16/ Overview (03/03/2021): Nursing reports abdominal rigidity with distension Assessment & Plan (03/03/2021 4:03 PM CDT): X-ray was done by [facility] which showed normal results. This was reported by Juwan, the night nurse. Irequested that a bladder scan be done. Nursing reports that he had approximately 127 cc of urine inhis bladder. His suprapubic catheter was changed 2 [...] the tests. Obesity Body Mass Index 30-39.9 AdultStone Common Duct Cholecystitis Acute With Cystic Duct Nlirikrqscp04/05/2020 07/15/2020 Overview (05/12/2020): Added automatically from request for surgery [id number] Pain LegStroke/Transient Ischemic Attack NOS10/03/2017 11/13/2019Repair Mitral Valve Status PostAtherosclerotic Heart Disease Of [place] Coronary Artery Without Angina Epdchirl12/25/2017 11/13/2019Fracture Tibia Shaft Closed Subsequent With Delayed Healing Right Fatigue12/20/ Overview (06/24/2021): Multifactorial. Assessment & Plan (06/24/2021 11:02 AM CDT): Will check chemistries and CBC. Consider depression. Endocarditis Fqvqppqmvhwp30Fracture Cervical Spine Closed Qcaolshxir50/12/Lesion Skin Toe03/21/ Overview (03/29/2017): Skin ulcer Qnmwdamgbpwk77/05/Benign Prostatic Hyperplasia Hypertrophy With Alnypoypdju35/25/Chronic Kidney Disease NOS02// Overview (03/29/2017): Renal Insufficiency NOS Encounters DateTypeDepartmentCare OwcoRfpbzrcactw88/26/2025 11:00 AM CSTNurse Only Department of Urology in [place], [place] [address] [place] [phone] Nereyda Torres R.N. Nurse Visit; Urinary Catheter Kumtih5808/27/2025 9:00 AM CDTNurse Only Department of Urology in [place], [place] [address] [phone] Nereyda Torres R.N. Nurse Visit5Clinical Communication Department of Urology in [place], [place] [address] [place] [phone] Consuelo Castle APRN, C.N.P. Appt Requestfrom Last 3 Months Immunizations ImmunizationAdministration DatesNext DueInfluenza Split08/27/2013Influenza, Olatadbtdkx28/22/2015,08/20/2013,08/07/2012,08/19/2011,07/28/20091431BYB3514 YMFB0679/6875Ovdq03/09/2013,07/03/2012,02/20/2002 Family History Medical HistoryRelationNameCommentsAtypical mole syndromeDaughterCoronary artery diseaseFatherDiabetesFatherRelationNameStatusCommentsDaughterFather Social History Tobacco UseTypesPacks/DayYears UsedDateSmoking Tobacco: NeverSmokeless Tobacco: Never Tobacco Cessation:Counseling Given: Not Answered Alcohol UseStandard Drinks/WeekCommentsNot Currently0 (1 standard drink = 0.6 oz pure alcohol) DepressionAnswerDate RecordedPHQ-9 Total Score (max 27) ex and Gender InformationValueDate RecordedSex Assigned at BirthNot on fileLegal PsxQjml8612/09/2016 7:50 AM CSTGender IdentityNot on fileSexual OrientationNot on file Last Filed Vital Signs Vital SignReadingTime TakenCommentsBlood Zzvpgzol203/69012/11/2021 10:00 AM FOREST FIRE PREVENTION MANAGER Xjywo2207/04/2022 10:00 AM PIASusnecvjlpa16.8 ??C (98.2 ??F)12/11/2021 10:00 AM CSTRespiratory Bscu463112/11/2021 10:00 AM CSTOxygen Pbkvwmsfwv60%12/11/2021 10:00 AM CSTRoom AirInhaled Oxygen Concentration--Mhpmaz23.7 kg (195 lb 8 oz) 12/11/2021 10:00 AM YDERpvnfg551.7 cm (5' 8)09/25/2021 7:20 PM CSTBody Mass Index29.7309/25/2021 7:20 PM FOREST FIRE PREVENTION MANAGER Plan of Treatment Health MaintenanceDue DateLast DoneCommentsOffice Visit for Blood Pressure Check / Re-check1940DTaP,Tdap,and Td Vaccines (4 - Td or Tdap)06/15/2023 06/15/2013, 07/03/2012, 02/20/2002, Additional history existsFall Risk Screen (Annual)11/07/2024OVID-19 Vaccine ( season)/, 08/31/2024, 03/06/2024, Additional history existsCreatinine Level (Kidney Function Test), 06/25/2025, 06/11/2025, Additional history existsPotassium Level, 06/25/2025, 06/11/2025, Additional history existsSodium Level, 06/25/2025, 06/11/2025, Additional history existsPneumococcal vaccine (50+ years)Msiksiwbk81/05/2024, 12/11/2014, 05/30/2006, Additional history existsRSV vaccine - (32-36 weeks) or 50+ azltvTfsogdzfw83/25/2024Influenza FqvuynyJefbuoiau57/24/2025, 08/31/2024, 2022, Additional history existsZoster VaccinesCompleted 08/30/2025, 03/20/2025IPV VaccinesAged OutNo longer eligible based on patient's age to complete this topic Medical Devices ImplantedTypeAreaManufacturerDevice IdentifierShelf Expiration DateModel / Serial / LotBand-Annuloplasty Flex-25mm X 63mm - [place]as [id number] Implanted:Qty: 1 on 12/12/2009Cardiac Valve ProsthesisOther/Legacy - See Implant DescriptionMedtronicDescription:Device Instructional Systems Design Consultant - [employer]. Body Location - Other. Mitral. Device Status Text - [id number].[place] Uriel Fuzzy 1 X 1 - Diams 1667 Implanted:Qty: 1 on 12/12/2009[employer] or luciernaDescription: Device Instructional Systems Design Consultant - [employer]. Device Status Text - [id number]. [facility] Data - [id number].Ligation Clips Implanted:Qty: 1 on 05/13/2020 by Vern Dumont M.D. at [facility] OtherA[employer] [id number] / / [id number] Procedures Procedure NamePriorityDate/TimeAssociated DiagnosisCommentsBLADDER FXSZDJZCOEWCKHFCxngkcx54/26/2025 11:00 AM FOREST FIRE PREVENTION MANAGER Retention Urinary Chronic BLADDER PEOPSNKRTSHCUPAXoqkfui16/21/2025 9:00 AM CDT Retention Urinary Chronic BASIC METABOLIC PANEL, S/DYqvarag33/16/2021 6:15 AM FOREST FIRE PREVENTION MANAGER from Last 3 Months or Most Recently Relevant to Health Maintenance Results * Bladder Catheterization (10/02/2025 11:00 AM FOREST FIRE PREVENTION MANAGER) Narrative [facility] - 10/02/2025 11:00 AM FOREST FIRE PREVENTION MANAGER Nereyda Torres, R.N. 10/02/2025 11:14 AM Bladder Catheterization Performed by: Nereyda Torres, R.N. Authorized by: Consuelo Castle APRN, C.N.P. [...] no immediate complications ?? Authorizing ProviderResult TypeResult StatusGrheather Castle APRN, C.N.P. PROCEDURE/MINOR SURGICAL ORDERABLESFinal ResultPerforming OrganizationAddress City/State/ZIP CodePhone Number [facility] NA * Bladder Catheterization (08/27/2025 9:00 AM CDT) Narrative [facility] - 08/27/2025 9:00 AM CDT Nereyda Torres R.N. 08/27/2025 3:10 PM Bladder Catheterization Performed by: Nereyda Torres R.N. [...] yes ?? Complications: no immediate complications ?? COMMENTS Patient tolerated well, no concerns. Authorizing ProviderResult TypeResult StatusGretchen Thang Castle APRN C.N.P. PROCEDURE/MINOR SURGICAL ORDERABLESFinal ResultPerforming OrganizationAddress City/State/ZIP CodePhone Number MMODAL NA from Last 3 [place] [address] Advance Directives For more information, please contact: [phone] TypeDate RecordedPatient RepresentativeExplanationAdvance Szwchzqmdu59/8/2020 11:30 AMPOLSTAdvance Directives04/06/2017 12:00 AMLegacy document. See document viewer.Advance Ifdimsztgr19/21/2010 12:00 AMLegacy document. See document viewer.Advance Iyrootkvlc70/9/2010 12:00 AMLegacy document. See document viewer. Advance Directive12/10/2009 12:00 AMLegacy document. See document viewer.Advance Directive12/10/2009 12:00 AMLegacy document. See document viewer. * Full Code (Latest Code Status on File) Date ActivatedDate BqedbhrxsikXufhczdf98/14/2021 3:01 AM09/22/2021 2:48 PM QuestionAnswerCommentsFull Code:* Discussed * Full Code Date ActivatedDate InactivatedComments05/13/2020 3:47 PM05/14/2020 1:25 PMQuestion AnswerCommentsFull Code:* Not Discussed Due to:* Patient not available * Full Code Date ActivatedDate InactivatedComments05/13/2020 10:38 AM05/13/2020 3:47 PMQuestion AnswerCommentsFull Code:* Not Discussed Due to:* Not medically appropriate * Full Code Date ActivatedDate InactivatedComments05/11/2020 9:37 PM05/13/2020 10:38 AMQuestion AnswerCommentsFull Code:* Discussed Care Teams Team MemberRelationshipSpecialtyStart DateEnd Date Elsewhere, Pcp PCP - GeneralInternal Medicine12/15/21
--- OUTSIDE RECORDS SUMMARY | 2025-11-06 00:15 | XMS_ITS | Clinical Summary ---
Author Organization [facility] Address [facility] [place] [address] Care Team Providers Care Process Worker Name Role Phone Gabe White MD Primary Care Provider Unasoledad lable Allergies Active AllergyReactionsCriticalityNoted DateCommentsAmoxicillin-Pot Clavulanate Jipwmpav10/15/2015Bacitracin*Pkjgaxq0005/21/20155030NqghfFcxs34/17/2014Hydrocortisone *Kuvoopd4905/21/2015Nitrofurantoin*UnknownSilver PiuvwkljydplTfmom83/16/2014 infection Adhesive*Svxrvyw7305/21/2015 Medications MedicationSigDispense QuantityRefillsLast FilledStart DateEnd DateStatus FOLIC ACID/MULTIVITS-MIN/LUT (CENTRUM SILVER ORAL) Take 1 tablet by mouth once daily.Active acetaminophen (TYLENOL) 325 mg tablet Take 650 mg by mouth once daily if needed for Pain. pain02/11/2016Active Cranberry 500 mg cap Take 500 mg by mouth once daily with evening meal.Active melatonin 3 mg tablet Take 9 mg by mouth at bedtime.Active Lactobacillus acidophilus (PROBIOTIC ORAL) Take 1 Capsule by mouth once daily.Active rivaroxaban (XARELTO) 10 mg tablet Take 10 mg by mouth once daily in the evening.Active traMADoL (ULTRAM) 50 mg tablet Take 50 mg by mouth 3 times daily. For post-op painActive sennosides-docusate (SENOKOT S) (8.6-50 mg) tablet Take 1 Tablet by mouth at bedtime if needed for Constipation.Active donepeziL (ARICEPT) 10 mg tablet Take 10 mg by mouth at bedtime.Active atenoloL (TENORMIN) 25 mg tablet Take 25 mg by mouth once daily.Active furosemide (LASIX) 40 mg tablet Take 40 mg by mouth once daily in the evening.Active memantine (Namenda XR) 14 mg extended-release capsule Take 14 mg by mouth at bedtime.Active oxybutynin XL (DITROPAN XL) 10 mg CR tablet Take 10 mg by mouth once daily.Active sertraline (ZOLOFT) 50 mg tablet Take 50 mg by mouth once daily.Active acetaminophen (TYLENOL) 325 mg tablet Take 650 mg by mouth 3 times daily. Max acetaminophen dose: 4000mg in 24 hrs. Active amoxicillin (AMOXIL) 500 mg capsule Take 2,000 mg by mouth each time if needed for Other (Specify) (give before any dental appointment).Active loperamide (IMODIUM) 2 mg capsule Take 2 mg by mouth each time if needed for Diarrhea (give after each loose stool up to 16 mg in 24 hours).Active spironolactone (ALDACTONE) 100 mg tablet Indications:Hypokalemia,Venous stasisTake 1 Tablet (100 mg) by mouth every morning.ctive Vitamin C 500 mg tablet 03/22/2025tive Senna 8.6 mg tablet 06/11/2024ctive albuterol 0.083% (2.5 mg/3 mL) neb solution 09/14/2024ctive azithromycin 250 mg tablet 5Active Antifungal (Clotrimazole) 1 % cream 02/08/2025tive bacitracin 500 unit/g ointment 07/11/2024ctive potassium chloride 20 mEq extended-release tablet (part/cryst) 5Active Active Problems ProblemNoted DateDiagnosed DateClass 2 obesity in adult06/26/2021lass 1 obesity in adult06/26/2021iuretic-induced oxedpdlymmo81/18/2021Venous nqtlbp7406/24/2021 Closed fracture of shaft of right tibia05/13/2016Neurogenic cdrtkwc0205/13/2016 Multiple lhybqcotg05/07/2016Cognitive jtwfliqx50/07/1985Eqlvxxcrjb84/07/2016 Suprapubic /07/2016HTN (hypertension)05/13/2016Allergic reaction caused by a drug05/21/2015Generalized mjdpcpha24/15/2015Chronic suprapubic idxkkrdn73/15/2015Bilateral lower leg vbapoaunzl00/15/2015MRSA (methicillin resistant staph aureus) culture /01/2014 Overview (05/13/2016): Urine Multiple sclerosisOsteoporosisEssential hypertension Encounters DateTypeDepartmentCare IwydDixhvaxavxq83/10/2025Lab Requisition [facility] [phone] Stephanie Garcia NP from Last 3 Months Family History Medical HistoryRelationNameCommentsDiabetesFatherHeart DiseaseFatherOtherMother thyroid cancerRelationNameStatusCommentsFatherDeceasedMotherDeceased (Age 98) Social History Tobacco UseTypesPacks/DayYears UsedDateSmoking Tobacco: FormerPipeSmokeless Tobacco: Never Tobacco Cessation:Counseling Given: Yes Comments:quit 1975 Alcohol UseStandard Drinks/WeekCommentsNo0 (1 standard drink = 0.6 oz pure alcohol)Sex and Gender InformationValueDate RecordedSex Assigned at BirthNot on fileLegal MqdHjdl7902/05/2014 8:15 AM CDTGender IdentityNot on fileSexual OrientationNot on file Last Filed Vital Signs Vital SignReadingTime TakenCommentsBlood Zymantcu279/7505 1:52 PM CDT Bkwrg5717/13/2025 8:05 AM QDJVqcbcfftami00.2 ??C (97.2 ??F)06/19/2025 8:05 AM CDTRespiratory Czpw715612/25/2020 5:03 PM CSTOxygen Yqirsdxzge99%06/19/2025 8:05 AM CDTInhaled Oxygen Concentration--Iasdwe07.4 kg (216 lb 14.9 oz)10/24/2021 5:03 PM NSLMblmdn501.6 cm (5' 6)10/23/2021 9:09 AM CSTBody Mass Index35.01 10/23/2021 9:09 AM TREATMENT PLANT OPERATOR Plan of Treatment Health MaintenanceDue DateLast DoneCommentsTetanus lvxaawq53/12/1951Depression screening for age 12+2Pneumococcal series for age 50+ (1 of 2 - PCV) 1959Zoster (shingles) series for age 50+ (1 of 2)1990Medicare Wellness for age 65+2005RSV vaccine for adults or (1 - 1-dose 75+ series)2015BMI (ht and wt on same day) for age 18+ COVID-19 vaccine series (2024- season)/, 08/31/2024, 03/06/2024, Additional history existsInfluenza Vaccine (#1)07/08/2025Hepatitis B series for 19+Aged OutNo longer eligible based on patient's age to complete this topic Procedures Procedure NamePriorityDate/TimeAssociated DiagnosisCommentsCBC WITH AUTO GVQTGVWSZDTGWuzxcbx26/11/2025 8:15 AM TREATMENT PLANT OPERATOR Other megaloblastic anemias, not elsewhere classified COMP METABOLIC DUZGLWrdwmfh02/11/2025 8:15 AM TREATMENT PLANT OPERATOR Other megaloblastic anemias, not elsewhere classified CBC WITH AUTO LTOSTOXHGJPBGexiddb92/11/2025 8:15 AM TREATMENT PLANT OPERATOR Other megaloblastic anemias, not elsewhere classified from Last 3 Months Results * (ABNORMAL) CBC WITH AUTO DIFFERENTIAL (09/17/2025 8:15 AM TREATMENT PLANT OPERATOR)ComponentValue Ref RangeTest MethodAnalysis TimePerformed AtPathologist SignatureWHITE BLOOD COUNT5.64.5 - 11.0 thou/cu mm09/17/2025 9:59 AM [facility] LABORATORYRED BLOOD COUNT5.034.30 - 5.90 mil/cu mm09/17/2025 9:59 AM [facility] YEPWWTFPWHCJDOALFDAQ46.313.5 - 17.5 g/dL09/17/2025 9:59 AM [facility] MOFZPZJRAOGOWMJXZMLR08.037.0 - 53.0 % 09/17/2025 9:59 AM [facility] GFBBRZCYSOEWJ7215 - 100 fL 09/17/2025 9:59 AM [facility] LXOOICZTIKHCE08.426.0 - 34.0 pg 09/17/2025 9:59 AM [facility] ASTGYXTFMMMDKE95.1(L)32.0 - 36.0 g/dL09/17/2025 9:59 AM [facility] PPDSGJKQJENWG60.311.5 - 15.5 %09/17/2025 9:59 AM [facility] LABORATORYPLATELET PINAM555769 - 440 thou/cu mm09/17/2025 9:59 AM [facility] LABORATORYMPV9.76.5 - 11.0 fL09/17/2025 9:59 AM [facility]% NEUT59.7%09/17/2025 9:59 AM [facility] % LYMPH22.5%09/17/2025 9:59 AM [facility]% MONO 11.8%09/17/2025 9:59 AM [facility]% EOS5.5% 09/17/2025 9:59 AM [facility]% BASO0.5%09/17/2025 9:59 AM [facility] LABORATORYABSOLUTE NEUTROPHILS3.31.7 - 7.0 thou/cu 09/17/2025 9:59 AM [facility] LABORATORYABSOLUTE LYMPHOCYTES1.30.9 - 2.9 thou/cu 09/17/2025 9:59 AM [facility] LABORATORYABSOLUTE MONOCYTES0.7<0.9 thou/cu 09/17/2025 9:59 AM [facility] LABORATORYABSOLUTE EOSINOPHILS0.3<0.5 thou/cu mm 09/17/2025 9:59 AM [facility] LABORATORYABSOLUTE BASOPHILS0.0 <0.3 thou/cu 09/17/2025 9:59 AM [facility] Specimen (Source)Anatomical Location / LateralityCollection Method / Volume Collection TimeReceived TimeBloodBLOOD SPECIMEN / UnknownButterfly / Unknown 09/17/2025 8:[address] [facility]09/17/2025 9:[address] [facility] Narrative Authorizing ProviderResult TypeResult StatusMarianne R Radha NPHEMATOLOGYFinal ResultPerforming OrganizationAddressCity/State/ZIP CodePhone Number [facility] [address] [place] [address] * (ABNORMAL) COMP METABOLIC PANEL (09/17/2025 8:15 AM TREATMENT PLANT OPERATOR)ComponentValueRef RangeTest MethodAnalysis TimePerformed AtPathologist VelbdxymaYSZHQY448715 - 145 mmol/L111/17/2024 11:30 AM [facility] LABORATORYPOTASSIUM 3.93.5 - 5.1 mmol/L111/17/2024 11:30 AM [facility] LTQVBIXD77446 - 107 mmol/L111/17/2024 11:30 AM [facility] LABORATORYCO2,XLMYF2034 - 29 mmol/L111/17/2024 11:30 AM [facility] LABORATORYANION FNU237 - 18111/17/2024 11:30 AM [facility] HKPMTMEGMQVDSEYHB8633 - 99 mg/dL09/17/2025 11:30 AM [facility] LABORATORYCALCIUM9.28.8 - 10.4 mg/dL09/17/2025 11:30 AM [facility] LABORATORYComment: Reference ranges for this test were updated on 09/11/2024 to reflect our healthy population more accurately. Reference range changes are not retroactively applied to results, but previous results using the same methodology can be interpreted in the context of the new reference range. UBG787 - 23 mg/dL09/17/2025 11:30 AM [facility] CREATININE0.860.70 - 1.20 mg/dL09/17/2025 11:30 AM [facility] LABORATORYBUN/CREAT THDJA9596 - 11:30 AM [facility] GLBGLSWIYWwGVR36(L)>90 mL/min/1.69f40809/17/2025 11:30 AM [facility] LABORATORYComment:As of 01/19/2022, eGFR is calculated by the CKD-EPI creatinine equation without race adjustment. ??eGFR can be influenced by muscle mass, exercise, and diet. ??The reported eGFR is an estimation onlyand is only applicable if the renal function is stable.ALBUMIN3.7(L)4.0 - 4.9 g/dL 09/17/2025 11:30 AM [facility] LABORATORYPROTEIN,TOTAL7.16.0 - 8.0 g/dL09/17/2025 11:30 AM [facility] BILIRUBIN,TOTAL0.30.0 - 1.2 mg/dL09/17/2025 11:30 AM [facility] LABORATORYALK ZELDXOCWDVF12754 - 129 IU/L111/17/2024 11:30 AM [facility] LABORATORYALT (SGPT)1010 - 50 IU/L111/17/2024 11:30 AM [facility] LABORATORYAST (SGOT)2510 - 50 IU/L111/17/2024 11:30 AM [facility] LABORATORYSpecimen (Source)Anatomical Location / LateralityCollection Method / VolumeCollection TimeReceived TimeBloodBLOOD SPECIMEN / UnknownButterfly / Fxqdycm2809/17/2025 8:15 AM CST09/17/2025 9:48 AM TREATMENT PLANT OPERATOR Narrative Authorizing ProviderResult TypeResult StatusMarianne R Radha NPCHEMISTRYFinal ResultPerforming OrganizationAddressCity/State/ZIP CodePhone Number [facility] [address] [place] [address] from Last 3 Months Additional Health Concerns InfectionOnset DateLast IndicatedMRSA Comment:Order contact precautions. Pt. does not meet criteria for discontinuation of precautions due to having risk factor: chronic leg wounds and chronic indwelling devices (Suprapubic cath) as of May 14 2016 and is not eligible for screening per policy, unless other medical issues warrant the need to do so. MRSA - urine 02/05/14, 08/17/2018 03/01/2019, 04/26/2020 Insurance * Guarantor: Hi Myers AAccount TypeRelation to PatientDate of BirthPhone Billing AddressPersonal/[address] [place] [address] Advance Directives TypeDate RecordedPatient FsflxonyxzunvdJfraiuludolLOAUH56/10/2018Healthcare Directive03/25/2017 1:01 PM03/22/2017Healthcare Zrtnhbeaw32/11/2013 12:00 AM ADVANCE DIRECTIVEHealthcare Tqtdjazgc21/23/2010 12:00 AMADVANCE DIRECTIVEPower of Attorney01/01/2010 12:00 AMPOAHealthcare Directive01/01/2010 12:00 AMADVANCE DIRECTIVE * Full Code (Latest Code Status on File) Date ActivatedDate InactivatedComments06/24/2021 3:05 PM06/26/2021 2:12 PMdementia QuestionAnswerCommentsCode Status Discussion:* Not Discussed * Full Code Date ActivatedDate InactivatedComments05/13/2016 8:24 PM05/14/2016 4:32 PMQuestion AnswerCommentsCode Status Discussion:* Not Discussed * Full Code Date ActivatedDate InactivatedComments05/21/2015 5:22 PM05/24/2015 3:22 PM Care Teams Team MemberRelationshipSpecialtyStart DateEnd Date Gabe White MD [address] [place] [address] PCP - Generalmily Practice11/14/24
== END 2025-11-05 12:35 | disposition home or self-care (01) ==
LOC: NPINS 12:34
PROVIDERS: PCP Family Medicine; Visit Provider Nurse Practitioner Gerontology
DX: R10.24 Suprapubic pain (principal); N39.0 Urinary tract infection, site not specified
CPT/HCPCS: 81001; 87086